=== PATIENT | male | born 1935 | race Caucasian/White ===

== ENCOUNTER 2019-12-13 09:44 | Outpatient (CLI) | payer MEDICARE, SELFPAY ==
--- NOTE | ~2019-12-13 | XR_ITS ---
EXAMINATION: XR shoulder LT min 2V EXAM DATE: 12/13/2019 13:25 INDICATION: No known recent injury provided at this time. Pain of the left shoulder. Adhesive capsul itis. TECHNIQUE: The following left shoulder projections obtained: frontal projection with internal rotatio n, frontal projection with external rotation, Grashey, and scapular Y view (4+ views). There is no p rior study for comparison. FINDINGS: No evidence of left shoulder rotator cuff calcific tendinosis. There is mild to moderate glenohumeral, severe acromioclavicular joint primary osteoarthritis. There are no acute fractures or dislocations identified. There is no subcutaneous gas. The soft tissue is unremarkable. There ar e no radiopaque foreign bodies. IMPRESSION: Advanced left acromioclavicular joint osteoarthritis. Reviewed, dictated and finalized at location B. [employer]IST
== END 2019-12-13 13:01 ==
PROVIDERS: PCP Internal Medicine; Visit Provider Internal Medicine
DX: M75.00 Adhesive capsulitis of unspecified shoulder (principal); M19.012 Primary osteoarthritis, left shoulder
CPT/HCPCS: 73030

== ENCOUNTER 2019-12-13 15:20 | Outpatient (CLI) | payer MEDICARE, SELFPAY ==
[2019-12-13 15:54] LABS: Basophils Percent Auto 0.5 % (0.2-1.2); Eosinophils Absolute Auto 0.2 K/mm3 (0-0.3); Eosinophils Percent Auto 3.2 % (0-4.4); Hematocrit 39.9 % (42.0-52.0); Hemoglobin 12.9 g/dL (14.0-18.0); Immature Granulocyte Absolute 0.01 K/mm3 (0.00-0.031); Immature Granulocyte Percent A 0.2 % (0-0.5); Lymphocytes Absolute Auto 0.79 K/mm3 (0.9-3.2); Lymphocytes Percent Auto 12.6 % (18.3-44.2); Mean Corpuscular HGB Conc 32.3 g/dl (32-36); Mean Corpuscular Hemoglobin 30.3 pg (26-34); Mean Corpuscular Volume 93.7 fl (80-100); Mean Platelet Volume 10.6 fl (7.4-10.4); Monocytes Absolute Auto 0.7 K/mm3 (0.1-0.6); Monocytes Percent Auto 10.5 % (2.6-8.5); Neutrophils Absolute Auto 4.6 K/mm3 (1.3-6.7); Platelet Count Result 191 k/mm3 (150-375); Red Blood Count 4.26 M/mm3 (4.6-6.20); Red Cell Distribution Width 14.8 % (11.5-14.5); White Blood Count 6.3 K/mm3 (4.5-10.0)
[2019-12-13 15:59] LABS: Add Urine Microscopic? NO; Appearance Urine Clear (Clear); Bilirubin Urine Negative (Negative); Blood Urine Negative (Negative); Color Urine Yellow (Yellow); Glucose Urine UA Negative (Negative); Ketones Urine Negative (Negative); Leukocyte Esterase Ur Negative LEU/UL (Negative); Nitrate Urine Negative (Negative); Protein Urine Negative (Negative); Specific Grav Ur 1.012 (1.001-1.035); Urobilinogen Urine Negative mg/dL (<2.0)
[2019-12-13 16:03] LABS: Alanine Aminotransferase 20 U/L (4-50); Albumin Level 4.2 g/dL (3.5-5.1); Alkaline Phosphatase 80 U/L (38-126); Aspartate Amino Transferase 24 U/L (17-59); Bilirubin,Total 0.6 mg/dL (0.2-1.3); Blood Urea Nitrogen 13 mg/dL (9-20); Calcium 9.2 mg/dL (8.4-10.2); Carbon Dioxide 25 mmol/L (22-30); Chloride 100 mmol/L (98-107); Cholesterol 168 mg/dL (0-200); Estimated Glomerular Filt Rate > 60; Glucose 141 mg/dL (75-110); HDL Direct 52 mg/dL; Potassium 4.3 mmol/L (3.4-5.0); Sodium 140 mmol/L (137-145); Triglycerides 173 mg/dL (<150)
[2019-12-13 16:15] LABS: LDL Cholesterol Direct 88 mg/dL
[2019-12-13 16:36] LABS: Prostate Specific Antigen < 0.1 ng/mL (< OR = 4.0)
[2019-12-13 16:44] LABS: Iron 91 ug/dL (49-181)
[2019-12-13 16:53] LABS: Percent Iron Saturation 26 % (20-50)
[2019-12-13 17:04] LABS: Vitamin D 25 Hydroxy 28.5 ng/mL
[2019-12-13 17:15] LABS: Folic Acid > 20.0 ng/mL (2.76->20)
== END 2019-12-13 15:21 | disposition home or self-care (01) ==
PROVIDERS: PCP Internal Medicine; Visit Provider Internal Medicine
DX: E11.9 Type 2 diabetes mellitus without complications (principal); E61.1 Iron deficiency; E78.5 Hyperlipidemia, unspecified; Z85.46 Personal history of malignant neoplasm of prostate; Z79.899 Other long term (current) drug therapy
CPT/HCPCS: 36415; 80053; 80061; 81003; 82306; 82607; 82728; 82746; 83036; 83540; 83550; 84153; 84443; 85025

== ENCOUNTER 2020-06-27 11:16 | Outpatient (CLI) | payer MEDICARE, SELFPAY ==
--- NOTE | ~2020-06-27 | XR_ITS ---
XR knee RT 3V, XR knee LT 3V 06/27/2020 11:45 Indication: Bilateral knee pain Procedure: 3 views of each knee Comparison: No prior studies for comparison. Findings: There is moderate bilateral osteoarthritis of the knees. There is chondrocalcinosis. No sig nificant joint effusion. No acute fracture or traumatic malalignment. Impression: 1: Moderate bilateral osteoarthritis of the knees. 2: Chondrocalcinosis. Reviewed, dictated and finalized at location A. Impression: 1: Moderate bilateral osteoarthritis of the knees. 2: Chondrocalcinosis. Impression: 1: Moderate bilateral osteoarthritis of the knees. 2: Chondrocalcinosis.
== END 2020-06-27 11:17 | disposition home or self-care (01) ==
PROVIDERS: PCP Internal Medicine; Visit Provider Internal Medicine
DX: M17.0 Bilateral primary osteoarthritis of knee (principal)
CPT/HCPCS: 73562

== ENCOUNTER 2022-02-03 12:02 | Outpatient (CLI) | payer MEDICARE, SELFPAY ==
--- NOTE | 2022-02-10 12:56 | WPDPFTINT ---
PFT Procedure Performed PFT Procedure Performed Plethysmography (Lung Vol) Diffusing Cap (DLCO) Flow Vol Loop Spirometry w/o Bronchodil PFT Interpretation DOS: 02/03/2022 REQUESTING: Dr. Eleuterio Hayden REASON FOR TESTING: Dyspnea PULMONARY FUNCTION TESTS Results are reliable and reproducible. Spirometry: FEV1 is 62% predicted, 1.44 L. This is mildly reduced. The FVC is mildly reduced 76% predicted, 2.38 L. The FEV1/FVC ratio is 61%, reduced. no bronchodilator was given. This shows a mild obstructive ventilatory impairment. Lung volumes: The total lung capacity is normal, 103% predicted, 6.22 L. The slow vital capacity is 96% predicted. This is significantly larger than the forced vital capacity obtained in spirometry. This is consistent with dynamic airflow obstruction. residual volume is 130% consistent with mild air trapping. The RV/TLC is increased 52% consistent with air trapping. Airway resistance is increased, 415%. Diffusion: DLCO is 56%, moderately reduced. This only partially corrects when adjusted for alveolar volume, DLCO /VA is 71% predicted. Flow volume loop: The flow volume loop shows mild scooping of the expiratory limb. IMPRESSION: This pulmonary function test without bronchodilator shows a mild obstructive ventilatory impairment, mild air trapping, and a moderate diffusion impairment. No bronchodilator was given. The patient has a history of smoking. This pattern could represent emphysema if bronchodilator had been administered without improvement in flows. If he had increased flows, he may have asthma/COPD overlap. Consider a trial of bronchodilator therapy. Toshia Orozco MD
--- NOTE | 2022-02-10 13:14 | WPDPFTINT ---
PFT Procedure Performed PFT Procedure Performed Plethysmography (Lung Vol) Diffusing Cap (DLCO) Flow Vol Loop Spirometry w/o Bronchodil PFT Interpretation DOS: 02/03/2022 REQUESTING: Dr. Nimisha Vásquez REASON FOR TESTING: Dyspnea PULMONARY FUNCTION TESTS Results are reliable and reproducible. Spirometry: FEV1 is 74% predicted, 2.77 L. FVC is 81%, normal, 3.92 L. The FEV1/FVC ratio is normal 71% predicted. No bronchodilator was administered. Lung volumes: Total lung capacity is increased, 143% predicted, 10.22 L consistent with moderate hyperinflation. Residual volume is severely increased to 178% predicted, 6.31 L. This shows severe air trapping. The RV/TLC ratio was increased 62%. Airway resistance is increased 180%. Diffusion: DLCO is 107%, normal. Flow volume loop: IMPRESSION: This patient has a mild obstructive ventilatory impairment Toshia Orozco MD
== END 2022-02-03 12:03 | disposition home or self-care (01) ==
PROVIDERS: PCP Internal Medicine; Visit Provider Internal Medicine
DX: R06.00 Dyspnea, unspecified (principal)
CPT/HCPCS: 94375; 94726; 94729

== ENCOUNTER 2025-03-11 16:58 | Inpatient (IN) | payer MEDICARE, SELFPAY ==
[2025-03-11] VITALS (8 sets, daily range): BP systolic 115–145; BP diastolic 63–97; PULSE 99–124; RESP 16–23; TEMP 36–36.3; O2SAT 95–100; BMI 23.2
--- NOTE | ~2025-03-11 | MR_ITS ---
MR brain/brain stem wo/w con Ordering provider: Marquise Roque MD History: 89 years Male with . CONFUSION . Comparison: CT head performed yesterday. Technique: MRI brain was performed with and without contrast. 15 mL ProHance was given IV. FINDINGS: BONES: Normal. CRANIOCERVICAL JUNCTION: normal. Anterolisthesis at the level of C4-C5 and C5-C6. PITUITARY: Normal. MAJOR INTRACRANIAL VESSELS: Normal flow void. OPTIC NERVES AND CRANIAL NERVES VII AND VIII COMPLEXES: Grossly normal. BRAIN PARENCHYMA AND CSF SPACES: Moderate nonspecific T2 white matter hyperintensities are seen in a bilateral periventricular and deep white matter distribution which are likely related to chronic isc hemic small vessel disease. Moderate diffuse cortical atrophy. FLAIR and T2 hyperintense signal area also seen in the montrell. The brainstem and cerebellum are normal. No acute or chronic intracranial hemorrhage. No extra axial fluid collections. Diffusion weighted an d ADC mapping images reveal no recent ischemia. No midline shift or mass effect. PARANASAL SINUSES: Normal. MASTOIDS: Effusions seen in the right mastoid air cells. SUPERFICIAL/SURROUNDING SOFT TISSUES: Normal. IMPRESSION: 1. No evidence of acute intracranial process. 2. Brain atrophy with deep white matter ischemic changes. T2 and FLAIR hyperintense signal also seen in the montrell which is most likely ischemic. Clinical correlation advised. Reviewed, dictated and finalized at location A. IMPRESSION: 1. No evidence of acute intracranial process. 2. Brain atrophy with deep white matter ischemic changes. T2 and FLAIR hyperin tense signal also seen in the montrell which is most likely ischemic. Clinical becki elation advised.
--- NOTE | ~2025-03-11 | XR_ITS ---
XR chest 1V Ordering provider: Marquise Roque MD History: 89 years Male with . ALTERED . Comparison: March 10, 2007 FINDINGS: MEDIASTINUM: The cardiac silhouette is moderately enlarged. LUNGS: No infiltrates, effusions or pneumothorax. OTHER: No free air under the diaphragm. Degenerative changes of the spine with dextroscoliosis. IMPRESSION: No acute cardiopulmonary pathology. Reviewed, dictated and finalized at location A.
--- NOTE | ~2025-03-11 | CT_ITS ---
CT brain wo con Ordering provider: Marquise Roque MD History: 89 years Male with . ALTERED . Comparison: None. Technique: CT of the head without contrast. Radiation reduction technique utilized.The dose-length pr oduct was 605.33 mGy-cm. FINDINGS: BRAIN PARENCHYMA AND CSF SPACES: Mild leukoaraiosis and diffuse cortical atrophy. Mild atheromatous d isease. No midline shift, mass effect or hemorrhage. The brain parenchyma and CSF spaces are otherwise norm al. VISUALIZED PARANASAL SINUSES: Well aerated. MASTOIDS: Well aerated. BONES: The bones appear intact. SOFT TISSUES: Visualized nasopharynx is normal. Superficial soft tissues are normal. IMPRESSION: No acute intracranial findings. Reviewed, dictated and finalized at location A.
--- NOTE | 2025-03-11 17:10 | ECG_ITS ---
Test Date: 2025-03-11 17:35:23 Measurements Intervals [place] Rate: 121 P: 223 [place]: 218 QRS: -73 QRSD: 142 T: 18 QT: 341 QTc: 486 Interpretive Statements SINUS TACHYCARDIA WITH FIRST DEGREE AV BLOCK RIGHT BUNDLE BRANCH BLOCK [120+ ms QRS DURATION, UPRIGHT V1, 40+ ms S IN I/aVL/V4/V5/V6] LEFT ANTERIOR FASCICULAR BLOCK [QRS AXIS <= -45, QR IN I, RS IN II] No previous ECG available for comparison Electronically Signed On 03-12-2025 10:06:53 CDT by Pratik Esquivel M.D.
[2025-03-11 17:28] LABS: Hemoglobin 13.6 g/dL (14.0-18.0); Mean Corpuscular HGB Conc 33.2 g/dl (32-36); Mean Corpuscular Hemoglobin 30.8 pg (26-34); Mean Platelet Volume 10.4 fl (7.4-10.4); Platelet Count Result 221 k/mm3 (150-375); Red Blood Count 4.41 M/mm3 (4.6-6.20); Red Cell Distribution Width 14.6 % (11.5-14.5); White Blood Count 13.7 K/mm3 (4.5-10.0)
[2025-03-11 17:42] LABS: Alanine Aminotransferase 31 U/L (6-50); Albumin Level 4.1 g/dL (3.5-5.1); Alkaline Phosphatase 100 U/L (38-126); Anion Gap 14 mmol/L (4-12); Aspartate Amino Transferase 71 U/L (17-59); Bilirubin,Total 1.4 mg/dL (0.2-1.3); Blood Urea Nitrogen 29 mg/dL (9-20); Calcium 9.3 mg/dL (8.4-10.2); Carbon Dioxide 20 mmol/L (22-30); Chloride 110 mmol/L (98-107); Estimated Glomerular Filt Rate 48; Glucose 215 mg/dL (65-110); Potassium 3.9 mmol/L (3.4-5.0); Sodium 144 mmol/L (137-145)
--- NOTE | 2025-03-11 17:45 | ED_ITS ---
HPI - Altered Mental Status General Chief Complaint: Altered Mental Status Stated Complaint: AMS Time Seen by Provider: 03/11/25 17:45 Source: patient, family and EMS Mode of arrival: EMS History of Present Illness HPI narrative: 89 YEARS OLD WHITE MALE LIVES ALONE, AWAKE ALERT ORIENTED X4 BASELINE, LAST TIME WAS SEEN BY HIS SON 1 WEEK AGO, SON WENT TO VISIT HIM TODAY AND FOUND HIM SITTING ON THE TOILET FOR UNKNOWN DURATION, UNABLE TO GET UP, CONFUSED. PATIENT DENIES ANY PAIN, FEVER, CHILLS, NAUSEA, VOMITING, CHEST PAIN, SHORTNESS OF BREATH, ABDOMINAL PAIN OR BACK PAIN OR URINARY SYMPTOMS. PATIENT CURRENTLY AWAKE AND ORIENTED TO HIS NAME AND AGE ONLY MD complaint: altered mental status Related Data Home Medications ?Medication ?Instructions ?Recorded ?Confirmed ?Last Taken ?Type aspirin 81 mg tablet,delayed 81 mg PO DAILY 12/13/19 06/27/20 Unknown History release (Adult Low Dose Aspirin) diphenhydramine HCl 25 mg tablet 25 mg PO Q6H PRN 12/13/19 06/27/20 Unknown History (Benadryl Allergy) ferrous sulfate 325 mg (65 mg 325 mg PO DAILY 12/13/19 06/27/20 Unknown History iron) tablet (FerrouSul) glucosamine HCl 1,500 mg tablet 1,500 mg PO DAILY 12/13/19 06/27/20 Unknown History Allergies Allergy/AdvReac Type Severity Reaction Status Date / Time METHYLATE Allergy Mild RASH Uncoded 06/27/20 10:33 Review of Systems 2 Review of Systems: All systems reviewed & are unremarkable except as noted in HPI and below Exam 2 Narrative: GENERAL APPEARANCE: WELL-DEVELOPED, WELL-NOURISHED SKIN: NORMAL COLOR 2+ EDEMA RIGHT LOWER EXTREMITY, 1+ EDEMA LEFT LOWER EXTREMITY HEAD: NORMOCEPHALIC, NONTRAUMATIC EYES: CLEAR CONJUNCTIVA ENT: DRY ORAL CAVITY, NECK: SUPPLE, NONTENDER CHEST AND RESPIRATORY: AIRWAY PATENT, NO RESPIRATORY DISTRESS, NO ACCESSORY MUSCLE USE HEART: REGULAR RATE/RHYTHM ABDOMEN: SOFT, NONTENDER, NO ORGANOMEGALY, QUIET BOWEL SOUNDS GENITAL EXAMINATION SHOWING 2+ EDEMA OF THE SCROTUM AND PENIS, NO WEEPING, NO ERYTHEMA, NO WARMTH, NO LOCALIZED TENDERNESS. VASCULAR: NORMAL PERIPHERAL PULSES, NORMAL CAPILLARY REFILL. MUSCULOSKELETAL: LIMITED RANGE OF MOTION OF LEFT KNEE, CHRONIC AND LEFT SHOULDER, CHRONIC, NO BRUISES, NO SWELLING, NO DEFORMITY NEUROLOGIC: ALERT AND ORIENTED ? TO HIS NAME AND AGE ONLY, NO GROSS MOTOR DEFICIT DIAGNOSIS ALTERED MENTAL STATUS, RHABDOMYOLYSIS, KATHARINA, SCROTAL EDEMA Course Vital Signs Vital signs: Vital Signs Temperature 36.3 C L 03/11/25 17:03 Pulse Rate 124 H 03/11/25 17:03 Respiratory Rate 16 03/11/25 17:03 Blood Pressure 145/94 H 03/11/25 17:03 Pulse Oximetry 100 03/11/25 17:03 Oxygen Delivery Room Air 03/11/25 17:03 Temperature 36.3 C L 03/11/25 17:03 Pulse Rate 122 H 03/11/25 19:21 Respiratory Rate 20 03/11/25 19:21 Blood Pressure 141/95 H 03/11/25 19:21 Pulse Oximetry 99 03/11/25 19:23 Oxygen Delivery Room Air 03/11/25 19:23 MDM - Altered Mental Status MDM Narrative Medical decision making narrative: PATIENT CAME TO THE ED WITH CONFUSION VITAL SIGNS SHOWING BLOOD PRESSURE 145/94, HEART RATE 1 T1A 4 OTHERWISE WITHIN NORMAL LIMIT PHYSICAL EXAMINATION SHOWING THAT THE PATIENT AWAKE, ALERT ORIENTED TO HIS NAME AND AGE ONLY, DRY ORAL MOUTH WITH CHIPS LIPS DIFFERENTIAL DIAGNOSIS INCLUDE ACUTE CVA, DEHYDRATION, ELECTROLYTE IMBALANCE, URINARY TRACT INFECTION, PNEUMONIA, METABOLIC ENCEPHALOPATHY BLOOD WORKUP TODAY INCLUDES CBC, CMP, TROPONIN, TSH, COAGS, CPK SHOWED WBC 30.7, HEMOGLOBIN 13.6, BUN 29, CREATININE 1.39, GLUCOSE 215, AST 71, TOTAL CPK 2337, URINALYSIS SHOWED NO EVIDENCE OF INFECTION CHEST X-RAY SHOWED NO ACUTE ABNORMALITY CT HEAD WITHOUT SHOWED NO SIGNIFICANT ABNORMALITY DIAGNOSIS: ACUTE ALTERED MENTAL STATUS, KATHARINA, RHABDOMYOLYSIS, EDEMATOUS SCROTUM ADMIT TO HOSPITALIST Differential Diagnosis Differential diagnosis: Likely other ( ABOVE) Lab Data Attestation: I reviewed the patient's lab results. 03/11/25 17:23 03/11/25 17:23 Labs: Lab Results 03/11/25 03/11/25 Range/Units 17:23 19:21 WBC 13.7 H (4.5-10.0) K/mm3 RBC 4.41 L (4.6-6.20) M/mm3 Hgb 13.6 L (14.0-18.0) g/dL Hct 41.0 L (42.0-52.0) % MCV 93.0 (80-100) fl MCH 30.8 (26-34) pg MCHC 33.2 (32-36) g/dl RDW 14.6 H (11.5-14.5) % Plt Count 221 (150-375) k/mm3 MPV 10.4 (7.4-10.4) fl Immature Gran % (Auto) Not Reportable Neut % (Auto) Not Reportable Lymph % (Auto) Not Reportable [place] % (Auto) Not Reportable Eos % (Auto) Not Reportable Baso % (Auto) Not Reportable Lymph # (Auto) Not Reportable [place] # (Auto) Not Reportable Eos # (Auto) Not Reportable Baso # (Auto) Not Reportable Abs Immat Gran (auto) Not Reportable Absolute Neuts (auto) Not Reportable Absolute Nucleated RBC Not Reportable Total Counted 100 Neutrophils % (Manual) 88 H (46-73) % Band Neutrophils % 1 (0-6) % Lymphocytes % (Manual) 2.0 L (18-44) % Monocytes % (Manual) 9 (3-9) % Nucleated RBC % Not Reportable Abs Neuts (Manual) 12.19 H (1.3-6.7) K/mm3 Abs Lymphs (Manual) 0.27 L (1.1-4.5) K/mm3 Abs Monocytes (Manual) 1.23 H (0.1-0.90) K/mm3 Platelet Estimate Adequate (Adequate) Anisocytosis 1+ Schistocytes None seen PT 14.0 (11.1-14.7) Seconds INR 1.0 APTT 25.2 (22.3-36.8) Seconds Sodium 144 (137-145) mmol/L Potassium 3.9 (3.4-5.0) mmol/L Chloride 110 H (98-107) mmol/L Carbon Dioxide 20 L (22-30) mmol/L Anion Gap 14 H (4-12) mmol/L BUN 29 H D (9-20) mg/dL Creatinine 1.39 H (0.7-1.3) mg/dL Estim Creat Clear Calc Not Reportable Estimated GFR 48 L (59 - ) Glucose 215 H (65-110) mg/dL Calcium 9.3 (8.4-10.2) mg/dL Total Bilirubin 1.4 H (0.2-1.3) mg/dL AST 71 H (17-59) U/L ALT 31 (6-50) U/L Alkaline Phosphatase 100 (38-126) U/L Total Creatine Kinase 2337 H (55-170) U/L Total Protein 7.0 (6.3-8.2) g/dL Albumin 4.1 (3.5-5.1) g/dL Urine Color Yellow (Yellow) Urine Appearance Clear (Clear) Urine pH 5.5 (5.0-9.0) Ur Specific Jber 1.018 (1.001-1.035) Urine Protein 2+ H (Negative) mg/dL Urine Glucose (UA) Negative (Negative) mg/dL Urine Ketones 1+ H (Negative) mg/dL Ur Blood (Man) 2+ H (Negative) Urine Nitrate Negative (Negative) Urine Bilirubin Negative (Negative) Urine Urobilinogen 0.2 (<2.0) mg/dL Add Ur Microanalysis Reviewed Leukocyte Esterase Rfl Negative (Negative) KRISHNA/UL Urine RBC 0-2 (0-2) /hpf Urine WBC 0-5 (0-3) /hpf Ur Squamous Epith Cells None seen (Few) /hpf Urine Bacteria None seen /hpf Urine Casts 3-5 Urine Opiates Screen Negative (Negative) Urine Methadone Screen Negative (Negative) Ur Barbiturates Screen Negative (Negative) Ur Phencyclidine Scrn Negative (Negative) Ur Amphetamine Screen Negative (Negative) U Benzodiazepines Scrn Negative (Negative) Urine Cocaine Screen Negative (Negative) U Cannabinoids Screen Negative (Negative) Imaging Data Radiologist's impression: Impressions Head CT 03/11/25 18:26 IMPRESSION: No acute intracranial findings. Chest X-Ray 03/11/25 18:41 IMPRESSION: No acute cardiopulmonary pathology. ECG Data EKG #1: Attestation: I personally reviewed and interpreted this ECG as follows: ECG completion date: 03/11/25 Prior ECG tracings: available for review Interpretation: MULTIFOCAL ATRIAL TACHYCARDIA AT 121 BEATS PER MINUTE, FIRST-DEGREE HEART BLOCK, RIGHT BUNDLE-BRANCH BLOCK, NO PREVIOUS EKG AVAILABLE FOR COMPARISON Critical Care Time Critical Care Time Critical Care Time: No Discharge Plan Discharge Clinical Impression: Acute alteration in mental status, KATHARINA (acute kidney injury), Rhabdomyolysis, Multifocal atrial tachycardia Patient Disposition: Still a Patient Condition: Stable Patient Language: Ugandan Prescriptions: No Action Januvia 50 mg tablet 50 mg PO DAILY Qty: 30 2RF aspirin [Adult Low Dose Aspirin] 81 mg tablet,delayed release (DR/EC) 81 mg PO DAILY ferrous sulfate [FerrouSul] 325 mg (65 mg iron) tablet 325 mg PO DAILY glucosamine HCl 1,500 mg tablet 1,500 mg PO DAILY Rx Instructions: administer with a meal diphenhydramine HCl [Benadryl Allergy] 25 mg tablet 25 mg PO Q6H PRN metformin 500 mg tablet 1,000 mg PO BID Qty: 360 1RF lisinopril 10 mg tablet 10 mg PO DAILY Qty: 90 1RF atorvastatin 20 mg tablet 20 mg PO DAILY Qty: 90 1RF Follow-up/Referrals: Catracho,Eleuterio Hernandes MD [Primary Care Provider] -
[2025-03-11 17:48] LABS: Partial Thromboplastin Time 25.2 Seconds (22.3-36.8)
[2025-03-11 18:00] LABS: Band Neutrophils Percent 1 % (0-6); Lymphocytes Absolute Manual 0.27 K/mm3 (1.1-4.5); Monocytes Absolute Manual 1.23 K/mm3 (0.1-0.90); Monocytes Percent Manual 9 % (3-9); Neutrophils Absolute Manual 12.19 K/mm3 (1.3-6.7); Neutrophils Percent Manual 88 % (46-73); Platelet Estimate Adequate (Adequate); Total Cells Counted 100
[2025-03-11] MEDS: LACTATED RINGERS 1,000 ML 999 ML IV CONT (18:00)
[2025-03-11 18:01] LABS: Anisocytosis 1+; Schistocytes None Seen
--- OUTSIDE RECORDS SUMMARY | 2025-03-11 18:01 | XMS_ITS | CONTINUITY OF CARE DOCUMENT ---
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 Arun Mcdowell MD LIGHTHEADEDNESS active ? Arun Mcdowell MD SHORTNESS OF BREATH active ? Arun elder MD EDEMA active ? Arun Mcdowell MD BACK PAIN active ? Arun Mcdowell MD ADENOCARCINOMA, PROSTATE, HX OF active ? Rhett Mcdowell MD MITRAL REGURGITATION active Arun pagan MD RBBB active Arun Mcdowell MD CHEST PAIN-TYPE TO BE DETERMINED active Kandy Mcdowell MD BRADYCARDIA SINUS active Arun Mcdowell MD ENCOUNTERS Date Type Provider Location Encounter Diag nosis 0 - 0 In-person encounter Office Visit Arun Mcdowell MD [facility] DIZZINESSLIGHTHEADEDNESSSHORTNESS OF BREATHEDEMABACK PAINADENOCARCINOMA, PROSTATE, HX OFMITRAL REGURGITATIONRBBBCHEST PAIN-TYPE TO BE DETERMINEDBRADYCARDIA SINUS VITAL SIGNS Date Observation Value Provider blood pressure, diastolic 70 mm[Hg] Joseph Hendrix RN blood pressure, systolic 140 mm[Hg] Castro Hendrix RN pulse rate 53 /min Castro Hendrix RN oxygen saturation, oximetry 96 % Castro Hendrix RN respiratory rate E&M 18 /min Castro pires RN weight E&M 183 [lb_av] Castro Hendrix RN HISTORY OF MEDICATION USE Medication Status Instructions Dates Provider Indications Com ments LISINOPRIL 10 MG ORAL TABLET active ONE TAB. DAILY 0 Arun Mcdowell MD VERAPAMIL HCL ER 240 MG ORAL TABLET EXTENDED RELEASE completed ONE TAB. DAILY - 0 Arun Mcdwoell MD VYTORIN 10-40 MG ORAL TABLET active ONE TAB. AT BEDTIME Castro Hendrix RN ASPIRIN 81 MG ORAL TABLET active ONE TAB. DAILY Castro Hendrix RN SOCIAL HISTORY Date Observation Value Provider social history E&M Marital Statu s: J ob Status: Retired L earl with family/friends Arun Mcdowell MD smoking status Quit Arun joya MD drug use none Arun pagan MD smoking/tobacco cess ation, patient education and counseling yes Arun Mcdowell MD social history reviewed E&M reviewed Arun Mcdowell MD physical exercise, frequency, days per week yes [employer] caffeine use, averag e drinks per day yes LinkLog alcohol use, average drinks per day 1-3 drinks per day LinkLog number of years as a smoker 10 years or m ore [facility] smoking status Quit LinkLog physical exercise, frequency, days per week yes LinkLog caffeine use, averag e drinks per day yes [employer]Log alcohol use, average drinks per day 1-3 drinks per day [employer] number of years as a smoker 10 years or m ore [facility] smoking status Quit LinkLog physical exercise, frequency, days per week yes LinkLog caffeine use, averag e drinks per day yes LinkLog alcohol use, average drinks per day 1-3 drinks per day [employer] number of [facility] as a [facility] MENTAL STATUS Date Observation Value Provider assessment of judgme nt and insight E&M Alert and oriented to time, place and person. Mood and affect are normal. Castro Hendrix RN INSURANCE PROVIDERS Payer name Policy type / Coverage type Monica red democrat ID [id number] HMO Other [id number] TREATMENT PLAN Date Name Stress Test - Nuclea r Spirometry Complete Echo HISTORY OF PROCEDURES Procedure Date Procedure Name Provider Procedure Notes S tatus EKG Arun Mcdowell MD comp leted
--- OUTSIDE RECORDS SUMMARY | 2025-03-11 18:01 | XMS_ITS | Data Portability ---
Author Organization [facility], Main Office Address [address] [place] [address] Assessment No assessment recorded. Plan of Treatment Reminders Order Date Submit Date Provider Last Modified By Organization Details Last Modified Time Details Appointments None recorded . Lab HbA1c (hemoglo bin A1c), blood 024 01/12/20 24 [facility], [address] [place], [address], 4 15:47:53 lipid panel, serum 024 01/12/20 24 [email or web address] [facility], [address] [place], [address], 4 15:47:53 CMP, serum or plasma 024 01/12/20 24 [email or web address] [facility], [address] [place], [address], 4 15:47:53 CBC w/ auto diff 024 01/12/20 24 [email or web address] [facility], [address] [place], [address], 4 15:47:53 HbA1c (hemoglo bin A1c), blood 023 09/15/20 23 [facility], [address] [place], [address], 3 15:02:34 microalb umin/cre atinine, mass ratio, urine 023 09/15/20 23 [facility], [address] [place], [address], 3 15:02:31 lipid panel, serum 023 09/15/20 23 [facility], [address] [place], [address], 3 15:02:30 CMP, serum or plasma 023 09/15/20 23 [facility], [address] [place], [address], 3 15:02:32 CBC w/ auto diff 023 09/15/20 23 [facility], [address] [place], [address], 3 15:02:33 PSA, serum or plasma 023 01/07/[id number] [place] [address], [address] [place], [address], 3 15:26:29 HbA1c (hemoglo bin A1c), blood 023 01/07/[email or web address] [place] [address], [address] [place], [address], 3 15:26:28 microalb umin/cre atinine, mass ratio, urine 023 01/07/[email or web address] [place] [address], [address] [place], [address], 3 15:26:29 lipid panel, serum 023 01/07/[email or web address] [place] [address], [address] [place], [address], 3 15:26:28 CMP, serum or plasma 023 01/07/[id number] [place] [address], [address] [place], [address], 3 15:26:28 CBC w/ auto diff 023 01/07/20 23 [email or web address] [facility], [address] [place] [address], [address], 3 15:26:28 Referral None recorded . Procedures None recorded . Surgeries None recorded . Imaging None recorded . Medication Orders None recorded . Patient TargetsNo targets recorded. Patient Instructions Encounter Date Encounter Id Patient Instructions Last Modified By Organization Details Last Modified Time 01/06/2023 [id number] Follow-up hypertension -hyperlipidemia - type 2 diabetes -history of malignant neoplasm of prostate all clinically stable. Will continue with current medication check blood work in the form of CBC, CMP, lipid, hemoglobin A1c, microalbumin and PSA. Continue on current Rx follow-up in four months [email or web address] Not available 01/06/2023 15:16:39 05/19/2023 [id number] Follow-up hypertension-hyper lipidemia - type 2 diabetes -malignant neoplasm of the prostate by history. Blood work performed back in January 18 showed hemoglobin A1c of 7.1. Cholesterol is 156 HDL of 57 LDL of 80. Triglycerides 108. Overall everything else looked good. No reason for for any further evaluation at this time. Will continue on current medications check back in four months and and recheck blood work at that time. Not available 05/19/2023 16:07:28 09/15/2023 [id number] Essential hypertension, hyperlipidemia and type 2 diabetes all clinically stable. Last blood work performed showed hemoglobin A1c of 7.1. Cholesterol was 156 HDL 57 LDL of 80. PSA was less than 0.04. Clinically is doing well otherwise. Will continue on current medications check blood work consisting of CBC, CMP, lipid, hemoglobin A1c and microalbumin. Portions of the record may have been created with voice recognition software. Occasional wrong-word or s ound-a-like substitutions may have occurred due to the inherent limitations of voice recognition software. Read the chart carefully and recognize, using context, where substitutions have occurred. [email or web address] Not available 09/15/2023 15:51:16 01/12/2024 [id number] Follow-up hypertension, hyperlipidemia, type 2 diabetes and primary malignant neoplasm of the prostate. All clinically stable no interval complaints of any new problems. Will check blood work in the form of CBC, CMP, lipid, hemoglobin A1c. Continue on current Rx follow-up in four months. Next Appt: 4 Months Approximate Date: 05/11/2024 Portions of the record may have been created with voice recognition software. Occasional wrong-word or s ound-a-like substitutions may have occurred due to the inherent limitations of voice recognition software. Read the chart carefully and recognize, using context, where substitutions have occurred. [email or web address] Not available 01/12/2024 15:56:29 Reason for Referral None Reported. Results Created Date Observation Date Name Description Value Unit Range Abnormal Flag Note LastModifiedBy Organization Detail LastModifiedTime 09/10/2009/12/2022 HEMOG LOBIN A1C hemoglobin A1C 7.0 %_of_ total _HGB <5.7 high For trinh reid witho ut known diabe vivi, a hemog lobin A1c value of 6.5% or great er indic ates that they may have diabe vivi and this shoul d be confi rmed with a follo w-up test. For trinh reid with known diabe vivi, a value <7% indic ates that their diabe vivi is well contr olled and a value great er than or equal to 7% indic ates subop timal contr ol. A1c targe ts shoul d be indiv idual ized based on durat ion of diabe vivi, age, comor bid condi tions , and other consi derat ions. Curre ntly, no conse nsus exist jerrod li use of hemog lobin A1c for diagn osis of diabe vivi for child wm. Not Available [facility] [facility] [address] [place], [address], 09/12/2022 14:03:16 09/10/20 22 09/12/2022 CBC (INCL UDES DIFF/ PLT) white blood cell count 4.9 thous and/u L 3.8-10 .8 normal Not Available [facility] [facility] [address] [place], [address], 09/12/2022 14:03:15 09/10/20 22 09/12/2022 CBC (INCL UDES DIFF/ PLT) red blood cell count 4.23 geraldo on/uL 4.20-5 .80 normal Not Available [address], [address], 09/12/2022 14:03:15 09/10/20 22 09/12/2022 CBC (INCL UDES DIFF/ PLT) hemoglobin 13.7 g/dL 13.2-1 7.1 normal Not Available [address], [address], 09/12/2022 14:03:15 09/10/20 22 09/12/2022 CBC (INCL UDES DIFF/ PLT) hematocrit 40.3 % 38.5-5 0.0 normal Not Available [address], [address], 09/12/2022 14:03:15 09/10/20 22 09/12/2022 CBC (INCL UDES DIFF/ PLT) MCV 95.3 fL 80.0-1 00.0 normal Not Available [address], [address], 09/12/2022 14:03:15 09/10/20 22 09/12/2022 CBC (INCL UDES DIFF/ PLT) MCH 32.4 pg 27.0-3 3.0 normal Not Available [address], [address], 09/12/2022 14:03:15 09/10/20 22 09/12/2022 CBC (INCL UDES DIFF/ PLT) MCHC 34.0 g/dL 32.0-3 6.0 normal Not Available [address], [address], 09/12/2022 14:03:15 09/10/20 22 09/12/2022 CBC (INCL UDES DIFF/ PLT) RDW 13.3 % 11.0-1 5.0 normal Not Available [address], [address], 09/12/2022 14:03:15 09/10/20 22 09/12/2022 CBC (INCL UDES DIFF/ PLT) platelet count 173 thous and/u L 140-40 0 normal Not Available [address], [address], 09/12/2022 14:03:15 09/10/20 22 09/12/2022 CBC (INCL UDES DIFF/ PLT) MPV 10.6 fL 7.5-12 .5 normal Not Available [address], [address], 09/12/2022 14:03:15 09/10/20 22 09/12/2022 CBC (INCL UDES DIFF/ PLT) absolute neutrophils 3616 cells /uL 1500-7 800 normal Not Available [address], [address], 09/12/2022 14:03:15 09/10/20 22 09/12/2022 CBC (INCL UDES DIFF/ PLT) absolute lymphocytes 608 cells /uL 850-39 00 low Not Available [address], [address], 09/12/2022 14:03:15 09/10/20 22 09/12/2022 CBC (INCL UDES DIFF/ PLT) absolute monocytes 466 cells /uL 200-95 0 normal Not Available [address], [address], 09/12/2022 14:03:15 09/10/20 22 09/12/2022 CBC (INCL UDES DIFF/ PLT) absolute eosinophils 191 cells /uL 15-500 normal Not Available [address], [address], 09/12/2022 14:03:15 09/10/20 22 09/12/2022 CBC (INCL UDES DIFF/ PLT) absolute basophils 20 cells /uL 0-200 normal Not Available [address], [address], 09/12/2022 14:03:15 09/10/20 22 09/12/2022 CBC (INCL UDES DIFF/ PLT) neutrophils 73.8 % normal Not Available [address], [address], 09/12/2022 14:03:15 09/10/20 22 09/12/2022 CBC (INCL UDES DIFF/ PLT) lymphocytes 12.4 % normal Not Available [address], [address], 09/12/2022 14:03:15 09/10/20 22 09/12/2022 CBC (INCL UDES DIFF/ PLT) monocytes 9.5 % normal Not Available [address], [address], 09/12/2022 14:03:15 09/10/20 22 09/12/2022 CBC (INCL UDES DIFF/ PLT) eosinophils 3.9 % normal Not Available [address], [address], 09/12/2022 14:03:15 09/10/20 22 09/12/2022 CBC (INCL UDES DIFF/ PLT) basophils 0.4 % normal Not Available [address], [address], 09/12/2022 14:03:15 09/10/2009/12/2022 ALBUM IN, RANDO M URINE W/O CREAT ININE albumin, urine 1.5 mg/dL see note: normal Refer ence Range : Refer ence Range Not estab lishe d Not Available [address], [address], 09/12/2022 14:03:15 09/10/20 22 09/12/2022 ALBUM IN, RANDO M URINE W/O CREAT ININE ROSANNA The ADA defin es abnor malit ies in album in excre tion as follo ws: Album inuri a Categ ory Resul t (mcg/ mg creat inine ) Miladys l to Mildl y incre ased <30 Moder ately incre ased 30-29 9 Sever marly incre ased > OR = 300 The ADA recom mends that at least two of three speci mens colle cted withi n a 3-6 month perio d be abnor mal befor e consi young g a patie nt to be withi n a diagn ostic categ ory. Not Available [address], [address], 09/12/2022 14:03:15 09/10/20 22 09/12/2022 COMPR EHENS TYRA METAB OLIC PANEL glucose 166 mg/dL 65-99 high Fasti ng refer ence inter komal For someo ne witho ut known diabe vivi, a gluco se value >125 mg/dL indic ates that they may have diabe vivi and this shoul d be confi rmed with a follo w-up test. Not Available [address], [address], 09/12/2022 14:03:14 09/10/20 22 09/12/2022 COMPR EHENS TYRA METAB OLIC PANEL urea nitrogen (BUN) 18 mg/dL 7-25 normal Not Available [address] [address] [place], [address], 09/12/2022 14:03:14 09/10/20 22 09/12/2022 COMPR EHENS TYRA METAB OLIC PANEL creatinine 0.88 mg/dL 0.70-1 .22 normal Not Available [facility] [address], [address], 09/12/2022 14:03:14 09/10/20 22 09/12/2022 COMPR EHENS TYRA METAB OLIC PANEL eGFR 84 mL/mi n/1.7 3m2 > or = 60 normal The eGFR is based on the CKD-E PI 2020 equat ion. To calcu late the new eGFR from a previ ous Creat inine or Cysta tin C resul t, go to https ://abdiel chiu.zhen phelps.o parth/pr ofess ional s/ kdoqi /gfr% 5Fcal culat or Not Available [address] [address] [place], [address], 09/12/2022 14:03:14 09/10/20 22 09/12/2022 COMPR EHENS TYRA METAB OLIC PANEL BUN/creatini ne ratio not applic able (calc ) 6-22 Not Available [address], [address], 09/12/2022 14:03:14 09/10/20 22 09/12/2022 COMPR EHENS TYRA METAB OLIC PANEL sodium 140 mmol/ L 135-14 6 normal Not Available [address] [address] [place], [address], 09/12/2022 14:03:14 09/10/20 22 09/12/2022 COMPR EHENS TYRA METAB OLIC PANEL potassium 4.2 mmol/ L 3.5-5. 3 normal Not Available [address] [address] [place], [address], 09/12/2022 14:03:14 09/10/20 22 09/12/2022 COMPR EHENS TYRA METAB OLIC PANEL chloride 105 mmol/ L 98-110 normal Not Available [employer] [address] [address] [place], [address], 09/12/2022 14:03:14 09/10/20 22 09/12/2022 COMPR EHENS TYRA METAB OLIC PANEL carbon dioxide 28 mmol/ L 20-32 normal Not Available [employer] [address] [address] [place], [address], 09/12/2022 14:03:14 09/10/20 22 09/12/2022 COMPR EHENS TYRA METAB OLIC PANEL calcium 9.0 mg/dL 8.6-10 .3 normal Not Available [address], [address], 09/12/2022 14:03:14 09/10/20 22 09/12/2022 COMPR EHENS TYRA METAB OLIC PANEL protein, total 6.2 g/dL 6.1-8. 1 normal Not Available [address], [address], 09/12/2022 14:03:14 09/10/20 22 09/12/2022 COMPR EHENS TYRA METAB OLIC PANEL albumin 4.0 g/dL 3.6-5. 1 normal Not Available [address], [address], 09/12/2022 14:03:14 09/10/20 22 09/12/2022 COMPR EHENS TYRA METAB OLIC PANEL globulin 2.2 g/dL_ (calc ) 1.9-3. 7 normal Not Available [address], [address], 09/12/2022 14:03:14 09/10/20 22 09/12/2022 COMPR EHENS TYRA METAB OLIC PANEL albumin/glob ulin ratio 1.8 (calc ) 1.0-2. 5 normal Not Available [address], [address], 09/12/2022 14:03:14 09/10/20 22 09/12/2022 COMPR EHENS TYRA METAB OLIC PANEL bilirubin, total 0.7 mg/dL 0.2-1. 2 normal Not Available [address], [address], 09/12/2022 14:03:14 09/10/20 22 09/12/2022 COMPR EHENS TYRA METAB OLIC PANEL alkaline phosphatase 65 U/L 35-144 normal Not Available [facility] [address], [address], 09/12/2022 14:03:14 09/10/20 22 09/12/2022 COMPR EHENS TYRA METAB OLIC PANEL AST 14 U/L 10-35 normal Not Available [address], [address], 09/12/2022 14:03:14 09/10/20 22 09/12/2022 COMPR EHENS TYRA METAB OLIC PANEL ALT 12 U/L 9-46 normal Not Available [address], [address], 09/12/2022 14:03:14 09/10/20 22 09/12/2022 LIPID PANEL , STAND SOLA cholesterol, total 156 mg/dL <200 normal Not Available [address], [address], 09/12/2022 14:03:14 09/10/20 22 09/12/2022 LIPID PANEL , [place] HDL cholesterol 58 mg/dL > or = 40 normal Not Available [address], [address], 09/12/2022 14:03:14 09/10/20 22 09/12/2022 LIPID PANEL , [place] triglyceride s 79 mg/dL <150 normal Not Available [address], [address], 09/12/2022 14:03:14 09/10/20 22 09/12/2022 LIPID PANEL , [place] LDL-choleste rol 82 mg/dL _(alexx c) normal Refer ence range : <100 Jennifer able range <100 mg/dL for prima ry preve ntion ; <70 mg/dL for patie nts with CHD or diabe tic patie nts with > or = 2 CHD risk facto rs. LDL-C is now calcu lated using the Deya n-[facility] kins simeon stephens n, which is a valid ated novel alfred wray than the Fried latosha equat ion in the estim ation of LDL-C . Deya valdez SS et al. JAIRO. 2013; 310(1 9): 2061- 2068 (http ://ed ucati on.Qu Darrin fitograms. com/f aq/FA Q164) Not Available [employer] [address] [address] [place], [address], 09/12/2022 14:03:14 09/10/2009/12/2022 LIPID PANEL , [place] chol/HDLC ratio 2.7 (calc ) <5.0 normal Not Available [employer] [address] [address] [place], [address], 09/12/2022 14:03:14 09/10/20 22 09/12/2022 LIPID PANEL , [place] non HDL cholesterol 98 mg/dL _(alexx c) <130 normal For patie nts with diabe vivi plus 1 major ASCVD risk facto r, treat ing to a non-H DL-C goal of <100 mg/dL (LDL- C of <70 mg/dL ) is consi florenciad a ashely bob optio n. Not Available [employer] [address] [address] [place], [address], 09/12/2022 14:03:14 02/11/20 23 02/11/2023 LIPID PANEL , [place]A cholesterol, total 156 mg/dL <200 normal Not Available [facility] [address] [address] [place], [address], 02/11/2023 12:53:22 02/11/20 23 02/11/2023 LIPID PANEL , [place] HDL cholesterol 57 mg/dL > or = 40 normal Not Available [facility] [address] [address] [place], [address], 02/11/2023 12:53:22 02/11/20 23 02/11/2023 LIPID PANEL , [place] triglyceride s 108 mg/dL <150 normal Not Available [address], [address], 02/11/2023 12:53:22 02/11/20 23 02/11/2023 LIPID PANEL , [place] LDL-choleste rol 80 mg/dL _(alexx c) normal Refer ence range : <100 Jennifer able range <100 mg/dL for prima ry preve ntion ; <70 mg/dL for patie nts with CHD or diabe tic patie nts with > or = 2 CHD risk facto rs. LDL-C is now calcu lated using the Deya n-[employer] kins calcu angelo n, which is a valid ated novel metho d provi ding sailaja r accur acy than the Fried latosha equat ion in the estim ation of LDL-C . Deya valdez SS et al. JAIRO. 2013; 310(1 9): 2061- 2068 (http ://ed ucati on.Qu estFamilyLeaf. com/f aq/FA Q164) Not Available [address], [address], 02/11/2023 12:53:22 02/11/20 23 02/11/2023 LIPID PANEL , [place] chol/HDLC ratio 2.7 (calc ) <5.0 normal Not Available [facility] [address] [place] [address], [address], 02/11/2023 12:53:22 02/11/20 23 02/11/2023 LIPID PANEL , [place] non HDL cholesterol 99 mg/dL _(alexx c) <130 normal For patie nts with diabe vivi plus 1 major ASCVD risk facto r, treat ing to a non-H DL-C goal of <100 mg/dL (LDL- C of <70 mg/dL ) is consi dered a thera peuti c optio n. Not Available [address] [address] [place], [address], 02/11/2023 12:53:22 02/11/20 23 02/11/2023 ALBUM IN, RANDO M URINE W/CRE ATINI NE creatinine, random urine 72 mg/dL 20-320 normal Not Available [address] [address] [place], [address], 02/11/2023 12:53:23 02/11/20 23 02/11/2023 ALBUM IN, RANDO M URINE W/CRE ATINI NE albumin, urine 1.8 mg/dL see note: normal Refer ence Range : Refer ence Range Not estab lishe d Not Available [address] [address] [place], [address], 02/11/2023 12:53:23 02/11/20 23 02/11/2023 ALBUM IN, RANDO M URINE W/CRE ATINI NE albumin/crea tinine ratio, random urine 25 mcg/m g_cre at <30 normal The ADA defin es abnor malit ies in album in excre tion as follo ws: Album inuri a Categ ory Resul t (mcg/ mg creat inine ) Miladys l to Mildl y incre ased <30 Moder ately incre ased 30-29 9 Sever marly incre ased > OR = 300 The ADA recom mends that at least two of three speci mens colle cted withi n a 3-6 month perio d be abnor mal befor e consi young g a patie nt to be withi n a diagn ostic categ ory. Not Available [address], [address], 02/11/2023 12:53:23 02/11/20 23 02/11/2023 COMPR EHENS TYRA METAB OLIC PANEL glucose 150 mg/dL 65-99 high Fasti ng refer ence inter komal For someo ne witho ut known diabe vivi, a gluco se value >125 mg/dL indic ates that they may have diabe vivi and this shoul d be confi rmed with a follo w-up test. Not Available [facility] [address] [address] [place], [address], 02/11/2023 12:53:24 02/11/20 23 02/11/2023 COMPR EHENS TYRA METAB OLIC PANEL urea nitrogen (BUN) 12 mg/dL 7-25 normal Not Available [facility] [address] [address] [place], [address], 02/11/2023 12:53:24 02/11/20 23 02/11/2023 COMPR EHENS TYRA METAB OLIC PANEL creatinine 0.96 mg/dL 0.70-1 .22 normal Not Available [facility] [address] [address] [place], [address], 02/11/2023 12:53:24 02/11/20 23 02/11/2023 COMPR EHENS TYRA METAB OLIC PANEL eGFR 77 mL/mi n/1.7 3m2 > or = 60 normal The eGFR is based on the CKD-E PI 2020 equat ion. To calcu late the new eGFR from a previ ous Creat inine or Cysta magalys dougherty t, go to https ://abdiel phelps.estefania alba/abhinav alas s/ kdoqi /gfr% 5Fcal culat or Not Available [employer] [address] [address] [place], [address], 02/11/2023 12:53:24 02/11/20 23 02/11/2023 COMPR EHENS TYRA METAB OLIC PANEL BUN/creatini ne ratio NOT APPLIC ABLE (calc ) 6-22 Not Available [facility] [address] [address] [place], [address], 02/11/2023 12:53:24 02/11/20 23 02/11/2023 COMPR EHENS TYRA METAB OLIC PANEL sodium 142 mmol/ L 135-14 6 normal Not Available [facility] [address] [address] [place], [address], 02/11/2023 12:53:24 02/11/20 23 02/11/2023 COMPR EHENS TYRA METAB OLIC PANEL potassium 4.3 mmol/ L 3.5-5. 3 normal Not Available [address], [address], 02/11/2023 12:53:24 02/11/20 23 02/11/2023 COMPR EHENS TYRA METAB OLIC PANEL chloride 105 mmol/ L 98-110 normal Not Available [address], [address], 02/11/2023 12:53:24 02/11/20 23 02/11/2023 COMPR EHENS TYRA METAB OLIC PANEL carbon dioxide 28 mmol/ L 20-32 normal Not Available [address], [address], 02/11/2023 12:53:24 02/11/20 23 02/11/2023 COMPR EHENS TYRA METAB OLIC PANEL calcium 9.1 mg/dL 8.6-10 .3 normal Not Available [address], [address], 02/11/2023 12:53:24 02/11/20 23 02/11/2023 COMPR EHENS TYRA METAB OLIC PANEL protein, total 6.9 g/dL 6.1-8. 1 normal Not Available [address], [address], 02/11/2023 12:53:24 02/11/20 23 02/11/2023 COMPR EHENS TYRA METAB OLIC PANEL albumin 3.9 g/dL 3.6-5. 1 normal Not Available [address], [address], 02/11/2023 12:53:24 02/11/20 23 02/11/2023 COMPR EHENS TYRA METAB OLIC PANEL globulin 3.0 g/dL_ (calc ) 1.9-3. 7 normal Not Available [address], [address], 02/11/2023 12:53:24 02/11/20 23 02/11/2023 COMPR EHENS TYRA METAB OLIC PANEL albumin/glob ulin ratio 1.3 (calc ) 1.0-2. 5 normal Not Available [address], [address], 02/11/2023 12:53:24 02/11/20 23 02/11/2023 COMPR EHENS TYRA METAB OLIC PANEL bilirubin, total 0.6 mg/dL 0.2-1. 2 normal Not Available [address], [address], 02/11/2023 12:53:24 02/11/20 23 02/11/2023 COMPR EHENS TYRA METAB OLIC PANEL alkaline phosphatase 75 U/L 35-144 normal Not Available [address], [address], 02/11/2023 12:53:24 02/11/20 23 02/11/2023 COMPR EHENS TYRA METAB OLIC PANEL AST 12 U/L 10-35 normal Not Available [address], [address], 02/11/2023 12:53:24 02/11/20 23 02/11/2023 COMPR EHENS TYRA METAB OLIC PANEL ALT 9 U/L 9-46 normal Not Available [address], [address], 02/11/2023 12:53:24 02/11/20 23 02/11/2023 CBC (INCL UDES DIFF/ PLT) white blood cell count 7.9 thous and/u L 3.8-10 .8 normal Not Available [address], [address], 02/11/2023 12:53:24 02/11/20 23 02/11/2023 CBC (INCL UDES DIFF/ PLT) red blood cell count 4.29 geraldo on/uL 4.20-5 .80 normal Not Available [address], [address], 02/11/2023 12:53:24 02/11/20 23 02/11/2023 CBC (INCL UDES DIFF/ PLT) hemoglobin 13.5 g/dL 13.2-1 7.1 normal Not Available [address], [address], 02/11/2023 12:53:24 02/11/20 23 02/11/2023 CBC (INCL UDES DIFF/ PLT) hematocrit 40.7 % 38.5-5 0.0 normal Not Available [address], [address], 02/11/2023 12:53:24 02/11/20 23 02/11/2023 CBC (INCL UDES DIFF/ PLT) MCV 94.9 fL 80.0-1 00.0 normal Not Available [address], [address], 02/11/2023 12:53:24 02/11/20 23 02/11/2023 CBC (INCL UDES DIFF/ PLT) MCH 31.5 pg 27.0-3 3.0 normal Not Available [address], [address], 02/11/2023 12:53:24 02/11/20 23 02/11/2023 CBC (INCL UDES DIFF/ PLT) MCHC 33.2 g/dL 32.0-3 6.0 normal Not Available [address], [address], 02/11/2023 12:53:24 02/11/20 23 02/11/2023 CBC (INCL UDES DIFF/ PLT) RDW 13.7 % 11.0-1 5.0 normal Not Available [address], [address], 02/11/2023 12:53:24 02/11/20 23 02/11/2023 CBC (INCL UDES DIFF/ PLT) platelet count 201 thous and/u L 140-40 0 normal Not Available [address], [address], 02/11/2023 12:53:24 02/11/20 23 02/11/2023 CBC (INCL UDES DIFF/ PLT) MPV 11.0 fL 7.5-12 .5 normal Not Available [address], [address], 02/11/2023 12:53:24 02/11/20 23 02/11/2023 CBC (INCL UDES DIFF/ PLT) absolute neutrophils 6320 cells /uL 1500-7 800 normal Not Available [address], [address], 02/11/2023 12:53:24 02/11/20 23 02/11/2023 CBC (INCL UDES DIFF/ PLT) absolute lymphocytes 837 cells /uL 850-39 00 low Not Available [address], [address], 02/11/2023 12:53:24 02/11/20 23 02/11/2023 CBC (INCL UDES DIFF/ PLT) absolute monocytes 561 cells /uL 200-95 0 normal Not Available [address], [address], 02/11/2023 12:53:24 02/11/20 23 02/11/2023 CBC (INCL UDES DIFF/ PLT) absolute eosinophils 158 cells /uL 15-500 normal Not Available [address], [address], 02/11/2023 12:53:24 02/11/20 23 02/11/2023 CBC (INCL UDES DIFF/ PLT) absolute basophils 24 cells /uL 0-200 normal Not Available [address], [address], 02/11/2023 12:53:24 02/11/20 23 02/11/2023 CBC (INCL UDES DIFF/ PLT) neutrophils 80 % normal Not Available [address], [address], 02/11/2023 12:53:24 02/11/2002/11/2023 CBC (INCL UDES DIFF/ PLT) lymphocytes 10.6 % normal Not Available [address], [address], 02/11/2023 12:53:24 02/11/20 23 02/11/2023 CBC (INCL UDES DIFF/ PLT) monocytes 7.1 % normal Not Available [facility] [address], [address], 02/11/2023 12:53:24 02/11/20 23 02/11/2023 CBC (INCL UDES DIFF/ PLT) eosinophils 2.0 % normal Not Available [address], [address], 02/11/2023 12:53:24 02/11/2002/11/2023 CBC (INCL UDES DIFF/ PLT) basophils 0.3 % normal Not Available [address], [address], 02/11/2023 12:53:24 02/11/2002/11/2023 PSA, TOTAL PSA, total <0.04 NG/mL < or = 4.00 normal The total PSA value from this assay syste m is stand ardiz ed again st the WHO stand sola. The test resul t will be appro ximat marly 20% lower when stuart red to the equim olar- stand ardiz ed total PSA (Mena man Coult er). Stuart rison of seria l PSA resul ts shoul d be inter prete d with this fact in mind. This test was perfo rmed using the Sieme ns chemi lumin escen t metho d. Value s obtai johnathon from diffe rent assay metho ds canno t be used inter dowling eably . PSA level s, regar dless of value , shoul d not be inter prete d as absol kaibab evide nce of the prese nce or absen ce of disea se. Not Available [facility] [address] [place], [address], 02/11/2023 12:53:25 02/11/20 23 02/11/2023 HEMOG LOBIN A1C hemoglobin A1C 7.1 %_of_ total _HGB <5.7 high For someo ne witho ut known diabe vivi, a hemog lobin A1c value of 6.5% or great er indic ates that they may have diabe vivi and this shoul d be confi rmed with a follo w-up test. For someo ne with known diabe vivi, a value <7% indic ates that their diabe vivi is well contr olled and a value great er than or equal to 7% indic ates subop timal contr ol. A1c targe ts shoul d be indiv idual ized based on durat ion of diabe vivi, age, comor bid condi tions , and other consi derat ions. Curre ntly, no conse nsus exist s regar ding use of hemog lobin A1c for diagn osis of diabe vivi for child wm. Not Available [facility] [address] [place], [address], 02/11/2023 12:53:26 09/16/20 23 09/17/2023 LIPID PANEL , STAND SOLA cholesterol, total 169 mg/dL <200 normal Not Available [facility] [address] [place], [address], 09/17/2023 15:02:30 09/16/20 23 09/17/2023 LIPID PANEL , STAND SOLA HDL cholesterol 56 mg/dL > or = 40 normal Not Available [facility] [address] [place], [address], 09/17/2023 15:02:30 09/16/20 23 09/17/2023 LIPID PANEL , STAND SOLA triglyceride s 81 mg/dL <150 normal Not Available [facility] [address] [address] [place], [address], 09/17/2023 15:02:30 09/16/20 23 09/17/2023 LIPID PANEL , STAND SOLA LDL-choleste rol 96 mg/dL _(alexx c) normal Refer ence range : <100 Jennifer able range <100 mg/dL for prima ry preve ntion ; <70 mg/dL for patie nts with CHD or diabe tic patie nts with > or = 2 CHD risk facto rs. LDL-C is now calcu lated using the Deya n-Hop kins calcu angelo n, which is a valid ated novel alfred wray than the Fried latosha equat ion in the estim ation of LDL-C . Deya valdez SS et al. JAIRO. 2013; 310(1 9): 2061- 2068 (http ://ed ucati on.Jose G valle Narrables. com/f aq/FA Q164) Not Available [facility] [address] [place], [address], 09/17/2023 15:02:30 09/16/20 23 09/17/2023 LIPID PANEL , STAND SOLA chol/HDLC ratio 3.0 (calc ) <5.0 normal Not Available [facility] [address] [place], [address], 09/17/2023 15:02:30 09/16/20 23 09/17/2023 LIPID PANEL , STAND SOLA non HDL cholesterol 113 mg/dL _(alexx c) <130 normal For patie nts with diabe vivi plus 1 major ASCVD risk facto r, treat ing to a non-H DL-C goal of <100 mg/dL (LDL- C of <70 mg/dL ) is doe bob optio n. Not Available [address] [address] [place], [address], 09/17/2023 15:02:30 09/16/20 23 09/17/2023 ALBUM IN, RANDO M URINE W/CRE ATINI NE creatinine, random urine 122 mg/dL 20-320 normal Not Available [address] [address] [place], [address], 09/17/2023 15:02:31 09/16/20 23 09/17/2023 ALBUM IN, RANDO M URINE W/CRE ATINI NE albumin, urine 0.9 mg/dL see note: normal Refer ence Range : Refer ence Range Not estab lishe d Not Available [facility] [address] [address] [address], [place], [address], 09/17/2023 15:02:31 09/16/20 23 09/17/2023 ALBUM IN, RANDO M URINE W/CRE ATINI NE albumin/crea tinine ratio, random urine 7 mcg/m g_cre at <30 normal The ADA defin es abnor malit ies in album in excre tion as follo ws: Album inuri a Categ ory Resul t (mcg/ mg creat inine ) Miladys l to Mildl y incre ased <30 Moder ately incre ased 30-29 9 Sever marly incre ased > OR = 300 The ADA recom mends that at least two of three speci mens colle cted withi n a 3-6 month perio d be abnor mal befor e consi young g a patie nt to be withi n a diagn ostic categ ory. Not Available [facility] [address] [address] [place], [address], 09/17/2023 15:02:31 09/16/20 23 09/17/2023 COMPR EHENS TYRA METAB OLIC PANEL glucose 139 mg/dL 65-99 high Fasti ng refer ence inter komal For someo ne witho ut known diabe vivi, a gluco se value >125 mg/dL indic ates that they may have diabe vivi and this shoul d be confi rmed with a follo w-up test. Not Available [facility] [address], [address], 09/17/2023 15:02:32 09/16/20 23 09/17/2023 COMPR EHENS TYRA METAB OLIC PANEL urea nitrogen (BUN) 24 mg/dL 7-25 normal Not Available [address], [address], 09/17/2023 15:02:32 09/16/20 23 09/17/2023 COMPR EHENS TYRA METAB OLIC PANEL creatinine 1.08 mg/dL 0.70-1 .22 normal Not Available [facility] [address] [place], [address], 09/17/2023 15:02:32 09/16/20 23 09/17/2023 COMPR EHENS TYRA METAB OLIC PANEL eGFR 66 mL/mi n/1.7 3m2 > or = 60 normal Not Available [address], [address], 09/17/2023 15:02:32 09/16/20 23 09/17/2023 COMPR EHENS TYRA METAB OLIC PANEL BUN/creatini ne ratio SEE NOTE: (calc ) 6-22 Not Repor roxy: BUN and Creat inine are withi n refer ence range . Not Available [facility] [address], [address], 09/17/2023 15:02:32 09/16/20 23 09/17/2023 COMPR EHENS TYRA METAB OLIC PANEL sodium 144 mmol/ L 135-14 6 normal Not Available [address] [address] [place], [address], 09/17/2023 15:02:32 09/16/20 23 09/17/2023 COMPR EHENS TYRA METAB OLIC PANEL potassium 4.4 mmol/ L 3.5-5. 3 normal Not Available [address], [address], 09/17/2023 15:02:32 09/16/20 23 09/17/2023 COMPR EHENS TYRA METAB OLIC PANEL chloride 108 mmol/ L 98-110 normal Not Available [address], [address], 09/17/2023 15:02:32 09/16/20 23 09/17/2023 COMPR EHENS TYRA METAB OLIC PANEL carbon dioxide 23 mmol/ L 20-32 normal Not Available [address], [address], 09/17/2023 15:02:32 09/16/20 23 09/17/2023 COMPR EHENS TYRA METAB OLIC PANEL calcium 9.2 mg/dL 8.6-10 .3 normal Not Available [address], [address], 09/17/2023 15:02:32 09/16/20 23 09/17/2023 COMPR EHENS TYRA METAB OLIC PANEL protein, total 6.5 g/dL 6.1-8. 1 normal Not Available [address] [place], [address], 09/17/2023 15:02:32 09/16/20 23 09/17/2023 COMPR EHENS TYRA METAB OLIC PANEL albumin 4.0 g/dL 3.6-5. 1 normal Not Available [address], [address], 09/17/2023 15:02:32 09/16/20 23 09/17/2023 COMPR EHENS TYRA METAB OLIC PANEL globulin 2.5 g/dL_ (calc ) 1.9-3. 7 normal Not Available [address], [address], 09/17/2023 15:02:32 09/16/20 23 09/17/2023 COMPR EHENS TYRA METAB OLIC PANEL albumin/glob ulin ratio 1.6 (calc ) 1.0-2. 5 normal Not Available [address], [address], 09/17/2023 15:02:32 09/16/20 23 09/17/2023 COMPR EHENS TYRA METAB OLIC PANEL bilirubin, total 0.6 mg/dL 0.2-1. 2 normal Not Available [address], [address], 09/17/2023 15:02:32 09/16/20 23 09/17/2023 COMPR EHENS TYRA METAB OLIC PANEL alkaline phosphatase 70 U/L 35-144 normal Not Available [address], [address], 09/17/2023 15:02:32 09/16/20 23 09/17/2023 COMPR EHENS TYRA METAB OLIC PANEL AST 17 U/L 10-35 normal Not Available [address], [address], 09/17/2023 15:02:32 09/16/20 23 09/17/2023 COMPR EHENS TYRA METAB OLIC PANEL ALT 13 U/L 9-46 normal Not Available [address], [address], 09/17/2023 15:02:32 09/16/20 23 09/17/2023 CBC (INCL UDES DIFF/ PLT) white blood cell count 5.9 thous and/u L 3.8-10 .8 normal Not Available [address], [address], 09/17/2023 15:02:33 09/16/20 23 09/17/2023 CBC (INCL UDES DIFF/ PLT) red blood cell count 4.15 geraldo on/uL 4.20-5 .80 low Not Available [address], [address], 09/17/2023 15:02:33 09/16/20 23 09/17/2023 CBC (INCL UDES DIFF/ PLT) hemoglobin 12.7 g/dL 13.2-1 7.1 low Not Available [address], [address], 09/17/2023 15:02:33 09/16/20 23 09/17/2023 CBC (INCL UDES DIFF/ PLT) hematocrit 38.3 % 38.5-5 0.0 low Not Available [address], [address], 09/17/2023 15:02:33 09/16/20 23 09/17/2023 CBC (INCL UDES DIFF/ PLT) MCV 92.3 fL 80.0-1 00.0 normal Not Available [address], [address], 09/17/2023 15:02:33 09/16/20 23 09/17/2023 CBC (INCL UDES DIFF/ PLT) MCH 30.6 pg 27.0-3 3.0 normal Not Available [address], [address], 09/17/2023 15:02:33 09/16/20 23 09/17/2023 CBC (INCL UDES DIFF/ PLT) MCHC 33.2 g/dL 32.0-3 6.0 normal Not Available [address], [address], 09/17/2023 15:02:33 09/16/20 23 09/17/2023 CBC (INCL UDES DIFF/ PLT) RDW 13.5 % 11.0-1 5.0 normal Not Available [address], [address], 09/17/2023 15:02:33 09/16/20 23 09/17/2023 CBC (INCL UDES DIFF/ PLT) platelet count 191 thous and/u L 140-40 0 normal Not Available [address], [address], 09/17/2023 15:02:33 09/16/20 23 09/17/2023 CBC (INCL UDES DIFF/ PLT) MPV 11.5 fL 7.5-12 .5 normal Not Available [address], [address], 09/17/2023 15:02:33 09/16/20 23 09/17/2023 CBC (INCL UDES DIFF/ PLT) absolute neutrophils 4372 cells /uL 1500-7 800 normal Not Available [address], [address], 09/17/2023 15:02:33 09/16/20 23 09/17/2023 CBC (INCL UDES DIFF/ PLT) absolute lymphocytes 856 cells /uL 850-39 00 normal Not Available [address], [address], 09/17/2023 15:02:33 09/16/20 23 09/17/2023 CBC (INCL UDES DIFF/ PLT) absolute monocytes 572 cells /uL 200-95 0 normal Not Available [address], [address], 09/17/2023 15:02:33 09/16/20 23 09/17/2023 CBC (INCL UDES DIFF/ PLT) absolute eosinophils 83 cells /uL 15-500 normal Not Available [address], [address], 09/17/2023 15:02:33 09/16/20 23 09/17/2023 CBC (INCL UDES DIFF/ PLT) absolute basophils 18 cells /uL 0-200 normal Not Available [facility] [address], [address], 09/17/2023 15:02:33 09/16/20 23 09/17/2023 CBC (INCL UDES DIFF/ PLT) neutrophils 74.1 % normal Not Available [address], [address], 09/17/2023 15:02:33 09/16/20 23 09/17/2023 CBC (INCL UDES DIFF/ PLT) lymphocytes 14.5 % normal Not Available [address], [address], 09/17/2023 15:02:33 09/16/20 23 09/17/2023 CBC (INCL UDES DIFF/ PLT) monocytes 9.7 % normal Not Available [address], [address], 09/17/2023 15:02:33 09/16/20 23 09/17/2023 CBC (INCL UDES DIFF/ PLT) eosinophils 1.4 % normal Not Available [address], [address], 09/17/2023 15:02:33 09/16/20 23 09/17/2023 CBC (INCL UDES DIFF/ PLT) basophils 0.3 % normal Not Available [address], [address], 09/17/2023 15:02:33 09/16/20 23 09/17/2023 HEMOG LOBIN A1C hemoglobin A1C 6.8 %_of_ total _HGB <5.7 high For someo ne witho ut known diabe vivi, a hemog lobin A1c value of 6.5% or great er indic ates that they may have diabe vivi and this shoul d be confi rmed with a follo w-up test. For someo ne with known diabe vivi, a value <7% indic ates that their diabe vivi is well contr olled and a value great er than or equal to 7% indic ates subop timal contr ol. A1c targe ts shoul d be indiv idual ized based on durat ion of diabe vivi, age, comor bid condi tions , and other consi derat ions. Curre ntly, no conse nsus exist s brandi il use of hemog lobin A1c for diagn osis of diabe vivi for child wm. Not Available [facility] [address] [place], [address], 09/17/2023 15:02:34 Result Notes None recorded. 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 Not Available [facility] 3 14:10:19 Benign essential hypertension 0021751 Active Not Available [facility] 3 14:10:19 Asbestosis 53856789 Active Not Available [facility] 3 14:10:20 Dyspnea 199651825 Active Not Available [facility] 3 14:10:20 Pure hypercholeste rolemia 390441916 Active Not Available [facility] 3 14:10:20 Osteoarthriti s 781568999 Active 2020 Not Available [facility] 3 14:10:20 Type 2 diabetes mellitus 87603917 Active Not Available [facility] 3 14:10:20 Pain of shoulder region 81149671 Active Not Available [facility] 3 14:10:20 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 Medical Equipment None Reported. Allergies Allergen ID Allergen Name Allergen Category Reaction Reaction Severity Criticality Documentation Date Start Date Code Code System Note Provider Name and Address Organization Details Recorded Time 25211 Relafen medicatio n rash Not available Not available 12/17/202229439 4 RxNorm Not Available [facility] 3 14:12:10 Medications Name Sig Start Date Stop Date Status Note LastModified by Organization Details LastModified Time amoxicillin 500 mg capsule Take 1 capsule 3 times a day by oral route for 10 days. 01/09 completed Not Available Not Available Not Available metformin 500 mg tablet Take 1 tablet twice a day by oral route. active Not Available Not Available No t Available Augmentin 875 mg-125 mg tablet Take 1 tablet every 12 hours by oral route. 01/09 completed Not Available Not Available Not Available atorvastati n 20 mg tablet TAKE 1 TABLET BY MOUTH ONCE DAILY active Not Available Not Available No t Available benzonatate 200 mg capsule Take 1 capsule 3 times a day by oral route. 01/09 completed Not Available Not Available Not Available Lotrisone 1 %-0.05 % topical cream Apply by topical route twice daily 07/18 completed Not Available Not Available Not Available Zithromax Z-Terence 250 mg tablet Take 2 TABLET EVERY DAY by oral route for 1 day then one daily 01/09 completed Not Available Not Available Not Available Ciloxan 0.3 % eye drops Instill 1 DROP EVERY 2 HOURS while awake active Not Available Not Available No t Available aspirin 81 mg tablet,josé luis yed release Take 1 tablet every day by oral route. 2012 active Not Available Not Available Not Avai lable benzonatate 100 mg capsule 2 three times a day 01/09 completed Not Available Not Available Not Available ferrous sulfate 325 mg (65 mg iron) tablet Take 1 tablet twice a day by oral route. active Not Available Not Available No t Available metformin 1,000 mg tablet Take 1 tablet twice a day by oral route. 05/14 completed Not Available Not Available Not Available lisinopril 10 mg tablet TAKE 1 TABLET BY MOUTH ONCE DAILY active Not Available Not Available No t Available Tylenol 325 mg tablet Take 2 tablets every 6 hours by oral route as needed. 09/17 completed Not Available Not Available Not Available verapamil ER (SR) 240 mg tablet,exte nded release Take 1 tablet every day by oral route. 2012 active Not Available Not Available Not Avai lable Levaquin 500 mg tablet Take 1 tablet every 24 hours by oral route. active Not Available Not Available No t Available methylpredn isolone 4 mg tablets in a dose pack Take by oral route as per package insert 01/09 completed Not Available Not Available Not Available Ventolin HFA 90 mcg/actuati on aerosol inhaler Inhale 2 puffs every 4 hours by inhalatio n route. 2021 active Not Available Not Available Not Avai lable Benadryl 25 mg capsule Take 2 capsules every 4 hours by oral route as needed. 09/17 completed Not Available Not Available Not Available Mucinex 600 mg tablet, extended release Take 1 tablet every 12 hours by oral route as needed. 09/17 completed Not Available Not Available Not Available Vytorin 10 mg-40 mg tablet once daily active Not Available Not Available No t Available hydrochloro thiazide 12.5 mg tablet Take 1 tablet every day by oral route. 2012 active Not Available Not Available Not Avai lable ferrous sulfate 324 mg (65 mg iron) tablet,josé luis yed release Take 1 tablet every day by oral route. 09/17 completed Not Available Not Available Not Available Vitals Date Recorded Body mass index (BMI) Body height Oxygen saturation Oxygen saturation in Arterial blood by Pulse oximetry Heart rate Body temperature Body weight Systolic blood pressure Diastolic blood pressure Provider Name and Address Organization Details Last Updated DateTime 2 28.9 kg/m2 161.29 cm 94 % 94 % 88 /min 97 [degF] 69127.3 3 g 152 mm[Hg] 80 mm[Hg] Not Available [facility] 3 14:10:02 Date Recorded Body height Body mass index (BMI) Body weight Heart rate Body temperature Oxygen saturation Oxygen saturation in Arterial blood by Pulse oximetry Systolic blood pressure Diastolic blood pressure Provider Name and Address Organization Details Last Updated DateTime 3 161.29 cm 26.9 kg/m2 21271.2 2 g 88 /min 96.3 [degF] 95 % 95 % 120 mm[Hg] 64 mm[Hg] Mari Mcgarry [email or web address] 3 15:07:39 Date Recorded Body height Body mass index (BMI) Body weight Heart rate Body temperature Oxygen saturation Oxygen saturation in Arterial blood by Pulse oximetry Systolic blood pressure Diastolic blood pressure Provider Name and Address Organization Details Last Updated DateTime 3 161.29 cm 27.2 kg/m2 37431.4 1 g 88 /min 97 [degF] 96 % 96 % 140 mm[Hg] 82 mm[Hg] [facility] 3 15:48:20 Date Recorded Body height Body mass index (BMI) Body weight Body temperature Oxygen saturation Oxygen saturation in Arterial blood by Pulse oximetry Systolic blood pressure Diastolic blood pressure Provider Name and Address Organization Details Last Updated DateTime 3 161.29 cm 27.4 kg/m2 88968 g 97 [degF] 97 % 97 % 138 mm[Hg] 78 mm[Hg] [facility] 3 15:30:00 Date Recorded Heart rate Provider Name an d Address Organization Details Last Updated DateTime 09/15/2023 100 /min Eleuterio Hayden MD [address] [address], [place], [address], [email or web address] 09/15/2023 15:45:20 Date Recorded Body height Body mass index (BMI) Body weight Heart rate Body temperature Oxygen saturation Oxygen saturation in Arterial blood by Pulse oximetry Systolic blood pressure Diastolic blood pressure Provider Name and Address Organization Details Last Updated DateTime 4 161.29 cm 28.2 kg/m2 03844.9 6 g 99 /min 97 [degF] 93 % 93 % 138 mm[Hg] 78 mm[Hg] Mari Mcgarry [email or web address] 4 15:30:36 Social History Question Answer Notes LastModified by Organizat ion Details LastModified Time Tobacco Smoking Status Former Smoker quit over 50 yrs ago Not Available [facility] 12/17/2022 14:09:25 Do You Have An Advance Directive? No [id number].[id number] [id number] Information not available 12/17/2022 Are You Blind Or Do You Have Difficulty Seeing? No MIGRATION.30411 82679 Information not available 12/17/2022 Are You Deaf Or Do You Have Serious Difficulty Hearing? No MIGRATION.36602 98382 Information not available 12/17/2022 What Type Of Diet Are You Following? REGULAR MIGRATION.53606 42293 Information not available 12/17/2022 Have There Been Any Changes To Your Family Or Social Situation? No MIGRATION.79860 03830 Information not available 12/17/2022 What Is The Fluoride Status Of Your Home? Unknown MIGRATION.07507 87551 Information not available 12/17/2022 When Did You Quit Smoking? 17[place] MIGRATION.00527 50176 Information not available 12/17/2022 Do You Use Insect Repellent Routinely? No MIGRATION.71330 01675 Information not available 12/17/2022 Where Do You Live? [place] MIGRATION.07299 [address]110[address] Information not available 12/17/2022 What Was The Date Of Your Most Recent Tobacco Screening? 05/13/2022 MIGRATION.77975 66735 Information not available 12/17/2022 Do You Use Your Seat Belt Or Car Seat Routinely? Yes MIGRATION.11303 64197 Information not available 12/17/2022 Do You Have Smoke And Carbon Monoxide Detectors In Your Home? Yes MIGRATION.81924 24289 Information not available 12/17/2022 Are You Passively Exposed To Smoke? No MIGRATION.57038 53008 Information not available 12/17/2022 Are There Any Smokers In Your House? No MIGRATION.11854 39477 Information not available 12/17/2022 Do You Use Sunscreen Routinely? No MIGRATION.13883 85096 Information not available 12/17/2022 Has Tobacco Cessation Counseling Been Provided? No MIGRATION.10769 80679 Information not available 12/17/2022 Do You Have Difficulty Walking Or Climbing Stairs? Yes MIGRATION.64271 78202 Information not available 12/17/2022 Do You Have Any Dietary Restrictions? No MIGRATION.93707 18788 Information not available 12/17/2022 Sex: Unknown Functional Status Question Answer Note LastModified by Organizat ion Details LastModified Time Do you or have you ever used any other forms of tobacco or nicotine? No MIGRATION.87772 87440 Information not available 12/17/2022 What is your level of alcohol consumption? Occasional MIGRATION.33595 31831 Information not available 12/17/2022 Do you or have you ever used smokeless tobacco? Never used smokeless tobacco MIGRATION.90864 99963 Information not available 12/17/2022 Do you have transportation difficulties? No MIGRATION.59264 52084 Information not available 12/17/2022 Are you able to walk? YESASSIST cane MIGRATION.91024 04087 Information not available 12/17/2022 Do you have difficulty doing errands alone? No MIGRATION.88148 88820 Information not available 12/17/2022 Are you able to care for yourself? Yes MIGRATION.14862 54050 Information not available 12/17/2022 Do you have difficulty dressing or bathing? No MIGRATION.36231 83365 Information not available 12/17/2022 Do you or have you ever used e-cigarettes or vape? Never used electronic cigarettes MIGRATION.44371 58992 Information not available 12/17/2022 What is your exercise level? Occasional active lifestyle MIGRATION.47026 31132 Information not available 12/17/2022 Mental Status Question Answer Note LastModified by Organizat ion Details LastModified Time Do you feel stressed (tense, restless, nervous, or anxious, or unable to sleep at night)? [id number] MIGRATION.[id number] 26 Information not available 12/17/2022 Do you have difficulty concentrating, remembering or making decisions? No MIGRATION.[id number] 26 Information not available 12/17/2022 Family History Nothing Reported Notes:Mother 82 yea rs old Father 83 years old 4 Brothers 1 Living 1 Sisters 1 Living Mother Hx: Pneumonia Brother Hx: Peritonitis (1) , AAA (1) Medical History Condition Response NERVE DISEASE N BLINDNESS N RHEUMATIC FEVER N KIDNEY STONES N BLADDER PROBLEMS N MRSA N OTHER # 1 N POLIO N LUNG DISEASE/DISORDER N HISTORY OF DRUG ABUSE N RADIATION / CHEMOTHERAPY N COPD N Other # 2 N BLOOD DISEASES N EAR OR HEARING PROBLEMS N MUMPS N SHINGLES N DEPRESSION (INCLUDING POST ) N BOWEL PROBLEMS N STROKE/TIA N ULCERS N BENIGN PROSTATIC HYPERPLASIA N MEASLES N HYPOTENSION N MYOCARDIAL INFARCTION N OBESITY N GERD/NAUSEA N ANEURYSM N URINARY/BLADDER/KIDNEY PROBLEMS N CORONARY ARTERY DISEASE (CAD) N ADDICTION CONCERNS N Impotence N ENDOMETRIOSIS N USE OF BLOOD THINNERS N SKIN PROBLEMS N GASTROINTESTINAL DISORDER N PERIPHERAL VASCULAR DISEASE N MUSCLE,JOINT OR BONE PROBLEMS N GASTROINTESTINAL BLEEDING N BLOOD CLOTS N ASTHMA N CATARACTS N ERECTILE DYSFUNCTION N VARICOSITIES N GI PROBLEMS N Low Testosterone N INFERTILITY N AIDS/HIV N CHEMOTHERAPY / RADIATION N LIVER DISEASE N MALE HYPOGONADISM N HYPERTENSION Y Deficiency N TOURETTE'S N ANXIETY DISORDER N BLOOD TRANSFUSION N ANEMIA/BLOOD DISORDER N CHRONIC EAR INFECTIONS N BRONCHITIS N TUBERCULOSIS N GLAUCOMA N FOOT PROBLEM N DIVERTICULITIS N SLEEP APNEA N CHICKENPOX N INFECTIOUS DISEASE N PROSTATE N HEART ARRHYTHMIA N INSOMNIA N HIGH CHOLESTEROL / HYPERLIPIDEMIA Y EYE PROBLEMS N HYPERTHYROIDISM N EDEMA N CHRONIC PAIN SYNDROME N HYPOTHYROIDISM N CAROTID BLOCKAGE N CONSTIPATION N BACK / NECK PROBLEMS N HAVE YOU BEEN HOSPITALIZED OR SEEN IN [facility] IN THE PAST YEAR ? N ATHEROSCLEROSIS N BREAST PROBLEMS N DIALYSIS N ECZEMA N OSTEOPOROSIS N ARTHRITIS N NO SIGNIFICANT PAST MEDICAL HISTORY N APPENDICITIS N DIABETES, TYPE Y BAD TEETH N ENT N HEARTBURN / REFLUX N AUTISM SPECTRUM DISORDER (ASD) N HEPATITIS / LIVER DISEASE N GOUT N SLEEP DISORDER N ALZHEIMER'S DISEASE N Brain Problems N DEMENTIA N HERPES N SEIZURES/EPILEPSY N HEADACHES/MIGRAINES N VASCULAR DISEASE N PACEMAKER N Blood Disorder N DIZZINESS N HEART DISEASE/HEART PROBLEMS N KIDNEY DISEASE N MULTIPLE SCLEROSIS N CANCER: SPECIFY Y CARDIAC ARRHYTHMIA N ATRIAL FIBRILLATION N Gall Stones N PULMONARY EMBOLISM N AUTOIMMUNE DISEASE N Immunizations Vaccine Type Date Status Note Provider Nam e and Address Organization Details Recorded Time Influenza, split virus, trivalent, preservative 3 completed Not Available [facility] 12/17/2022 14:12:07 Influenza, split virus, trivalent, preservative 4 completed Not Available [facility] 12/17/2022 14:12:08 pneumococcal polysaccharide PPV23 0 completed Not Available [facility] 12/17/2022 14:12:08 Influenza, high-dose, trivalent, PF 8 completed Not Available [facility] 12/17/2022 14:12:08 Influenza, high-dose, trivalent, PF 7 completed Not Available [facility] 12/17/2022 14:12:08 Influenza, high-dose, trivalent, PF 6 completed Not Available [facility] 12/17/2022 14:12:08 Influenza, high-dose, quadrivalent, PF 2 completed Not Available [facility] 12/17/2022 14:12:08 Influenza, split virus, quadrivalent, preservative 5 completed Not Available [facility] 12/17/2022 14:12:09 Pneumococcal conjugate PCV 13 5 completed Not Available [facility] 12/17/2022 14:12:09 Past Encounters Encounter ID Performer Location Encounter Start Date Encounter Closed Date Diagnosis/Indication Diagnosis SNOMED-CT Code Diagnosis ICD10 Code Diagnosis Note [id number] Eleuterio Hayden MD [facility] Internal [facility] [place] [address] [place] [address] y , [place] [address] 01/15/2021 00:00:00 01/15/2021 17:19:23 [id number] [facility] [place] [address] [place] [address] y , [place] [address] 05/14/2021 00:00:00 05/14/2021 11:53:13 [id number] [address] [facility] [place] [address] [place] [address] y , [place] [address] 09/17/2021 00:00:00 09/17/2021 15:33:05 [id number] [address] [facility] Internal [facility] [place] [address] [place] [address] y , [place] [address] 01/14/2022 00:00:00 01/14/2022 15:27:04 [id number] [facility] [place] [address] [place] [address] y , [place] [address] 05/13/2022 00:00:00 05/13/2022 15:50:51 [id number] [address] [facility] Internal [facility] [place] [address] [place] [address] y , [place] [address] 09/09/2022 00:00:00 09/09/2022 15:34:49 [id number] [facility] Internal [facility] [place] [address] [place] [address] y , [place] [address] 01/06/2023 15:02:31 01/06/2023 15:20:44 Benign essential hypertension 2261472 I10 Pure hypercholesterolemia 125838749 E78.00 Type 2 heidi betes mellitus 13458416 E11.9 Primary ma lignant neoplasm of prostate 64159545 C61 [id number] Eleuterio Hayden MD [facility] Internal [facility] [place] [address] [place] [address] y , [place] [address] 05/19/2023 15:26:44 05/19/2023 16:26:46 Benign essential hypertension 6184993 I10 Pure hypercholesterolemia 323518068 E78.00 Type 2 heidi betes mellitus 23325841 E11.9 Primary ma lignant neoplasm of prostate 25749577 C61 [id number] Eleuterio Hayden MD [facility] Internal [facility] [place] [address] [place] [address] y , [place] [address] 09/15/2023 15:24:27 09/15/2023 15:52:34 Benign essential hypertension 2378244 I10 Pure hypercholesterolemia 232915512 E78.00 Type 2 heidi betes mellitus 61434850 E11.9 [id number] [facility] Internal [facility] [place] [address] [place] [address] y , [place] [address] 01/12/2024 15:20:24 01/12/2024 16:04:57 Benign essential hypertension 6900089 I10 Pure hypercholesterolemia 620777538 E78.00 Type 2 heidi betes mellitus 76090101 E11.9 Primary ma lignant neoplasm of prostate 36946536 C61 Health Concerns Section Related Observation LastModified by Organization Detai ls LastModified Time None Recorded Concern Status LastModified by Organization Details LastModified Time None Recorded Advance Directives Directive N: Payers Encounter Date Sequence Insurance Name Policy Number Policy Nunez Covered Member ID Nunez Member ID Guarantor Name 01/06/2023 1 [employer] (MEDICARE REPLACEMENT/ ADVANTAGE - HMO) Yobani Escamilla [id number] Yobani Escamilla 05/19/2023 1 [employer] (MEDICARE REPLACEMENT/ ADVANTAGE - HMO) Yobani Escamilla [id number] Yobani Escamilla 09/15/2023 1 [employer] (MEDICARE REPLACEMENT/ ADVANTAGE - HMO) Yobani Escamilla [id number] Yobani Escamilla 01/12/2024 1 [employer] (MEDICARE REPLACEMENT/ ADVANTAGE - HMO) Yobani Escamilla [id number] Yobani Escamilla Notes Date Note Type Note Provider Name and Address Organization Details Recorded Time 3 text/htm l Patient Name: Yobani EscamillaDate Of Service: Thursday ( 01.06.2023 ): 1935 Age: 87 There has been approximately a 12 lb weight loss since 09/09/2022. This represents approximately a 7.2% change in weight. Weight change attributable to lifestyle changes. Vital Signs:Blood Pressure: Sitting Rt. Arm 120/64Pulse: Sitting 88 /min and RegularRespirations: 12Height 63.5 in or 1.6 mWeight 154 lb or 69.9 kgBMI 26.8Temperature: 96.3 F or 35.7 CDCCT HAIC: 7.0 Calculated MB mg%Pulse Oximetry: 95 % at rest on no oxygen Chief Complaint: Addressed in HPI Problems or conditions discussed in the HPI were the only ones reviewed during the encounter.Only social and family history addressed in the HPI were reviewed during this encounter. Attendant(s): None Constitutional and Systemic Symptoms: weight loss Medication Reconciliation: from medication list. History of Present Illness #1. Essential Hypertension: Stage: normal Interval Neurological Complaints no headaches, dizziness, weakness, visual changes, ataxia, aphasia and apraxia. No shortness of breath, orthopnea or cardiovascular symptoms. No other symptoms related to end organ damage. Pressure has been under excellent control. Currently normal. No other end organ symptoms or findings. Therapy reviewed regarding management of hypertension and includes salt restriction and Lisinopril. #2. Type II Hypercholesterolaemia: Currently taking medication and tolerating well. No interval complaints of any muscle pain or arthralgia. No significant liver changes with medications. Last lipid panel: fair control. Therapy reviewed regarding treatment of cholesterol management and include diet and Lipitor. #3. Type II Diabetes: Has had no polyuria polyphagia or polydipsia. Has had no hypoglycemic like responses. No new history of any numbness, tingling, weakness or visual problems. No nausea, anorexia or other constitutional symptoms. There has been no foot problems or non healing lesions. The last HAIC was DCCT HAIC: 7.0 Calculated MB mg%. Average blood sugars 100-115 mg%. Checking sugars : not at all Medication Types Include: Metformin Secondary complications include none. Macro-vascular complications include none. Therapy reviewed regarding diabetic management and include Glucophage Compliance: good Renal Protection: NAHED inhibitors Lipid management: statins Urinary microalbumin: A1 . Ophthalmological: has not seen eyed doctor in last year and instructed to make appointment with the asset protection specialist or spectrographic analyst #4. Hx of Ca of the prostate doing well. No interval complaints of any bone pain or other symptoms suggestive of metastatic disease. Having his PSA check regularly by us or the urologist.Medication List Reviewed and Reconciled 01/06/2023spirin 81 MG One DailyLipitor 20 MG (TABLET - ORAL) One Daily Hs For CholesterolLisinopril 10 MG (TABLET - ORAL) Once DailyGlucophage 500 MG (TABLET - ORAL) One Bid With FoodADRs List Reviewed 01/06/2023Relafen RashLevaquin Rash And ItchingVaccination and Lumesdsxifva5677-75 Obrsreihv1755-46 Prevnar 476401-63 PneumovaxSurgical HistoryRt. Shoulder Surgery, AppendectomyPreventative Testing Confirmed by Our Pftlpir9509/10/2022 ALBUMIN 4.0 G/DL09/10/2022 MICRO ALBUMIN 1.5 MG/DL09/10/2022 HAIC 7.0 % OF TOTAL HGB H001/15/2022 PSA <0.04 NG/ML06/13/2019 LETTER [id number]/06/2017 UPPER ICTICZSOW36/06/2017 COLONOSCOPY (10 YEARS) 711/07/2011 PSA04/02/2011 CT THORAXSocial HistorySmoking Hx: Does not smoke cigarettes. 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 This represents approximately a 1.3% change in weight. Weight change attributable to lifestyle changes. Vital Signs:Blood Pressure: Sitting Rt. Arm 140/82Pulse: Sitting 88 /min and RegularRespirations: 12Height 63.5 in or 1.6 mWeight 156 lb or 70.8 kgBMI 27.2Temperature: 97 F or 36.1 CDCCT HAIC: 7.1 Calculated MB mg%Pulse Oximetry: 96 % at rest on no oxygen Chief Complaint: Addressed in HPI Problems or conditions discussed in the HPI were the only ones reviewed during the encounter.Only social and family history addressed in the HPI were reviewed during this encounter. Attendant(s): None Constitutional and Systemic Symptoms: none Medication Reconciliation: from medication list. History of Present Illness #1. Essential Hypertension: Stage: Stage I Interval Neurological Complaints no headaches. No shortness of breath, orthopnea or cardiovascular symptoms. No other symptoms related to end organ damage. Pressure has been under excellent control. Currently normal. No other end organ symptoms or findings. Therapy reviewed regarding management of hypertension and includes salt restriction and Lisinopril. #2. Type II Hypercholesterolaemia: Currently taking medication and tolerating well. No interval complaints of any muscle pain or arthralgia. No significant liver changes with medications. Last lipid panel: fair control. Therapy reviewed regarding treatment of cholesterol management and include diet and Lipitor. #3. Type II Diabetes: Has had no polyuria polyphagia or polydipsia. Has had no hypoglycemic like responses. No new history of any numbness, tingling, weakness or visual problems. No nausea, anorexia or other constitutional symptoms. There has been no foot problems or non healing lesions. [facility] Calculated MB mg%. Average blood sugars 125-150 mg%. Checking sugars : several times a week Medication Types Include: Metformin Secondary complications include none. Macro-vascular complications include none. Therapy reviewed regarding diabetic management and include Glucophage Compliance: good Renal Protection: NAHED inhibitors Lipid management: statins Urinary microalbumin: A1 . Ophthalmological: has seen eye doctor within the last year #4. Hx of Ca of the prostate doing well. No interval complaints of any bone pain or other symptoms suggestive of metastatic disease. Having his PSA check regularly by us or the urologist.Medication List Reviewed and Reconciled 05/19/2023spirin 81 MG One DailyLipitor 20 MG (TABLET - ORAL) One Daily Hs For CholesterolLisinopril 10 MG (TABLET - ORAL) Once DailyGlucophage 500 MG (TABLET - ORAL) One Bid With FoodADRs List Reviewed 05/19/2023Relafen RashLevaquin Rash And ItchingVaccination and Kzvjwawppnik7081-66 Pkycestch7104-03 Prevnar 242518-69 PneumovaxSurgical HistoryRt. Shoulder Surgery, AppendectomyPreventative Testing Confirmed by Our Yycqxxh7602/10/2023 ALBUMIN 3.9 G/DL02/10/2023 PSA <0.04 NG/ML02/10/2023 MICRO ALBUMIN 1.8 MG/DL02/10/2023 HAIC 7.1 % OF TOTAL HGB H006/13/2019 LETTER [id number]/06/2017 UPPER NDKIEUVBA70/06/2017 COLONOSCOPY (10 YEARS) 711/07/2011 PSA04/02/2011 CT THORAXSocial HistorySmoking Hx: Does not smoke cigarettes. 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 This represents approximately a .6% change in weight. Weight change attributable to lifestyle changes. Vital Signs:Blood Pressure: Sitting Rt. Arm 138/78Pulse: Sitting 100 /min and RegularRespiratory Rate: 12Height 63.5 in or 1.6 mWeight 157 lb or 71.2 kgBMI 27.4Temperature: 97 F or 36.1 CPulse Oximetry: 97 % at rest on no oxygen Chief Complaint: Addressed in HPI Problems or conditions discussed in the HPI were the only ones reviewed during the encounter.Only social and family history addressed in the HPI were reviewed during this encounter. Attendant(s): NoneConstitutional and Systemic Symptoms:none Medication Reconciliation: from medication list. History of Present Illness #1. Essential Hypertension: Stage: Stage I Interval Neurological Complaints no headaches, dizziness, weakness, visual changes, ataxia, aphasia and apraxia. No shortness of breath, orthopnea or cardiovascular symptoms. No other symptoms related to end organ damage. Pressure has been under excellent control. Currently normal. No other end organ symptoms or findings. Therapy reviewed regarding management of hypertension and includes salt restriction and Lisinopril. #2. Type II Hypercholesterolaemia: Currently taking medication and tolerating well. No interval complaints of any muscle pain or arthralgia. No significant liver changes with medications. Last lipid panel: fair control. Therapy reviewed regarding treatment of cholesterol management and include diet and Lipitor. #3. Type II Diabetes: Has had no polyuria polyphagia or polydipsia. Has had no hypoglycemic like responses. No new history of any numbness, tingling, weakness or visual problems. No nausea, anorexia or other constitutional symptoms. There has been no foot problems or non healing lesions. The last HAIC was DCCT HAIC: 7.1 Calculated MB mg%. Average blood sugars 125-150 mg%. Checking sugars : infrequently Medication Types Include: Metformin Secondary complications include none. Macro-vascular complications include none. Therapy reviewed regarding diabetic management and include Glucophage Compliance: good Renal Protection: NAHED inhibitors Lipid management: statins Urinary microalbumin: A1 . Ophthalmological: has seen eye doctor within the last yearMedication List Reviewed and Reconciled 09/15/2023spirin 81 MG One DailyLipitor 20 MG (TABLET - ORAL) One Daily Hs For CholesterolLisinopril 10 MG (TABLET - ORAL) Once DailyGlucophage 500 MG (TABLET - ORAL) One Bid With FoodADRs List Reviewed 09/15/2023Relafen RashLevaquin Rash And ItchingVaccination and Snxuuxvpeuit1792-67 Amkbnnbyb9172-65 Prevnar 13 Bp0013-38 PneumovaxSurgical HistoryRt. Shoulder Surgery, AppendectomyPreventative Testing Confirmed by Our Wqvcuat0002/10/2023 ALBUMIN 3.9 G/DL N002/10/2023 PSA <0.04 NG/ML N002/10/2023 MICRO ALBUMIN 1.8 MG/DL N002/10/2023 HAIC 7.1 % OF TOTAL HGB H006/13/2019 LETTER [id number]/06/2017 UPPER FISWHBZIG49/06/2017 [address]ONOSCOPY ([address] THORAXSocial HistorySmoking Hx: Does not smoke cigarettes. 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 82 years oldFather 83 years old4 Brothers 1 Living1 Sisters 1 LivingMother Hx: PneumoniaBrother Hx: Peritonitis (1) , AAA (1) Eleuterio Hayden MD [address] [facility] [address], [place], [address], [facility] 09/15/2023 15:51:50 4 text/htm l Patient Name: Yobani Schultz Of Service: Thursday ( 01.12.2024 ): 1935 Age: 88 Chief Complaint: Addressed in HPI Problems or conditions discussed in the HPI were the only ones reviewed during the encounter.Only social and family history addressed in the HPI were reviewed during this encounter. Attendant(s): NoneConstitutional and Systemic Symptoms:none Medication Reconciliation: from medication list. History of Present Illness #1. Essential Hypertension: Stage: Stage I Interval Neurological Complaints no headaches, dizziness, weakness, visual changes, ataxia, aphasia and apraxia. No shortness of breath, orthopnea or cardiovascular symptoms. No other symptoms related to end organ damage. Pressure has been under excellent control. Currently normal. No other end organ symptoms or findings. Therapy reviewed regarding management of hypertension and includes salt restriction and Lisinopril. #2. Type II Hypercholesterolaemia: Currently taking medication and tolerating well. No interval complaints of any muscle pain or arthralgia. No significant liver changes with medications. Last lipid panel: fair control. Therapy reviewed regarding treatment of cholesterol management and include diet and Lipitor. #3. Type II Diabetes: Has had no polyuria polyphagia or polydipsia. Has had several hypoglycemic like responses. No new history of any numbness, tingling, weakness or visual problems. No nausea, anorexia or other constitutional symptoms. There has been no foot problems or non healing lesions. The last HAIC was DCCT HAIC: 6.8 Calculated MB mg%. Average blood sugars 125-150 mg%. Checking sugars : infrequently Medication Types Include: Metformin Secondary complications include none. Macro-vascular complications include none. Therapy reviewed regarding diabetic management and include Glucophage Compliance: good Renal Protection: NAHED inhibitors Lipid management: statins Urinary microalbumin: A1 . Ophthalmological: has seen eye doctor within the last year #4. Hx of Ca of the prostate doing well. No interval complaints of any bone pain or other symptoms suggestive of metastatic disease. Having his PSA check regularly by us or the urologist. Active Medication ListAspirin 81 MG One DailyLipitor 20 MG (TABLET - ORAL) One Daily Hs For CholesterolLisinopril 10 MG (TABLET - ORAL) Once DailyGlucophage 500 MG (TABLET - ORAL) One Bid With Food Adverse Drug Reactions ReviewedRelafen RashLevaquin Rash And Itching Vaccination and Qjqyducrsqfh5310-64 Yqsgwflve2500-36 Prevnar 13 Nw1562-46 Pneumovax Surgical Kmteqau6189-91 Rt. Shoulder Lwpfhey1626-03 Appendectomy Preventative Ulbfrfb6409/16/2023 ALBUMIN 4.0 G/DL N111/16/2022 MICRO ALBUMIN 0.9 MG/DL 09/16/2023 HAIC 6.8 % OF TOTAL HGB H04/ PSA <0.04 NG/ML N006/13/2019 PLBWRHLDOIUGR28/06/2017 UPPER XDEWXPVUU18/06/2017 COLONOSCOPY ([address] THORAX Social HistorySmoking Hx: Does not smoke cigarettes. 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
[2025-03-11 18:40] LABS: Creatine Kinase 2337 U/L (55-170)
--- NOTE | 2025-03-11 19:29 | PC.NURSE ---
Assumed care of patient after receiving report from ALISON Montgomery @ [phone]
--- NOTE | 2025-03-11 19:29 | PC.NURSE ---
Assumed care of patient after receiving report from ALISON Montgomery @ [phone]
[2025-03-11 19:46] LABS: Amphetamine Screen Urine Negative (Negative); Barbiturate Screen Urine Negative (Negative); Benzodiazepines Screen Urine Negative (Negative); Cannabinoid Screen Urine Negative (Negative); Cocaine Screen Urine Negative (Negative); Methadone Screen Urine Negative (Negative); Opiate Screen Urine Negative (Negative); Phencyclidine Screen Urine Negative (Negative)
[2025-03-11] MEDS: SODIUM CHLORIDE 0.9% IV 1,000 ML 999 ML IV CONT (19:56)
[2025-03-11 20:13] LABS: Add Urine Microscopic? YES; Appearance Urine Clear (Clear); Bacteria Urine None Seen /hpf; Bilirubin Urine Negative (Negative); Blood Urine 2+ (Negative); Color Urine Yellow (Yellow); Glucose Urine UA Negative (Negative); Ketones Urine 1+ mg/dL (Negative); Leukocyte Esterase Ur Negative LEU/UL (Negative); Need Manual Microscopic Reviewed; Nitrate Urine Negative (Negative); Protein Urine 2+ mg/dL (Negative); RBC Urine 0-2 /hpf (0-2); Specific Grav Ur 1.018 (1.001-1.035); Squamous Epithelial Cell Urine None Seen /hpf (Few); Urobilinogen Urine 0.2 mg/dL (<2.0); WBC Urine 0-5 /hpf (0-3); pH Urine 5.5 (5.0-9.0)
[2025-03-11 21:25] LABS: Influenza A QL RT-PCR Negative (Negative); Influenza B QL RT-PCR Negative (Negative); RSV RNA, RT-PCR Negative (Negative); SARS-CoV-2 RNA PCR Negative (Negative)
--- NOTE | 2025-03-11 22:27 | P.HP_ITS ---
H&P: HPI History of Present Illness Date/Time: 03/11/25 22:27 Chief Complaint: Found sitting on the toilet for unknown amount of time Narrative: 89-year-old male with medical history of asthma/COPD overlap, hyperlipidemia, hypertension, type 2 diabetes mellitus who presented to the ER via EMS from home when the patient found the patient sitting on the toilet for unknown amount of time. The family had not seen the patient in about a week. When they came in status they found the patient on the toilet any stated that he could not get up. He cannot provide much history besides the fact that he was weak. On arrival to the ER the patient was noted to have some edematous scrotum and edema in his buttocks in distribution of the rim of the toilet seat suggesting that the patient had been sitting on the commode for quite some time. The patient is oriented to person and the fact that he is in the hospital but thought he was in [facility]. He is intermittently oriented to the year. He told me the month was July despite multiple staff members reorienting him to the date and time. And he is provided variable responses as to the name of the current president including Solomon, Obama and Trump all within the last couple of hours. The patient denies any difficulty with urination but at the time of my evaluation the patient had only dribbles some urine despite multiple attempts. On palpation of his abdomen he had some lower abdominal distension and discomfort with palpation. Subsequently a bedside postvoid residual was obtained which demonstrated greater than 1 L a retained urine. Subsequently Carrizales catheter was placed. Despite urinary retention the patient's UA in the ER was not suggestive of infection. He only had 2+ ketones in his urine with some mild leukocytosis and electrolyte panel demonstrated mild decreased serum bicarb, elevated BUN and acute kidney injury with creatinine of 1.39 with some mild hyperglycemia and a CK of 2337. CT of the head was obtained which was negative for acute process and chest x-ray was clear.. It is unclear if the patient has history of chronic memory problems. None the patient has not had a recent contact with a medical provider within our system with his last evaluation by pulmonology in 2021 and at last office visit in 2019. 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 He did not seem to be acutely hallucinating but was definitely confused. Review of Systems Review of Systems: Limited due to patient's confusion PMFSH Past Medical History Medical History (Updated 03/12/25 @ 08:23 by Jana Emery DO) Prostate cancer Status post radiation therapy Umbilical hernia without obstruction and without gangrene Allergic rhinitis Type 2 diabetes mellitus Acromioclavicular joint arthritis Dyslipidemia Essential hypertension Surgical History Surgical History (Updated 03/12/25 @ 07:54 by Jana Emery DO) History of appendectomy History of varicose vein stripping Left leg Status post cataract extraction of both eyes with insertion of intraocular lens Family History Family History (Updated 03/12/25 @ 07:55 by Jana Emery DO) Other Unknown family medical history Social History Social History (Updated 03/12/25 @ 07:58 by Jana Emery DO) Social History: According to medical records within the old system the patient used to smoke but quit over 40 years ago. It also mentions that he used to occasionally drink alcohol but does not state the amount. He states that he lives in his own home and that he has been from his for many years?. He states that he lives alone. He states that he has 1 son and 1 daughter. He used to work at [employer] and [employer] Code status: Full code per EMR Surrogate decision maker: Yobani Edward Smoking status: Former smoker Alcohol intake: unknown Living arrangements: alone Occupation/Education: retired Additional occupation/education comments: [employer] Spiritual care concerns: No Meds Home Medications and Allergies Home Medications ?Medication ?Instructions ?Recorded ?Confirmed ?Type aspirin 81 mg tablet,delayed 81 mg PO DAILY 12/13/19 06/27/20 History release (Adult Low Dose Aspirin) diphenhydramine HCl 25 mg tablet 25 mg PO Q6H PRN 12/13/19 06/27/20 History (Benadryl Allergy) ferrous sulfate 325 mg (65 mg 325 mg PO DAILY 12/13/19 06/27/20 History iron) tablet (FerrouSul) glucosamine HCl 1,500 mg tablet 1,500 mg PO DAILY 12/13/19 06/27/20 History metformin 500 mg tablet 1,000 mg (2 x 500 mg) PO BID #360 02/21/20 06/27/20 Rx tabs atorvastatin 20 mg tablet 20 mg PO DAILY #90 tabs 03/19/20 06/27/20 Rx lisinopril 10 mg tablet 10 mg PO DAILY #90 tabs 05/24/20 06/27/20 Rx sitagliptin phosphate 50 mg tablet 50 mg PO DAILY #30 tabs 06/27/20 06/27/20 Rx (Januvia) Allergies Allergy/AdvReac Type Severity Reaction Status Date / Time METHYLATE Allergy Mild RASH Uncoded 06/27/20 10:33 Vital Signs Vital Signs - 24 hr 03/11/25 17:03 03/11/25 19:21 03/11/25 19:21 Temperature 97.3 F L Pulse Rate 124 H 122 H 122 H Respiratory Rate 16 20 Blood Pressure 145/94 H 141/95 H Pulse Oximetry 100 99 Oxygen Delivery Room Air 03/11/25 19:23 03/11/25 20:30 Temperature Pulse Rate 115 H Respiratory Rate 19 Blood Pressure 120/97 H Pulse Oximetry 99 99 Oxygen Delivery Room Air Exam Narrative: Weight 65.3 kg BMI 23.2 Const: Other: Disheveled, elderly, well-nourished HENMT: Other: Mucous membranes are dry, no oral pharyngeal erythema, head is normocephalic atraumatic Eyes: Other: With pupils are equal and reactive with lens implants noted bilaterally, mild conjunctival pallor, no scleral icterus Neck: Other: No lymphadenopathy, trachea midline Resp: Other: Clear to auscultation bilaterally, no increased work of breathing Cardio: Other: Regular rate, regular rhythm, 2+ bilateral radial pedal pulses GI: Other: Soft, tenderness in the suprapubic region, normoactive bowel sounds, soft easily reducible umbilical hernia : Other: Suprapubic tenderness to palpation, uncircumcised male, mild scrotal edema Skin: Other: Generalized pallor, non jaundice Neuro: Other: Variable state orientation but alert and conversational, alert oriented to name, variable orientation to the year in variable orientation to the name of the current president despite multiple attempts to orient patient, patient is confused as to the month, no localizing neurologic deficits noted, speech is clear and fluent, the patient randomly pops off with conversational factors that have nothing to do with the current hospitalization as I was leaving the room the patient told me that 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 Extrem: Other: 5 plan coordinator strength bilaterally, 4/5 stren gth on plantar flexion Psych: Other: Pleasantly confused, cooperative, poor judgment and insight H&P: Results Labs Labs: Short CBC 03/11/25 Range/Units 17:23 WBC 13.7 H (4.5-10.0) K/mm3 Hgb 13.6 L (14.0-18.0) g/dL Hct 41.0 L (42.0-52.0) % Plt Count 221 (150-375) k/mm3 BMP 03/11/25 17:23 Sodium 144 Potassium 3.9 Chloride 110 H Carbon Dioxide 20 L BUN 29 H D Creatinine 1.39 H Glucose 215 H Calcium 9.3 Cardiac Enzymes 03/11/25 Range/Units 17:23 Total Creatine Kinase 2337 H (55-170) U/L Liver Function 03/11/25 Range/Units 17:23 Total Bilirubin 1.4 H (0.2-1.3) mg/dL AST 71 H (17-59) U/L ALT 31 (6-50) U/L Alkaline Phosphatase 100 (38-126) U/L Albumin 4.1 (3.5-5.1) g/dL Urine 03/11/25 Range/Units 19:21 Urine Color Yellow (Yellow) Urine Appearance Clear (Clear) Urine pH 5.5 (5.0-9.0) Ur Specific [place] 1.018 (1.001-1.035) Urine Protein 2+ H (Negative) mg/dL Urine Glucose (UA) Negative (Negative) mg/dL Impressions Head CT 03/11/25 18:26 IMPRESSION: No acute intracranial findings. Chest X-Ray 03/11/25 18:41 IMPRESSION: No acute cardiopulmonary pathology. EKG: Rate 121, ectopic atrial tachycardia with first-degree block, right bundle-branch block, left anterior fascicular block, QTC 488 All imaging and EKGs personally reviewed and interpreted. And unless stated otherwise agree with radiologic and cardiology interpretation. Assessment and Plan Assessment and plan (1) KATHARINA (acute kidney injury): Code(s): N17.9 - Acute kidney failure, unspecified Status: Acute (2) Rhabdomyolysis: Qualifiers: Rhabdomyolysis type: non-traumatic Qualified Code(s): M62.82 - Rhabdomyolysis Code(s): M62.82 - Rhabdomyolysis Status: Acute (3) Multifocal atrial tachycardia: Code(s): I47.19 - Other supraventricular tachycardia Status: Acute (4) Acute alteration in mental status: Code(s): R41.82 - Altered mental status, unspecified Status: Acute (5) Generalized weakness: Code(s): R53.1 - Weakness Status: Acute (6) QT prolongation: Code(s): R94.31 - Abnormal electrocardiogram [ECG] [EKG] Status: Acute Plan Patient has acute kidney injury likely due to combination dehydration, rhabdomyolysis and urinary retention. Carrizales catheter has placed due to retention and will monitor strict I&O's. Will start patient on Flomax. And repeat electrolyte panel in a.m.. Will continue IV fluids at 150 mL an hour. Patient had transient multifocal atrial tachycardia symptoms have since resolved. Will continue monitor on telemetry. Patient does also have QT prolongation on telemetry. Will avoid QT prolonging medication Patient has acute confusional state but I suspect he may have some underlying dementia although this is not documented. He does not appear to have an acute infection to explain his confusion. Could possibly be due to his urinary retention. Will avoid sedating medications or opiate medications that may cause increased confusion. Will avoid anticholinergics and may worsen urinary retention. The patient has new decreased mobility in generalized weakness. Will change activity 2 up with assistance and request PT and OT evaluation. Unable to address the patient's home med rec as patient is unable to confirm his medications and we were unable to reach the family for verification. Patient has been admitted as observation status. Quality VTE Prophylaxis VTE prophylaxis: mechanical ordered (SCDs) Hospitalist [facility] Advance Care Plan I have confirmed that the patient's Advanced Care Plan is present, code status is documented, or surrogate decision maker is listed in patient medical record.: Yes Medication Reconciliation I have utilized all available resources to obtain, update and review the patients current medications (includes all prescriptions, OTC, herbals, cannabis, and nutritional supplements).: Yes
[2025-03-11] MEDS: SODIUM CHLORIDE 0.9% IV 1,000 ML 125 ML IV CONT (23:20)
--- NOTE | 2025-03-11 23:54 | ADMGEN ---
This patient, Yobani Escamilla, was admitted to 3 [facility] Surg Room 316-02. Patient/family oriented to hospital policies and general routines including ID bracelet, bed and alarms, visiting hours, pain management, procedures, bathroom and other care routines, personal items, smoking policy, room service/diet, and visiting hours. Information on how to activate the Rapid Response Team has been discussed. Patient/Family are encouraged to report perceived risks to care and to ask questions if they do not understand what they are told or what they should do.
[2025-03-12] VITALS (9 sets, daily range): BP systolic 113–133; BP diastolic 62–71; PULSE 59–97; RESP 18–20; TEMP 36–36.5; O2SAT 97–100
--- NOTE | 2025-03-12 07:56 | PM.IMPN ---
Progress Note: A&P Assessment and Plan (1) KATHARINA (acute kidney injury): Code(s): N17.9 - Acute kidney failure, unspecified Status: Acute (2) Multifocal atrial tachycardia: Code(s): I47.19 - Other supraventricular tachycardia Status: Acute (3) Rhabdomyolysis: Code(s): M62.82 - Rhabdomyolysis Status: Acute (4) Dementia: Code(s): F03.90 - Unspecified dementia, unspecified severity, without behavioral disturbance, psychotic disturbance, mood disturbance, and anxiety Status: Acute (5) Acute alteration in mental status: Code(s): R41.82 - Altered mental status, unspecified Status: Acute Plan 89-year-old male with medical history of asthma/COPD overlap, hyperlipidemia, hypertension, type 2 diabetes mellitus who presented to the ER via EMS from home when the patient found the patient sitting on the toilet for unknown amount of time. - continue Carrizales for now for retention - ua not concerning for UTI- continue to monitor - ck 2337- 0.9 ns at 125 ml/h- monitor i/o CT of the head was obtained which was negative for acute process and chest x-ray was clear. - MRI brain ordered- pending - PT/OT ordered - diabetic diet AccuCheck ac/hs, ss, hypoglycemia protocol -noted home med list is not completed - will add miralax prn Time Spent With Patient Time with patient: 25 - 35 minutes Subjective Date/time seen: 03/12/25 07:56 Interval history: 89-year-old male with medical history of asthma/COPD overlap, hyperlipidemia, hypertension, type 2 diabetes mellitus who presented to the ER via EMS from home when the patient found the patient sitting on the toilet for unknown amount of time. He was disoriented, pt did not see pt for a week. Bedside postvoid residual was obtained which demonstrated greater than 1 L a retained urine. Carrizales catheter was placed. UA was not suggestive of infection, 2+ ketones in his urine with some mild leukocytosis. electrolyte panel- mild decreased serum bicarb, elevated BUN and acute kidney injury with creatinine of 1.39 with some mild hyperglycemia and a CK of 2337. CT of the head was obtained which was negative for acute process and chest x-ray was clear. It is unclear if the patient has history of chronic memory problems. None the patient has not had a recent contact with a medical provider within our system with his last evaluation by pulmonology in 2021 and at last office visit in 2019. Pt is seen and examined. He is up in a chair, alert but confused to year. Know he is in the hospital though. Denies pain. noted hernia but pt states that he is typically have no problems having BM. Unsure if pt was complaint with his meds, as the only one he possible had refilled was lisinopril. PT/OT ordered. Review of Systems Review of Systems: Limited due to patient's confusion All systems reviewed & are unremarkable except as noted in HPI and below Exam Const: General: comfortable Objective Data Vital Signs Vital Signs: Vital Signs - 24 hr 03/11/25 17:03 03/11/25 19:21 03/11/25 19:21 Temperature 97.3 F L Pulse Rate 124 H 122 H 122 H Respiratory Rate 16 20 Blood Pressure 145/94 H 141/95 H Pulse Oximetry 100 99 Oxygen Delivery Room Air 03/11/25 19:23 03/11/25 20:30 03/11/25 21:00 Temperature Pulse Rate 115 H 113 H Respiratory Rate 19 21 H Blood Pressure 120/97 H 123/87 Pulse Oximetry 99 99 95 Oxygen Delivery Room Air 03/11/25 22:33 03/11/25 23:00 03/11/25 23:57 Temperature 96.8 F L Pulse Rate 99 101 H 101 H Respiratory Rate 23 H 18 18 Blood Pressure 122/79 115/63 Pulse Oximetry 100 100 Oxygen Delivery Room Air 03/12/25 00:00 03/12/25 04:00 03/12/25 06:00 Temperature 96.8 F L Pulse Rate 67 64 61 Respiratory Rate 18 Blood Pressure 133/67 Pulse Oximetry 97 Oxygen Delivery Intake/Output Intake/Output: Intake & Output 03/09/25 03/10/25 03/11/25 03/12/25 23:59 23:59 23:59 23:59 Intake Total 1999 200 Output Total 0 Balance 1999 200 Meds/Results Medications: Active Medications Generic Name Dose Route Start Last Admin Trade Name Freq PRN Reason Stop Dose Admin Acetaminophen 650 mg 03/11/25 20:33 Acetaminophen 325 Mg Tablet PO Q4H PRN Mild Pain (1-3) or Fever Dextrose 12.5 gm 03/12/25 07:51 Dextrose 50% 25 Gm/50 Ml Syringe IV PUSH PRN PRN Hypoglycemia Protocol Glucagon 1 mg 03/12/25 07:51 Glucagon For Inj 1 Mg Vial IM PRN PRN Hypoglycemia Protocol Glucose 15 gm 03/12/25 07:51 Glucose Oral Gel 15 Gm Of Glucse In 37.5 Gm Tube PO PRN PRN Hypoglycemia Protocol Sodium Chloride 1,000 mls @ 125 mls/hr 03/11/25 20:35 03/11/25 23:20 Normal Saline Iv IV CONT 125 mls/hr .Q8H HOANG Administration Dextrose 1,000 mls @ 100 mls/hr 03/12/25 07:51 Dextrose 5% 1,000 Ml IVPB PRN PRN Hypoglycemia Protocol Insulin Aspart 2 - 5 units 03/12/25 08:00 Insulin Aspart (*Bkc) 100 Units/Ml SUB-Q TIDWM HOANG Protocol Insulin Aspart 1 - 2 units 03/12/25 21:00 Insulin Aspart (*Bkc) 100 Units/Ml SUB-Q HS HOANG Protocol Radiology Results: ITS Impressions Head CT 03/11/25 18:26 IMPRESSION: No acute intracranial findings. Chest X-Ray 03/11/25 18:41 IMPRESSION: No acute cardiopulmonary pathology. Labs Labs: Laboratory Results - last 24 hr 03/11/25 03/11/25 03/11/25 17:23 19:21 20:43 WBC 13.7 H RBC 4.41 L Hgb 13.6 L Hct 41.0 L MCV 93.0 MCH 30.8 MCHC 33.2 RDW 14.6 H Plt Count 221 MPV 10.4 Immature Gran % (Auto) Not Reportable Neut % (Auto) Not Reportable Lymph % (Auto) Not Reportable [place] % (Auto) Not Reportable Eos % (Auto) Not Reportable Baso % (Auto) Not Reportable Lymph # (Auto) Not Reportable [place] # (Auto) Not Reportable Eos # (Auto) Not Reportable Baso # (Auto) Not Reportable Abs Immat Gran (auto) Not Reportable Absolute Neuts (auto) Not Reportable Absolute Nucleated RBC Not Reportable Total Counted 100 Neutrophils % (Manual) 88 H Band Neutrophils % 1 Lymphocytes % (Manual) 2.0 L Monocytes % (Manual) 9 Nucleated RBC % Not Reportable Abs Neuts (Manual) 12.19 H Abs Lymphs (Manual) 0.27 L Abs Monocytes (Manual) 1.23 H Platelet Estimate Adequate Anisocytosis 1+ Schistocytes None seen PT 14.0 INR 1.0 APTT 25.2 Sodium 144 Potassium 3.9 Chloride 110 H Carbon Dioxide 20 L Anion Gap 14 H BUN 29 H D Creatinine 1.39 H Estim Creat Clear Calc Not Reportable Estimated GFR 48 L Glucose 215 H Calcium 9.3 Total Bilirubin 1.4 H AST 71 H ALT 31 Alkaline Phosphatase 100 Total Creatine Kinase 2337 H Total Protein 7.0 Albumin 4.1 Urine Color Yellow Urine Appearance Clear Urine pH 5.5 Ur Specific [place] 1.018 Urine Protein 2+ H Urine Glucose (UA) Negative Urine Ketones 1+ H Ur Blood (Man) 2+ H Urine Nitrate Negative Urine Bilirubin Negative Urine Urobilinogen 0.2 Add Ur Microanalysis Reviewed Leukocyte Esterase Rfl Negative Urine RBC 0-2 Urine WBC 0-5 Ur Squamous Epith Cells None seen Urine Bacteria None seen Urine Casts 3-5 Urine Opiates Screen Negative Urine Methadone Screen Negative Ur Barbiturates Screen Negative Ur Phencyclidine Scrn Negative Ur Amphetamine Screen Negative U Benzodiazepines Scrn Negative Urine Cocaine Screen Negative U Cannabinoids Screen Negative Influenza A (RT-PCR) Negative Influenza B (RT-PCR) Negative RSV (RT-PCR) Negative SARS-CoV-2 RNA (RT-PCR) Negative
[2025-03-12 08:05] LABS: Hematocrit 33.4 % (42.0-52.0); Hemoglobin 10.8 g/dL (14.0-18.0); Mean Corpuscular HGB Conc 32.3 g/dl (32-36); Mean Corpuscular Hemoglobin 30.9 pg (26-34); Mean Corpuscular Volume 95.4 fl (80-100); Mean Platelet Volume 10.5 fl (7.4-10.4); Platelet Count Result 159 k/mm3 (150-375); Red Cell Distribution Width 14.9 % (11.5-14.5); White Blood Count 8.5 K/mm3 (4.5-10.0)
[2025-03-12 08:11] LABS: Alanine Aminotransferase 19 U/L (6-50); Albumin Level 2.9 g/dL (3.5-5.1); Alkaline Phosphatase 67 U/L (38-126); Anion Gap 6 mmol/L (4-12); Aspartate Amino Transferase 48 U/L (17-59); Blood Urea Nitrogen 24 mg/dL (9-20); Calcium 8.2 mg/dL (8.4-10.2); Carbon Dioxide 22 mmol/L (22-30); Chloride 113 mmol/L (98-107); Creatine Kinase 766 U/L (55-170); Estimated CRCL calculation 38 ml/min; Estimated Glomerular Filt Rate > 60; Glucose 123 mg/dL (65-110); Potassium 3.6 mmol/L (3.4-5.0); Sodium 141 mmol/L (137-145)
[2025-03-12 08:27] LABS: Band Neutrophils Percent 2 % (0-6); Eosinophils Absolute Manual 0.17 K/mm3 (0.02-0.50); Eosinophils Percent Manual 2 % (0-4); Lymphocytes Absolute Manual 0.51 K/mm3 (1.1-4.5); Lymphocytes Percent Manual 6 % (18-44); Monocytes Absolute Manual 0.68 K/mm3 (0.1-0.90); Monocytes Percent Manual 8 % (3-9); Neutrophils Absolute Manual 7.14 K/mm3 (1.3-6.7); Neutrophils Percent Manual 82 % (46-73); Total Cells Counted 100
[2025-03-12 08:28] LABS: Platelet Estimate Adequate (Adequate); Schistocytes None Seen
[2025-03-12 08:29] LABS: Atypical Lymphocytes Present
[2025-03-12] MEDS: SODIUM CHLORIDE 0.9% IV 1,000 ML 125 ML IV CONT ×2 (08:53→21:40)
[2025-03-12 11:36] LABS: Glucose Point of Care 211 mg/dl (65-105)
[2025-03-12] MEDS: INSULIN ASPART (*BKC) 100 UNITS/ML SUB-Q (11:55)
[2025-03-12] MEDS: TAMSULOSIN HCL 0.4 MG CAPSULE PO (11:58)
[2025-03-12 16:48] LABS: Glucose Point of Care 92 mg/dl (65-105)
[2025-03-12 20:10] LABS: Glucose Point of Care 147 mg/dl (65-105)
[2025-03-13] VITALS (9 sets, daily range): BP systolic 135–146; BP diastolic 69–87; PULSE 66–88; RESP 18–20; TEMP 36.3–36.6; O2SAT 97–100
[2025-03-13] MEDS: SODIUM CHLORIDE 0.9% IV 1,000 ML 125 ML IV CONT (07:30)
[2025-03-13 07:37] LABS: Glucose Point of Care 119 mg/dl (65-105)
[2025-03-13 08:21] LABS: Basophils Percent Auto 0.1 % (0.2-1.2); Eosinophils Absolute Auto 0.1 K/mm3 (0-0.3); Eosinophils Percent Auto 1.5 % (0-4.4); Hemoglobin 10.7 g/dL (14.0-18.0); Immature Granulocyte Absolute 0.03 K/mm3 (0.00-0.031); Immature Granulocyte Percent A 0.4 % (0-0.5); Lymphocytes Percent Auto 6.8 % (18.3-44.2); Mean Corpuscular HGB Conc 32.4 g/dl (32-36); Mean Corpuscular Hemoglobin 30.6 pg (26-34); Mean Corpuscular Volume 94.3 fl (80-100); Mean Platelet Volume 10.2 fl (7.4-10.4); Monocytes Absolute Auto 0.9 K/mm3 (0.1-0.6); Monocytes Percent Auto 11.6 % (2.6-8.5); Neutrophils Absolute Auto 5.9 K/mm3 (1.3-6.7); Neutrophils Percent Auto 79.6 % (45.5-73.1); Platelet Count Result 158 k/mm3 (150-375); Red Cell Distribution Width 14.8 % (11.5-14.5); White Blood Count 7.4 K/mm3 (4.5-10.0)
[2025-03-13 08:42] LABS: Alanine Aminotransferase 18 U/L (6-50); Albumin Level 2.9 g/dL (3.5-5.1); Alkaline Phosphatase 67 U/L (38-126); Anion Gap 5 mmol/L (4-12); Aspartate Amino Transferase 37 U/L (17-59); Bilirubin,Total 0.8 mg/dL (0.2-1.3); Blood Urea Nitrogen 22 mg/dL (9-20); Calcium 8.1 mg/dL (8.4-10.2); Carbon Dioxide 24 mmol/L (22-30); Chloride 111 mmol/L (98-107); Estimated CRCL calculation 42 ml/min; Estimated Glomerular Filt Rate > 60; Glucose 122 mg/dL (65-110); Potassium 3.4 mmol/L (3.4-5.0); Sodium 140 mmol/L (137-145)
[2025-03-13] MEDS: TAMSULOSIN HCL 0.4 MG CAPSULE PO (09:24)
[2025-03-13 11:54] LABS: Glucose Point of Care 125 mg/dl (65-105)
--- NOTE | 2025-03-13 13:52 | P.PNIM_ITS ---
Progress Note: A&P Assessment and Plan (1) KATHARINA (acute kidney injury): Code(s): N17.9 - Acute kidney failure, unspecified Status: Acute (2) Multifocal atrial tachycardia: Code(s): I47.19 - Other supraventricular tachycardia Status: Acute (3) Rhabdomyolysis: Qualifiers: Rhabdomyolysis type: non-traumatic Qualified Code(s): M62.82 - Rhabdomyolysis Code(s): M62.82 - Rhabdomyolysis Status: Acute (4) Dementia: Code(s): F03.90 - Unspecified dementia, unspecified severity, without behavioral disturbance, psychotic disturbance, mood disturbance, and anxiety Status: Acute (5) Acute alteration in mental status: Code(s): R41.82 - Altered mental status, unspecified Status: Acute Plan 89-year-old male with medical history of asthma/COPD overlap, hyperlipidemia, hypertension, type 2 diabetes mellitus who presented to the ER via EMS from home when the patient found the patient sitting on the toilet for unknown amount of time. - continue Carrizales for now for retention - ua not concerning for UTI- continue to monitor - ck 2337- 0.9 ns at 125 ml/h- monitor i/o CT of the head was obtained which was negative for acute process and chest x- ray was clear. - MRI brain ordered- pending - PT/OT ordered - diabetic diet AccuCheck ac/hs, ss, hypoglycemia protocol -noted home med list is not completed - will add miralax prn 03/13 ok to stop IV fluids repeat ck, bmp, cbc-ordered will restart lisinopril, statin continue flomax continue working with pt/ot tele Time Spent With Patient Time with patient: 25 - 35 minutes Subjective Date/time seen: 03/13/25 13:52 Interval history: 89-year-old male with medical history of asthma/COPD overlap, hyperlipidemia, hypertension, type 2 diabetes mellitus who presented to the ER via EMS from home when the patient found the patient sitting on the toilet for unknown amount of time. He was disoriented, pt did not see pt for a week. Bedside postvoid residual was obtained which demonstrated greater than 1 L a retained urine. Carrizales catheter was placed. UA was not suggestive of infection, 2+ ketones in his urine with some mild leukocytosis. electrolyte panel- mild decreased serum bicarb, elevated BUN and acute kidney injury with creatinine of 1.39 with some mild hyperglycemia and a CK of 2337. CT of the head was obtained which was negative for acute process and chest x-ray was clear. It is unclear if the patient has history of chronic memory problems. None the patient has not had a recent contact with a medical provider within our system with his last evaluation by pulmonology in 2021 and at last office visit in 2019. 03/13 pt is resting with eyes closed. Still somewhat confused but easily re orients. IV fluids can be stopped as pt is having a good PO intake. Working with Pt/ot. home meds restarted Review of Systems Review of Systems: Limited due to patient's confusion All systems reviewed & are unremarkable except as noted in HPI and below Exam Narrative: Weight 65.3 kg BMI 23.2 Const: General: comfortable Other: Disheveled, elderly, well-nourished HENMT: Other: Mucous membranes are dry, no oral pharyngeal erythema, head is normocephalic atraumatic Eyes: Other: With pupils are equal and reactive with lens implants noted bilaterally, mild conjunctival pallor, no scleral icterus Neck: Other: No lymphadenopathy, trachea midline Resp: Other: Clear to auscultation bilaterally, no increased work of breathing Cardio: Other: Regular rate, regular rhythm, 2+ bilateral radial pedal pulses GI: Other: Soft, tenderness in the suprapubic region, normoactive bowel sounds, soft easily reducible umbilical hernia : Other: Suprapubic tenderness to palpation, uncircumcised male, mild scrotal edema Skin: Other: Generalized pallor, non jaundice Neuro: Other: Variable state orientation but alert and conversational, alert oriented to name, variable orientation to the year in variable orientation to the name of the current president despite multiple attempts to orient patient, patient is confused as to the month, no localizing neurologic deficits noted, speech is clear and fluent, the patient randomly pops off with conversational factors that have nothing to do with the current hospitalization as I was leaving the room the patient told me that 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, 4/5 stren gth on plantar flexion Psych: Other: Pleasantly confused, cooperative, poor judgment and insight Objective Data Vital Signs Vital Signs: Vital Signs - 24 hr 03/12/25 14:00 03/12/25 14:58 03/12/25 16:00 Temperature 97.7 F Pulse Rate 65 79 Respiratory Rate 20 Blood Pressure 133/71 Pulse Oximetry 100 Oxygen Delivery Room Air 03/12/25 20:00 03/12/25 20:00 03/12/25 20:44 Temperature 97.3 F L Pulse Rate 84 59 L 84 Respiratory Rate 20 20 Blood Pressure 113/62 Pulse Oximetry 99 99 Oxygen Delivery Room Air 03/13/25 00:00 03/13/25 04:00 03/13/25 06:00 Temperature 97.9 F Pulse Rate 87 73 88 Respiratory Rate 20 Blood Pressure 146/87 H Pulse Oximetry 98 Oxygen Delivery 03/13/25 08:00 03/13/25 09:24 03/13/25 12:00 Temperature Pulse Rate 66 69 Respiratory Rate Blood Pressure Pulse Oximetry Oxygen Delivery Room Air Intake/Output Intake/Output: Intake & Output 03/10/25 03/11/25 03/12/25 03/13/25 23:59 23:59 23:59 23:59 Intake Total 1999 4020 1580 Output Total 1000 1675 Balance 1999 3020 -95 Meds/Results Medications: Active Medications Generic Name Dose Route Start Last Admin Trade Name Freq PRN Reason Stop Dose Admin Acetaminophen 650 mg 03/11/25 20:33 Acetaminophen 325 Mg Tablet PO Q4H PRN Mild Pain (1-3) or Fever Aspirin 81 mg 03/14/25 09:00 Aspirin 81 Mg Enteric Tablet PO DAILY [facility] Atorvastatin Calcium 20 mg 03/14/25 09:00 Atorvastatin 20 Mg Tablet PO DAILY [facility] Dextrose 12.5 gm 03/12/25 07:51 Dextrose 50% 25 Gm/50 Ml Syringe IV PUSH PRN PRN Hypoglycemia Protocol Glucagon 1 mg 03/12/25 07:51 Glucagon For Inj 1 Mg Vial IM PRN PRN Hypoglycemia Protocol Glucose 15 gm 03/12/25 07:51 Glucose Oral Gel 15 Gm Of Glucse In 37.5 Gm Tube PO PRN PRN Hypoglycemia Protocol Dextrose 1,000 mls @ 100 mls/hr 03/12/25 07:51 Dextrose 5% 1,000 Ml IVPB PRN PRN Hypoglycemia Protocol Insulin Aspart 2 - 5 units 03/12/25 08:00 03/13/25 13:29 Insulin Aspart (*Bkc) 100 Units/Ml SUB-Q Not Given TIDWM [facility] Protocol Insulin Aspart 1 - 2 units 03/12/25 21:00 03/12/25 20:49 Insulin Aspart (*Bkc) 100 Units/Ml SUB-Q Not Given HS [facility] Protocol Lisinopril 10 mg 03/14/25 09:00 Lisinopril 10 Mg Tablet PO DAILY [facility] Non-Formulary Medication 325 mg 03/14/25 09:00 Ferrous Sulfate [Ferrousul] PO 04/13/25 08:59 DAILY [facility] Polyethylene Glycol 17 gm 03/12/25 14:05 Polyethylene Glycol 3350 17 Gm Powd.Pack PO QAM PRN Constipation Tamsulosin HCl 0.4 mg 03/12/25 09:00 03/13/25 09:24 Tamsulosin Hcl 0.4 Mg Capsule PO 0.4 mg QAM [facility]ANG Administration Radiology Results: ITS Impressions Head CT 03/11/25 18:26 IMPRESSION: No acute intracranial findings. Chest X-Ray 03/11/25 18:41 IMPRESSION: No acute cardiopulmonary pathology. Brain MRI 03/12/25 19:20 IMPRESSION: 1. No evidence of acute intracranial process. 2. Brain atrophy with deep white matter ischemic changes. T2 and FLAIR hyperintense signal also seen in the montrell which is most likely ischemic. Clinical correlation advised. Labs Labs: Laboratory Results - last 24 hr 03/12/25 03/12/25 03/13/25 16:35 19:52 07:29 WBC RBC Hgb Hct MCV MCH MCHC RDW Plt Count MPV Immature Gran % (Auto) Neut % (Auto) Lymph % (Auto) [place] % (Auto) Eos % (Auto) Baso % (Auto) Lymph # (Auto) [place] # (Auto) Eos # (Auto) Baso # (Auto) Abs Immat Gran (auto) Absolute Neuts (auto) Absolute Nucleated RBC Nucleated RBC % Sodium Potassium Chloride Carbon Dioxide Anion Gap BUN Creatinine Estim Creat Clear Calc Estimated GFR Glucose POC Capillary Glucose 92 147 H 119 H Calcium Total Bilirubin AST ALT Alkaline Phosphatase Total Protein Albumin 03/13/25 03/13/25 08:08 11:32 WBC 7.4 RBC 3.50 L Hgb 10.7 L Hct 33.0 L MCV 94.3 MCH 30.6 MCHC 32.4 RDW 14.8 H Plt Count 158 MPV 10.2 Immature Gran % (Auto) 0.4 Neut % (Auto) 79.6 H Lymph % (Auto) 6.8 L [place] % (Auto) 11.6 H Eos % (Auto) 1.5 Baso % (Auto) 0.1 L Lymph # (Auto) 0.50 L [place] # (Auto) 0.9 H Eos # (Auto) 0.1 Baso # (Auto) 0.0 Abs Immat Gran (auto) 0.03 Absolute Neuts (auto) 5.9 Absolute Nucleated RBC 0.000 Nucleated RBC % 0.0 Sodium 140 Potassium 3.4 Chloride 111 H Carbon Dioxide 24 Anion Gap 5 BUN 22 H Creatinine 0.97 Estim Creat Clear Calc 42 Estimated GFR > 60 Glucose 122 H POC Capillary Glucose 125 H Calcium 8.1 L Total Bilirubin 0.8 AST 37 ALT 18 Alkaline Phosphatase 67 Total Protein 6.0 L Albumin 2.9 L Quality VTE Prophylaxis VTE prophylaxis: mechanical ordered (SCDs)
[2025-03-13] MEDS: lisinopriL 10 MG TABLET PO (15:46)
[2025-03-13] MEDS: FERROUS SULFATE 325 MG TABLET DR PO (15:47)
[2025-03-13] MEDS: ATORVASTATIN 20 MG TABLET PO (15:47)
[2025-03-13 16:31] LABS: Glucose Point of Care 155 mg/dl (65-105)
[2025-03-13 19:37] LABS: Glucose Point of Care 166 mg/dl (65-105)
[2025-03-14] VITALS: PULSE 69
[2025-03-14 04:00] VITALS: PULSE 73
[2025-03-14 05:13] VITALS: BP 140/81; PULSE 75; RESP 16; TEMP 36.7; O2SAT 97
[2025-03-14 06:14] LABS: Hematocrit 32.6 % (42.0-52.0); Hemoglobin 10.7 g/dL (14.0-18.0); Mean Corpuscular HGB Conc 32.8 g/dl (32-36); Mean Corpuscular Hemoglobin 30.6 pg (26-34); Mean Corpuscular Volume 93.1 fl (80-100); Mean Platelet Volume 10.3 fl (7.4-10.4); Platelet Count Result 161 k/mm3 (150-375); Red Cell Distribution Width 14.4 % (11.5-14.5); White Blood Count 6.4 K/mm3 (4.5-10.0)
[2025-03-14 06:40] LABS: Anion Gap 4 mmol/L (4-12); Blood Urea Nitrogen 20 mg/dL (9-20); Carbon Dioxide 24 mmol/L (22-30); Chloride 109 mmol/L (98-107); Creatine Kinase 149 U/L (55-170); Estimated CRCL calculation 43 ml/min; Estimated Glomerular Filt Rate > 60; Glucose 129 mg/dL (65-110); Potassium 3.5 mmol/L (3.4-5.0); Sodium 137 mmol/L (137-145)
[2025-03-14 07:50] LABS: Glucose Point of Care 127 mg/dl (65-105)
[2025-03-14] MEDS: ACETAMINOPHEN 325 MG TABLET 650 MG PO (08:58)
[2025-03-14] MEDS: TAMSULOSIN HCL 0.4 MG CAPSULE PO (08:58)
[2025-03-14] MEDS: ASPIRIN 81 MG ENTERIC TABLET PO (08:58)
[2025-03-14 11:53] LABS: Glucose Point of Care 115 mg/dl (65-105)
[2025-03-14 12:00] VITALS: PULSE 76
[2025-03-14] MEDS: ATORVASTATIN 20 MG TABLET PO (13:11)
[2025-03-14] MEDS: lisinopriL 10 MG TABLET PO (13:11)
[2025-03-14] MEDS: FERROUS SULFATE 325 MG TABLET DR PO (13:12)
[2025-03-14 14:00] VITALS: BP 108/60; PULSE 74; RESP 18; TEMP 36.7; O2SAT 98
[2025-03-14 16:51] LABS: Glucose Point of Care 128 mg/dl (65-105)
[2025-03-14 21:26] LABS: Glucose Point of Care 146 mg/dl (65-105)
[2025-03-14 21:42] VITALS: BP 141/89; PULSE 66; RESP 20; TEMP 36.1; O2SAT 100
[2025-03-15 05:34] VITALS: BP 151/87; PULSE 73; RESP 20; TEMP 36.5; O2SAT 97
[2025-03-15 08:00] VITALS: O2SAT 97
[2025-03-15 08:02] LABS: Glucose Point of Care 115 mg/dl (65-105)
[2025-03-15] MEDS: lisinopriL 10 MG TABLET PO (08:28)
[2025-03-15] MEDS: ASPIRIN 81 MG ENTERIC TABLET PO (08:28)
[2025-03-15] MEDS: FERROUS SULFATE 325 MG TABLET DR PO (08:29)
[2025-03-15] MEDS: ATORVASTATIN 20 MG TABLET PO (08:29)
[2025-03-15] MEDS: TAMSULOSIN HCL 0.4 MG CAPSULE PO (08:29)
[2025-03-15 11:28] LABS: Glucose Point of Care 120 mg/dl (65-105)
--- NOTE | 2025-03-15 13:14 | PM.IMPN ---
Progress Note: A&P Assessment and Plan (1) KATHARINA (acute kidney injury): Code(s): N17.9 - Acute kidney failure, unspecified Status: Acute (2) Multifocal atrial tachycardia: Code(s): I47.19 - Other supraventricular tachycardia Status: Acute (3) Rhabdomyolysis: Qualifiers: Rhabdomyolysis type: non-traumatic Qualified Code(s): M62.82 - Rhabdomyolysis Code(s): M62.82 - Rhabdomyolysis Status: Acute (4) Dementia: Code(s): F03.90 - Unspecified dementia, unspecified severity, without behavioral disturbance, psychotic disturbance, mood disturbance, and anxiety Status: Acute (5) Acute alteration in mental status: Code(s): R41.82 - Altered mental status, unspecified Status: Acute Plan 89-year-old male with medical history of asthma/COPD overlap, hyperlipidemia, hypertension, type 2 diabetes mellitus who presented to the ER via EMS from home when the patient found the patient sitting on the toilet for unknown amount of time. - continue Cohen for now for retention - ua not concerning for UTI- continue to monitor - ck 2337- 0.9 ns at 125 ml/h- monitor i/o CT of the head was obtained which was negative for acute process and chest x-ray was clear. - MRI brain ordered- pending - PT/OT ordered - diabetic diet AccuCheck ac/hs, ss, hypoglycemia protocol -noted home med list is not completed - will add miralax prn 03/13 ok to stop IV fluids repeat ck, bmp, cbc-ordered will restart lisinopril, statin continue flomax continue working with pt/ot tele 03/14 working with pt/ot imported alertness re eval discharge plans to ensure can be discharge home safely continue flomax- voiding trial to d/c cohen vs, labs stable anticipate discharge in the next day or so -will need meds refills - as unclear if he was complaint or not will need a close f/u with pcp- will prob need to re establish with a new one Time Spent With Patient Time with patient: 25 - 35 minutes Subjective Date/time seen: 03/14/25 13:14 Interval history: 89-year-old male with medical history of asthma/COPD overlap, hyperlipidemia, hypertension, type 2 diabetes mellitus who presented to the ER via EMS from home when the patient found the patient sitting on the toilet for unknown amount of time. He was disoriented, pt did not see pt for a week. Bedside postvoid residual was obtained which demonstrated greater than 1 L a retained urine. Cohen catheter was placed. UA was not suggestive of infection, 2+ ketones in his urine with some mild leukocytosis. electrolyte panel- mild decreased serum bicarb, elevated BUN and acute kidney injury with creatinine of 1.39 with some mild hyperglycemia and a [place] of [address]337. CT of the head was obtained which was negative for acute process and chest x-ray was clear. It is unclear if the patient has history of chronic memory problems. None the patient has not had a recent contact with a medical provider within our system with his last evaluation by pulmonology in 2021 and at last office visit in 2019. 03/13 pt is resting with eyes closed. Still somewhat confused but easily re orients. IV fluids can be stopped as pt is having a good PO intake. Working with Pt/ot. home meds restarted 03/14 pt is seen and examined. he is in a good spirit today, appetite is better, no n/v. more alert, but still some confusion. Not interested in SNF or rehab, wants to go home once stable for discharge. Review of Systems Review of Systems: Limited due to patient's confusion All systems reviewed & are unremarkable except as noted in HPI and below Exam Narrative: Weight 65.3 kg BMI 23.2 Const: General: comfortable Other: elderly, well-nourished HENMT: Other: Mucous membranes are dry, no oral pharyngeal erythema, head is normocephalic atraumatic Eyes: Other: With pupils are equal and reactive with lens implants noted bilaterally, mild conjunctival pallor, no scleral icterus Neck: Other: No lymphadenopathy, trachea midline Resp: Other: Clear to auscultation bilaterally, no increased work of breathing Cardio: Other: Regular rate, regular rhythm, 2+ bilateral radial pedal pulses GI: Other: Soft, tenderness in the suprapubic region, normoactive bowel sounds, soft easily reducible umbilical hernia : Other: mild scrotal edema- improving Skin: Other: Generalized pallor, non jaundice Neuro: Motor exam (neuro): 5/5 motor strength present throughout Extrem: Other: 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, 4/5 strength on plantar flexion Psych: Affect: normal affect Other: Pleasantly confused, cooperative, poor judgment and insight Objective Data Vital Signs Vital Signs: Vital Signs - 24 hr 03/14/25 14:00 03/14/25 20:00 03/14/25 21:42 Temperature 98.1 F 97.0 F L Pulse Rate 74 66 Respiratory Rate 18 20 Blood Pressure 108/60 141/89 H Pulse Oximetry 98 100 Oxygen Delivery Room Air 03/15/25 05:34 03/15/25 08:00 Temperature 97.7 F Pulse Rate 73 Respiratory Rate 20 Blood Pressure 151/87 H Pulse Oximetry 97 97 Oxygen Delivery Room Air Intake/Output Intake/Output: Intake & Output 03/12/25 03/13/25 03/14/25 03/15/25 23:59 23:59 23:59 23:59 Intake Total 4020 2620 700 440 Output Total 1000 2150 2150 1200 Balance [phone] Meds/Results Medications: Active Medications Generic Name Dose Route Start Last Admin Trade Name Freq PRN Reason Stop Dose Admin Acetaminophen 650 mg 03/11/25 20:33 03/14/25 08:58 Acetaminophen 325 Mg Tablet PO 650 mg Q4H PRN Administration Mild Pain (1-3) or Fever Aspirin 81 mg 03/14/25 09:00 03/15/25 08:28 Aspirin 81 Mg Enteric Tablet PO 81 mg DAILY [facility] Administration Atorvastatin Calcium 20 mg 03/13/25 13:55 03/15/25 08:29 Atorvastatin 20 Mg Tablet PO 20 mg DAILY [facility] Administration Dextrose 12.5 gm 03/12/25 07:51 Dextrose 50% 25 Gm/50 Ml Syringe IV PUSH PRN PRN Hypoglycemia Protocol Ferrous Sulfate 325 mg 03/13/25 14:00 03/15/25 08:29 Ferrous Sulfate [address] PO 325 mg DAILY [facility] Administration Glucagon 1 mg 03/12/25 07:51 Glucagon For Inj 1 Mg Vial IM PRN PRN Hypoglycemia Protocol Glucose 15 gm 03/12/25 07:51 Glucose Oral Gel 15 Gm Of Glucse In 37.5 Gm Tube PO PRN PRN Hypoglycemia Protocol Dextrose 1,000 mls @ 100 mls/hr 03/12/25 07:51 Dextrose 5% 1,000 Ml IVPB PRN PRN Hypoglycemia Protocol Insulin Aspart 2 - 5 units 03/12/25 08:00 03/15/25 08:26 Insulin Aspart (*Bkc) 100 Units/Ml SUB-Q Not Given TIDWM [facility] Protocol Insulin Aspart 1 - 2 units 03/12/25 21:00 03/14/25 23:39 Insulin Aspart (*Bkc) 100 Units/Ml SUB-Q Not Given HS [facility] Protocol Lisinopril 10 mg 03/13/25 13:55 03/15/25 08:28 Lisinopril 10 Mg Tablet PO 10 mg DAILY [facility] Administration Polyethylene Glycol 17 gm 03/12/25 14:05 Polyethylene Glycol 3350 17 Gm Powd.Pack PO QAM PRN Constipation Tamsulosin HCl 0.4 mg 03/12/25 09:00 03/15/25 08:29 Tamsulosin Hcl 0.4 Mg Capsule PO 0.4 mg QAM HOANG Administration Radiology Results: ITS Impressions Head CT 03/11/25 18:26 IMPRESSION: No acute intracranial findings. Chest X-Ray 03/11/25 18:41 IMPRESSION: No acute cardiopulmonary pathology. Brain MRI 03/12/25 19:20 IMPRESSION: 1. No evidence of acute intracranial process. 2. Brain atrophy with deep white matter ischemic changes. T2 and FLAIR hyperintense signal also seen in the mont[place] which is most likely ischemic. Clinical correlation advised. Labs Labs: Laboratory Results - last 24 hr 03/14/25 03/14/25 03/15/25 16:45 21:11 07:56 POC Capillary Glucose 128 H 146 H 115 H 03/15/25 11:18 POC Capillary Glucose 120 H Quality VTE Prophylaxis VTE prophylaxis: mechanical ordered (SCDs)
[2025-03-15 14:00] VITALS: BP 127/97; PULSE 92; RESP 16; TEMP 36.2; O2SAT 98
[2025-03-15 16:29] LABS: Glucose Point of Care 187 mg/dl (65-105)
--- NOTE | 2025-03-15 18:59 | PM.IMPN ---
Progress Note: A&P Assessment and Plan (1) KATHARINA (acute kidney injury): Code(s): N17.9 - Acute kidney failure, unspecified Status: Acute (2) Multifocal atrial tachycardia: Code(s): I47.19 - Other supraventricular tachycardia Status: Acute (3) Rhabdomyolysis: Qualifiers: Rhabdomyolysis type: non-traumatic Qualified Code(s): M62.82 - Rhabdomyolysis Code(s): M62.82 - Rhabdomyolysis Status: Acute (4) Dementia: Code(s): F03.90 - Unspecified dementia, unspecified severity, without behavioral disturbance, psychotic disturbance, mood disturbance, and anxiety Status: Acute (5) Acute alteration in mental status: Code(s): R41.82 - Altered mental status, unspecified Status: Acute Plan 89-year-old male with medical history of asthma/COPD overlap, hyperlipidemia, hypertension, type 2 diabetes mellitus who presented to the ER via EMS from home when the patient found the patient sitting on the toilet for unknown amount of time. KATHARINA Urinary retention Over 1000ml post void Creatinine 1.39 in the ER, improved to 0.95 with treatment of urinary obstruction and with fluids UA no evidence of UTI CK 2237, which improved to 149 --Void trial. Bladder scan and replace cohen - continue Cohen for now if still retaining --Continue flomax AMS CT of the head was obtained which was negative for acute process and chest x-ray was clear. - MRI brain 1. No evidence of acute intracranial process. 2. Brain atrophy with deep white matter ischemic changes. T2 and FLAIR hyperintense signal also seen in the montrell which is most likely ischemic. Clinical correlation advised. --Continue ASA --Holding Statin for elevated CK Weakness - PT/OT ordered DMII Diabetic diet, AccuCheck ac/hs, ss, hypoglycemia protocol HTN Continue lisinopril Elevated CK CK 2337 on admission Stop Statin, defer to outpatient given age Multifocal atrial tachycardia Prolonged QT --avoid QT prolonging meds --monitor electrolytes Time Spent With Patient Time: 58 minutes Subjective Date/time seen: 03/15/25 10:35 Interval history: Feeling ok. Confused, said it 46 when asked the year. Still has Cohen cathether and planning a void trial today Discharge to SNF/rehab per son. Hospital course: 89-year-old male with medical history of asthma/COPD overlap, hyperlipidemia, hypertension, type 2 diabetes mellitus who presented to the ER via EMS from home when the patient found the patient sitting on the toilet for unknown amount of time. He was disoriented, pt did not see pt for a week. Bedside postvoid residual was obtained which demonstrated greater than 1 L a retained urine. Cohen catheter was placed. UA was not suggestive of infection, 2+ ketones in his urine with some mild leukocytosis. electrolyte panel- mild decreased serum bicarb, elevated BUN and acute kidney injury with creatinine of 1.39 with some mild hyperglycemia and a [place] of 2337. CT of the head was obtained which was negative for acute process and chest x-ray was clear. It is unclear if the patient has history of chronic memory problems. None the patient has not had a recent contact with a medical provider within our system with his last evaluation by pulmonology in 2021 and at last office visit in 2019. Review of Systems Review of Systems: Limited due to patient's confusion All systems reviewed & are unremarkable except as noted in HPI and below Exam Narrative: General - Awake and alert. No acute distress Eyes - PERRLA, EOM intact ENT - No thrush, No erythema Neck - No noticeable or palpable swelling Lymph Nodes - No lymphadenopathy Cardiovascular - RRR no m/r/g, no JVD Lungs: Clear to auscultation, No wheezing, use of accessory muscles, no crackles Skin - Skin warm and dry, no wounds or rashes Abdomen - Normal bowel sounds, abdomen soft and nontender Extremities - No edema, cyanosis or clubbing Musculoskeletal - 5/5 strength, normal range of motion, no swollen or erythematous joints. Neurological ? Alert and oriented x 2 45, CN 2-12 grossly intact. Psych: Normal mood and affect Cohen catheter Neuro: Motor exam (neuro): 5/5 motor strength present throughout Other: Objective Data Vital Signs Vital Signs: Vital Signs - 24 hr 03/14/25 20:00 03/14/25 21:42 03/15/25 05:34 Temperature 97.0 F L 97.7 F Pulse Rate 66 73 Respiratory Rate 20 20 Blood Pressure 141/89 H 151/87 H Pulse Oximetry 100 97 Oxygen Delivery Room Air 03/15/25 08:00 03/15/25 14:00 Temperature 97.2 F L Pulse Rate 92 Respiratory Rate 16 Blood Pressure 127/97 H Pulse Oximetry 97 98 Oxygen Delivery Room Air Intake/Output Intake/Output: Intake & Output 03/12/25 03/13/25 03/14/25 03/15/25 23:59 23:59 23:59 23:59 Intake Total 4020 2620 700 1110 Output Total 1000 2150 2150 2150 Balance 3020 [phone] Meds/Results Medications: Active Medications Generic Name Dose Route Start Last Admin Trade Name Freq PRN Reason Stop Dose Admin Acetaminophen 650 mg 03/11/25 20:33 03/14/25 08:58 Acetaminophen 325 Mg Tablet PO 650 mg Q4H PRN Administration Mild Pain (1-3) or Fever Aspirin 81 mg 03/14/25 09:00 03/15/25 08:28 Aspirin 81 Mg Enteric Tablet PO 81 mg DAILY [facility]ANG Administration Atorvastatin Calcium 20 mg 03/13/25 13:55 03/15/25 08:29 Atorvastatin 20 Mg Tablet PO 20 mg DAILY [facility]ANG Administration Dextrose 12.5 gm 03/12/25 07:51 Dextrose 50% 25 Gm/50 Ml Syringe IV PUSH PRN PRN Hypoglycemia Protocol Ferrous Sulfate 325 mg 03/13/25 14:00 03/15/25 08:29 Ferrous Sulfate [address] PO 325 mg DAILY [facility] Administration Glucagon 1 mg 03/12/25 07:51 Glucagon For Inj 1 Mg Vial IM PRN PRN Hypoglycemia Protocol Glucose 15 gm 03/12/25 07:51 Glucose Oral Gel 15 Gm Of Glucse In 37.5 Gm Tube PO PRN PRN Hypoglycemia Protocol Dextrose 1,000 mls @ 100 mls/hr 03/12/25 07:51 Dextrose 5% 1,000 Ml IVPB PRN PRN Hypoglycemia Protocol Insulin Aspart 2 - 5 units 03/12/25 08:00 03/15/25 16:31 Insulin Aspart (*Bkc) 100 Units/Ml SUB-Q Not Given TIDWM [facility] Protocol Insulin Aspart 1 - 2 units 03/12/25 21:00 03/14/25 23:39 Insulin Aspart (*Bkc) 100 Units/Ml SUB-Q Not Given HS [facility] Protocol Lisinopril 10 mg 03/13/25 13:55 03/15/25 08:28 Lisinopril 10 Mg Tablet PO 10 mg DAILY [facility]ANG Administration Polyethylene Glycol 17 gm 03/12/25 14:05 Polyethylene Glycol 3350 17 Gm Powd.Pack PO QAM PRN Constipation Tamsulosin HCl 0.4 mg 03/12/25 09:00 03/15/25 08:29 Tamsulosin Hcl 0.4 Mg Capsule PO 0.4 mg QAM HOANG Administration Radiology Results: ITS Impressions Head CT 03/11/25 18:26 IMPRESSION: No acute intracranial findings. Chest X-Ray 03/11/25 18:41 IMPRESSION: No acute cardiopulmonary pathology. Brain MRI 03/12/25 19:20 IMPRESSION: 1. No evidence of acute intracranial process. 2. Brain atrophy with deep white matter ischemic changes. T2 and FLAIR hyperintense signal also seen in the [place] which is most likely ischemic. Clinical correlation advised. Labs Labs: Laboratory Results - last 24 hr 03/14/25 03/15/25 03/15/25 21:11 07:56 11:18 POC Capillary Glucose 146 H 115 H 120 H 03/15/25 16:22 POC Capillary Glucose 187 H Quality VTE Prophylaxis VTE prophylaxis: mechanical ordered (SCDs) Hospitalist MIPS Advance Care Plan I have confirmed that the patient's Advanced Care Plan is present, code status is documented, or surrogate decision maker is listed in patient medical record.: Yes Medication Reconciliation I have utilized all available resources to obtain, update and review the patients current medications (includes all prescriptions, OTC, herbals, cannabis, and nutritional supplements).: Yes
[2025-03-15 21:04] LABS: Glucose Point of Care 176 mg/dl (65-105)
[2025-03-15 21:43] VITALS: BP 151/85; PULSE 102; RESP 24; TEMP 36.3; O2SAT 99
[2025-03-15] MEDS: ACETAMINOPHEN 325 MG TABLET 650 MG PO (23:20)
[2025-03-16 06:00] VITALS: BP 129/79; PULSE 94; RESP 24; TEMP 36.1; O2SAT 98
[2025-03-16 07:42] LABS: Glucose Point of Care 143 mg/dl (65-105)
[2025-03-16] MEDS: ASPIRIN 81 MG ENTERIC TABLET PO (08:56)
[2025-03-16] MEDS: TAMSULOSIN HCL 0.4 MG CAPSULE PO (08:56)
[2025-03-16] MEDS: lisinopriL 10 MG TABLET PO (08:56)
[2025-03-16] MEDS: FERROUS SULFATE 325 MG TABLET DR PO (08:56)
[2025-03-16 11:40] LABS: Glucose Point of Care 112 mg/dl (65-105)
[2025-03-16 14:00] VITALS: BP 136/87; PULSE 81; RESP 16; TEMP 36.8; O2SAT 95
[2025-03-16 16:26] LABS: Glucose Point of Care 178 mg/dl (65-105)
[2025-03-16 20:10] LABS: Glucose Point of Care 170 mg/dl (65-105)
[2025-03-16 21:39] VITALS: BP 111/67; PULSE 84; RESP 20; TEMP 36.2; O2SAT 98
[2025-03-17 06:00] VITALS: BP 143/86; PULSE 70; RESP 20; TEMP 36.3; O2SAT 96
[2025-03-17 08:11] LABS: Glucose Point of Care 122 mg/dl (65-105)
[2025-03-17] MEDS: FERROUS SULFATE 325 MG TABLET DR PO (08:13)
[2025-03-17] MEDS: ASPIRIN 81 MG ENTERIC TABLET PO (08:13)
[2025-03-17] MEDS: lisinopriL 10 MG TABLET PO (08:13)
[2025-03-17] MEDS: TAMSULOSIN HCL 0.4 MG CAPSULE PO (08:13)
--- NOTE | 2025-03-17 10:14 | PM.IMPN ---
Progress Note: A&P Assessment and Plan (1) KATHARINA (acute kidney injury): Code(s): N17.9 - Acute kidney failure, unspecified Status: Acute (2) Multifocal atrial tachycardia: Code(s): I47.19 - Other supraventricular tachycardia Status: Acute (3) Rhabdomyolysis: Qualifiers: Rhabdomyolysis type: non-traumatic Qualified Code(s): M62.82 - Rhabdomyolysis Code(s): M62.82 - Rhabdomyolysis Status: Acute (4) Dementia: Code(s): F03.90 - Unspecified dementia, unspecified severity, without behavioral disturbance, psychotic disturbance, mood disturbance, and anxiety Status: Acute (5) Acute alteration in mental status: Code(s): R41.82 - Altered mental status, unspecified Status: Acute Plan 89-year-old male with medical history of asthma/COPD overlap, hyperlipidemia, hypertension, type 2 diabetes mellitus who presented to the ER via EMS from home when the patient found the patient sitting on the toilet for unknown amount of time. KATHARINA Urinary retention Over 1000ml post void Creatinine 1.39 in the ER, improved to 0.95 with treatment of urinary obstruction and with fluids UA no evidence of UTI CK 2237, which improved to 149 --Void trial. Bladder scan. Replace cohen if obstructed --Outpatient Urology follow up --Continue flomax AMS CT of the head was obtained which was negative for acute process and chest x-ray was clear. - MRI brain 1. No evidence of acute intracranial process. 2. Brain atrophy with deep white matter ischemic changes. T2 and FLAIR hyperintense signal also seen in the [place] which is most likely ischemic. Clinical correlation advised. --Continue ASA --Holding Statin for elevated CK Weakness - PT/OT ordered DMII Diabetic diet, AccuCheck ac/hs, ss, hypoglycemia protocol HTN Continue lisinopril Elevated CK CK 2337 on admission Stop Statin, defer to outpatient given age Multifocal atrial tachycardia Prolonged QT --avoid QT prolonging meds --monitor electrolytes Time Spent With Patient Time: 53 minutes Subjective Date/time seen: 03/17/25 10:14 Interval history: Feeling okay. Confusion about the same. Exam Oriented x 1 - 2 unable to state month or year but knows he is in a hospital in [place] Mild abdominal distension no pain Vital signs stable, blood pressure 143/86 Discharge pending SNF Review of Systems Review of Systems: Limited due to patient's confusion All systems reviewed & are unremarkable except as noted in HPI and below Exam Narrative: General - Awake and alert. No acute distress Eyes - PERRLA, EOM intact ENT - No thrush, No erythema Neck - No noticeable or palpable swelling Lymph Nodes - No lymphadenopathy Cardiovascular - RRR no m/r/g, no JVD Lungs: Clear to auscultation, No wheezing, use of accessory muscles, no crackles Skin - Skin warm and dry, no wounds or rashes Abdomen - Normal bowel sounds, abdomen soft and nontender Extremities - No edema, cyanosis or clubbing Musculoskeletal - 5/5 strength, normal range of motion, no swollen or erythematous joints. Neurological ? Alert and oriented x 1, pleasantly confused, CN 2-12 grossly intact. Psych: Normal mood and affect Objective Data Vital Signs Vital Signs: Vital Signs - 24 hr 03/16/25 14:00 03/16/25 21:39 03/17/25 06:00 Temperature 98.2 F 97.1 F L 97.3 F L Pulse Rate 81 84 70 Respiratory Rate 16 20 20 Blood Pressure 136/87 111/67 143/86 H Pulse Oximetry 95 98 96 Intake/Output Intake/Output: Intake & Output 03/14/25 03/15/25 03/16/25 03/17/25 23:59 23:59 23:59 23:59 Intake Total 700 1110 1512 200 Output Total 2150 2150 2200 800 Balance -1450 -1040 -688 -600 Meds/Results Medications: Active Medications Generic Name Dose Route Start Last Admin Trade Name Rahulq PRN Reason Stop Dose Admin Acetaminophen 650 mg 03/11/25 20:33 03/15/25 23:20 Acetaminophen 325 Mg Tablet PO 650 mg Q4H PRN Administration Mild Pain (1-3) or Fever Aspirin 81 mg 03/14/25 09:00 03/17/25 08:13 Aspirin 81 Mg Enteric Tablet PO 81 mg DAILY HOANG Administration Dextrose 12.5 gm 03/12/25 07:51 Dextrose 50% 25 Gm/50 Ml Syringe IV PUSH PRN PRN Hypoglycemia Protocol Ferrous Sulfate 325 mg 03/13/25 14:00 03/17/25 08:13 Ferrous Sulfate [address] PO 325 mg DAILY HOANG Administration Glucagon 1 mg 03/12/25 07:51 Glucagon For Inj 1 Mg Vial IM PRN PRN Hypoglycemia Protocol Glucose 15 gm 03/12/25 07:51 Glucose Oral Gel 15 Gm Of Glucse In 37.5 Gm Tube PO PRN PRN Hypoglycemia Protocol Dextrose 1,000 mls @ 100 mls/hr 03/12/25 07:51 Dextrose 5% 1,000 Ml IVPB PRN PRN Hypoglycemia Protocol Insulin Aspart 2 - 5 units 03/12/25 08:00 03/17/25 08:05 Insulin Aspart (*Bkc) 100 Units/Ml SUB-Q Not Given TIDWM HOANG Protocol Insulin Aspart 1 - 2 units 03/12/25 21:00 03/16/25 21:00 Insulin Aspart (*Bkc) 100 Units/Ml SUB-Q Not Given HS HOANG Protocol Lisinopril 10 mg 03/13/25 13:55 03/17/25 08:13 Lisinopril 10 Mg Tablet PO 10 mg DAILY HOANG Administration Polyethylene Glycol 17 gm 03/12/25 14:05 Polyethylene Glycol 3350 17 Gm Powd.Pack PO QAM PRN Constipation Tamsulosin HCl 0.4 mg 03/12/25 09:00 03/17/25 08:13 Tamsulosin Hcl 0.4 Mg Capsule PO 0.4 mg QAM HOANG Administration Radiology Results: ITS Impressions Head CT 03/11/25 18:26 IMPRESSION: No acute intracranial findings. Chest X-Ray 03/11/25 18:41 IMPRESSION: No acute cardiopulmonary pathology. Brain MRI 03/12/25 19:20 IMPRESSION: 1. No evidence of acute intracranial process. 2. Brain atrophy with deep white matter ischemic changes. T2 and FLAIR hyperintense signal also seen in the [place] which is most likely ischemic. Clinical correlation advised. Labs Labs: Laboratory Results - last 24 hr 03/16/25 03/16/25 03/16/25 11:30 16:18 20:05 POC Capillary Glucose 112 H 178 H 170 H 03/17/25 07:58 POC Capillary Glucose 122 H Quality VTE Prophylaxis VTE prophylaxis: mechanical ordered (SCDs) Hospitalist MIPS Advance Care Plan I have confirmed that the patient's Advanced Care Plan is present, code status is documented, or surrogate decision maker is listed in patient medical record.: Yes Medication Reconciliation I have utilized all available resources to obtain, update and review the patients current medications (includes all prescriptions, OTC, herbals, cannabis, and nutritional supplements).: Yes
[2025-03-17 11:24] LABS: Glucose Point of Care 109 mg/dl (65-105)
[2025-03-17 11:52] LABS: Glucose Point of Care 93 mg/dl (65-105)
--- NOTE | 2025-03-17 12:13 | PCPTNOTE ---
Attempted to see patient for PT, however patient was eating lunch.
[2025-03-17 14:16] VITALS: BP 123/87; PULSE 98; RESP 19; TEMP 36.4; O2SAT 94
[2025-03-17 17:05] LABS: Glucose Point of Care 152 mg/dl (65-105)
[2025-03-17 20:27] LABS: Glucose Point of Care 166 mg/dl (65-105)
[2025-03-17 20:42] VITALS: BP 113/59; PULSE 69; RESP 20; TEMP 37.3; O2SAT 96
[2025-03-18 05:59] VITALS: BP 137/81; PULSE 65; RESP 20; TEMP 36.1; O2SAT 96
[2025-03-18 07:53] LABS: Glucose Point of Care 128 mg/dl (65-105)
[2025-03-18 08:57] LABS: Basophils Percent Auto 0.2 % (0.2-1.2); Eosinophils Absolute Auto 0.2 K/mm3 (0-0.3); Eosinophils Percent Auto 3.2 % (0-4.4); Hematocrit 35.9 % (42.0-52.0); Hemoglobin 11.7 g/dL (14.0-18.0); Immature Granulocyte Absolute 0.04 K/mm3 (0.00-0.031); Immature Granulocyte Percent A 0.6 % (0-0.5); Lymphocytes Absolute Auto 0.66 K/mm3 (0.9-3.2); Lymphocytes Percent Auto 9.9 % (18.3-44.2); Mean Corpuscular HGB Conc 32.6 g/dl (32-36); Mean Corpuscular Hemoglobin 30.5 pg (26-34); Mean Corpuscular Volume 93.7 fl (80-100); Mean Platelet Volume 10.4 fl (7.4-10.4); Monocytes Absolute Auto 0.6 K/mm3 (0.1-0.6); Monocytes Percent Auto 9.2 % (2.6-8.5); Neutrophils Absolute Auto 5.1 K/mm3 (1.3-6.7); Neutrophils Percent Auto 76.9 % (45.5-73.1); Platelet Count Result 197 k/mm3 (150-375); Red Blood Count 3.83 M/mm3 (4.6-6.20); Red Cell Distribution Width 14.4 % (11.5-14.5); White Blood Count 6.6 K/mm3 (4.5-10.0)
[2025-03-18 09:17] LABS: Anion Gap 5 mmol/L (4-12); Blood Urea Nitrogen 32 mg/dL (9-20); Carbon Dioxide 30 mmol/L (22-30); Chloride 103 mmol/L (98-107); Estimated CRCL calculation 39 ml/min; Estimated Glomerular Filt Rate > 60; Glucose 131 mg/dL (65-110); Potassium 4.1 mmol/L (3.4-5.0); Sodium 138 mmol/L (137-145)
[2025-03-18] MEDS: TAMSULOSIN HCL 0.4 MG CAPSULE PO (10:32)
[2025-03-18] MEDS: FERROUS SULFATE 325 MG TABLET DR PO (10:32)
[2025-03-18] MEDS: lisinopriL 10 MG TABLET PO (10:33)
[2025-03-18] MEDS: ASPIRIN 81 MG ENTERIC TABLET PO (10:33)
--- NOTE | 2025-03-18 11:35 | P.DS_ITS ---
DS: Admitting Diagnosis Discharge Date 03/18/2025 Admitting Diagnosis KATHARINA Rhabdomyolysis DS: Discharge Diagnosis Discharge Diagnosis (1) Rhabdomyolysis: Qualifiers: Rhabdomyolysis type: non-traumatic Qualified Code(s): M62.82 - Rhabdomyolysis Code(s): M62.82 - Rhabdomyolysis Status: Acute (2) KATHARINA (acute kidney injury): Code(s): N17.9 - Acute kidney failure, unspecified Status: Acute (3) Type 2 diabetes mellitus: Code(s): E11.9 - Type 2 diabetes mellitus without complications Status: Acute (4) QT prolongation: Code(s): R94.31 - Abnormal electrocardiogram [ECG] [EKG] Status: Acute (5) Multifocal atrial tachycardia: Code(s): I47.19 - Other supraventricular tachycardia Status: Acute DS: Summary Hospital Course Reason for hospitalization: Copied from [facility] 03/11: 89-year-old male with medical history of asthma/COPD overlap, hyperlipidemia, hypertension, type 2 diabetes mellitus who presented to the ER via EMS from home when the patient found the patient sitting on the toilet for unknown amount of time. The family had not seen the patient in about a week. When they came in status they found the patient on the toilet any stated that he could not get up. He cannot provide much history besides the fact that he was weak. On arrival to the ER the patient was noted to have some edematous scrotum and edema in his buttocks in distribution of the rim of the toilet seat suggesting that the p atient had been sitting on the commode for quite some time. The patient is oriented to person and the fact that he is in the hospital but thought he was in [facility]. He is intermittently oriented to the year. He told me the month was July despite multiple staff members reorienting him to the date and time. And he is provided variable responses as to the name of the current president including Solomon, Obama and Trump all within the last couple of hours. The patient denies any difficulty with urination but at the time of my evaluation the patient had only dribbles some urine despite multiple attempts. On palpation of his abdomen he had some lower abdominal distension and discomfort with palpation. Subsequently a bedside postvoid residual was obtained which demonstrated greater than 1 L a retained urine. Subsequently Carrizales catheter was placed. Despite urinary retention the patient's UA in the ER was not suggestive of infection. He only had 2+ ketones in his urine with some mild leukocytosis and electrolyte panel demonstrated mild decreased serum bicarb, elevated BUN and acute kidney injury with creatinine of 1.39 with some mild hyperglycemia and a CK of 2337. CT of the head was obtained which was negative for acute process and chest x-ray was clear.. It is unclear if the patient has history of chronic memory problems. None the patient has not had a recent contact with a medical provider within our system with his last evaluation by pulmonology in 2021 and at last office visit in 2019. 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 He did not seem to be acutely hallucinating but was definitely confused. Hospital Course: 89-year-old male with medical history of asthma/COPD overlap, hyperlipidemia, hypertension, type 2 diabetes mellitus who presented to the ER via EMS from home when the patient found the patient sitting on the toilet for unknown amount of time. KATHARINA Urinary retention Over 1000ml post void. Creatinine 1.39 in the ER, improved to 0.95 with treatment of urinary obstruction and with fluids UA no evidence of UTI. CK 2237, which improved to 149. Passed void trial. Outpatient Urology follow up if new symptoms --Continued flomax AMS CT of the head was obtained which was negative for acute process and chest x- ray was clear. - MRI brain 1. No evidence of acute intracranial process. 2. Brain atrophy with deep white matter ischemic changes. T2 and FLAIR hyperintense signal also seen in the [place] which is most likely ischemic. Clinical correlation advised. --Continued ASA --stopped Statin for elevated CK. Age 89 so limited benefit --Treated KATHARINA as noted Weakness - PT/OT ordered DMII Diabetic diet, AccuCheck ac/hs, ss, hypoglycemia protocol HTN Continue lisinopril Elevated CK Rhabdomyolysis Mild, CK 2237, which improved to 149 Stopped Statin, defer to outpatient. Limited benefit given age Multifocal atrial tachycardia Prolonged QT --avoid QT prolonging meds --monitor electrolytes Status at Discharge Cognitive/behavioral status at discharge: Awake and alert, pleasnt, orientedx2 Time Spent with Patient Time attestation: Total time spent providing and/or coordinating discharge services:53 minutes Exam Narrative: General - Awake and alert. No acute distress Eyes - PERRLA, EOM intact ENT - No thrush, No erythema Neck - No noticeable or palpable swelling Lymph Nodes - No lymphadenopathy Cardiovascular - RRR no m/r/g, no JVD Lungs: Clear to auscultation, No wheezing, use of accessory muscles, no crackles Skin - Skin warm and dry, no wounds or rashes Abdomen - Normal bowel sounds, abdomen soft and nontender Extremities - No edema, cyanosis or clubbing Musculoskeletal - 5/5 strength, normal range of motion, no swollen or erythematous joints. Neurological ? Alert and oriented x 1-2, pleasantly confused, CN 2-12 grossly intact. Psych: Normal mood and affect External catheter in place with yellow urine in cannister DS: Data Data Completed and Pending Labs on day of discharge: Labs from last 24 hours 03/18/25 03/18/25 03/17/25 08:41 07:49 19:35 WBC 6.6 RBC 3.83 L Hgb 11.7 L Hct 35.9 L MCV 93.7 MCH 30.5 MCHC 32.6 RDW 14.4 Plt Count 197 MPV 10.4 Immature Gran % (Auto) 0.6 H Neut % (Auto) 76.9 H Lymph % (Auto) 9.9 L [place] % (Auto) 9.2 H Eos % (Auto) 3.2 Baso % (Auto) 0.2 Lymph # (Auto) 0.66 L [place] # (Auto) 0.6 Eos # (Auto) 0.2 Baso # (Auto) 0.0 Abs Immat Gran (auto) 0.04 H Absolute Neuts (auto) 5.1 Absolute Nucleated RBC 0.000 Nucleated RBC % 0.0 Sodium 138 Potassium 4.1 Chloride 103 Carbon Dioxide 30 Anion Gap 5 BUN 32 H D Creatinine 1.06 Estim Creat Clear Calc 39 Estimated GFR > 60 Glucose 131 H POC Capillary Glucose 128 H 166 H Calcium 9.0 03/17/25 03/17/25 17:01 11:32 WBC RBC Hgb Hct MCV MCH MCHC RDW Plt Count MPV Immature Gran % (Auto) Neut % (Auto) Lymph % (Auto) [place] % (Auto) Eos % (Auto) Baso % (Auto) Lymph # (Auto) [place] # (Auto) Eos # (Auto) Baso # (Auto) Abs Immat Gran (auto) Absolute Neuts (auto) Absolute Nucleated RBC Nucleated RBC % Sodium Potassium Chloride Carbon Dioxide Anion Gap BUN Creatinine Estim Creat Clear Calc Estimated GFR Glucose POC Capillary Glucose 152 H 93 Calcium Discharge Plan Discharge Attending physician on discharge: Lisa Forte Discharging Clinician: Lisa Forte Anticipated Discharge Date/Time: 03/18/25 11:54 Patient Disposition: SNF Activity: may shower Diet: diabetic Discharge Instructions: Resumed home metformin and Januvia. Continue sliding scale and accuchecks at facility but may not need insulin so can continue discontinuing. Bladder scan if new complaints of abdominal pain or difficulty urinating Patient Language: Turkmen Stand Alone Forms: General Discharge Information Follow-up/Referrals: Catracho,Eleuterio Hernandes MD [Primary Care Provider] - 2 Weeks Discharge Medications: New acetaminophen 325 mg Tablet 650 mg PO Q4H PRN (Reason: Mild Pain (1-3) Or Fever) Qty: 30 0RF insulin aspart U-100 [Novolog U-100 Insulin aspart] 100 unit/mL Solution 2 - 5 unit subcut TIDWM Qty: 10 0RF Protocol: Insulin Corrective Low-Dose Condition: glucose < 70 mg/dl Dose/Route: Follow Hypoglycemia Order Condition: glucose 70-200 mg/dl Dose/Route: No additional insulin Condition: glucose 201-250 mg/dl Dose/Route: 2 units sub-Q Condition: glucose 251-300 mg/dl Dose/Route: 3 units sub-Q Condition: glucose 301-350 mg/dl Dose/Route: 4 units sub-Q Condition: glucose 351-400 mg/dl Dose/Route: 5 units sub-Q Condition: glucose > 400 mg/dl Dose/Route: Call Protocol Text: *No Correction Dose at Bedtime* tamsulosin 0.4 mg Capsule 0.4 mg PO QAM Qty: 30 0RF Continued Januvia 50 mg tablet 50 mg PO DAILY Qty: 30 2RF aspirin [Adult Low Dose Aspirin] 81 mg tablet,delayed release (DR/EC) 81 mg PO DAILY ferrous sulfate [FerrouSul] 325 mg (65 mg iron) tablet 325 mg PO DAILY metformin 500 mg tablet 1,000 mg PO BID Qty: 360 1RF lisinopril 10 mg tablet 10 mg PO DAILY Qty: 90 1RF Discontinued glucosamine HCl 1,500 mg tablet 1,500 mg PO DAILY Rx Instructions: administer with a meal diphenhydramine HCl [Benadryl Allergy] 25 mg tablet 25 mg PO Q6H PRN (Reason: itching) atorvastatin 20 mg tablet 20 mg PO DAILY Qty: 90 1RF Date of admission: 03/13/25 14:20 Primary Care Provider: Celeste,Eleuterio Hernandes Admitting Provider: Jana Emery Attending physician on admission: Lisa Forte Condition: Stable Hospitalist MIPS Heart Failure (Exclusion) Patient has history of Heart Transplant or Left Ventricular Assistive Device?: No IF YES, STOP HERE Heart Failure (Qualifier) Patient has current or prior documentation of LVEF less than or equal to 40%, or mod/servere depressed LVSF?: No IF NO, STOP HERE
[2025-03-18 11:54] LABS: Glucose Point of Care 142 mg/dl (65-105)
== END 2025-03-18 15:05 | DRG 558 ==
LOC: ANHED 19:41 → ANH3MEDSUR 22:07
PROVIDERS: Emergency Medicine; Nurse Practitioner; Admitting Provider Internal Medicine; Emergency Provider Emergency Medicine; PCP Internal Medicine; Visit Provider Nurse Practitioner Acute Care
DX: M62.82 Rhabdomyolysis (principal); N17.9 Acute kidney failure, unspecified; I47.19 Other supraventricular tachycardia; I10 Essential (primary) hypertension; J44.9 Chronic obstructive pulmonary disease, unspecified; E78.5 Hyperlipidemia, unspecified; E11.9 Type 2 diabetes mellitus without complications; R33.9 Retention of urine, unspecified; R41.82 Altered mental status, unspecified; Z20.822 Contact with and (suspected) exposure to COVID-19; Z79.82 Long term (current) use of aspirin
CPT/HCPCS: 36415; 70450; 70553; 71045; 80048; 80053; 80307; 81001; 82550; 82948; 85025; 85027; 85610; 85730; 87637; 93005; 96360; 96361; 97110; 97116; 97161; 97165; 97530; 97535; 99285; A9270; A9579; G0378; J1815; J7030; J7120

== ENCOUNTER 2025-04-09 13:08 | Inpatient (IN) | payer MEDICARE, SELFPAY ==
--- NOTE | ~2025-04-09 | CT_ITS ---
CT cervical spine wo con Ordering provider: Jaquan Henao MD History: . Fall . Comparison: None. Technique: CT of the cervical spine was performed without contrast. Sagittal and coronal reformatted images were also obtained and reviewed. Automated exposure control and iterative reconstruction eloy hnique were employed. The dose-length product was 140.17 mGy-cm. FINDINGS: VERTEBRAE: Minimal anterolisthesis at the level of C4-C5 and C5-C6. Degenerative changes of the spine Otherwise, No subluxation or acute fracture. The occipital condyles are intact. DISC SPACES: Narrowing of the disc C4-C5, C5-C6 and C6-C7. Multilevel facet joint disease. Multilevel uncovertebral joint osteoarthritic changes. Multilevel intervertebral foraminal narrowing. PARASPINOUS SOFT TISSUES: Normal. IMPRESSION: No acute osseous abnormality cervical spine. Minimal anterolisthesis at the level of C4-C5 and C5-C6. Multilevel degenerative disc disease. Reviewed, dictated and finalized at location A.
--- NOTE | ~2025-04-09 | CT_ITS ---
CT brain wo con Ordering provider: Jaquan Henao MD History: 89 years Male with . AMS . Comparison: March 11, 2025 Technique: CT of the head without contrast. Radiation reduction technique utilized.The dose-length pr oduct was 605.33 mGy-cm. FINDINGS: BRAIN PARENCHYMA AND CSF SPACES: Mild leukoaraiosis and diffuse cortical atrophy. Mild atheromatous d isease. No midline shift, mass effect or hemorrhage. The brain parenchyma and CSF spaces are otherwi se normal. VISUALIZED PARANASAL SINUSES: Well aerated. MASTOIDS: Well aerated. BONES: The bones appear intact. SOFT TISSUES: Visualized nasopharynx is normal. Superficial soft tissues are normal. IMPRESSION: No acute intracranial findings. Reviewed, dictated and finalized at location A.
--- NOTE | ~2025-04-09 | XR_ITS ---
XR knee LT 3V Ordering provider: Jaquan Henao MD History: . GLF . Comparison: June 27, 2020 FINDINGS: BONES: No acute fracture or dislocation. JOINT SPACES: Severe narrowing of the medial and lateral compartments. Chondrocalcinosis is noted in the menisci. Severe narrowing of the patellofemoral joint. SOFT TISSUES: Fluid seen in the suprapatellar bursa. IMPRESSION: No acute osseous abnormality left knee. Severe osteoarthritic changes of the knee and patellofemoral joints. Chondrocalcinosis. Reviewed, dictated and finalized at location A.
--- NOTE | ~2025-04-09 | XR_ITS ---
Portable chest x-ray Comparison: 03/11/2025 Clinical History: Hypoxia Findings: There are small bilateral pleural effusions with probable mild bibasilar pulmonary edema/a telectasis. Cardiomediastinal silhouette is stable. Bones and soft tissues are unremarkable. Impression: Small pleural effusions with mild bibasilar pulmonary edema/atelectasis. Reviewed, dictated and finalized at [facility]. Impression: Small pleural effusions with mild bibasilar pulmonary edema/atelectasis.
--- NOTE | ~2025-04-09 | XR_ITS ---
XR knee RT 3V Ordering provider: Jaquan Henao MD History: . GLF . Comparison: None. FINDINGS: BONES: No acute fracture or dislocation. JOINT SPACES: Severe narrowing of the medial and lateral compartments with severe narrowing of the pa tellofemoral joint. Chondrocalcinosis seen in the medial and lateral menisci. SOFT TISSUES: Normal. IMPRESSION: No acute osseous abnormality right knee. Severe osteoarthritic changes. Chondrocalcinosis. Reviewed, dictated and finalized at location A.
--- NOTE | ~2025-04-09 | CT_ITS ---
CT chest abdomen pelvis w con Ordering provider: Jaquan eHnao MD History: 89 years Male with . AMS . Comparison: March 10, 2007 Technique: CT chest with IV contrast. CT abdomen and pelvis CT abdomen and pelvis with IV and with or al contrast. Radiation reduction technique utilized.The dose-length product was 410.97 mGy-cm. 100 mL Omnipaque 350 was given IV. FINDINGS: CHEST: --VISUALIZED THORACIC INLET: Nodule in the right lobe of the thyroid. Ultrasound evaluation advised. --MEDIASTINUM: Aorta/coronary arteries: Mild atheromatous disease. Heart/other: The heart is slightly enlarged. Lymph nodes: No mediastinal or hilar adenopathy. Thickened wall of the esophagus in the proximal esophagus. --LUNGS: Dependent atelectatic changes. Trace of right pleural effusion.. No pulmonary nodules or mas ses. No infiltrates or effusions. No pneumothorax. --MUSCULOSKELETAL: Soft tissues: The superficial soft tissues are normal. Bones: Age appropriate degenerative changes of the spine. No suspicious bony lytic or sclerotic lesio ns. ABDOMEN/PELVIS: --MUSCULOSKELETAL: Bones: Age appropriate degenerative changes of the spine. No suspicious bony lytic or sclerotic lesio ns. Levoscoliosis. Bilateral sacroiliitis. Bilateral hip osteoarthritic changes. Pubic symphysitis. Superficial soft tissues: Bilateral fat containing inguinal hernias larger on the left side. Fat-cont aining umbilical hernia is also noted. Otherwise, The superficial soft tissues are normal. --UPPER ABDOMINAL ORGANS: Liver: Normal. Gallbladder: Normal. Spleen: Normal. Stomach/duodenum: Normal. Pancreas: Atrophic changes. Adrenals: Normal. Kidneys: Cyst in the right kidney midpole which measures 2.8 cm. Other smaller cysts also seen in the same area. Calcified cyst is seen in the left kidney lower pole with thickened wall. The large cyst seen previously either ruptured or aspirated. Clinical correlation advised. Tiny cyst in the left kid lenin lower pole is seen. Tiny stone is seen in the left kidney midpole. --PELVIC ORGANS: The bladder is underfilled with thickened wall. No bladder stones. --BOWEL AND MESENTERY: Colon: No evidence of diverticulitis. Appendix is not demonstrated. Small Bowel: Normal. No obstruction. Peritoneum/mesentery: No free air or free fluid. No mesenteric lymphadenopathy. --RETROPERITONEUM: Moderate atheromatous disease of the abdominal aorta. Slight dilatation in the mi d aorta is seen measuring 2.5 x 2.6 cm. Atherosclerotic changes with slight dilatation of the common iliac arteries is seen. No retroperitoneal lymphadenopathy. IMPRESSION: CHEST: 1. No acute cardiopulmonary pathology. 2. Trace of pleural effusion seen in the right side. 3. Slightly thickened upper esophagus. Clinical evaluation advised. 4. No definite vascular injury seen. ABDOMEN/PELVIS: 1. No evidence of vascular or solid organ injury. 2. No evidence of appendicitis, diverticulitis or intestinal obstruction. 3. Bilateral kidney cysts with calcification on the left side. 4. Tiny left kidney stone. 5. Bilateral inguinal fat containing hernias larger on the left side with umbilical fat-containing h ernia. Reviewed, dictated and finalized at location A. IMPRESSION: CHEST: 1. No acute cardiopulmonary pathology. 2. Trace of pleural effusion seen in the right side. 3. Slightly thickened upper esophagus. Clinical evaluation advised. 4. No definite vascular injury seen. ABDOMEN/PELVIS: 1. No evidence of vascular or solid organ injury. 2. No evidence of appendicitis, diverticulitis or intestinal obstruction. 3. Bilateral kidney cysts with calcification on the left side. 4. Tiny left kidney stone. 5. Bilateral inguinal fat containing hernias larger on the left side with umbi lical fat-containing hernia.
[2025-04-09 13:11] VITALS: BP 168/98; PULSE 118; RESP 18; TEMP 36.4; O2SAT 100
[2025-04-09 13:19] LABS: Glucose Point of Care 57 mg/dl (65-105)
[2025-04-09] MEDS: DEXTROSE 50% 25 GM/50 ML SYRINGE IV PUSH ×2 (13:20→19:50)
--- NOTE | 2025-04-09 13:33 | ECG_ITS ---
Test Date: 2025-04-09 13:41:03 Measurements Intervals [place] Rate: 119 P: 0 LA: 0 QRS: 250 QRSD: 124 T: 56 QT: 353 QTc: 497 Interpretive Statements ATRIAL FLUTTER/TACHYCARDIA WITH RAPID VENTRICULAR RESPONSE RIGHT BUNDLE BRANCH BLOCK LEFT ANTERIOR FASCICULAR BLOCK BASELINE ARTIFACT- I, II, III, AVR, AVL, AVF, V1-V6 ABNORMAL ECG Compared to ECG 03/11/2025 17:35:23 NO SIGNIFICANT CHANGE Electronically Signed On 04-09-2025 18:05:07 CDT by Alex Oh D.O.
--- NOTE | 2025-04-09 13:40 | PC.NURSE ---
Bite to L. side of tongue. Dried blood present. Airway patent. Pt. arrived with dried poop on his rectum. Pt. cleaned with soap and water. Clean depend applied. Sacral skin breakdown. Mepilex applied to sacrum.
[2025-04-09 13:52] LABS: Basophils Percent Auto 0.1 % (0.2-1.2); Eosinophils Percent Auto 0.1 % (0-4.4); Hematocrit 38.8 % (42.0-52.0); Hemoglobin 12.7 g/dL (14.0-18.0); Immature Granulocyte Absolute 0.05 K/mm3 (0.00-0.031); Immature Granulocyte Percent A 0.5 % (0-0.5); Lymphocytes Absolute Auto 0.37 K/mm3 (0.9-3.2); Lymphocytes Percent Auto 3.4 % (18.3-44.2); Mean Corpuscular HGB Conc 32.7 g/dl (32-36); Mean Corpuscular Hemoglobin 30.4 pg (26-34); Mean Corpuscular Volume 92.8 fl (80-100); Mean Platelet Volume 10.7 fl (7.4-10.4); Monocytes Absolute Auto 0.8 K/mm3 (0.1-0.6); Monocytes Percent Auto 7.7 % (2.6-8.5); Neutrophils Absolute Auto 9.5 K/mm3 (1.3-6.7); Neutrophils Percent Auto 88.2 % (45.5-73.1); Platelet Count Result 198 k/mm3 (150-375); Red Blood Count 4.18 M/mm3 (4.6-6.20); Red Cell Distribution Width 14.6 % (11.5-14.5); White Blood Count 10.7 K/mm3 (4.5-10.0)
[2025-04-09 13:55] LABS: Glucose Point of Care 76 mg/dl (65-105)
[2025-04-09 14:01] LABS: Alanine Aminotransferase 20 U/L (6-50); Albumin Level 3.4 g/dL (3.5-5.1); Alkaline Phosphatase 63 U/L (38-126); Anion Gap 10 mmol/L (4-12); Aspartate Amino Transferase 62 U/L (17-59); Bilirubin,Total 0.5 mg/dL (0.2-1.3); Blood Urea Nitrogen 32 mg/dL (9-20); Carbon Dioxide 19 mmol/L (22-30); Chloride 108 mmol/L (98-107); Estimated Glomerular Filt Rate 54; Glucose 169 mg/dL (65-110); Potassium 4.2 mmol/L (3.4-5.0); Sodium 137 mmol/L (137-145); Total Protein 6.3 g/dL (6.3-8.2)
[2025-04-09 14:08] LABS: Add Urine Microscopic? YES; Appearance Urine Clear (Clear); Bacteria Urine 4+ /hpf; Bilirubin Urine Negative (Negative); Blood Urine 2+ (Negative); Color Urine Yellow (Yellow); Glucose Urine UA Trace mg/dL (Negative); Ketones Urine Trace mg/dL (Negative); Leukocyte Esterase Ur 2+ LEU/UL (Negative); Need Manual Microscopic Reviewed; Nitrate Urine Positive (Negative); Protein Urine 1+ mg/dL (Negative); RBC Urine 0-2 /hpf (0-2); Specific Grav Ur 1.016 (1.001-1.035); Squamous Epithelial Cell Urine None Seen /hpf (Few); Urobilinogen Urine 0.2 mg/dL (<2.0); WBC Urine 21-50 /hpf (0-3); pH Urine 5.5 (5.0-9.0)
[2025-04-09 14:14] LABS: Prothrombin Time 13.7 Seconds (11.1-14.7)
--- NOTE | 2025-04-09 14:30 | ED_ITS ---
HPI - General Adult General Chief complaint: Altered Mental Status Stated complaint: ams, low BG Time Seen by Provider: 04/09/25 13:56 History of Present Illness HPI narrative: This is an 89-year-old male presenting for altered mental status. EMS was called to the patient's house yesterday and he was found have a low blood sugar. He is given dextrose and then declined transport to the hospital. Today the patient's family heard a large thud in the found the patient on the ground. EMS was then called. He was found have a blood sugar of 33. He was given amp of dextrose and brought to the hospital. This time the patient says that he has not been eating very much. He says he is having trouble restocking his food. He is denying any complaints such as fevers chills chest pain difficulty breathing abdominal pain or urinary symptoms. He does state that his right knee hurts. Patient is a poor historian. Related Data Home Medications ?Medication ?Instructions ?Recorded ?Confirmed ?Last Taken ?Type aspirin 81 mg tablet,delayed 81 mg PO DAILY 12/13/19 03/13/25 Unknown History release (Adult Low Dose Aspirin) ferrous sulfate 325 mg (65 mg 325 mg PO DAILY 12/13/19 03/13/25 Unknown History iron) tablet (FerrouSul) Allergies Allergy/AdvReac Type Severity Reaction Status Date / Time METHYLATE Allergy Mild RASH Uncoded 06/27/20 10:33 [facility] Past Medical History Medical History (Updated 04/09/25 @ 17:30 by Jaquan Henao MD) Prostate cancer Status post radiation therapy Umbilical hernia without obstruction and without gangrene Allergic rhinitis Type 2 diabetes mellitus Acromioclavicular joint arthritis Dyslipidemia Essential hypertension Surgical History Surgical History (Updated 03/12/25 @ 07:54 by Jana Emery DO) History of appendectomy History of varicose vein stripping Left leg Status post cataract extraction of both eyes with insertion of intraocular lens Family History Family History (Updated 03/12/25 @ 07:55 by Jana Emery DO) Other Unknown family medical history Social History Social History (Updated 03/12/25 @ 07:58 by Jana Emery DO) Social History: According to medical records within the [employer] system the patient used to smoke but quit over 40 years ago. It also mentions that he used to occasionally drink alcohol but does not state the amount. He states that he lives in his own home and that he has been from his for many years?. He states that he lives alone. He states that he has 1 son and 1 daughter. He used to work at [employer] and [employer]. Code status: Full code per EMR Surrogate decision maker: Yobani Edward Smoking status: Former smoker Alcohol intake: unknown Living arrangements: alone Occupation/Education: retired Additional occupation/education comments: [employer] Spiritual care concerns: No Exam 2 Narrative: APPEARANCE: No apparent distress. A&O times 1-2 Head: Small bite wound to the side of his tongue. Dry mucous membranes EYES: EOMI, NOSE: Atraumatic NECK: Trachea midline RESPIRATORY: No increased rate of breathing clear to auscultation CARDIOVASCULAR: RRR, no peripheral edema ABDOMINAL: Non-distended soft nontender, reducible umbilical hernia MUSCULOSKELETAl: Focal exam of the right knee revealed some chronic appearing swelling but no erythema or warmth pain with active and passive range of motion NEURO: Alert. Moving 4/4 extremities SKIN:: Warm, dry. Normal color PSYCHIATRIC: Normal affect Course Vital Signs Vital signs: Vital Signs Temperature 97.6 F 04/09/25 13:11 Pulse Rate 118 H 04/09/25 13:11 Respiratory Rate 18 04/09/25 13:11 Blood Pressure 168/98 H 04/09/25 13:11 Pulse Oximetry 100 04/09/25 13:11 Oxygen Delivery Room Air 04/09/25 13:11 Temperature 97.6 F 04/09/25 13:11 Pulse Rate 118 H 04/09/25 13:11 Respiratory Rate 18 04/09/25 13:11 Blood Pressure 168/98 H 04/09/25 13:11 Pulse Oximetry 100 04/09/25 13:11 Oxygen Delivery Room Air 04/09/25 13:36 Medical Decision Making [facility] Narrative Medical decision making narrative: -Course: 89-year-old male presenting with low blood sugars and altered mental status. Patient given dextrose to improve his blood sugar and given food. On physical exam the patient has dry mucous membranes, tachycardia and is confused. Broad workup ordered including CT head C-spine CT chest abdomen pelvis and infectious workup. Workup seen for white count 10.7. Hemoglobin 12.7. Metabolic panel showed slight bump in creatinine from a baseline of about 1.0-1.3. BUN 32. CPK elevated at 1309. Troponin 0.340 although he has no complaints of chest pain. 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 Patient will be started on heparin. Will continue to trend troponins. Possibly demand ischemia versus ACS versus cross-reactivity w/ CPK. BNP at 11,000 although the patient is clearly dry with dry mucous membranes and no evidence of fluid overload on exam or chest x-ray. Urine indicative infection patient has been started on ceftriaxone. Viral swabs were negative. CT head and C-spine negative for acute injury. CT chest abdomen pelvis with several incidental findings but nothing that is causative of his current condition. X-rays of the knee showed degenerative changes but no acute fracture. Patient will be admitted to hospital for further management of his altered mental status, dehydration urinary tract infection and rhabdomyolysis. Patient currently lives alone and it may behoove him to be placed in a facility where he can obtain more assistance. -DDX includes but is not limited to: Sepsis dehydration UTI pneumonia failure to thrive Vital Signs Vital Signs: Vital Signs Temperature 97.6 F 04/09/25 13:11 Pulse Rate 118 H 04/09/25 13:11 Respiratory Rate 18 04/09/25 13:11 Blood Pressure 168/98 H 04/09/25 13:11 Pulse Oximetry 100 04/09/25 13:11 Oxygen Delivery Room Air 04/09/25 13:11 Temperature 97.6 F 04/09/25 13:11 Pulse Rate 118 H 04/09/25 13:11 Respiratory Rate 18 04/09/25 13:11 Blood Pressure 168/98 H 04/09/25 13:11 Pulse Oximetry 100 04/09/25 13:11 Oxygen Delivery Room Air 04/09/25 13:36 Lab Data 04/09/25 13:46 04/09/25 13:46 Labs: Lab Results 04/09/25 04/09/25 04/09/25 Range/Units 13:16 13:46 13:53 WBC 10.7 H (4.5-10.0) K/mm3 RBC 4.18 L (4.6-6.20) M/mm3 Hgb 12.7 L (14.0-18.0) g/dL Hct 38.8 L (42.0-52.0) % MCV 92.8 (80-100) fl MCH 30.4 (26-34) pg MCHC 32.7 (32-36) g/dl RDW 14.6 H (11.5-14.5) % Plt Count 198 (150-375) k/mm3 MPV 10.7 H (7.4-10.4) fl Immature Gran % (Auto) 0.5 (0-0.5) % Neut % (Auto) 88.2 H (45.5-73.1) % Lymph % (Auto) 3.4 L (18.3-44.2) % [place] % (Auto) 7.7 (2.6-8.5) % Eos % (Auto) 0.1 (0-4.4) % Baso % (Auto) 0.1 L (0.2-1.2) % Lymph # (Auto) 0.37 L (0.9-3.2) K/mm3 [place] # (Auto) 0.8 H (0.1-0.6) K/mm3 Eos # (Auto) 0.0 (0-0.3) K/mm3 Baso # (Auto) 0.0 (0.0-0.1) K/mm3 Abs Immat Gran (auto) 0.05 H (0.00-0.031) K/mm3 Absolute Neuts (auto) 9.5 H (1.3-6.7) K/mm3 Absolute Nucleated RBC 0.000 (0.0-0.012) K/mm3 Nucleated RBC % 0.0 (0.0-0.2) % PT 13.7 (11.1-14.7) Seconds INR 1.0 APTT 25.0 (22.3-36.8) Seconds Sodium 137 (137-145) mmol/L Potassium 4.2 (3.4-5.0) mmol/L Chloride 108 H (98-107) mmol/L Carbon Dioxide 19 L (22-30) mmol/L Anion Gap 10 (4-12) mmol/L BUN 32 H (9-20) mg/dL Creatinine 1.26 (0.7-1.3) mg/dL Estim Creat Clear Calc Not Reportable Estimated GFR 54 L (59 - ) Glucose 169 H (65-110) mg/dL POC Capillary Glucose 57 L* 76 (65-105) mg/dl Lactic Acid (0.7-2.0) mmol/L Calcium 9.0 (8.4-10.2) mg/dL Phosphorus 3.4 (2.5-4.5) mg/dL Magnesium 1.5 L (1.6-2.3) mg/dL Total Bilirubin 0.5 (0.2-1.3) mg/dL AST 62 H (17-59) U/L ALT 20 (6-50) U/L Alkaline Phosphatase 63 (38-126) U/L Total Creatine Kinase 1309 H (55-170) U/L Troponin I 0.340 H* (0.000-0.034) ng/mL NT-Pro-B Natriuret Pep 87759 H (19.9-100) pg/mL Total Protein 6.3 (6.3-8.2) g/dL Albumin 3.4 L (3.5-5.1) g/dL Lipase 18 L (23-300) U/L TSH (Reflex) Pending Urine Color Yellow (Yellow) Urine Appearance Clear (Clear) Urine pH 5.5 (5.0-9.0) Ur Specific Robinson 1.016 (1.001-1.035) Urine Protein 1+ H (Negative) mg/dL Urine Glucose (UA) Trace H (Negative) mg/dL Urine Ketones Trace H (Negative) mg/dL Ur Blood (Man) 2+ H (Negative) Urine Nitrate Positive H (Negative) Urine Bilirubin Negative (Negative) Urine Urobilinogen 0.2 (<2.0) mg/dL Add Ur Microanalysis Reviewed Leukocyte Esterase Rfl 2+ H (Negative) KRISHNA/UL Urine RBC 0-2 (0-2) /hpf Urine WBC 21-50 H (0-3) /hpf Ur Squamous Epith Cells None seen (Few) /hpf Urine Bacteria 4+ H /hpf Urine Casts 6-10 Influenza A (RT-PCR) (Negative) Influenza B (RT-PCR) (Negative) RSV (RT-PCR) (Negative) SARS-CoV-2 RNA (RT-PCR) (Negative) 04/09/25 04/09/25 Range/Units 14:32 15:04 WBC (4.5-10.0) K/mm3 RBC (4.6-6.20) M/mm3 Hgb (14.0-18.0) g/dL Hct (42.0-52.0) % MCV (80-100) fl MCH (26-34) pg MCHC (32-36) g/dl RDW (11.5-14.5) % Plt Count (150-375) k/mm3 MPV (7.4-10.4) fl Immature Gran % (Auto) (0-0.5) % Neut % (Auto) (45.5-73.1) % Lymph % (Auto) (18.3-44.2) % [place] % (Auto) (2.6-8.5) % Eos % (Auto) (0-4.4) % Baso % (Auto) (0.2-1.2) % Lymph # (Auto) (0.9-3.2) K/mm3 [place] # (Auto) (0.1-0.6) K/mm3 Eos # (Auto) (0-0.3) K/mm3 Baso # (Auto) (0.0-0.1) K/mm3 Abs Immat Gran (auto) (0.00-0.031) K/mm3 Absolute Neuts (auto) (1.3-6.7) K/mm3 Absolute Nucleated RBC (0.0-0.012) K/mm3 Nucleated RBC % (0.0-0.2) % PT (11.1-14.7) Seconds INR APTT (22.3-36.8) Seconds Sodium (137-145) mmol/L Potassium (3.4-5.0) mmol/L Chloride (98-107) mmol/L Carbon Dioxide (22-30) mmol/L Anion Gap (4-12) mmol/L BUN (9-20) mg/dL Creatinine (0.7-1.3) mg/dL Estim Creat Clear Calc Estimated GFR (59 - ) Glucose (65-110) mg/dL POC Capillary Glucose 134 H (65-105) mg/dl Lactic Acid 1.0 (0.7-2.0) mmol/L Calcium (8.4-10.2) mg/dL Phosphorus (2.5-4.5) mg/dL Magnesium (1.6-2.3) mg/dL Total Bilirubin (0.2-1.3) mg/dL AST (17-59) U/L ALT (6-50) U/L Alkaline Phosphatase (38-126) U/L Total Creatine Kinase (55-170) U/L Troponin I (0.000-0.034) ng/mL NT-Pro-B Natriuret Pep (19.9-100) pg/mL Total Protein (6.3-8.2) g/dL Albumin (3.5-5.1) g/dL Lipase (23-300) U/L TSH (Reflex) Urine Color (Yellow) Urine Appearance (Clear) Urine pH (5.0-9.0) Ur Specific Robinson (1.001-1.035) Urine Protein (Negative) mg/dL Urine Glucose (UA) (Negative) mg/dL Urine Ketones (Negative) mg/dL Ur Blood (Man) (Negative) Urine Nitrate (Negative) Urine Bilirubin (Negative) Urine Urobilinogen (<2.0) mg/dL Add Ur Microanalysis Leukocyte Esterase Rfl (Negative) KRISHNA/UL Urine RBC (0-2) /hpf Urine WBC (0-3) /hpf Ur Squamous Epith Cells (Few) /hpf Urine Bacteria /hpf Urine Casts Influenza A (RT-PCR) Negative (Negative) Influenza B (RT-PCR) Negative (Negative) RSV (RT-PCR) Negative (Negative) SARS-CoV-2 RNA (RT-PCR) Negative (Negative) Discharge Plan Discharge Clinical Impression: Acute dehydration, Hypoglycemia, Acute UTI, Elevated troponin Rhabdomyolysis Qualifiers: Rhabdomyolysis type: non-traumatic Qualified Code(s): M62.82 - Rhabdomyolysis Patient Disposition: Still a Patient Condition: Stable Patient Language: Lao Prescriptions: No Action Januvia 50 mg tablet 50 mg PO DAILY Qty: 30 2RF aspirin [Adult Low Dose Aspirin] 81 mg tablet,delayed release (DR/EC) 81 mg PO DAILY ferrous sulfate [FerrouSul] 325 mg (65 mg iron) tablet 325 mg PO DAILY metformin 500 mg tablet 1,000 mg PO BID Qty: 360 1RF lisinopril 10 mg tablet 10 mg PO DAILY Qty: 90 1RF acetaminophen 325 mg Tablet 650 mg PO Q4H PRN (Reason: Mild Pain (1-3) Or Fever) Qty: 30 0RF tamsulosin 0.4 mg Capsule 0.4 mg PO QAM Qty: 30 0RF insulin aspart U-100 [Novolog U-100 Insulin aspart] 100 unit/mL Solution 2 - 5 unit subcut TIDWM Qty: 10 0RF Protocol: Insulin Corrective Low-Dose Condition: glucose < 70 mg/dl Dose/Route: Follow Hypoglycemia Order Condition: glucose 70-200 mg/dl Dose/Route: No additional insulin Condition: glucose 201-250 mg/dl Dose/Route: 2 units sub-Q Condition: glucose 251-300 mg/dl Dose/Route: 3 units sub-Q Condition: glucose 301-350 mg/dl Dose/Route: 4 units sub-Q Condition: glucose 351-400 mg/dl Dose/Route: 5 units sub-Q Condition: glucose > 400 mg/dl Dose/Route: Call MD Protocol Text: *No Correction Dose at Bedtime* Follow-up/Referrals: Hayden,Eleuterio Hernandes MD [Primary Care Provider] -
--- NOTE | 2025-04-09 14:30 | PC.NURSE ---
Pt. given juice and food, per Dr. Henao verbal instruction.
[2025-04-09 14:49] LABS: Creatine Kinase 1309 U/L (55-170); Lipase 18 U/L (23-300); Magnesium 1.5 mg/dL (1.6-2.3); Phosphorus 3.4 mg/dL (2.5-4.5)
[2025-04-09] MEDS: SODIUM CHLORIDE 0.9% IV 1,000 ML 999 ML IV CONT ×2 (15:03→16:49)
[2025-04-09 15:07] LABS: Glucose Point of Care 134 mg/dl (65-105)
[2025-04-09 15:12] LABS: NT Pro B Type Natriuretic Pept 11500 pg/mL (19.9-100)
[2025-04-09 15:14] LABS: Influenza A QL RT-PCR Negative (Negative); Influenza B QL RT-PCR Negative (Negative); RSV RNA, RT-PCR. Negative (Negative); SARS-CoV-2 RNA PCR Negative (Negative)
--- NOTE | 2025-04-09 16:19 | PC.NURSE ---
EDP at bedside to remove pt C-Collar
[2025-04-09] MEDS: HEPARIN SODIUM 5,000 UNITS/ML VIAL 3500 UNITS IV PUSH (17:23)
[2025-04-09 17:24] LABS: Thyroid Stimulating Hormone Reflex 0.649 uIU/mL (0.465-4.68)
[2025-04-09] MEDS: HEPARIN SOD/D5W 100 UNITS/ML 25,000 UNITS/250 ML BAG 7 UNITS IV CONT (17:24)
--- NOTE | 2025-04-09 17:25 | PM.IMHP ---
H&P: HPI History of Present Illness Date/Time: 04/09/25 17:25 Chief Complaint: Hypoglycemia, Fall Narrative: 89 y/o M with PMH of asthma/COPD overlap, hyperlipidemia, hypertension, type 2 diabetes mellitus, and prostate cancer s/p radiation presents here with hypoglycemia and fall. The patient presents here from home via EMS on 04/09 for further evaluation post-ground level fall and hypoglycemia. HPI obtained through patient report, chart review and patient's son with his permission. Family reports that they arrived and found him on the ground mumbling prompting a call to EMS. He last saw him around 7:30 p.m. yesterday (04/08). Upon EMS arrival, the patient was unresponsive with a blood sugar of 33. He was given 50 mL of D10 while in route which corrected his blood sugar to 90 and patient became more alert. He arrived to the emergency department A&O x2 with a blood sugar of 57 which was treated with D50. EMS also reports they were called to the house yesterday and the patient was found to be hypoglycemic, he was given dextrose but declined transport to the hospital. Per the patient he has not been eating as much and has been having trouble keeping food in the house - further questioning, the patient is not able to elaborate. Son reports they do his grocery shopping and make sure to get him foods that can be microwaved but he does state he still has difficulty due to his mobility and arthritis. Patient's son reports he noted yesterday that the patient did not eat much - only one slice of pizza for the whole day. Post fall, the patient is reporting right knee pain. He denies loss of consciousness or head strike. He reports he just wasn't able to get to his walker. Review of the patient's medical history shows a recent admission from 03/11/25-03/18/25 for prolonged time spent on the toilet. He was found sitting on his toilet for an unknown amount of time, however his physical exam findings including a edematous scrotum and toilet seat imprint on his bottom suggest he had been sitting there for some time. He was last seen by his family a week prior. At that time he was treated for an KATHARINA, rhabdomyolysis, urinary retention, and multifocal atrial tachycardia. He was discharged on 03/18 to [facility] ([facility] Patient went back home because the patient wanted to leave and his insurance would only cover a specific amount of time. Son reports they were trying to get him placed again through his PCP but did not make any headway. Patient is poor historian. Initial VS at presentation: 97.6? F, HR 118, R 18, 168/98, and 100% on RA. ED workup showed: WBC 10.7, hemoglobin 12.7 (previously 11.7 on 03/18), normal coags, sodium and potassium within normal limits, creatinine 1.26 and GFR 54 (previously 1.06 and GFR >60 on 03/18), initial POC glucose 57 (currently 134), magnesium 1.5, CK 1309, initial troponin 0.340, BNP 03992, and normal TSH. UA suggestive of UTI. Viral PCR negative. Head CT, C-spine CT, and bilateral knee XR showed no acute traumatic findings, see reports for chronic findings. CT of the chest/abdomen/pelvis showed slightly thickened upper esophagus, trace pleural effusion on the right side, bilateral kidney cyst with calcification on the left side, tiny left kidney stone, bilateral inguinal fat containing hernias larger on the left side with umbilical fat containing hernia with no evidence of vascular or solid organ injury/acute cardiopulmonary pathology or vascular injury. Review of Systems Review of Systems: All systems reviewed & are unremarkable except as noted in HPI and below (limited, alerted) [facility] Past Medical History Medical History Dementia Osteoarthritis QT prolongation Multifocal atrial tachycardia Prostate cancer Status post radiation therapy Umbilical hernia without obstruction and without gangrene Allergic rhinitis Type 2 diabetes mellitus Acromioclavicular joint arthritis Dyslipidemia Essential hypertension Surgical History Surgical History History of appendectomy History of varicose vein stripping Left leg Status post cataract extraction of both eyes with insertion of intraocular lens Family History Family History Other Unknown family medical history Social History Social History Social History: According to medical records within the old system the patient used to smoke but quit over 40 years ago. It also mentions that he used to occasionally drink alcohol but does not state the amount. He states that he lives in his own home and that he has been from his for many years?. He states that he lives alone. He states that he has 1 son and 1 daughter. He used to work at [employer] and [employer]. Code status: Full code per EMR Surrogate decision maker: Yobani Edward Smoking status: Former smoker Alcohol intake: unknown Substance use: unknown Living arrangements: alone Occupation/Education: retired Additional occupation/education comments: [employer] Spiritual care concerns: No Meds Home Medications and Allergies Home Medications ?Medication ?Instructions ?Recorded ?Confirmed ?Type aspirin 81 mg tablet,delayed 81 mg PO DAILY 12/13/19 04/09/25 History release (Adult Low Dose Aspirin) ferrous sulfate 325 mg (65 mg 325 mg PO DAILY 12/13/19 04/09/25 History iron) tablet (FerrouSul) lisinopril 10 mg tablet 10 mg PO DAILY #90 tabs 05/24/20 04/09/25 Rx acetaminophen 325 mg tablet 650 mg (2 x 325 mg) PO Q4H PRN 03/18/25 04/09/25 Rx Mild Pain (1-3) Or Fever #30 tabs insulin aspart U-100 100 unit/mL 2 - 5 unit subcut TIDWM #10 mL 03/18/25 04/09/25 Rx subcutaneous solution (Novolog U-100 Insulin aspart) tamsulosin 0.4 mg capsule 0.4 mg PO QAM #30 caps 03/18/25 04/09/25 Rx blood sugar diagnostic (Accu-Chek 04/09/25 04/09/25 History Guide test strips) blood-glucose meter (Accu-Chek 04/09/25 04/09/25 History Guide Me Glucose Meter) glipizide 5 mg tablet 5 mg PO BID 04/09/25 04/09/25 History lancets (Accu-Chek Softclix 04/09/25 04/09/25 History Lancets) metformin 1,000 mg tablet 1,000 mg PO BID 04/09/25 04/09/25 History Allergies Allergy/AdvReac Type Severity Reaction Status Date / Time METHYLATE Allergy Mild RASH Uncoded 04/09/25 18:52 Vital Signs Vital Signs - 24 hr 04/09/25 13:11 04/09/25 13:36 Temperature 97.6 F Pulse Rate 118 H Respiratory Rate 18 Blood Pressure 168/98 H Pulse Oximetry 100 Oxygen Delivery Room Air Room Air Exam Const: Other: , male, elderly, chronically ill-appearing, modestly ill-appearing at present HENMT: Face/Nose/Sinus: Normal nares present Mouth: Yes dry mucous membranes (Extremely dry) Eyes: General: appearance normal, both eyes and all related structures Sclera: sclerae normal Pupils: Equal, round and reactive pupils present EOM: EOMs intact bilaterally Resp: Effort & Inspection: normal respiratory effort Auscultation: clear to auscultation bilaterally Cardio: Rate: regular rate Rhythm: regular rhythm Other: S1-S2 present without murmur, rub, ectopy GI: Other: Abdomen soft, nondistended, nontender. Normoactive bowel sounds in all quadrants. Urinary Catheter: Urinary Catheter: patent and draining and urine dark Skin: General skin exam: normal color Other: Scattered ecchymosis to bilateral upper extremities, no particular pattern. No wounds. Neuro: Other: A&O to self and president. Incorrect place and time provided. Generalized weakness, 3+ in all extremities. Extrem: General: normal to inspection Psych: Mental Status: mental status grossly normal Other: Poor insight and judgment. Perseveration on hand washing. H&P: Results Labs Labs: Short CBC 04/09/25 Range/Units 13:46 WBC 10.7 H (4.5-10.0) K/mm3 Hgb 12.7 L (14.0-18.0) g/dL Hct 38.8 L (42.0-52.0) % Plt Count 198 (150-375) k/mm3 [facility] 04/09/25 13:46 Sodium 137 Potassium 4.2 Chloride 108 H Carbon Dioxide 19 L BUN 32 H Creatinine 1.26 Glucose 169 H Calcium 9.0 Cardiac Enzymes 04/09/25 Range/Units 13:46 Total Creatine Kinase 1309 H (55-170) U/L Troponin I 0.340 H* (0.000-0.034) ng/mL Liver Function 04/09/25 Range/Units 13:46 Total Bilirubin 0.5 (0.2-1.3) mg/dL AST 62 H (17-59) U/L ALT 20 (6-50) U/L Alkaline Phosphatase 63 (38-126) U/L Albumin 3.4 L (3.5-5.1) g/dL Urine 04/09/25 Range/Units 13:46 Urine Color Yellow (Yellow) Urine Appearance Clear (Clear) Urine pH 5.5 (5.0-9.0) Ur Specific [place] 1.016 (1.001-1.035) Urine Protein 1+ H (Negative) mg/dL Urine Glucose (UA) Trace H (Negative) mg/dL Assessment and Plan Assessment and plan (1) Hypoglycemia: Code(s): E16.2 - Hypoglycemia, unspecified Status: Acute Assessment and Plan: - initial glucose on scene per EMS was 33 -> D10 50 mL -> 90 -> 57 at arrival to ED -> D50 -> 76 -> 134 -> 33 (19:49) -> given D50 and LR exchanged to D5LR at 100 mL/hr - patient reported difficulty keeping pantry stocked but unable to elaborate. Spoke with son and he provides groceries for the patient. He reports the patient had a poor appetite yesterday and only 8 1 slice of pizza. He tries to keep food stock to that is easily microwaved, however he reports he has previously had difficulty due to his mobility and arthritis opening things. - hypoglycemia protocol, glucose checks Q2H x4 and if remains stable may transition to Q6H - D5 LR at 100 mL/hour - hold home DM medications - care coordination/PT and OT consulted for FTT/inability for patient to take care of himself at home -> will need placement (2) Elevated troponin: Code(s): R79.89 - Other specified abnormal findings of blood chemistry Status: Acute Assessment and Plan: - EKG, initial: Atrial flutter/tachycardia with RVR, right bundle branch block, left anterior fascicular block. When compared to EKG done on 03/11, no significant change. Waiting formal read. - CT chest/abdomen/pelvis: --MEDIASTINUM: Aorta/coronary arteries: Mild atheromatous disease. Heart/other: The heart is slightly enlarged. Lymph nodes: No mediastinal or hilar adenopathy. Thickened wall of the esophagus in the proximal esophagus. --LUNGS: Dependent atelectatic changes. Trace of right pleural effusion.. No pulmonary nodules or masses. No infiltrates or effusions. No pneumothorax. - Troponin: 0.340 -> 0.362, 6 hr ordered - SL nitro PRN - cardiology consulted - started on heparin gtt - no echo on file and BNP elevated, check echo - no previous cardiac cath or stress test on file - telemetry monitoring (3) Rhabdomyolysis: Qualifiers: Rhabdomyolysis type: non-traumatic Qualified Code(s): M62.82 - Rhabdomyolysis Code(s): M62.82 - Rhabdomyolysis Status: Acute Assessment and Plan: - CK 1309 - IV Fluids: 2L bolus -> D5LR at 100 mL/hr - presumed secondary to fall/prolonged time on the ground and dehydration and lack of food/hypoglycemia - hold statins - trend down and monitor renal function (4) Acute UTI: Code(s): N39.0 - Urinary tract infection, site not specified Status: Acute Assessment and Plan: - UA: 1+ protein, trace glucose, trace ketones, 2+ blood, positive nitrates, 2+ leuk esterase, 21-50 WBC, no epithelial cells, 4+ bacteria - UC pending - no previous micro available for review - started on Ceftriaxone on 04/09, continued - recurrent urinary retention (5) Ground-level fall: Code(s): W18.30XA - Fall on same level, unspecified, initial encounter Status: Acute Assessment and Plan: Trauma workup negative, see below-> - head CT: No acute intracranial findings - C-spine CT: No acute osseous abnormality cervical spine. Minimal anterolisthesis at the level of C4-C5 and C5-C6. Multilevel degenerative disc disease. - knee XR, left: No acute osseous abnormality left knee. Severe osteoarthritic changes of the knee and patellofemoral joints. Chondrocalcinosis. - knee XR, right: No acute osseous abnormality right knee. Severe osteoarthritic changes. Chondrocalcinosis. - CT chest/abdomen/pelvis: CHEST: 1. No acute cardiopulmonary pathology. 2. Trace of pleural effusion seen in the right side. 3. Slightly thickened upper esophagus. Clinical evaluation advised. 4. No definite vascular injury seen. ABDOMEN/PELVIS: 1. No evidence of vascular or solid organ injury. 2. No evidence of appendicitis, diverticulitis or intestinal obstruction. 3. Bilateral kidney cysts with calcification on the left side. 4. Tiny left kidney stone. 5. Bilateral inguinal fat containing hernias larger on the left side with umbilical fat-containing hernia. - presume secondary to hyperglycemia, however has recent history of generalized weakness requiring SNF placement - PT/OT eval ordered (6) Urinary retention: Code(s): R33.9 - Retention of urine, unspecified Status: Acute Assessment and Plan: - during previous admission at the end of February of 2025, patient had 1L post-void - bladder scan on 04/09 showed retained urine - estimated 500 mL. cohen placed. - continue flomax - will need urology follow-up outpatient - +UTI (7) FTT (failure to thrive) in adult: Code(s): R62.7 - Adult failure to thrive Status: Acute Assessment and Plan: - care coordination/PT and OT consulted for FTT/inability for patient to take care of himself at home -> will need placement - recent placement to [facility] on 03/18. Patient went back home due to running out of money/time through insurance. (8) Hypomagnesemia: Code(s): E83.42 - Hypomagnesemia Status: Acute Assessment and Plan: - Mag 1.5 - Given 2G IVPB on 04/09, repeat in AM (9) Type 2 diabetes mellitus: Qualifiers: Diabetes mellitus complication detail: without coma Diabetes mellitus complication status: with hypoglycemia Diabetes mellitus intermediate designer insulin use: with intermediate designer use Qualified Code(s): E11.649 - Type 2 diabetes mellitus with hypoglycemia without coma; Z79.4 - senior care (current) use of insulin Code(s): E11.9 - Type 2 diabetes mellitus without complications Status: Chronic Assessment and Plan: - initially hypoglycemia in the 30s per EMS, arrived hypoglycemic. see #1 - hypoglycemia protocol - POC blood glucose Q2H x4 -> Q6H if stable - home medications held including NovoLog, metformin, and glipizide - correct regimen ordered - low dose Q6H - A1C ordered Plan Diet: Heart healthy GI Prophylaxis: Pantoprazole DVT Prophylaxis: Heparin gtt IV fluids: 2L bolus -> D5LR at 100 mL/hr Lines/Tubes: Peripheral IV Code Status: full code Quality VTE Prophylaxis VTE prophylaxis: pharmacologic ordered Hospitalist [facility] Advance Care Plan I have confirmed that the patient's Advanced Care Plan is present, code status is documented, or surrogate decision maker is listed in patient medical record.: Yes Medication Reconciliation I have utilized all available resources to obtain, update and review the patients current medications (includes all prescriptions, OTC, herbals, cannabis, and nutritional supplements).: Yes
[2025-04-09] MEDS: MAGNESIUM SULF 2 GM/WATER 50ML 2 GM/50 ML BAG IVPB (17:39)
[2025-04-09 18:13] LABS: Troponin I 0.362 ng/mL (0.000-0.034)
[2025-04-09 18:22] VITALS: BMI 21.5
[2025-04-09 18:44] VITALS: BP 140/83; PULSE 101; RESP 20; TEMP 36.4; O2SAT 100
--- NOTE | 2025-04-09 18:50 | ADMGEN ---
This patient, Yobani Escamilla, was admitted to IMU Room 206-02. Patient/family oriented to hospital policies and general routines including ID bracelet, bed and alarms, visiting hours, pain management, procedures, bathroom and other care routines, personal items, smoking policy, room service/diet, and visiting hours. Information on how to activate the Rapid Response Team has been discussed. Patient/Family are encouraged to report perceived risks to care and to ask questions if they do not understand what they are told or what they should do. Admission assessment completed and charted. Pt is resting in bed A&O1. Voiced no complaints or concerns at this time. Bed in low and locked position. Call light in reach. Will continue to monitor. Cecilio Crouch RN
[2025-04-09] MEDS: LACTATED RINGERS 1,000 ML 100 ML IV CONT (19:30)
[2025-04-09 20:00] VITALS: BP 138/81; PULSE 110; RESP 24; TEMP 36.6; O2SAT 98
[2025-04-09 20:04] LABS: Glucose Point of Care 33 mg/dl (65-105)
[2025-04-09 20:08] LABS: Glucose Point of Care 141 mg/dl (65-105)
[2025-04-09] MEDS: DEXTROSE 5%/LACTATED RINGERS 1,000 ML 100 ML IV CONT (20:26)
[2025-04-09 20:51] LABS: Glucose Point of Care 90 mg/dl (65-105)
[2025-04-09 21:55] LABS: Glucose Point of Care 123 mg/dl (65-105)
[2025-04-09 22:00] VITALS: PULSE 107
[2025-04-09 22:35] LABS: Troponin I 0.418 ng/mL (0.000-0.034)
[2025-04-09 23:43] VITALS: BP 110/71; PULSE 115; RESP 20; TEMP 36.6; O2SAT 98
[2025-04-10] VITALS (12 sets, daily range): BP systolic 119–154; BP diastolic 62–86; PULSE 84–111; RESP 18–24; TEMP 36.7–37.5; O2SAT 94–98; BMI 22.1
[2025-04-10 00:04] LABS: Glucose Point of Care 101 mg/dl (65-105)
[2025-04-10 00:14] LABS: Partial Thromboplastin Time 53.7 Seconds (22.3-36.8)
[2025-04-10] MEDS: HEPARIN SODIUM 5,000 UNITS/ML VIAL 4000 UNITS IV PUSH (00:31)
[2025-04-10 02:05] LABS: Glucose Point of Care 103 mg/dl (65-105)
[2025-04-10] MEDS: DEXTROSE 5%/LACTATED RINGERS 1,000 ML 100 ML IV CONT ×2 (06:28→17:33)
[2025-04-10 06:31] LABS: Basophils Percent Auto 0.1 % (0.2-1.2); Eosinophils Percent Auto 0.1 % (0-4.4); Hematocrit 35.9 % (42.0-52.0); Immature Granulocyte Absolute 0.04 K/mm3 (0.00-0.031); Immature Granulocyte Percent A 0.4 % (0-0.5); Lymphocytes Absolute Auto 0.57 K/mm3 (0.9-3.2); Lymphocytes Percent Auto 6.2 % (18.3-44.2); Mean Corpuscular HGB Conc 33.4 g/dl (32-36); Mean Corpuscular Hemoglobin 30.9 pg (26-34); Mean Corpuscular Volume 92.5 fl (80-100); Mean Platelet Volume 10.5 fl (7.4-10.4); Monocytes Absolute Auto 1.3 K/mm3 (0.1-0.6); Monocytes Percent Auto 14.5 % (2.6-8.5); Neutrophils Absolute Auto 7.2 K/mm3 (1.3-6.7); Neutrophils Percent Auto 78.7 % (45.5-73.1); Platelet Count Result 189 k/mm3 (150-375); Red Blood Count 3.88 M/mm3 (4.6-6.20); Red Cell Distribution Width 14.7 % (11.5-14.5); White Blood Count 9.2 K/mm3 (4.5-10.0)
[2025-04-10 06:43] LABS: Alanine Aminotransferase 23 U/L (6-50); Alkaline Phosphatase 68 U/L (38-126); Anion Gap 8 mmol/L (4-12); Aspartate Amino Transferase 57 U/L (17-59); Bilirubin,Total 0.5 mg/dL (0.2-1.3); Blood Urea Nitrogen 20 mg/dL (9-20); Calcium 8.5 mg/dL (8.4-10.2); Carbon Dioxide 19 mmol/L (22-30); Chloride 111 mmol/L (98-107); Creatine Kinase 864 U/L (55-170); Estimated CRCL calculation 38 ml/min; Estimated Glomerular Filt Rate > 60; Glucose 139 mg/dL (65-110); Magnesium 1.7 mg/dL (1.6-2.3); Phosphorus 2.6 mg/dL (2.5-4.5); Potassium 3.9 mmol/L (3.4-5.0); Sodium 138 mmol/L (137-145); Total Protein 5.8 g/dL (6.3-8.2)
[2025-04-10 06:46] LABS: Partial Thromboplastin Time 140.7 Seconds (22.3-36.8)
--- NOTE | 2025-04-10 08:07 | PCPTNOTE ---
Attempted PT evaluation. Per nursing pt not oriented/safe to participate in therapy at this time.
[2025-04-10 08:26] LABS: Glucose Point of Care 135 mg/dl (65-105)
[2025-04-10] MEDS: HEPARIN SOD/D5W 100 UNITS/ML 25,000 UNITS/250 ML BAG 7 UNITS IV CONT (08:30)
[2025-04-10] MEDS: PANTOPRAZOLE SODIUM IV 40 MG VIAL IV PUSH (09:30)
[2025-04-10 10:02] LABS: Glucose Point of Care 136 mg/dl (65-105)
--- NOTE | 2025-04-10 11:08 | PCCARD ---
Pt refused echo twice, not AMS- pt knew who he was and where he is and why. Canceling due to patient refusing test.
[2025-04-10 12:03] LABS: Glucose Point of Care 145 mg/dl (65-105)
--- NOTE | 2025-04-10 12:07 | P.CONCA_ITS ---
Assessment and Plan Assessment and plan (1) Elevated troponin: Code(s): R79.89 - Other specified abnormal findings of blood chemistry Status: Acute Assessment and Plan: Troponin elevated at 0.340, 0.362, and 0.418. His clinical presentation is not consistent with acute coronary syndrome, and given his current inability to answer questions about symptoms I don't think necessary to treat this as a NSTEMI. However, cannot rule out underlying CAD. Nonetheless would not recommend an ischemic evaluation during this admission unless his clinical situation changes. Heparin drip can be stopped. Will check a troponin now to ensure it has trended down. Cardiology will sign off please call with questions. History of Present Illness History of Present Illness Consult date/time: 04/10/25 12:07 Requesting physician: Shea Figueredo APRN Consult reason: Other (elevated troponin) Reason For Visit: UTI Narrative: We are consulted for elevated troponin. Yobani Escamilla is an 89 year old male with no known previous cardiac history. He was brought to the hospital after being found unresponsive by his son and was found to be hypoglycemic with glucose of 30. He is also being treated for a UTI. Unable to obtain history from the patient as he is A&O x 0 at the time of my evaluation which reportedly has been his mental status since admission, although it sounds like he was answering questions during his initial interview. Review of Systems 2 Review of Systems: ROS unobtainable: Yes unobtainable due to mental status PMFSH Past Medical History Medical History Dementia Osteoarthritis QT prolongation Multifocal atrial tachycardia Prostate cancer Status post radiation therapy Umbilical hernia without obstruction and without gangrene Allergic rhinitis Type 2 diabetes mellitus Acromioclavicular joint arthritis Dyslipidemia Essential hypertension Surgical History Surgical History History of appendectomy History of varicose vein stripping Left leg Status post cataract extraction of both eyes with insertion of intraocular lens Family History Family History Other Unknown family medical history Social History Social History Social History: According to medical records within the old system the patient used to smoke but quit over 40 years ago. It also mentions that he used to occasionally drink alcohol but does not state the amount. He states that he lives in his own home and that he has been from his for many years?. He states that he lives alone. He states that he has 1 son and 1 daughter. He used to work at [employer]. Code status: Full code per EMR Surrogate decision maker: Yobani Edward Smoking status: Former smoker Alcohol intake: unknown Substance use: unknown Living arrangements: alone Occupation/Education: retired Additional occupation/education comments: [employer] Spiritual care concerns: No Meds Home Medications and Allergies Home Medications ?Medication ?Instructions ?Recorded ?Confirmed ?Type aspirin 81 mg tablet,delayed 81 mg PO DAILY 12/13/19 04/09/25 History release (Adult Low Dose Aspirin) ferrous sulfate 325 mg (65 mg 325 mg PO DAILY 12/13/19 04/09/25 History iron) tablet (FerrouSul) lisinopril 10 mg tablet 10 mg PO DAILY #90 tabs 05/24/20 04/09/25 Rx acetaminophen 325 mg tablet 650 mg (2 x 325 mg) PO Q4H PRN 03/18/25 04/09/25 Rx Mild Pain (1-3) Or Fever #30 tabs insulin aspart U-100 100 unit/mL 2 - 5 unit subcut TIDWM #10 mL 03/18/25 04/09/25 Rx subcutaneous solution (Novolog U-100 Insulin aspart) tamsulosin 0.4 mg capsule 0.4 mg PO QAM #30 caps 03/18/25 04/09/25 Rx blood sugar diagnostic (Accu-Chek 04/09/25 04/09/25 History Guide test strips) blood-glucose meter (Accu-Chek 04/09/25 04/09/25 History Guide Me Glucose Meter) lancets (Accu-Chek Softclix 04/09/25 04/09/25 History Lancets) metformin 1,000 mg tablet 1,000 mg PO BID 04/09/25 04/09/25 History amoxicillin 875 mg-potassium 1 tablet PO Q12H #6 tabs 04/12/25 Rx clavulanate 125 mg tablet Allergies Allergy/AdvReac Type Severity Reaction Status Date / Time METHYLATE Allergy Mild RASH Uncoded 04/09/25 18:52 Vital Signs Vital Signs - 24 hr 04/09/25 13:11 04/09/25 13:36 04/09/25 18:44 Temperature 36.4 C 36.4 C Pulse Rate 118 H 101 H Respiratory Rate 18 20 Blood Pressure 168/98 H 140/83 Pulse Oximetry 100 100 Oxygen Delivery Room Air Room Air 04/09/25 20:00 04/09/25 20:00 04/09/25 20:00 Temperature 36.6 C Pulse Rate 110 H 110 H Respiratory Rate 24 H Blood Pressure 138/81 Pulse Oximetry 98 Oxygen Delivery Room Air 04/09/25 22:00 04/09/25 23:43 04/10/25 00:00 Temperature 36.6 C Pulse Rate 107 H 115 H 100 Respiratory Rate 20 Blood Pressure 110/71 Pulse Oximetry 98 Oxygen Delivery 04/10/25 00:00 04/10/25 02:00 04/10/25 03:38 Temperature 36.7 C Pulse Rate 105 H 111 H Respiratory Rate 24 H Blood Pressure 120/71 Pulse Oximetry 97 Oxygen Delivery Room Air 04/10/25 04:00 04/10/25 04:00 04/10/25 06:00 Temperature Pulse Rate 100 93 Respiratory Rate Blood Pressure Pulse Oximetry Oxygen Delivery Room Air 04/10/25 08:00 04/10/25 08:00 04/10/25 08:00 Temperature 37.5 C Pulse Rate 93 86 100 Respiratory Rate 18 18 Blood Pressure 119/70 Pulse Oximetry 98 98 Oxygen Delivery Room Air 04/10/25 10:00 04/10/25 11:56 Temperature 37.0 C Pulse Rate 100 90 Respiratory Rate 24 H Blood Pressure 138/62 Pulse Oximetry 98 Oxygen Delivery Exam 2 Const: General: comfortable, no acute distress, alert and awake O rientation/consciousness: No patient oriented x3 HENMT: Head: normal to inspection Eyes: General: appearance normal, both eyes and all related structures P upils: Equal, round and reactive pupils present Neck: Neck: normal visual inspection, supple and no JVD Resp: Effort & Inspection: normal respiratory effort Auscultation: clear to auscultation bilaterally Cardio: Rate: regular rate Rhythm: regular rhythm Heart sounds: S1 normal heart sound present, S2 normal heart sound present and no murmurs GI: Auscultation: normal bowel sounds Urinary Catheter: Urinary Catheter: patent and draining Skin: General skin exam: normal color Neuro: General: patient oriented x3 Cranial nerves: Yes Equal, round and reactive pupils present Extrem: General: normal to inspection Psych: Appearance: grossly normal Mental Status: mental status grossly abnormal Results Labs and Meds 04/13/25 06:18 04/13/25 10:06 Lab results: Cardiac Enzymes 04/09/25 04/09/25 04/09/25 Range/Units 13:46 17:44 21:56 AST 62 H (17-59) U/L Troponin I 0.340 H* 0.362 H* 0.418 H* (0.000-0.034) ng/mL 04/10/25 Range/Units 06:21 AST 57 (17-59) U/L Troponin I (0.000-0.034) ng/mL Coagulation 04/09/25 04/09/25 04/10/25 Range/Units 13:46 23:47 06:21 PT 13.7 (11.1-14.7) Seconds APTT 25.0 53.7 H 140.7 H (22.3-36.8) Seconds CBC 04/09/25 04/10/25 Range/Units 13:46 06:21 WBC 10.7 H 9.2 (4.5-10.0) K/mm3 RBC 4.18 L 3.88 L (4.6-6.20) M/mm3 Hgb 12.7 L 12.0 L (14.0-18.0) g/dL Hct 38.8 L 35.9 L (42.0-52.0) % Plt Count 198 189 (150-375) k/mm3 Lymph # (Auto) 0.37 L 0.57 L (0.9-3.2) K/mm3 [place] # (Auto) 0.8 H 1.3 H (0.1-0.6) K/mm3 Eos # (Auto) 0.0 0.0 (0-0.3) K/mm3 Baso # (Auto) 0.0 0.0 (0.0-0.1) K/mm3 Comprehensive Metabolic Panel 04/09/25 04/10/25 Range/Units 13:46 06:21 Sodium 137 138 (137-145) mmol/L Potassium 4.2 3.9 (3.4-5.0) mmol/L Chloride 108 H 111 H (98-107) mmol/L Carbon Dioxide 19 L 19 L (22-30) mmol/L BUN 32 H 20 D (9-20) mg/dL Creatinine 1.26 1.06 (0.7-1.3) mg/dL Glucose 169 H 139 H (65-110) mg/dL Calcium 9.0 8.5 (8.4-10.2) mg/dL AST 62 H 57 (17-59) U/L ALT 20 23 (6-50) U/L Alkaline Phosphatase 63 68 (38-126) U/L Total Protein 6.3 5.8 L (6.3-8.2) g/dL Albumin 3.4 L 3.0 L (3.5-5.1) g/dL Intake and Output 04/09/25 04/10/25 04/10/25 23:59 07:59 15:59 Intake Total 2191.7 1210.4 0 Output Total 950 Balance 2191.7 260.4 0 Intake: IV 2191.7 1110.4 0 Dextrose 5%/Lactated Ringers 1, 1000 000 ml @ 100 mls/hr IV CONT . Q10H HOANG Rx#:[id number] Heparin Sod/D5w 100 Units/ml 25 110.4 0 ,000 units In 250 ml @ 900 UNITS/HR 9 mls/hr IV CONT .Q24H STA Rx#:[id number] Lactated Ringers 1,000 ml @ 100 91.7 mls/hr IV CONT .Q10H HOANG Rx#: [id number] Sodium Chloride 0.9% IV 1,000 2000 ml @ 999 mls/hr IV CONT .Q1H1M STA Rx#:[id number] Magnesium Sulf 2 gm/Water 50Ml 50 2 gm In 50 ml @ 25 mls/hr IVPB ONCE ONE Rx#:[id number] cefTRIAXone 1 GM/NS 50 ML 1 gm 50 In 50 ml @ 100 mls/hr IVPB ONCE STA Rx#:[id number] Oral 100 0 Output: Catheter Urine 950 Urethral Catheter 950 Patient Weight 04/10/25 23:59 Weight 62.3 kg
--- NOTE | 2025-04-10 13:20 | PCOTNOTE ---
Per RN, hold for today due to increased agitation and confusion. Will continue to follow for OT evaluation.
--- NOTE | 2025-04-10 13:39 | P.CDI_ITS ---
CDI Query Clarification Request BMI; 22.2 Nutritional Diagnostic Statement: Please refer to the comprehensive nutrition assessment for further information. If you agree with diagnosis of Severe protein calorie malnutrition related to loss of appetite as evidenced by weight loss 5%/1 month; intakes <75% needs >1 month; severe muscle wasting; moderate fat loss. Please specify severity if known: * Mild * Moderate * Severe * Other/Unknown <Kathryn Cordero RN - Last Filed: 04/10/25 13:40> Provider Comments Severe protein calorie malnutrition <Teresa Lechuga MD - Last Filed: 04/10/25 17:07>
--- NOTE | 2025-04-10 14:13 | PC.NURSE ---
This patient, Yobani Escamilla, was transferred to [[facility] ] on 04/10/25 at 1413. Personal belongings sent with patient. Report given to [ALISON Craig @ [phone] ]. Appropriate documentation sent with patient.
--- NOTE | 2025-04-10 14:20 | PC.NURSE ---
This patient, Yobani Escamilla, was received from [facility] on 04/10/25 at 1420. Patient/family oriented to unit policies and routines
[2025-04-10 15:27] LABS: Troponin I 0.288 ng/mL (0.000-0.034)
[2025-04-10] MEDS: diphenhydrAMINE HCl INJ 50 MG/ML VIAL 25 MG IV PUSH (15:51)
[2025-04-10 16:45] LABS: Glucose Point of Care 148 mg/dl (65-105)
--- NOTE | 2025-04-10 16:52 | P.PNIM_ITS ---
Progress Note: A&P Assessment and Plan (1) Hypoglycemia: Code(s): E16.2 - Hypoglycemia, unspecified Status: Acute Assessment and Plan: - initial glucose on scene per EMS was 33 -> D10 50 mL -> 90 -> 57 at arrival to ED -> D50 -> 76 -> 134 -> 33 (19:49) -> given D50 and LR exchanged to D5LR at 100 mL/hr - patient reported difficulty keeping pantry stocked but unable to elaborate. Spoke with son and he provides groceries for the patient. He reports the patient had a poor appetite yesterday and only 8 1 slice of pizza. He tries to keep food stock to that is easily microwaved, however he reports he has previously had difficulty due to his mobility and arthritis opening things. - care coordination/PT and OT consulted for FTT/inability for patient to take care of himself at home -> will need placement Dc home Po meds for diabetes. (2) Elevated troponin: Code(s): R79.89 - Other specified abnormal findings of blood chemistry Status: Acute Assessment and Plan: - EKG, initial: Atrial flutter/tachycardia with RVR, right bundle branch block, left anterior fascicular block. When compared to EKG done on 03/11, no significant change. Waiting formal read. - Troponin: 0.340 -> 0.362, 0.2 trending down - SL nitro PRN - cardiology on board. no ischemic work up needed - DC heparin gtt (3) Rhabdomyolysis: Qualifiers: Rhabdomyolysis type: non-traumatic Qualified Code(s): M62.82 - Rhabdomyolysis Code(s): M62.82 - Rhabdomyolysis Status: Acute Assessment and Plan: - CK improving - IV Fluids: 2L bolus -> D5LR at 100 mL/hr - presumed secondary to fall/prolonged time on the ground and dehydration and lack of food/hypoglycemia - hold statins (4) Acute UTI: Code(s): N39.0 - Urinary tract infection, site not specified Status: Acute Assessment and Plan: - UA: 1+ protein, trace glucose, trace ketones, 2+ blood, positive nitrates, 2+ leuk esterase, 21-50 WBC, no epithelial cells, 4+ bacteria - UC pending - no previous micro available for review - started on Ceftriaxone on 04/09, continued - recurrent urinary retention (5) Ground-level fall: Code(s): W18.30XA - Fall on same level, unspecified, initial encounter Status: Acute Assessment and Plan: Trauma workup negative, see below-> - head CT: No acute intracranial findings - C-spine CT: No acute osseous abnormality cervical spine. Minimal anterolisthesis at the level of C4-C5 and C5-C6. Multilevel degenerative disc disease. - knee XR, left: No acute osseous abnormality left knee. Severe osteoarthritic changes of the knee and patellofemoral joints. Chondrocalcinosis. - knee XR, right: No acute osseous abnormality right knee. Severe osteoarthritic changes. Chondrocalcinosis. - CT chest/abdomen/pelvis: CHEST: 1. No acute cardiopulmonary pathology. 2. Trace of pleural effusion seen in the right side. 3. Slightly thickened upper esophagus. Clinical evaluation advised. 4. No definite vascular injury seen. ABDOMEN/PELVIS: 1. No evidence of vascular or solid organ injury. 2. No evidence of appendicitis, diverticulitis or intestinal obstruction. 3. Bilateral kidney cysts with calcification on the left side. 4. Tiny left kidney stone. 5. Bilateral inguinal fat containing hernias larger on the left side with umbilical fat-containing hernia. - presume secondary to hyperglycemia, however has recent history of generalized weakness requiring SNF placement - PT/OT eval ordered (6) Urinary retention: Code(s): R33.9 - Retention of urine, unspecified Status: Acute Assessment and Plan: - during previous admission at the end of February of 2025, patient had 1L post-void - bladder scan on 04/09 showed retained urine - estimated 500 mL. cohen placed. - continue flomax - will need urology follow-up outpatient - +UTI (7) FTT (failure to thrive) in adult: Code(s): R62.7 - Adult failure to thrive Status: Acute Assessment and Plan: - care coordination/PT and OT consulted for FTT/inability for patient to take care of himself at home -> will need placement - recent placement to [facility] on 03/18. Patient went back home due to running out of money/time through insurance. (8) Hypomagnesemia: Code(s): E83.42 - Hypomagnesemia Status: Acute Assessment and Plan: - repet as needed (9) Type 2 diabetes mellitus: Qualifiers: Diabetes mellitus fpc insulin use: with fpc use Diabetes mellitus complication status: with hypoglycemia Diabetes mellitus complication detail: without coma Qualified Code(s): E11.649 - Type 2 diabetes mellitus with hypoglycemia without coma; Z79.4 - FDC (current) use of insulin Code(s): E11.9 - Type 2 diabetes mellitus without complications Status: Chronic Assessment and Plan: - initially hypoglycemia in the 30s per EMS, arrived hypoglycemic. see #1 - hypoglycemia protocol - POC blood glucose Q2H x4 -> Q6H if stable - home medications held including NovoLog, metformin, and glipizide - correct regimen ordered - low dose Q6H - A1C 6 (10) Severe malnutrition: Code(s): E43 - Unspecified severe protein-calorie malnutrition Status: Acute Assessment and Plan: dietitian on board Plan Diet: Heart healthy GI Prophylaxis: Pantoprazole DVT Prophylaxis: lovenox PPx Lines/Tubes: Peripheral IV Code Status: full code Subjective Date/time seen: 04/10/25 16:52 Interval history: per HPI: 89 y/o M with PMH of asthma/COPD overlap, hyperlipidemia, hypertension, type 2 diabetes mellitus, and prostate cancer s/p radiation presents here with hypoglycemia and fall. The patient presents here from home via EMS on 04/09 for further evaluation post- ground level fall and hypoglycemia. HPI obtained through patient report, chart review and patient's son with his permission. Family reports that they arrived and found him on the ground mumbling prompting a call to EMS. He last saw him around 7:30 p.m. yesterday (04/08). Upon EMS arrival, the patient was unresponsive with a blood sugar of 33. He was given 50 mL of D10 while in route which corrected his blood sugar to 90 and patient became more alert. He arrived to the emergency department A&O x2 with a blood sugar of 57 which was treated with D50. EMS also reports they were called to the house yesterday and the patient was found to be hypoglycemic, he was given dextrose but declined transport to the hospital. Per the patient he has not been eating as much and has been having trouble keeping food in the house - further questioning, the patient is not able to elaborate. Son reports they do his grocery shopping and make sure to get him foods that can be microwaved but he does state he still has difficulty due to his mobility and arthritis. Patient's son reports he noted yesterday that the patient did not eat much - only one slice of pizza for the whole day. Post fall, the patient is reporting right knee pain. He denies loss of consciousness or head strike. He reports he just wasn't able to get to his walker. Review of the patient's medical history shows a recent admission from 03/11/25-03/18/25 for prolonged time spent on the toilet. He was found sitting on his toilet for an unknown amount of time, however his physical exam findings including a edematous scrotum and toilet seat imprint on his bottom suggest he had been sitting there for some time. He was last seen by his family a week prior. At that time he was treated for an KATHARINA, rhabdomyolysis, urinary retention, and multifocal atrial tachycardia. He was discharged on 03/18 to [facility] ([facility] Patient went back home because the patient wanted to leave and his insurance would only cover a specific amount of time. Son reports they were trying to get him placed again through his PCP but did not make any headway. Patient is poor historian. Initial VS at presentation: 97.6? F, HR 118, R 18, 168/98, and 100% on RA. ED workup showed: initial troponin 0.340, BNP 51538, and normal TSH. UA suggestive of UTI. Viral PCR negative. Head CT, C-spine CT, and bilateral knee XR showed no acute traumatic findings, 04/10/25 patient was seen and examined at bedside. he is feeling fine. denies chest pain,abd pain, nausea or vomiting. Cardiology team on board. No ischemic workup recommended. Heparin was discontinued. Review of Systems Review of Systems: All systems reviewed & are unremarkable except as noted in HPI and below (limited, alerted) Exam Const: Other: , male, elderly, chronically ill-appearing, modestly ill-appearing at present HENMT: Face/Nose/Sinus: Normal nares present Mouth: Yes dry mucous membranes (Extremely dry) Eyes: General: appearance normal, both eyes and all related structures Sclera: sclerae normal Pupils: Equal, round and reactive pupils present EOM: EOMs intact bilaterally Resp: Effort & Inspection: normal respiratory effort Auscultation: clear to auscultation bilaterally Cardio: Rate: regular rate Rhythm: regular rhythm Other: S1-S2 present without murmur, rub, ectopy GI: Other: Abdomen soft, nondistended, nontender. Normoactive bowel sounds in all quadrants. Urinary Catheter: Urinary Catheter: patent and draining and urine dark Skin: General skin exam: normal color Other: Scattered ecchymosis to bilateral upper extremities, no particular pattern. No wounds. Neuro: Cranial nerves: Yes Equal, round and reactive pupils present Other: A&O to self and president. Incorrect place and time provided. Generalized weakness, 3+ in all extremities. Extrem: General: normal to inspection Psych: Mental Status: mental status grossly normal Other: Poor insight and judgment. Perseveration on hand washing. Objective Data Vital Signs Vital Signs: Vital Signs - 24 hr 04/09/25 18:44 04/09/25 20:00 04/09/25 20:00 Temperature 97.6 F 97.8 F Pulse Rate 101 H 110 H 110 H Respiratory Rate 20 24 H Blood Pressure 140/83 138/81 Pulse Oximetry 100 98 Oxygen Delivery 04/09/25 20:00 04/09/25 22:00 04/09/25 23:43 Temperature 97.8 F Pulse Rate 107 H 115 H Respiratory Rate 20 Blood Pressure 110/71 Pulse Oximetry 98 Oxygen Delivery Room Air 04/10/25 00:00 04/10/25 00:00 04/10/25 02:00 Temperature Pulse Rate 100 105 H Respiratory Rate Blood Pressure Pulse Oximetry Oxygen Delivery Room Air 04/10/25 03:38 04/10/25 04:00 04/10/25 04:00 Temperature 98.1 F Pulse Rate 111 H 100 Respiratory Rate 24 H Blood Pressure 120/71 Pulse Oximetry 97 Oxygen Delivery Room Air 04/10/25 06:00 04/10/25 08:00 04/10/25 08:00 Temperature 99.5 F Pulse Rate 93 93 86 Respiratory Rate 18 Blood Pressure 119/70 Pulse Oximetry 98 Oxygen Delivery 04/10/25 08:00 04/10/25 10:00 04/10/25 11:56 Temperature 98.6 F Pulse Rate 100 100 90 Respiratory Rate 18 24 H Blood Pressure 138/62 Pulse Oximetry 98 98 Oxygen Delivery Room Air 04/10/25 12:00 04/10/25 12:00 Temperature Pulse Rate 90 85 Respiratory Rate 24 H Blood Pressure Pulse Oximetry 98 Oxygen Delivery Room Air Intake/Output Intake/Output: Intake & Output 04/07/25 04/08/25 04/09/25 04/10/25 23:59 23:59 23:59 23:59 Intake Total 2191.7 1249.0 Output Total 50 950 Balance 2141.7 299.0 Meds/Results Medications: Active Medications Generic Name Dose Route Start Last Admin Trade Name Freq PRN Reason Stop Dose Admin Acetaminophen 650 mg 04/09/25 18:09 Acetaminophen 325 Mg Tablet PO Q6H PRN Mild Pain (1-3) or Fever Hydrocodone Bitart/Acetaminophen 1 tab 04/09/25 18:09 Hydrocodone/Acetaminophen (*Crx) 5-325 Mg Tablet PO Q6H PRN Pain Rated 4-6 Aspirin 81 mg 04/10/25 09:00 04/10/25 09:52 Aspirin 81 Mg Enteric Tablet PO Not Given DAILY HOANG Dextrose 12.5 gm 04/09/25 17:56 Dextrose 50% 25 Gm/50 Ml Syringe IV PUSH PRN PRN Hypoglycemia Protocol Ferrous Sulfate 325 mg 04/10/25 09:00 04/10/25 09:52 Ferrous Sulfate [address] PO Not Given DAILY HOANG Glucagon 1 mg 04/09/25 17:56 Glucagon For Inj 1 Mg Vial IM PRN PRN Hypoglycemia Protocol Glucose 15 gm 04/09/25 17:56 Glucose Oral Gel 15 Gm Of Glucse In 37.5 Gm Tube PO PRN PRN Hypoglycemia Protocol Heparin Sodium (Porcine) 4,000 units 04/09/25 17:11 04/10/25 00:31 Heparin Sodium 5,000 Units/Ml Vial IV PUSH 04/10/25 17:14 4,000 units PRN PRN Administration aPTT less than 55 seconds Heparin Sodium (Porcine) 2,500 units 04/09/25 17:11 Heparin Sodium 5,000 Units/Ml Vial IV PUSH 04/10/25 17:14 PRN PRN aPTT 55 - 70 seconds Ceftriaxone Sodium 1 gm in 50 mls @ 100 mls/hr 04/10/25 16:00 04/10/25 15:52 Rocephin 1 Gm/Ns 50 Ml IVPB 100 mls/hr Q24H HOANG Administration Dextrose 1,000 mls @ 100 mls/hr 04/09/25 17:56 Dextrose 5% 1,000 Ml IVPB PRN PRN Hypoglycemia Protocol Dextrose/Lactated Ringer's 1,000 mls @ 100 mls/hr 04/09/25 20:15 04/10/25 06:28 Dextrose 5%/Lactated Ringers IV CONT 100 mls/hr .Q10H HOANG Administration Insulin Aspart 2 - 5 units 04/10/25 00:00 04/10/25 12:14 Insulin Aspart (*Bkc) 100 Units/Ml SUB-Q Not Given Q6H [facility] Protocol Lisinopril 10 mg 04/10/25 09:00 04/10/25 09:52 Lisinopril 10 Mg Tablet PO Not Given DAILY [facility] Morphine Sulfate 2 mg 04/09/25 18:09 Morphine Sulfate (*Crx) 2 Mg/Ml Inj IV PUSH Q4H PRN Pain Rated 7-10 Naloxone HCl 0.1 mg 04/09/25 18:09 Naloxone Hcl 0.4 Mg/Ml Vial IV PUSH Q5MIN PRN Sedation Nitroglycerin 0.4 mg 04/09/25 18:07 Nitroglycerin Sl 0.4 Mg Tablet SUBLINGUAL Q5MIN PRN Chest Pain Pantoprazole Sodium 40 mg 04/10/25 09:00 04/10/25 09:30 Pantoprazole Sodium Iv 40 Mg Vial IV PUSH 40 mg QAM [facility] Administration Perflutren Lipid Microsphere 0 ml 04/09/25 18:08 Perflutren Lipid Microspheres 1.5 Ml Vial Diluted To 10 Ml Total Volume IV PUSH 04/12/25 18:08 ONCE PRN adequate visualization Protocol Tamsulosin HCl 0.4 mg 04/10/25 09:00 04/10/25 09:52 Tamsulosin Hcl 0.4 Mg Capsule PO Not Given QAM [facility] Radiology Results: ITS Impressions Head CT 04/09/25 15:14 IMPRESSION: No acute intracranial findings. Cervical Spine CT 04/09/25 15:23 IMPRESSION: No acute osseous abnormality cervical spine. Minimal anterolisthesis at the level of C4-C5 and C5-C6. Multilevel degenerative disc disease. Chest/Abdomen/Pelvis CT 04/09/25 15:34 IMPRESSION: CHEST: 1. No acute cardiopulmonary pathology. 2. Trace of pleural effusion seen in the right side. 3. Slightly thickened upper esophagus. Clinical evaluation advised. 4. No definite vascular injury seen. ABDOMEN/PELVIS: 1. No evidence of vascular or solid organ injury. 2. No evidence of appendicitis, diverticulitis or intestinal obstruction. 3. Bilateral kidney cysts with calcification on the left side. 4. Tiny left kidney stone. 5. Bilateral inguinal fat containing hernias larger on the left side with umbilical fat-containing hernia. Knee X-Ray 04/09/25 16:42 IMPRESSION: No acute osseous abnormality right knee. Severe osteoarthritic changes. Chondrocalcinosis. Labs Labs: Laboratory Results - last 24 hr 04/09/25 04/09/25 04/09/25 13:46 17:44 19:49 WBC RBC Hgb Hct MCV MCH MCHC RDW Plt Count MPV Immature Gran % (Auto) Neut % (Auto) Lymph % (Auto) [place] % (Auto) Eos % (Auto) Baso % (Auto) Lymph # (Auto) [place] # (Auto) Eos # (Auto) Baso # (Auto) Abs Immat Gran (auto) Absolute Neuts (auto) Absolute Nucleated RBC Nucleated RBC % APTT Sodium Potassium Chloride Carbon Dioxide Anion Gap BUN Creatinine Estim Creat Clear Calc Estimated GFR Glucose POC Capillary Glucose 33 L* Hemoglobin A1c Calcium Phosphorus Magnesium Total Bilirubin AST ALT Alkaline Phosphatase Total Creatine Kinase Troponin I 0.362 H* Total Protein Albumin TSH (Reflex) 0.649 04/09/25 04/09/25 04/09/25 20:06 20:49 21:51 WBC RBC Hgb Hct MCV MCH MCHC RDW Plt Count MPV Immature Gran % (Auto) Neut % (Auto) Lymph % (Auto) [place] % (Auto) Eos % (Auto) Baso % (Auto) Lymph # (Auto) [place] # (Auto) Eos # (Auto) Baso # (Auto) Abs Immat Gran (auto) Absolute Neuts (auto) Absolute Nucleated RBC Nucleated RBC % APTT Sodium Potassium Chloride Carbon Dioxide Anion Gap BUN Creatinine Estim Creat Clear Calc Estimated GFR Glucose POC Capillary Glucose 141 H 90 123 H Hemoglobin A1c Calcium Phosphorus Magnesium Total Bilirubin AST ALT Alkaline Phosphatase Total Creatine Kinase Troponin I Total Protein Albumin TSH (Reflex) 04/09/25 04/09/25 04/10/25 21:56 23:47 00:00 WBC RBC Hgb Hct MCV MCH MCHC RDW Plt Count MPV Immature Gran % (Auto) Neut % (Auto) Lymph % (Auto) [place] % (Auto) Eos % (Auto) Baso % (Auto) Lymph # (Auto) [place] # (Auto) Eos # (Auto) Baso # (Auto) Abs Immat Gran (auto) Absolute Neuts (auto) Absolute Nucleated RBC Nucleated RBC % APTT 53.7 H Sodium Potassium Chloride Carbon Dioxide Anion Gap BUN Creatinine Estim Creat Clear Calc Estimated GFR Glucose POC Capillary Glucose 101 Hemoglobin A1c Calcium Phosphorus Magnesium Total Bilirubin AST ALT Alkaline Phosphatase Total Creatine Kinase Troponin I 0.418 H* Total Protein Albumin TSH (Reflex) 04/10/25 04/10/25 04/10/25 02:01 06:21 07:57 WBC 9.2 RBC 3.88 L Hgb 12.0 L Hct 35.9 L MCV 92.5 MCH 30.9 MCHC 33.4 RDW 14.7 H Plt Count 189 MPV 10.5 H Immature Gran % (Auto) 0.4 Neut % (Auto) 78.7 H Lymph % (Auto) 6.2 L [place] % (Auto) 14.5 H Eos % (Auto) 0.1 Baso % (Auto) 0.1 L Lymph # (Auto) 0.57 L [place] # (Auto) 1.3 H Eos # (Auto) 0.0 Baso # (Auto) 0.0 Abs Immat Gran (auto) 0.04 H Absolute Neuts (auto) 7.2 H Absolute Nucleated RBC 0.000 Nucleated RBC % 0.0 APTT 140.7 H Sodium 138 Potassium 3.9 Chloride 111 H Carbon Dioxide 19 L Anion Gap 8 BUN 20 D Creatinine 1.06 Estim Creat Clear Calc 38 Estimated GFR > 60 Glucose 139 H POC Capillary Glucose 103 135 H Hemoglobin A1c 6.0 H Calcium 8.5 Phosphorus 2.6 Magnesium 1.7 Total Bilirubin 0.5 AST 57 ALT 23 Alkaline Phosphatase 68 Total Creatine Kinase 864 H Troponin I Total Protein 5.8 L Albumin 3.0 L TSH (Reflex) 04/10/25 04/10/25 04/10/25 09:59 12:01 14:40 WBC RBC Hgb Hct MCV MCH MCHC RDW Plt Count MPV Immature Gran % (Auto) Neut % (Auto) Lymph % (Auto) [place] % (Auto) Eos % (Auto) Baso % (Auto) Lymph # (Auto) [place] # (Auto) Eos # (Auto) Baso # (Auto) Abs Immat Gran (auto) Absolute Neuts (auto) Absolute Nucleated RBC Nucleated RBC % APTT Sodium Potassium Chloride Carbon Dioxide Anion Gap BUN Creatinine Estim Creat Clear Calc Estimated GFR Glucose POC Capillary Glucose 136 H 145 H Hemoglobin A1c Calcium Phosphorus Magnesium Total Bilirubin AST ALT Alkaline Phosphatase Total Creatine Kinase Troponin I 0.288 H* Total Protein Albumin TSH (Reflex) 04/10/25 16:42 WBC RBC Hgb Hct MCV MCH MCHC RDW Plt Count MPV Immature Gran % (Auto) Neut % (Auto) Lymph % (Auto) [place] % (Auto) Eos % (Auto) Baso % (Auto) Lymph # (Auto) [place] # (Auto) Eos # (Auto) Baso # (Auto) Abs Immat Gran (auto) Absolute Neuts (auto) Absolute Nucleated RBC Nucleated RBC % APTT Sodium Potassium Chloride Carbon Dioxide Anion Gap BUN Creatinine Estim Creat Clear Calc Estimated GFR Glucose POC Capillary Glucose 148 H Hemoglobin A1c Calcium Phosphorus Magnesium Total Bilirubin AST ALT Alkaline Phosphatase Total Creatine Kinase Troponin I Total Protein Albumin TSH (Reflex) Quality VTE Prophylaxis VTE prophylaxis: pharmacologic ordered
--- NOTE | 2025-04-10 19:00 | PC.NURSE ---
On 04/10/25, the GEODETIC ENGINEER, Kiara Shcmidt, provided care and completed Treato documentation on this patient. I have reviewed the GEODETIC ENGINEER's documentation and agree with the findings.
[2025-04-10 21:34] LABS: Glucose Point of Care 145 mg/dl (65-105)
[2025-04-11] VITALS (9 sets, daily range): BP systolic 116–150; BP diastolic 67–90; PULSE 76–102; RESP 18–20; TEMP 35.9–36.8; O2SAT 94–98; BMI 10.0
[2025-04-11 00:11] LABS: Glucose Point of Care 173 mg/dl (65-105)
[2025-04-11] MEDS: DEXTROSE 5%/LACTATED RINGERS 1,000 ML 100 ML IV CONT ×2 (03:38→14:02)
[2025-04-11] MEDS: INSULIN ASPART (*BKC) 100 UNITS/ML SUB-Q (05:54)
[2025-04-11 07:10] LABS: Hematocrit 32.9 % (42.0-52.0); Hemoglobin 10.9 g/dL (14.0-18.0); Mean Corpuscular HGB Conc 33.1 g/dl (32-36); Mean Corpuscular Hemoglobin 30.3 pg (26-34); Mean Corpuscular Volume 91.4 fl (80-100); Mean Platelet Volume 10.2 fl (7.4-10.4); Platelet Count Result 148 k/mm3 (150-375); Red Cell Distribution Width 14.5 % (11.5-14.5); White Blood Count 9.1 K/mm3 (4.5-10.0)
[2025-04-11 07:26] LABS: Anion Gap 5 mmol/L (4-12); Blood Urea Nitrogen 13 mg/dL (9-20); Calcium 8.3 mg/dL (8.4-10.2); Carbon Dioxide 22 mmol/L (22-30); Chloride 108 mmol/L (98-107); Estimated CRCL calculation 43 ml/min; Estimated Glomerular Filt Rate > 60; Glucose 210 mg/dL (65-110); Potassium 3.6 mmol/L (3.4-5.0); Sodium 135 mmol/L (137-145)
[2025-04-11 07:54] LABS: Glucose Point of Care 202 mg/dl (65-105)
[2025-04-11 08:57] LABS: Glucose Point of Care 204 mg/dl (65-105)
[2025-04-11] MEDS: TAMSULOSIN HCL 0.4 MG CAPSULE PO (10:20)
[2025-04-11] MEDS: lisinopriL 10 MG TABLET PO (10:20)
[2025-04-11] MEDS: FERROUS SULFATE 325 MG TABLET DR PO (10:20)
[2025-04-11] MEDS: ENOXAPARIN 40 MG/0.4 ML SYRINGE SUB-Q (10:20)
[2025-04-11] MEDS: ASPIRIN 81 MG ENTERIC TABLET PO (10:21)
[2025-04-11] MEDS: PANTOPRAZOLE SODIUM IV 40 MG VIAL IV PUSH (10:21)
[2025-04-11 11:38] LABS: Glucose Point of Care 176 mg/dl (65-105)
--- NOTE | 2025-04-11 14:54 | PM.IMPN ---
Progress Note: A&P Assessment and Plan (1) Hypoglycemia: Code(s): E16.2 - Hypoglycemia, unspecified Status: Acute Assessment and Plan: - initial glucose on scene per EMS was 33 -> D10 50 mL -> 90 -> 57 at arrival to ED -> D50 -> 76 -> 134 -> 33 (19:49) - - patient reported difficulty keeping pantry stocked but unable to elaborate. Spoke with son and he provides groceries for the patient. He reports the patient had a poor appetite yesterday and only 8 1 slice of pizza. He tries to keep food stock to that is easily microwaved, however he reports he has previously had difficulty due to his mobility and arthritis opening things. - care coordination/PT and OT consulted for FTT/inability for patient to take care of himself at home -> will need placement Dc home Po meds for diabetes. (2) Elevated troponin: Code(s): R79.89 - Other specified abnormal findings of blood chemistry Status: Acute Assessment and Plan: - EKG, initial: Atrial flutter/tachycardia with RVR, right bundle branch block, left anterior fascicular block. When compared to EKG done on 03/11, no significant change. Waiting formal read. - Troponin: 0.340 -> 0.362, 0.2 trending down - SL nitro PRN - cardiology on board. no ischemic work up needed - DC heparin gtt (3) Rhabdomyolysis: Qualifiers: Rhabdomyolysis type: non-traumatic Qualified Code(s): M62.82 - Rhabdomyolysis Code(s): M62.82 - Rhabdomyolysis Status: Acute Assessment and Plan: - CK improving - received IV Fluid - presumed secondary to fall/prolonged time on the ground and dehydration and lack of food/hypoglycemia - hold statins (4) Acute UTI: Code(s): N39.0 - Urinary tract infection, site not specified Status: Acute Assessment and Plan: - UA: 1+ protein, trace glucose, trace ketones, 2+ blood, positive nitrates, 2+ leuk esterase, 21-50 WBC, no epithelial cells, 4+ bacteria - UC pending: klebsiella - no previous micro available for review - on Ceftriaxone on 04/09, continued - recurrent urinary retention (5) Ground-level fall: Code(s): W18.30XA - Fall on same level, unspecified, initial encounter Status: Acute Assessment and Plan: Trauma workup negative, see below-> - head CT: No acute intracranial findings - C-spine CT: No acute osseous abnormality cervical spine. Minimal anterolisthesis at the level of C4-C5 and C5-C6. Multilevel degenerative disc disease. - knee XR, left: No acute osseous abnormality left knee. Severe osteoarthritic changes of the knee and patellofemoral joints. Chondrocalcinosis. - knee XR, right: No acute osseous abnormality right knee. Severe osteoarthritic changes. Chondrocalcinosis. - CT chest/abdomen/pelvis: CHEST: 1. No acute cardiopulmonary pathology. 2. Trace of pleural effusion seen in the right side. 3. Slightly thickened upper esophagus. Clinical evaluation advised. 4. No definite vascular injury seen. ABDOMEN/PELVIS: 1. No evidence of vascular or solid organ injury. 2. No evidence of appendicitis, diverticulitis or intestinal obstruction. 3. Bilateral kidney cysts with calcification on the left side. 4. Tiny left kidney stone. 5. Bilateral inguinal fat containing hernias larger on the left side with umbilical fat-containing hernia. - presume secondary to hyperglycemia, however has recent history of generalized weakness requiring SNF placement - PT/OT eval ordered (6) Urinary retention: Code(s): R33.9 - Retention of urine, unspecified Status: Acute Assessment and Plan: - during previous admission at the end of February of 2025, patient had 1L post-void - bladder scan on 04/09 showed retained urine - estimated 500 mL. cohen placed. - continue flomax - will need urology follow-up outpatient - +UTI (7) FTT (failure to thrive) in adult: Code(s): R62.7 - Adult failure to thrive Status: Acute Assessment and Plan: - care coordination/PT and OT consulted for FTT/inability for patient to take care of himself at home -> will need placement - recent placement to [facility] on 03/18. Patient went back home due to running out of money/time through insurance. (8) Hypomagnesemia: Code(s): E83.42 - Hypomagnesemia Status: Acute Assessment and Plan: - repet as needed (9) Type 2 diabetes mellitus: Qualifiers: Diabetes mellitus [facility] insulin use: with [facility] use Diabetes mellitus complication status: with hypoglycemia Diabetes mellitus complication detail: without coma Qualified Code(s): E11.649 - Type 2 diabetes mellitus with hypoglycemia without coma; Z79.4 - USP (current) use of insulin Code(s): E11.9 - Type 2 diabetes mellitus without complications Status: Chronic Assessment and Plan: - initially hypoglycemia in the 30s per EMS, arrived hypoglycemic. see #1 - hypoglycemia protocol - POC blood glucose Q2H x4 -> Q6H if stable - home medications held including NovoLog, metformin, and glipizide - correct regimen ordered - low dose Q6H - A1C 6 (10) Severe malnutrition: Code(s): E43 - Unspecified severe protein-calorie malnutrition Status: Acute Assessment and Plan: dietitian on board Plan Diet: Heart healthy GI Prophylaxis: Pantoprazole DVT Prophylaxis: lovenox PPx Lines/Tubes: Peripheral IV Code Status: full code Subjective Date/time seen: 04/11/25 14:54 Interval history: per HPI: 89 y/o M with PMH of asthma/COPD overlap, hyperlipidemia, hypertension, type 2 diabetes mellitus, and prostate cancer s/p radiation presents here with hypoglycemia and fall. The patient presents here from home via EMS on 04/09 for further evaluation post-ground level fall and hypoglycemia. HPI obtained through patient report, chart review and patient's son with his permission. Family reports that they arrived and found him on the ground mumbling prompting a call to EMS. He last saw him around 7:30 p.m. yesterday (04/08). Upon EMS arrival, the patient was unresponsive with a blood sugar of 33. He was given 50 mL of D10 while in route which corrected his blood sugar to 90 and patient became more alert. He arrived to the emergency department A&O x2 with a blood sugar of 57 which was treated with D50. EMS also reports they were called to the house yesterday and the patient was found to be hypoglycemic, he was given dextrose but declined transport to the hospital. Per the patient he has not been eating as much and has been having trouble keeping food in the house - further questioning, the patient is not able to elaborate. Son reports they do his grocery shopping and make sure to get him foods that can be microwaved but he does state he still has difficulty due to his mobility and arthritis. Patient's son reports he noted yesterday that the patient did not eat much - only one slice of pizza for the whole day. Post fall, the patient is reporting right knee pain. He denies loss of consciousness or head strike. He reports he just wasn't able to get to his walker. Review of the patient's medical history shows a recent admission from 03/11/25-03/18/25 for prolonged time spent on the toilet. He was found sitting on his toilet for an unknown amount of time, however his physical exam findings including a edematous scrotum and toilet seat imprint on his bottom suggest he had been sitting there for some time. He was last seen by his family a week prior. At that time he was treated for an KATHARINA, rhabdomyolysis, urinary retention, and multifocal atrial tachycardia. He was discharged on 03/18 to [facility] ([facility] Patient went back home because the patient wanted to leave and his insurance would only cover a specific amount of time. Son reports they were trying to get him placed again through his PCP but did not make any headway. Patient is poor historian. Initial VS at presentation: 97.6? F, HR 118, R 18, 168/98, and 100% on RA. ED workup showed: initial troponin 0.340, BNP 76132, and normal TSH. UA suggestive of UTI. Viral PCR negative. Head CT, C-spine CT, and bilateral knee XR showed no acute traumatic findings, 04/10/25 patient was seen and examined at bedside. he is feeling fine. denies chest pain,abd pain, nausea or vomiting. Cardiology team on board. No ischemic workup recommended. Heparin was discontinued. 04/11/25 Patient was seen and examined at bedside. he is feeling better, denies chest pain, SOb abd pain, N/V. BS under better control U/C pending positive for Klebsiella Review of Systems Review of Systems: All systems reviewed & are unremarkable except as noted in HPI and below (limited, alerted) Exam Const: Other: , male, elderly, chronically ill-appearing, modestly ill-appearing at present HENMT: Face/Nose/Sinus: Normal nares present Mouth: Yes dry mucous membranes (Extremely dry) Eyes: General: appearance normal, both eyes and all related structures Sclera: sclerae normal Pupils: Equal, round and reactive pupils present EOM: EOMs intact bilaterally Resp: Effort & Inspection: normal respiratory effort Auscultation: clear to auscultation bilaterally Cardio: Rate: regular rate Rhythm: regular rhythm Other: S1-S2 present without murmur, rub, ectopy GI: Other: Abdomen soft, nondistended, nontender. Normoactive bowel sounds in all quadrants. Urinary Catheter: Urinary Catheter: patent and draining and urine dark Skin: General skin exam: normal color Other: Scattered ecchymosis to bilateral upper extremities, no particular pattern. No wounds. Neuro: Cranial nerves: Yes Equal, round and reactive pupils present Other: A&O to self and president. Incorrect place and time provided. Generalized weakness, 3+ in all extremities. Extrem: General: normal to inspection Psych: Mental Status: mental status grossly normal Other: Poor insight and judgment. Perseveration on hand washing. Objective Data Vital Signs Vital Signs: Vital Signs - 24 hr 04/10/25 20:00 04/10/25 20:00 04/10/25 21:25 Temperature Pulse Rate 97 84 Respiratory Rate 20 Blood Pressure Pulse Oximetry 94 Oxygen Delivery Room Air Room Air Fraction of Inspired Oxygen 04/10/25 21:39 04/11/25 00:00 04/11/25 04:00 Temperature 98.8 F Pulse Rate 97 94 80 Respiratory Rate 20 Blood Pressure 154/86 H Pulse Oximetry 95 Oxygen Delivery Fraction of Inspired Oxygen 04/11/25 05:47 04/11/25 08:03 04/11/25 08:03 Temperature 97.2 F L Pulse Rate 102 H 78 Respiratory Rate 20 Blood Pressure 150/90 H Pulse Oximetry 98 Oxygen Delivery Room Air Fraction of Inspired Oxygen 04/11/25 10:51 04/11/25 11:04 04/11/25 13:55 Temperature 98.2 F Pulse Rate 77 Respiratory Rate 18 Blood Pressure 116/73 Pulse Oximetry 96 Oxygen Delivery Room Air Room Air Fraction of Inspired Oxygen Intake/Output Intake/Output: Intake & Output 04/08/25 04/09/25 04/10/25 04/11/25 23:59 23:59 23:59 23:59 Intake Total 2191.7 2249.0 2122 Output Total 50 950 875 Balance 2141.7 1299.0 1247 Meds/Results Medications: Active Medications Generic Name Dose Route Start Last Admin Trade Name Freq PRN Reason Stop Dose Admin Acetaminophen 650 mg 04/10/25 17:09 Acetaminophen 325 Mg Tablet PO Q4H PRN Mild Pain (1-3) Or Fever Hydrocodone Bitart/Acetaminophen 1 tab 04/09/25 18:09 Hydrocodone/Acetaminophen (*Crx) 5-325 Mg Tablet PO Q6H PRN Pain Rated 4-6 Aspirin 81 mg 04/10/25 09:00 04/11/25 10:21 Aspirin 81 Mg Enteric Tablet PO 81 mg DAILY HOANG Administration Dextrose 12.5 gm 04/09/25 17:56 Dextrose 50% 25 Gm/50 Ml Syringe IV PUSH PRN PRN Hypoglycemia Protocol Enoxaparin Sodium 40 mg 04/11/25 09:00 04/11/25 10:20 Enoxaparin 40 Mg/0.4 Ml Syringe SUB-Q 40 mg DAILY HOANG Administration Ferrous Sulfate 325 mg 04/10/25 09:00 04/11/25 10:20 Ferrous Sulfate [address] PO 325 mg DAILY HOANG Administration Glucagon 1 mg 04/09/25 17:56 Glucagon For Inj 1 Mg Vial IM PRN PRN Hypoglycemia Protocol Glucose 15 gm 04/09/25 17:56 Glucose Oral Gel 15 Gm Of Glucse In 37.5 Gm Tube PO PRN PRN Hypoglycemia Protocol Ceftriaxone Sodium 1 gm in 50 mls @ 100 mls/hr 04/10/25 16:00 04/10/25 15:52 Rocephin 1 Gm/Ns 50 Ml IVPB 100 mls/hr Q24H HOANG Administration Dextrose 1,000 mls @ 100 mls/hr 04/09/25 17:56 Dextrose 5% 1,000 Ml IVPB PRN PRN Hypoglycemia Protocol Dextrose/Lactated Ringer's 1,000 mls @ 100 mls/hr 04/09/25 20:15 04/11/25 14:02 Dextrose 5%/Lactated Ringers IV CONT 100 mls/hr .Q10H HOANG Administration Insulin Aspart 2 - 5 units 04/10/25 00:00 04/11/25 12:45 Insulin Aspart (*Bkc) 100 Units/Ml SUB-Q Not Given Q6H [facility] Protocol Lisinopril 10 mg 04/10/25 09:00 04/11/25 10:20 Lisinopril 10 Mg Tablet PO 10 mg DAILY HOANG Administration Morphine Sulfate 2 mg 04/09/25 18:09 Morphine Sulfate (*Crx) 2 Mg/Ml Inj IV PUSH Q4H PRN Pain Rated 7-10 Naloxone HCl 0.1 mg 04/09/25 18:09 Naloxone Hcl 0.4 Mg/Ml Vial IV PUSH Q5MIN PRN Sedation Nitroglycerin 0.4 mg 04/09/25 18:07 Nitroglycerin Sl 0.4 Mg Tablet SUBLINGUAL Q5MIN PRN Chest Pain Pantoprazole Sodium 40 mg 04/10/25 09:00 04/11/25 10:21 Pantoprazole Sodium Iv 40 Mg Vial IV PUSH 40 mg QAM HOANG Administration Perflutren Lipid Microsphere 0 ml 04/09/25 18:08 Perflutren Lipid Microspheres 1.5 Ml Vial Diluted To 10 Ml Total Volume IV PUSH 04/12/25 18:08 ONCE PRN adequate visualization Protocol Tamsulosin HCl 0.4 mg 04/10/25 09:00 04/11/25 10:20 Tamsulosin Hcl 0.4 Mg Capsule PO 0.4 mg QAM HOANG Administration Radiology Results: ITS Impressions Head CT 04/09/25 15:14 IMPRESSION: No acute intracranial findings. Cervical Spine CT 04/09/25 15:23 IMPRESSION: No acute osseous abnormality cervical spine. Minimal anterolisthesis at the level of C4-C5 and C5-C6. Multilevel degenerative disc disease. Chest/Abdomen/Pelvis CT 04/09/25 15:34 IMPRESSION: CHEST: 1. No acute cardiopulmonary pathology. 2. Trace of pleural effusion seen in the right side. 3. Slightly thickened upper esophagus. Clinical evaluation advised. 4. No definite vascular injury seen. ABDOMEN/PELVIS: 1. No evidence of vascular or solid organ injury. 2. No evidence of appendicitis, diverticulitis or intestinal obstruction. 3. Bilateral kidney cysts with calcification on the left side. 4. Tiny left kidney stone. 5. Bilateral inguinal fat containing hernias larger on the left side with umbilical fat-containing hernia. Knee X-Ray 04/09/25 16:42 IMPRESSION: No acute osseous abnormality right knee. Severe osteoarthritic changes. Chondrocalcinosis. Labs Labs: Laboratory Results - last 24 hr 04/10/25 04/10/25 04/10/25 14:40 16:42 19:45 WBC RBC Hgb Hct MCV MCH MCHC RDW Plt Count MPV Sodium Potassium Chloride Carbon Dioxide Anion Gap BUN Creatinine Estim Creat Clear Calc Estimated GFR Glucose POC Capillary Glucose 148 H 145 H Calcium Troponin I 0.288 H* 04/11/25 04/11/25 04/11/25 00:06 04:31 06:54 WBC 9.1 RBC 3.60 L Hgb 10.9 L Hct 32.9 L MCV 91.4 MCH 30.3 MCHC 33.1 RDW 14.5 Plt Count 148 L MPV 10.2 Sodium 135 L Potassium 3.6 Chloride 108 H Carbon Dioxide 22 Anion Gap 5 BUN 13 D Creatinine 0.94 Estim Creat Clear Calc 43 Estimated GFR > 60 Glucose 210 H POC Capillary Glucose 173 H 204 H Calcium 8.3 L Troponin I 04/11/25 04/11/25 07:50 11:33 WBC RBC Hgb Hct MCV MCH MCHC RDW Plt Count MPV Sodium Potassium Chloride Carbon Dioxide Anion Gap BUN Creatinine Estim Creat Clear Calc Estimated GFR Glucose POC Capillary Glucose 202 H 176 H Calcium Troponin I Quality VTE Prophylaxis VTE prophylaxis: pharmacologic ordered
[2025-04-11 17:55] LABS: Glucose Point of Care 149 mg/dl (65-105)
[2025-04-11 23:56] LABS: Glucose Point of Care 123 mg/dl (65-105)
[2025-04-12] VITALS (12 sets, daily range): BP systolic 105–132; BP diastolic 65–71; PULSE 66–91; RESP 14–24; TEMP 36.1–36.6; O2SAT 94–100
[2025-04-12 05:49] LABS: Glucose Point of Care 98 mg/dl (65-105)
[2025-04-12 06:26] LABS: Hematocrit 33.6 % (42.0-52.0); Immature Platelet Fraction Pct 3.3 % (0.9-11.2); Mean Corpuscular HGB Conc 32.7 g/dl (32-36); Mean Corpuscular Hemoglobin 31.1 pg (26-34); Mean Corpuscular Volume 94.9 fl (80-100); Mean Platelet Volume 10.4 fl (7.4-10.4); Platelet Count Result 142 k/mm3 (150-375); Red Blood Count 3.54 M/mm3 (4.6-6.20); Red Cell Distribution Width 14.5 % (11.5-14.5); White Blood Count 7.8 K/mm3 (4.5-10.0)
[2025-04-12 06:43] LABS: Anion Gap 5 mmol/L (4-12); Blood Urea Nitrogen 13 mg/dL (9-20); Calcium 8.1 mg/dL (8.4-10.2); Carbon Dioxide 24 mmol/L (22-30); Chloride 107 mmol/L (98-107); Estimated CRCL calculation 42 ml/min; Estimated Glomerular Filt Rate > 60; Glucose 101 mg/dL (65-110); Potassium 3.7 mmol/L (3.4-5.0); Sodium 136 mmol/L (137-145)
[2025-04-12] MEDS: ASPIRIN 81 MG ENTERIC TABLET PO (10:09)
[2025-04-12] MEDS: TAMSULOSIN HCL 0.4 MG CAPSULE PO (10:09)
[2025-04-12] MEDS: lisinopriL 10 MG TABLET PO (10:09)
[2025-04-12] MEDS: FERROUS SULFATE 325 MG TABLET DR PO (10:10)
[2025-04-12] MEDS: ENOXAPARIN 40 MG/0.4 ML SYRINGE SUB-Q (10:10)
[2025-04-12] MEDS: PANTOPRAZOLE SODIUM IV 40 MG VIAL IV PUSH (10:24)
--- NOTE | 2025-04-12 11:04 | PCNFU ---
Nutrition Follow-Up Complete: Severe protein calorie malnutrition related to loss of appetite as evidenced by weight loss 5%/1 month; intakes <75% needs >1 month; severe muscle wasting; moderate fat loss Goal:Adequate PO intake at least 75% meals and supplements Pt not meeting goal, continue with same goal, encourage intake Pt current nutrition is Heart healthy, nutrition ice cream cups BID, Glucerna BID. Nutrition recommendation: Encourage po intake of meals and supplements Last recorded weight is 63.6 kg. Bowel Motility:no BM recorded Labs Reviewed: Hgb:11, HCT:33.6, NA:136 Meds Noted: protonix, novolog, lovenox Skin: no pressure areas Additional Notes: Pt continues on a heart healthy diet with supplements in place. Intake 0-50% in chart. Encourage po intake of meals and supplements. Assist with meals. Monitoring intakes, weights, labs, supplement tolerance, plan of care Follow up in 5 days
[2025-04-12 11:58] LABS: Glucose Point of Care 114 mg/dl (65-105)
--- NOTE | 2025-04-12 14:39 | PM.DS ---
DS: Admitting Diagnosis Discharge Date 04/13/25 Admitting Diagnosis AMs, hypoglycemia,UTI DS: Discharge Diagnosis Discharge Diagnosis (1) Hypoglycemia: Code(s): E16.2 - Hypoglycemia, unspecified Status: Acute Assessment and Plan: - initial glucose on scene per EMS was 33 -> D10 50 mL -> 90 -> 57 at arrival to ED -> D50 -> 76 -> 134 -> 33 (19:49) - - patient reported difficulty keeping pantry stocked but unable to elaborate. Spoke with son and he provides groceries for the patient. He reports the patient had a poor appetite yesterday and only 8 1 slice of pizza. He tries to keep food stock to that is easily microwaved, however he reports he has previously had difficulty due to his mobility and arthritis opening things. - care coordination/PT and OT consulted for FTT/inability for patient to take care of himself at home Dc home Po meds for diabetes except metformin. (2) Elevated troponin: Code(s): R79.89 - Other specified abnormal findings of blood chemistry Status: Acute Assessment and Plan: - EKG, initial: Atrial flutter/tachycardia with RVR, right bundle branch block, left anterior fascicular block. When compared to EKG done on 03/11, no significant change. Waiting formal read. - Troponin: 0.340 -> 0.362, 0.2 trending down - SL nitro PRN - cardiology on board. no ischemic work up needed - DC heparin gtt (3) Rhabdomyolysis: Qualifiers: Rhabdomyolysis type: non-traumatic Qualified Code(s): M62.82 - Rhabdomyolysis Code(s): M62.82 - Rhabdomyolysis Status: Acute Assessment and Plan: - CK improving - received IV Fluid - presumed secondary to fall/prolonged time on the ground and dehydration and lack of food/hypoglycemia - hold statins (4) Acute UTI: Code(s): N39.0 - Urinary tract infection, site not specified Status: Acute Assessment and Plan: - UA: 1+ protein, trace glucose, trace ketones, 2+ blood, positive nitrates, 2+ leuk esterase, 21-50 WBC, no epithelial cells, 4+ bacteria - UC : klebsiella sensitive to Augmentin - no previous micro available for review - recurrent urinary retention (5) Ground-level fall: Code(s): W18.30XA - Fall on same level, unspecified, initial encounter Status: Acute Assessment and Plan: Trauma workup negative, see below-> - head CT: No acute intracranial findings - C-spine CT: No acute osseous abnormality cervical spine. Minimal anterolisthesis at the level of C4-C5 and C5-C6. Multilevel degenerative disc disease. - knee XR, left: No acute osseous abnormality left knee. Severe osteoarthritic changes of the knee and patellofemoral joints. Chondrocalcinosis. - knee XR, right: No acute osseous abnormality right knee. Severe osteoarthritic changes. Chondrocalcinosis. - CT chest/abdomen/pelvis: CHEST: 1. No acute cardiopulmonary pathology. 2. Trace of pleural effusion seen in the right side. 3. Slightly thickened upper esophagus. Clinical evaluation advised. 4. No definite vascular injury seen. ABDOMEN/PELVIS: 1. No evidence of vascular or solid organ injury. 2. No evidence of appendicitis, diverticulitis or intestinal obstruction. 3. Bilateral kidney cysts with calcification on the left side. 4. Tiny left kidney stone. 5. Bilateral inguinal fat containing hernias larger on the left side with umbilical fat-containing hernia. - presume secondary to hyperglycemia, however has recent history of generalized weakness requiring SNF placement - PT/OTon board (6) Urinary retention: Code(s): R33.9 - Retention of urine, unspecified Status: Acute Assessment and Plan: - during previous admission at the end of February of 2025, patient had 1L post-void - bladder scan on 04/09 showed retained urine - estimated 500 mL. cohen placed. - continue flomax - will need urology follow-up outpatient - +UTI (7) FTT (failure to thrive) in adult: Code(s): R62.7 - Adult failure to thrive Status: Acute Assessment and Plan: -Dc to SNF (8) Hypomagnesemia: Code(s): E83.42 - Hypomagnesemia Status: Acute Assessment and Plan: - repet as needed (9) Type 2 diabetes mellitus: Qualifiers: Diabetes mellitus complication detail: without coma Diabetes mellitus complication status: with hypoglycemia Diabetes mellitus usp insulin use: with usp use Qualified Code(s): E11.649 - Type 2 diabetes mellitus with hypoglycemia without coma; Z79.4 - retirement (current) use of insulin Code(s): E11.9 - Type 2 diabetes mellitus without complications Status: Chronic Assessment and Plan: - initially hypoglycemia in the 30s per EMS, arrived hypoglycemic. see #1 - hypoglycemia protocol - POC blood glucose Q2H x4 -> Q6H if stable - home medications held including NovoLog, metformin, and glipizide - continue metformin at discharge - A1C 6 (10) Severe malnutrition: Code(s): E43 - Unspecified severe protein-calorie malnutrition Status: Acute Assessment and Plan: dietitian on board Plan Diet: Heart healthy GI Prophylaxis: Pantoprazole DVT Prophylaxis: lovenox PPx Lines/Tubes: Peripheral IV Code Status: full code DS: Summary Hospital Course Hospital Course: per HPI: 89 y/o M with PMH of asthma/COPD overlap, hyperlipidemia, hypertension, type 2 diabetes mellitus, and prostate cancer s/p radiation presents here with hypoglycemia and fall. The patient presents here from home via EMS on 04/09 for further evaluation post-ground level fall and hypoglycemia. HPI obtained through patient report, chart review and patient's son with his permission. Family reports that they arrived and found him on the ground mumbling prompting a call to EMS. He last saw him around 7:30 p.m. yesterday (04/08). Upon EMS arrival, the patient was unresponsive with a blood sugar of 33. He was given 50 mL of D10 while in route which corrected his blood sugar to 90 and patient became more alert. He arrived to the emergency department A&O x2 with a blood sugar of 57 which was treated with D50. EMS also reports they were called to the house yesterday and the patient was found to be hypoglycemic, he was given dextrose but declined transport to the hospital. Per the patient he has not been eating as much and has been having trouble keeping food in the house - further questioning, the patient is not able to elaborate. Son reports they do his grocery shopping and make sure to get him foods that can be microwaved but he does state he still has difficulty due to his mobility and arthritis. Patient's son reports he noted yesterday that the patient did not eat much - only one slice of pizza for the whole day. Post fall, the patient is reporting right knee pain. He denies loss of consciousness or head strike. He reports he just wasn't able to get to his walker. Review of the patient's medical history shows a recent admission from 03/11/25-03/18/25 for prolonged time spent on the toilet. He was found sitting on his toilet for an unknown amount of time, however his physical exam findings including a edematous scrotum and toilet seat imprint on his bottom suggest he had been sitting there for some time. He was last seen by his family a week prior. At that time he was treated for an KATHARINA, rhabdomyolysis, urinary retention, and multifocal atrial tachycardia. He was discharged on 03/18 to [facility] ([facility] Patient went back home because the patient wanted to leave and his insurance would only cover a specific amount of time. Son reports they were trying to get him placed again through his PCP but did not make any headway. Patient is poor historian. Initial VS at presentation: 97.6? F, HR 118, R 18, 168/98, and 100% on RA. ED workup showed: initial troponin 0.340, BNP 18500, and normal TSH. UA suggestive of UTI. Viral PCR negative. Head CT, C-spine CT, and bilateral knee XR showed no acute traumatic findings, 04/10/25 Cardiology team on board. No ischemic workup recommended. Heparin was discontinued. 04/12/25 Patient was seen and examined at bedside. he is feeling better, denies chest pain, SOb abd pain, N/V. BS under better control U/C positive for Klebsiella sensitive to augmentin 04/13/25 patient was seen and examined at bedside. he is feeling fine. denies chest pain,abd pain, nausea or vomiting. Will discharge patient to rehab. has cohen catheter for urine retention. can do voiding trial at rehab. follow with urologist as outpatient. Status at Discharge Overall status at discharge: patient is back to baseline Time Spent with Patient Time attestation: Total time spent providing and/or coordinating discharge services: Time spent: Greater than 30 minutes Exam Const: Other: , male, elderly, chronically ill-appearing, modestly ill-appearing at present HENMT: Face/Nose/Sinus: Normal nares present Mouth: Yes dry mucous membranes (Extremely dry) Eyes: General: appearance normal, both eyes and all related structures Sclera: sclerae normal Pupils: Equal, round and reactive pupils present EOM: EOMs intact bilaterally Resp: Effort & Inspection: normal respiratory effort Auscultation: clear to auscultation bilaterally Cardio: Rate: regular rate Rhythm: regular rhythm Other: S1-S2 present without murmur, rub, ectopy GI: Other: Abdomen soft, nondistended, nontender. Normoactive bowel sounds in all quadrants. Urinary Catheter: Urinary Catheter: patent and draining and urine dark Skin: General skin exam: normal color Other: Scattered ecchymosis to bilateral upper extremities, no particular pattern. No wounds. Neuro: Cranial nerves: Yes Equal, round and reactive pupils present Other: A&O to self and president. Incorrect place and time provided. Generalized weakness, 3+ in all extremities. Extrem: General: normal to inspection Psych: Mental Status: mental status grossly normal Other: Poor insight and judgment. Perseveration on hand washing. DS: Data Data Completed and Pending Labs on day of discharge: Labs from last 24 hours 04/12/25 04/12/25 04/12/25 11:53 06:13 05:37 WBC 7.8 RBC 3.54 L Hgb 11.0 L Hct 33.6 L MCV 94.9 MCH 31.1 MCHC 32.7 RDW 14.5 Plt Count 142 L MPV 10.4 % Immature Plt Fraction 3.3 Sodium 136 L Potassium 3.7 Chloride 107 Carbon Dioxide 24 Anion Gap 5 BUN 13 Creatinine 0.97 Estim Creat Clear Calc 42 Estimated GFR > 60 Glucose 101 POC Capillary Glucose 114 H 98 Calcium 8.1 L 04/11/25 04/11/25 23:53 17:51 WBC RBC Hgb Hct MCV MCH MCHC RDW Plt Count MPV % Immature Plt Fraction Sodium Potassium Chloride Carbon Dioxide Anion Gap BUN Creatinine Estim Creat Clear Calc Estimated GFR Glucose POC Capillary Glucose 123 H 149 H Calcium Preliminary micro results at discharge 04/09/25 14:32 Blood Culture - Preliminary Blood 04/09/25 14:32 Blood Culture - Preliminary Blood Discharge Plan Discharge Attending physician on discharge: Teresa Lechuga Consulting providers: Fani Black Discharging Clinician: Teresa Lechuga Anticipated Discharge Date/Time: 04/13/25 12:12 Patient Disposition: Inpatient Rehab Facility Activity: as tolerated Diet: diabetic Discharge Instructions: follow with PCP in one week follow with urology clinic as outpatient in 1 week has Cohen catheter for urine retention. can do voiding trial at rehab. follow with urologist as outpatient. Patient Instructions: Hypoglycemia in a Person with Diabetes (DC), What to Do if Your Blood Sugar is Low (DC) Patient Language: Divehi Stand Alone Forms: General Discharge Information Follow-up/Referrals: Catracho,Eleuterio Hernandes MD [Primary Care Provider] - 1 Week Discharge Medications: New amoxicillin-pot clavulanate 875-125 mg tablet 1 tablet PO Q12H Qty: 6 0RF Continued aspirin [Adult Low Dose Aspirin] 81 mg tablet,delayed release (DR/EC) 81 mg PO DAILY ferrous sulfate [FerrouSul] 325 mg (65 mg iron) tablet 325 mg PO DAILY lisinopril 10 mg tablet 10 mg PO DAILY Qty: 90 1RF metformin 1,000 mg tablet 1,000 mg PO BID (DME) blood-glucose meter [Accu-Chek Guide Me Glucose Mtr] Misc MISCELLANEOUS (DME) Accu-Chek Guide test strips Strip MISCELLANEOUS (DME) lancets [Accu-Chek Softclix Lancets] Misc MISCELLANEOUS acetaminophen 325 mg Tablet 650 mg PO Q4H PRN (Reason: Mild Pain (1-3) Or Fever) Qty: 30 0RF tamsulosin 0.4 mg Capsule 0.4 mg PO QAM Qty: 30 0RF insulin aspart U-100 [Novolog U-100 Insulin aspart] 100 unit/mL Solution 2 - 5 unit subcut TIDWM Qty: 10 0RF Protocol: Insulin Corrective Low-Dose Condition: glucose < 70 mg/dl Dose/Route: Follow Hypoglycemia Order Condition: glucose 70-200 mg/dl Dose/Route: No additional insulin Condition: glucose 201-250 mg/dl Dose/Route: 2 units sub-Q Condition: glucose 251-300 mg/dl Dose/Route: 3 units sub-Q Condition: glucose 301-350 mg/dl Dose/Route: 4 units sub-Q Condition: glucose 351-400 mg/dl Dose/Route: 5 units sub-Q Condition: glucose > 400 mg/dl Dose/Route: Call Protocol Text: *No Correction Dose at Bedtime* Discontinued glipizide 5 mg tablet 5 mg PO BID Date of admission: 04/09/25 17:27 Primary Care Provider: CatrachoEleuterio Admitting Provider: José Miguel Hull Attending physician on admission: Teresa Lechuga Condition: Stable Quality VTE Prophylaxis VTE prophylaxis: pharmacologic ordered
--- NOTE | 2025-04-12 15:27 | P.PNIM_ITS ---
Progress Note: A&P Assessment and Plan (1) Hypoglycemia: Code(s): E16.2 - Hypoglycemia, unspecified Status: Acute Assessment and Plan: - initial glucose on scene per EMS was 33 -> D10 50 mL -> 90 -> 57 at arrival to ED -> D50 -> 76 -> 134 -> 33 (19:49) - - patient reported difficulty keeping pantry stocked but unable to elaborate. Spoke with son and he provides groceries for the patient. He reports the p atient had a poor appetite yesterday and only 8 1 slice of pizza. He tries to keep food stock to that is easily microwaved, however he reports he has previously had difficulty due to his mobility and arthritis opening things. - care coordination/PT and OT consulted for FTT/inability for patient to take care of himself at home -> will need placement Dc home Po meds for diabetes. (2) Elevated troponin: Code(s): R79.89 - Other specified abnormal findings of blood chemistry Status: Acute Assessment and Plan: - EKG, initial: Atrial flutter/tachycardia with RVR, right bundle branch block, left anterior fascicular block. When compared to EKG done on 03/11, no significant change. Waiting formal read. - Troponin: 0.340 -> 0.362, 0.2 trending down - SL nitro PRN - cardiology on board. no ischemic work up needed - DC heparin gtt (3) Rhabdomyolysis: Qualifiers: Rhabdomyolysis type: non-traumatic Qualified Code(s): M62.82 - Rhabdomyolysis Code(s): M62.82 - Rhabdomyolysis Status: Acute Assessment and Plan: - CK improving - received IV Fluid - presumed secondary to fall/prolonged time on the ground and dehydration and lack of food/hypoglycemia - hold statins (4) Acute UTI: Code(s): N39.0 - Urinary tract infection, site not specified Status: Acute Assessment and Plan: - UA: 1+ protein, trace glucose, trace ketones, 2+ blood, positive nitrates, 2+ leuk esterase, 21-50 WBC, no epithelial cells, 4+ bacteria - UC : klebsiella , Abx changed to Augmentin - no previous micro available for review - on Ceftriaxone on 04/09, - recurrent urinary retention (5) Ground-level fall: Code(s): W18.30XA - Fall on same level, unspecified, initial encounter Status: Acute Assessment and Plan: Trauma workup negative, see below-> - head CT: No acute intracranial findings - C-spine CT: No acute osseous abnormality cervical spine. Minimal anterolisthesis at the level of C4-C5 and C5-C6. Multilevel degenerative disc disease. - knee XR, left: No acute osseous abnormality left knee. Severe osteoarthritic changes of the knee and patellofemoral joints. Chondrocalcinosis. - knee XR, right: No acute osseous abnormality right knee. Severe osteoarthritic changes. Chondrocalcinosis. - CT chest/abdomen/pelvis: CHEST: 1. No acute cardiopulmonary pathology. 2. Trace of pleural effusion seen in the right side. 3. Slightly thickened upper esophagus. Clinical evaluation advised. 4. No definite vascular injury seen. ABDOMEN/PELVIS: 1. No evidence of vascular or solid organ injury. 2. No evidence of appendicitis, diverticulitis or intestinal obstruction. 3. Bilateral kidney cysts with calcification on the left side. 4. Tiny left kidney stone. 5. Bilateral inguinal fat containing hernias larger on the left side with umbilical fat-containing hernia. - presume secondary to hyperglycemia, however has recent history of generalized weakness requiring SNF placement - PT/OT eval ordered (6) Urinary retention: Code(s): R33.9 - Retention of urine, unspecified Status: Acute Assessment and Plan: - during previous admission at the end of February of 2025, patient had 1L post-void - bladder scan on 04/09 showed retained urine - estimated 500 mL. cohen placed. - continue flomax - will need urology follow-up outpatient - +UTI (7) FTT (failure to thrive) in adult: Code(s): R62.7 - Adult failure to thrive Status: Acute Assessment and Plan: - care coordination/PT and OT consulted for FTT/inability for patient to take care of himself at home -> will need placement - recent placement to [facility] on 03/18. Patient went back home due to running out of money/time through insurance. (8) Hypomagnesemia: Code(s): E83.42 - Hypomagnesemia Status: Acute Assessment and Plan: - repet as needed (9) Type 2 diabetes mellitus: Qualifiers: Diabetes mellitus ferry terminal supervisor insulin use: with ferry terminal supervisor use Diabetes mellitus complication status: with hypoglycemia Diabetes mellitus complication detail: without coma Qualified Code(s): E11.649 - Type 2 diabetes mellitus with hypoglycemia without coma; Z79.4 - residential (current) use of insulin Code(s): E11.9 - Type 2 diabetes mellitus without complications Status: Chronic Assessment and Plan: - initially hypoglycemia in the 30s per EMS, arrived hypoglycemic. see #1 - hypoglycemia protocol - POC blood glucose Q2H x4 -> Q6H if stable - home medications held including NovoLog, metformin, and glipizide - correct regimen ordered - low dose Q6H - A1C 6 (10) Severe malnutrition: Code(s): E43 - Unspecified severe protein-calorie malnutrition Status: Acute Assessment and Plan: dietitian on board Plan Diet: Heart healthy GI Prophylaxis: Pantoprazole DVT Prophylaxis: lovenox PPx Lines/Tubes: Peripheral IV Code Status: full code Subjective Date/time seen: 04/12/25 15:27 Interval history: per HPI: 89 y/o M with PMH of asthma/COPD overlap, hyperlipidemia, hypertension, type 2 diabetes mellitus, and prostate cancer s/p radiation presents here with hypoglycemia and fall. The patient presents here from home via EMS on 04/09 for further evaluation post- ground level fall and hypoglycemia. HPI obtained through patient report, chart review and patient's son with his permission. Family reports that they arrived and found him on the ground mumbling prompting a call to EMS. He last saw him around 7:30 p.m. yesterday (04/08). Upon EMS arrival, the patient was unrespon sive with a blood sugar of 33. He was given 50 mL of D10 while in route which corrected his blood sugar to 90 and patient became more alert. He arrived to the emergency department A&O x2 with a blood sugar of 57 which was treated with D50. EMS also reports they were called to the house yesterday and the patient was found to be hypoglycemic, he was given dextrose but declined transport to the hospital. Per the patient he has not been eating as much and has been having trouble keeping food in the house - further questioning, the patient is not able to elaborate. Son reports they do his grocery shopping and make sure to get him foods that can be microwaved but he does state he still has difficulty due to his mobility and arthritis. Patient's son reports he noted yesterday that the patient did not eat much - only one slice of pizza for the whole day. Post fall, the patient is reporting right knee pain. He denies loss of consciousness or head strike. He reports he just wasn't able to get to his walker. Review of the patient's medical history shows a recent admission from 03/11/25-03/18/25 for prolonged time spent on the toilet. He was found sitting on his toilet for an unknown amount of time, however his physical exam findings including a edematous scrotum and toilet seat imprint on his bottom suggest he had been sitting there for some time. He was last seen by his family a week prior. At that time he was treated for an KATHARINA, rhabdomyolysis, urinary retention, and multifocal atrial tachycardia. He was discharged on 03/18 to [facility] ([facility] Patient went back home because the patient wanted to leave and his insurance would only cover a specific amount of time. Son reports they were trying to get him placed again through his PCP but did not make any headway. Patient is poor historian. Initial VS at presentation: 97.6? F, HR 118, R 18, 168/98, and 100% on RA. ED workup showed: initial troponin 0.340, BNP 27670, and normal TSH. UA suggestive of UTI. Viral PCR negative. Head CT, C-spine CT, and bilateral knee XR showed no acute traumatic findings, 04/10/25 patient was seen and examined at bedside. he is feeling fine. denies chest pain,abd pain, nausea or vomiting. Cardiology team on board. No ischemic workup recommended. Heparin was discontinued. 04/12/25 Patient was seen and examined at bedside. he is feeling better, denies chest pain, SOb abd pain, N/V. BS under better control U/C positive for Klebsiella sensitive to augmentin Dc plan pending insurance approval Review of Systems Review of Systems: All systems reviewed & are unremarkable except as noted in HPI and below (limited, alerted) Exam Const: Other: , male, elderly, chronically ill-appearing, modestly ill-appearing at present HENMT: Face/Nose/Sinus: Normal nares present Mouth: Yes dry mucous membranes (Extremely dry) Eyes: General: appearance normal, both eyes and all related structures Sclera: sclerae normal Pupils: Equal, round and reactive pupils present EOM: EOMs intact bilaterally Resp: Effort & Inspection: normal respiratory effort Auscultation: clear to auscultation bilaterally Cardio: Rate: regular rate Rhythm: regular rhythm Other: S1-S2 present without murmur, rub, ectopy GI: Other: Abdomen soft, nondistended, nontender. Normoactive bowel sounds in all quadrants. Urinary Catheter: Urinary Catheter: patent and draining and urine dark Skin: General skin exam: normal color Other: Scattered ecchymosis to bilateral upper extremities, no particular pattern. No wounds. Neuro: Cranial nerves: Yes Equal, round and reactive pupils present Other: A&O to self and president. Incorrect place and time provided. Generalized weakness, 3+ in all extremities. Extrem: General: normal to inspection Psych: Mental Status: mental status grossly normal Other: Poor insight and judgment. Perseveration on hand washing. Objective Data Vital Signs Vital Signs: Vital Signs - 24 hr 04/11/25 16:03 04/11/25 20:00 04/11/25 20:25 Temperature 96.7 F L Pulse Rate 78 97 89 Respiratory Rate 20 Blood Pressure 117/67 Pulse Oximetry 94 Oxygen Delivery Oxygen Flow Rate 04/12/25 00:00 04/12/25 04:00 04/12/25 04:34 Temperature Pulse Rate 88 75 Respiratory Rate Blood Pressure Pulse Oximetry 96 Oxygen Delivery Nasal Cannula Oxygen Flow Rate 2 04/12/25 05:55 04/12/25 08:00 04/12/25 08:00 Temperature 97.9 F Pulse Rate 69 91 Respiratory Rate 16 Blood Pressure 132/71 Pulse Oximetry 99 94 Oxygen Delivery Nasal Cannula Oxygen Flow Rate 2 04/12/25 08:57 04/12/25 12:00 04/12/25 14:00 Temperature 97.5 F L Pulse Rate 66 91 Respiratory Rate 14 Blood Pressure 105/67 Pulse Oximetry 94 100 Oxygen Delivery Nasal Cannula Oxygen Flow Rate 2 Intake/Output Intake/Output: Intake & Output 04/09/25 04/10/25 04/11/25 04/12/25 23:59 23:59 23:59 23:59 Intake Total 2191.7 2299.0 2122 220 Output Total 50 950 1375 300 Balance 2141.7 1349.0 747 -80 Meds/Results Medications: Active Medications Generic Name Dose Route Start Last Admin Trade Name Freq PRN Reason Stop Dose Admin Acetaminophen 650 mg 04/10/25 17:09 Acetaminophen 325 Mg Tablet PO Q4H PRN Mild Pain (1-3) Or Fever Hydrocodone Bitart/Acetaminophen 1 tab 04/09/25 18:09 Hydrocodone/Acetaminophen (*Crx) 5-325 Mg Tablet PO Q6H PRN Pain Rated 4-6 Amoxicillin/Clavulanate Potassium 1 tablet 04/12/25 14:15 Amoxicillin/Clavulanate K 875-125 Mg Tab PO 04/15/25 21:01 Q12HR HOANG Aspirin 81 mg 04/10/25 09:00 04/12/25 10:09 Aspirin 81 Mg Enteric Tablet PO 81 mg DAILY HOANG Administration Dextrose 12.5 gm 04/09/25 17:56 Dextrose 50% 25 Gm/50 Ml Syringe IV PUSH PRN PRN Hypoglycemia Protocol Enoxaparin Sodium 40 mg 04/11/25 09:00 04/12/25 10:10 Enoxaparin 40 Mg/0.4 Ml Syringe SUB-Q 40 mg DAILY HOANG Administration Ferrous Sulfate 325 mg 04/10/25 09:00 04/12/25 10:10 Ferrous Sulfate [address] PO 325 mg DAILY [facility] Administration Glucagon 1 mg 04/09/25 17:56 Glucagon For Inj 1 Mg Vial IM PRN PRN Hypoglycemia Protocol Glucose 15 gm 04/09/25 17:56 Glucose Oral Gel 15 Gm Of Glucse In 37.5 Gm Tube PO PRN PRN Hypoglycemia Protocol Dextrose 1,000 mls @ 100 mls/hr 04/09/25 17:56 Dextrose 5% 1,000 Ml IVPB PRN PRN Hypoglycemia Protocol Insulin Aspart 2 - 5 units 04/10/25 00:00 04/12/25 12:30 Insulin Aspart (*Bkc) 100 Units/Ml SUB-Q Not Given Q6H [facility] Protocol Lisinopril 10 mg 04/10/25 09:00 04/12/25 10:09 Lisinopril 10 Mg Tablet PO 10 mg DAILY HOANG Administration Morphine Sulfate 2 mg 04/09/25 18:09 Morphine Sulfate (*Crx) 2 Mg/Ml Inj IV PUSH Q4H PRN Pain Rated 7-10 Naloxone HCl 0.1 mg 04/09/25 18:09 Naloxone Hcl 0.4 Mg/Ml Vial IV PUSH Q5MIN PRN Sedation Nitroglycerin 0.4 mg 04/09/25 18:07 Nitroglycerin Sl 0.4 Mg Tablet SUBLINGUAL Q5MIN PRN Chest Pain Pantoprazole Sodium 40 mg 04/10/25 09:00 04/12/25 10:24 Pantoprazole Sodium Iv 40 Mg Vial IV PUSH 40 mg QAM HOANG Administration Perflutren Lipid Microsphere 0 ml 04/09/25 18:08 Perflutren Lipid Microspheres 1.5 Ml Vial Diluted To 10 Ml Total Volume IV PUSH 04/12/25 18:08 ONCE PRN adequate visualization Protocol Tamsulosin HCl 0.4 mg 04/10/25 09:00 04/12/25 10:09 Tamsulosin Hcl 0.4 Mg Capsule PO 0.4 mg QAM HOANG Administration Radiology Results: ITS Impressions Head CT 04/09/25 15:14 IMPRESSION: No acute intracranial findings. Cervical Spine CT 04/09/25 15:23 IMPRESSION: No acute osseous abnormality cervical spine. Minimal anterolisthesis at the level of C4-C5 and C5-C6. Multilevel degenerative disc disease. Chest/Abdomen/Pelvis CT 04/09/25 15:34 IMPRESSION: CHEST: 1. No acute cardiopulmonary pathology. 2. Trace of pleural effusion seen in the right side. 3. Slightly thickened upper esophagus. Clinical evaluation advised. 4. No definite vascular injury seen. ABDOMEN/PELVIS: 1. No evidence of vascular or solid organ injury. 2. No evidence of appendicitis, diverticulitis or intestinal obstruction. 3. Bilateral kidney cysts with calcification on the left side. 4. Tiny left kidney stone. 5. Bilateral inguinal fat containing hernias larger on the left side with umbilical fat-containing hernia. Knee X-Ray 04/09/25 16:42 IMPRESSION: No acute osseous abnormality right knee. Severe osteoarthritic changes. Chondrocalcinosis. Chest X-Ray 04/12/25 05:39 Impression: Small pleural effusions with mild bibasilar pulmonary edema/atelectasis. Labs Labs: Laboratory Results - last 24 hr 04/11/25 04/11/25 04/12/25 17:51 23:53 05:37 WBC RBC Hgb Hct MCV MCH MCHC RDW Plt Count MPV % Immature Plt Fraction Sodium Potassium Chloride Carbon Dioxide Anion Gap BUN Creatinine Estim Creat Clear Calc Estimated GFR Glucose POC Capillary Glucose 149 H 123 H 98 Calcium 04/12/25 04/12/25 06:13 11:53 WBC 7.8 RBC 3.54 L Hgb 11.0 L Hct 33.6 L MCV 94.9 MCH 31.1 MCHC 32.7 RDW 14.5 Plt Count 142 L MPV 10.4 % Immature Plt Fraction 3.3 Sodium 136 L Potassium 3.7 Chloride 107 Carbon Dioxide 24 Anion Gap 5 BUN 13 Creatinine 0.97 Estim Creat Clear Calc 42 Estimated GFR > 60 Glucose 101 POC Capillary Glucose 114 H Calcium 8.1 L Quality VTE Prophylaxis VTE prophylaxis: pharmacologic ordered
[2025-04-12] MEDS: AMOXICILLIN/CLAVULANATE K 875-125 MG TAB 1 TABLET PO ×2 (16:51→22:43)
[2025-04-12 18:04] LABS: Glucose Point of Care 152 mg/dl (65-105)
--- NOTE | 2025-04-12 19:28 | PC.NURSE ---
On 04/12/25, the DATA ANALYTICS SPECIALIST, Kiara Schmidt, provided care and completed [facility] documentation on this patient. I have reviewed the DATA ANALYTICS SPECIALIST's documentation and agree with the findings.
[2025-04-13] VITALS: PULSE 71
--- NOTE | 2025-04-13 00:16 | ECG_ITS ---
Test Date: 2025-04-13 00:16:49 Measurements Intervals [place] Rate: 74 P: 79 MT: 219 QRS: -38 QRSD: 115 T: 28 QT: 411 QTc: 458 Interpretive Statements SINUS RHYTHM WITH FIRST DEGREE AV BLOCK WITH OCCASIONAL PVC'S LEFT AXIS DEVIATION LOW QRS VOLTAGE IN LIMB LEADS INCOMPLETE RIGHT BUNDLE BRANCH BLOCK BORDERLINE ECG Compared to ECG 04/09/2025 13:41:03 Atrial flutter no longer present Electronically Signed On 04-13-2025 06:59:08 CDT by Alex Oh D.O.
[2025-04-13 01:27] LABS: Glucose Point of Care 120 mg/dl (65-105)
[2025-04-13 05:54] LABS: Glucose Point of Care 148 mg/dl (65-105)
[2025-04-13 06:00] VITALS: BP 131/74; PULSE 73; RESP 20; TEMP 35.9; O2SAT 100
[2025-04-13 06:29] LABS: Hematocrit 36.1 % (42.0-52.0); Hemoglobin 11.5 g/dL (14.0-18.0); Mean Corpuscular HGB Conc 31.9 g/dl (32-36); Mean Corpuscular Hemoglobin 30.7 pg (26-34); Mean Corpuscular Volume 96.5 fl (80-100); Mean Platelet Volume 10.3 fl (7.4-10.4); Platelet Count Result 142 k/mm3 (150-375); Red Blood Count 3.74 M/mm3 (4.6-6.20); Red Cell Distribution Width 14.5 % (11.5-14.5); White Blood Count 6.9 K/mm3 (4.5-10.0)
[2025-04-13 06:54] LABS: Anion Gap 6 mmol/L (4-12); Blood Urea Nitrogen 18 mg/dL (9-20); Calcium 8.2 mg/dL (8.4-10.2); Carbon Dioxide 23 mmol/L (22-30); Chloride 108 mmol/L (98-107); Estimated CRCL calculation 41 ml/min; Estimated Glomerular Filt Rate > 60; Glucose 140 mg/dL (65-110); Potassium 3.8 mmol/L (3.4-5.0); Sodium 137 mmol/L (137-145)
[2025-04-13 08:00] VITALS: O2SAT 100
[2025-04-13] MEDS: ASPIRIN 81 MG ENTERIC TABLET PO (08:38)
[2025-04-13] MEDS: AMOXICILLIN/CLAVULANATE K 875-125 MG TAB 1 TABLET PO (08:39)
[2025-04-13] MEDS: TAMSULOSIN HCL 0.4 MG CAPSULE PO (08:39)
[2025-04-13] MEDS: ENOXAPARIN 40 MG/0.4 ML SYRINGE SUB-Q (08:39)
[2025-04-13] MEDS: lisinopriL 10 MG TABLET PO (08:39)
[2025-04-13] MEDS: FERROUS SULFATE 325 MG TABLET DR PO (08:39)
[2025-04-13 10:35] LABS: Anion Gap 6 mmol/L (4-12); Blood Urea Nitrogen 19 mg/dL (9-20); Calcium 8.4 mg/dL (8.4-10.2); Carbon Dioxide 26 mmol/L (22-30); Chloride 106 mmol/L (98-107); Estimated CRCL calculation 39 ml/min; Estimated Glomerular Filt Rate > 60; Glucose 155 mg/dL (65-110); Sodium 138 mmol/L (137-145)
[2025-04-13 12:00] VITALS: O2SAT 97
[2025-04-13 12:00] LABS: Glucose Point of Care 157 mg/dl (65-105)
[2025-04-13 12:07] VITALS: O2SAT 95
[2025-04-13] MEDS: PANTOPRAZOLE SODIUM IV 40 MG VIAL IV PUSH (13:25)
[2025-04-13 14:22] VITALS: BP 115/61; PULSE 74; RESP 16; TEMP 36.5; O2SAT 97
--- NOTE | 2025-04-13 18:40 | PC.NURSE ---
On 04/13/25, the FLAG CAR DRIVER, Kiara Schmidt ], provided care and completed [employer] documentation on this patient. I have reviewed the FLAG CAR DRIVER's documentation and agree with the findings.
== END 2025-04-13 18:40 | DRG 689 ==
LOC: ANHED 17:30 → ANHIMU 17:51 → ANH3MEDSUR 04-10 14:14
PROVIDERS: Nurse Practitioner; Student in an Organized Health Care Education/Training Program; Admitting Provider General Practice; Emergency Provider Emergency Medicine; PCP Internal Medicine; Visit Provider Internal Medicine
DX: N39.0 Urinary tract infection, site not specified (principal); E43 Unspecified severe protein-calorie malnutrition; M62.82 Rhabdomyolysis; B96.1 Klebsiella pneumoniae [K. pneumoniae] as the cause of diseases classified elsewhere; E78.5 Hyperlipidemia, unspecified; E11.649 Type 2 diabetes mellitus with hypoglycemia without coma; E83.42 Hypomagnesemia; F03.90 Unspecified dementia, unspecified severity, without behavioral disturbance, psychotic disturbance, mood disturbance, and anxiety; I10 Essential (primary) hypertension; J44.9 Chronic obstructive pulmonary disease, unspecified; M25.561 Pain in right knee; M11.262 Other chondrocalcinosis, left knee; M11.261 Other chondrocalcinosis, right knee; M19.019 Primary osteoarthritis, unspecified shoulder; R62.7 Adult failure to thrive; R79.89 Other specified abnormal findings of blood chemistry; R33.8 Other retention of urine; W18.30XA Fall on same level, unspecified, initial encounter; Z20.822 Contact with and (suspected) exposure to COVID-19; Z79.4 Long term (current) use of insulin; Z79.84 Long term (current) use of oral hypoglycemic drugs; Z79.82 Long term (current) use of aspirin; Z85.46 Personal history of malignant neoplasm of prostate; Z90.49 Acquired absence of other specified parts of digestive tract; Z98.41 Cataract extraction status, right eye; Z98.42 Cataract extraction status, left eye; Z96.1 Presence of intraocular lens; Z87.891 Personal history of nicotine dependence; Z92.3 Personal history of irradiation; Z68.22 Body mass index [BMI] 22.0-22.9, adult
CPT/HCPCS: 36415; 70450; 71045; 71260; 72125; 73562; 74177; 80048; 80053; 81001; 82550; 82948; 83036; 83605; 83690; 83735; 83880; 84100; 84443; 84484; 85025; 85027; 85055; 85610; 85730; 87040; 87086; 87186; 87637; 93005; 96361; 96365; 96375; 97110; 97162; 97165; 97530; 97535; 99285; A9270; J0696; J1200; J1644; J1650; J1815; J2470; J3475; J7030; J7120; J7121; Q9967

== ENCOUNTER 2025-05-01 14:12 | Observation (INO) | payer MEDICARE, SELFPAY ==
[2025-05-01] VITALS (15 sets, daily range): BP systolic 80–123; BP diastolic 56–87; PULSE 76–124; RESP 16–26; TEMP 36.5–36.7; O2SAT 94–100; BMI 21.1
--- NOTE | ~2025-05-01 | XR_ITS ---
EXAMINATION: XR chest 1V portable Exam Date/Time: 05/01/2025 20:25 CDT HISTORY: cough Comparison: 04/12/2025. RESULT: Lines, tubes, and devices: None. Lungs and pleura: No focal consolidation, pleural effusion, or pneumothorax.. Cardiomediastinal silhouette: Stable. Other: No acute osseous or upper abdominal finding. IMPRESSION: No acute cardiopulmonary process. Reviewed, dictated and finalized at location K.
[2025-05-01] MEDS: DEXTROSE 50% 25 GM/50 ML SYRINGE (14:20)
--- OUTSIDE RECORDS SUMMARY | 2025-05-01 14:46 | XMS_ITS | Clinical Summary ---
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, MILD, WITH ANXIETY Active 10-19 00:00: 00 ACUTE KIDNEY FAILURE, UNSPECIFIED Active 10-19 00:00: 00 MCC (CURRENT) USE OF INSULIN Active 10-19 00:00: 00 ESSENTIAL (PRIMARY) HYPERTENSION Active 10-19 00:00: 00 PURE HYPERCHOLEST EROLEMIA, UNSPECIFIED Active 10-19 00:00: 00 OTHER SPECIFIED CHRONIC OBSTRUCTIVE PULMONARY DISEASE Active 10-19 00:00: 00 CARPAL TUNNEL SYNDROME, UNSPECIFIED UPPER LIMB Active 10-19 00:00: 00 PRIMARY OSTEOARTHRIT IS, UNSPECIFIED SHOULDER Active 10-19 00:00: 00 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 10-19 00:00: 00 OTHER SUPRAVENTRIC ULAR TACHYCARDIA Active 10-19 00:00: 00 PERSONAL HISTORY OF NICOTINE DEPENDENCE Active 10-19 00:00: 00 ACQUIRED ABSENCE OF OTHER ORGANS Active 10-19 00:00: 00 PERSONAL HISTORY OF MALIGNANT NEOPLASM OF PROSTATE Active 10-19 00:00: 00 MCC (CURRENT) USE OF ASPIRIN Active 10-19 00:00: 00 SUPERINTENDENT CUSTODIAN JANITOR (CURRENT) USE OF ORAL HYPOGLYCEMIC DRUGS Active 10-19 00:00: 00 Allergies, Adverse Reactions, Alerts Allergy Name Allergy Type Status Severity Reaction(s) Onset Date Inactive Date Treating Clinician Comments NKA Propensity to adverse reactions Active 2025-03 13:02:4 5 Medications Ordered Medication Name Filled Medication Name Start Date Stop Date Current Medication? Ordering Clinician Indication Dosage Frequency Signature (SIG) Comments Components acetaminoph en 325 mg tablet 03-31 00:00: 00 Yes [id number] 1 tablet EVERY 4 HOURS 1 tablet EVERY 4 HOURS (route: oral) Med Classific ation: Analgesic , Anti-infl ammatory or Antipyret ic aspirin 81 mg tablet,josé luis yed release 03-31 00:00: 00 Yes [id number] 1 tablet DAILY 1 tablet DAILY (route: oral) Med Classific ation: Hematolog ical Agents ferrous sulfate 325 mg (65 mg iron) tablet 03-31 00:00: 00 Yes [id number] 1 tablet DAILY 1 tablet DAILY (route: oral) Med Classific ation: Electroly te Balance-N utritiona l Products Januvia 50 mg tablet 03-31 00:00: 00 Yes [id number] 1 tablet DAILY 1 tablet DAILY (route: oral) Med Classific ation: Endocrine lisinopril 10 mg tablet 03-31 00:00: 00 Yes [id number] 1 tablet DAILY 1 tablet DAILY (route: oral) Med Classific ation: Cardiovas cular Therapy Agents metformin 1,000 mg tablet 03-31 00:00: 00 Yes [id number] 1 tablet 2 TIMES DAILY 1 tablet 2 TIMES DAILY (route: oral) Med Classific ation: Endocrine tamsulosin 0.4 mg capsule 03-31 00:00: 00 Yes [id number] 1 capsule DAILY 1 capsule DAILY (route: oral) Med Classific ation: Genitouri nary Therapy insulin aspart (U-100) 100 unit/mL (3 mL) subcutaneou s pen 03-31 00:00: 00 Yes [id number] Per instruc tions 3 TIMES DAILY Per instructio ns 3 TIMES DAILY (route: subcutaneo us) Med Classific ation: Endocrine Vital Signs Vital Name Observation Time Observation Value Commen ts Temperature 2025-04-04 09:31:00.000 97.8 [degF] Temperature 2025-03-31 13:14:00.000 97.1 [degF] BMI (%) 2025-03-31 12:21:07.000 29 kg/m2 Height 2025-03-31 12:20:46.000 62 [in_us] Pulse 2025-04-04 09:31:00.000 78 /min Pulse 2025-03-31 13:14:00.000 82 /min O2 Saturation (%) 2025-04-04 09:31:00.000 98 % O2 Saturation (%) 2025-03-31 13:14:00.000 98 % Respirations 2025-04-04 09:31:00.000 18 /min Respirations 2025-03-31 13:14:00.000 16 /min Weight (lbs) 2025-03-31 12:21:07.000 160 [lb_av] Systolic Blood Pressure 2025-04-04 09:31:00.000 160 mm [Hg] Systolic Blood Pressure 2025-03-31 13:14:00.000 132 mm [Hg] Diastolic Blood Pressure 2025-04-04 09:31:00.000 80 mm [Hg] Diastolic Blood Pressure 2025-03-31 13:14:00.000 70 mm [Hg] Plan of Treatment Planned Activity Planned Date Details Comments Future Scheduled Test SKILLED NU RSE TO EVALUATE PATIENT, IDENTIFY PRIMARY AND CO-MORBID CONDITIONS CODED PER CODING GUIDELINES, AND DEVELOP PATIENT SPECIFIC PLAN OF CARE THAT INCLUDES PATIENT GOAL FOR HOME HEALTH. [code = SKILLED NURSE TO EVALUATE PATIENT, IDENTIFY PRIMARY AND CO-MORBID CONDITIONS CODED PER CODING GUIDELINES, AND DEVELOP PATIENT SPECIFIC PLAN OF CARE THAT INCLUDES PATIENT GOAL FOR HOME HEALTH.] Future Scheduled Test SKILLED NU RSE TO REVIEW PATIENT MEDICATIONS (PRESCRIPTION/OTC). INSTRUCT PATIENT/CAREGIVER ON ALL MEDICATIONS INCLUDING PURPOSE, WHEN TO TAKE, IMPORTANCE OF MEDICATION ADHERENCE, MONITORING OF EFFECTIVENESS, ADVERSE DRUG REACTIONS, POSSIBLE SIDE EFFECTS, AND WHEN TO NOTIFY AGENCY OR PHYSICIAN/PROVIDER OF ANY CONCERNS. [code = SKILLED NURSE TO REVIEW PATIENT MEDICATIONS (PRESCRIPTION/OTC). INSTRUCT PATIENT/CAREGIVER ON ALL MEDICATIONS INCLUDING PURPOSE, WHEN TO TAKE, IMPORTANCE OF MEDICATION ADHERENCE, MONITORING OF EFFECTIVENESS, ADVERSE DRUG REACTIONS, POSSIBLE SIDE EFFECTS, AND WHEN TO NOTIFY AGENCY OR PHYSICIAN/PROVIDER OF ANY CONCERNS.] Future Scheduled Test SKILLED NU RSE TO PROVIDE INSTRUCTION TO PATIENT/CAREGIVER RELATED TO DISCHARGE PLANNING. [code = SKILLED NURSE TO PROVIDE INSTRUCTION TO PATIENT/CAREGIVER RELATED TO DISCHARGE PLANNING.] Future Scheduled Test SKILLED NU RSE TO PERFORM ENVIRONMENTAL SAFETY RISK ASSESSMENT AND FALL RISK ASSESSMENT AND PROVIDE INSTRUCTION TO IMPLEMENT ENVIRONMENTAL SAFETY AND FALL PREVENTION STRATEGIES THROUGHOUT THE CERTIFICATION PERIOD. SKILLED NURSE WILL MAINTAIN SITUATIONAL AWARENESS AND WILL NOTIFY CLINICAL INDEPENDENT LIVING SPECIALIST AND PHYSICIAN/PROVIDER WITH ANY CHANGE IN CONDITION. [code = SKILLED NURSE TO PERFORM ENVIRONMENTAL SAFETY RISK ASSESSMENT AND FALL RISK ASSESSMENT AND PROVIDE INSTRUCTION TO IMPLEMENT ENVIRONMENTAL SAFETY AND FALL PREVENTION STRATEGIES THROUGHOUT THE CERTIFICATION PERIOD. SKILLED NURSE WILL MAINTAIN SITUATIONAL AWARENESS AND WILL NOTIFY CLINICAL INDEPENDENT LIVING SPECIALIST AND PHYSICIAN/PROVIDER WITH ANY CHANGE IN CONDITION.] Future Scheduled Test SKILLED NU RSE FOR O/A AND TEACHING OF DIABETIC MANAGEMENT INCLUDING BLOOD SUGAR MONITORING/USE OF GLUCOMETER, DIABETIC DIET, LOWER EXTREMITY SKIN INSPECTION, PROPER SKIN/FOOT CARE, AND SIGNS AND SYMPTOMS HYPO/HYPERGLYCEMIA TO REPORT. [code = SKILLED NURSE FOR O/A AND TEACHING OF DIABETIC MANAGEMENT INCLUDING BLOOD SUGAR MONITORING/USE OF GLUCOMETER, DIABETIC DIET, LOWER EXTREMITY SKIN INSPECTION, PROPER SKIN/FOOT CARE, AND SIGNS AND SYMPTOMS HYPO/HYPERGLYCEMIA TO REPORT.] Future Scheduled Test SKILLED NU RSE TO OBTAIN BLOOD SUGAR PRN FOR SIGNS AND SYMPTOMS OF HYPO/HYPERGLYCEMIA. IF OBTAINED BY PATIENT/CAREGIVER PRIOR TO VISIT AND PATIENT IS NOT SYMPTOMATIC, SKILLED NURSE TO RECORD READING FROM PATIENT LOG. [code = SKILLED NURSE TO OBTAIN BLOOD SUGAR PRN FOR SIGNS AND SYMPTOMS OF HYPO/HYPERGLYCEMIA. IF OBTAINED BY PATIENT/CAREGIVER PRIOR TO VISIT AND PATIENT IS NOT SYMPTOMATIC, SKILLED NURSE TO RECORD READING FROM PATIENT LOG.] Future Scheduled Test HOME HEALT H AGENCY MAY ACCEPT ORDERS FROM THE FOLLOWING PHYSICIANS: CRITICAL SYSTEMS TECHNICIAN OR ATTENDING PHYSICIANS [code = HOME HEALTH AGENCY MAY ACCEPT ORDERS FROM THE FOLLOWING PHYSICIANS: CRITICAL SYSTEMS TECHNICIAN OR ATTENDING PHYSICIANS] Future Scheduled Test PHYSICAL T HERAPIST TO EVALUATE PATIENT FOR WEAKNESS AND FALLS [code = PHYSICAL THERAPIST TO EVALUATE PATIENT FOR WEAKNESS AND FALLS] Future Scheduled Test OCCUPATION AL THERAPIST TO EVALUATE PATIENT FOR WEAKNESS AND FALLS [code = OCCUPATIONAL THERAPIST TO EVALUATE PATIENT FOR WEAKNESS AND FALLS] Future Scheduled Test PATIENT OLIVERA S A RISK OF HOSPITALIZATION AND ED USE. SKILLED NURSE TO ESTABLISH SUPPORT MEASURES TO MINIMIZE RISK OF HOSPITALIZATION AND ED USE, AND INSTRUCT PATIENT/CAREGIVER ON METHODS TO REDUCE AVOIDABLE HOSPITALIZATION AND ED USE. [code = PATIENT HAS A RISK OF HOSPITALIZATION AND ED USE. SKILLED NURSE TO ESTABLISH SUPPORT MEASURES TO MINIMIZE RISK OF HOSPITALIZATION AND ED USE, AND INSTRUCT PATIENT/CAREGIVER ON METHODS TO REDUCE AVOIDABLE HOSPITALIZATION AND ED USE.] Goal Patient Goal - G ET ME STRONGER SO I CAN STAY AT HOME Goal Provider Goal - A PLAN OF CARE WILL BE ESTABLISHED THAT MEETS PATIENT'S LONGTERM NEEDS AND INCLUDES PATIENT GOAL FOR HOME HEALTH. Goal Provider Goal - PATIENT/CAREGIVER WILL VERBALIZE UNDERSTANDING OF EDUCATION PROVIDED ON MEDICATIONS BY THE END OF THE CERTIFICATION PERIOD. Goal Provider Goal - PATIENT/CAREGIVER WILL VERBALIZE UNDERSTANDING OF DISCHARGE PLANNING INSTRUCTIONS BY DATE OF DISCHARGE. Goal Provider Goal - PATIENT/CAREGIVER WILL VERBALIZE/DEMONSTRATE EFFECTIVE ENVIRONMENTAL SAFETY AND FALL PREVENTION STRATEGIES, WILL REMAIN SAFE IN THE COMMUNITY, AND WILL BE FREE OF DANGER TO SELF AND OTHERS THROUGHOUT THE CERTIFICATION PERIOD. Goal Provider Goal - PATIENT/CAREGIVER WILL VERBALIZE/DEMONSTRATE KNOWLEDGE OF DIABETIC MANAGEMENT. CHANGES IN DIABETIC STATUS WILL BE IDENTIFIED AND REPORTED TO PHYSICIAN FOR PROMPT INTERVENTION THROUGHOUT THE CERTIFICATION PERIOD. Goal Provider Goal - BLOOD SUGAR READING WILL BE OBTAINED ORDERED THROUGHOUT CERTIFICATION PERIOD. Goal Provider Goal - ADDITIONAL ORDERS WILL BE RECEIVED FROM ALTERNATE PHYSICIAN IN A TIMELY MANNER THROUGHOUT THE CERTIFICATION PERIOD. Goal Provider Goal - A PHYSICAL THERAPY EVALUATION TO BE COMPLETED WITH RECOMMENDATIONS AND/OR WRITTEN PLAN OF TREATMENT ESTABLISHED FOR PHYSICIANS SIGNATURE. Goal Provider Goal - OCCUPATIONAL THERAPY EVALUATION TO BE COMPLETED WITH RECOMMENDATIONS AND WRITTEN PLAN OF TREATMENT ESTABLISHED FOR THE PHYSICIANS SIGNATURE. Goal Provider Goal - PATIENT WILL HAVE SUPPORT MEASURES ESTABLISHED TO PREVENT HOSPITALIZATION AND ED USE AND PATIENT/CAREGIVER WILL VERBALIZE/DEMONSTRATE METHODS TO REDUCE AVOIDABLE HOSPITALIZATION AND ED USE BY END OF EPISODE. Encounters Start Date/Time End Date/Time Encounter Type Admission Type Attending [facility] Care Facility Care Department Encounter ID Discharge Date Discharge Status Discharge Condition Discharge Reason Percent Goals Met 2025-03-31 00:00:00 2025-05-29 00:00:00 Outpatient NEW ADMISSION KERRI MERI [facility] [id number] 31.58
--- OUTSIDE RECORDS SUMMARY | 2025-05-01 14:46 | XMS_ITS | Continuity of Care Document ---
Author Organization [facility] Address [address] [place] [address] [address] [place] [address] Phone Care Team Providers Care Flight Operations Inspector Name Role Phone Linwood Sagastume Unavailable Unavailable Procedures Procedure Date Eye Exam & Treatment Refraction Eye Exam & Treatment Refraction Advance Directives Directive Yes / No Effective Date File Name No Information Encounters Encounter Description Practice Location Reason(s) For Visit Diagnoses Date Provider Providers Copied on Encounter [facility], [address] [place] [address] [address], [place], [place], [id number], tel:[phone] [facility] No Information 4-201 0 Mitesh Palumbo. [address] , [address], [place], [place], [facility], [place]. tel:[phone] [facility], [address] [place] [address] [address], [place], [place], [id number], tel:[phone] [facility] No Information 9-200 9 Mitesh Palumbo. [address] , [address], [place], [address], [place]. tel:[phone] Family History Family Member Type Diagnosis Age At Onset No Information Payers Payer name Insurance type Covered alliance party ID Authorkeyaa mikaelamichelle(s) [employer] Vision Plan CI [id number] Social History Type Description Quantity Date Captured Comments Sex Male Smoking Status No Information Chief Complaint And Reason For Visit No Information Reason For Referral Reason For Referral No Information History Of Present Illness Encounter Date Complaint History Of Prese nt Illness No Information Functional Status Date Functional Assessmen t No Information Instructions Date Instruction Additional Infor mation No Information Assessments Type Assessment Date No Information Patient Care Teams Name Effective Dates (start - stop) Status Members No Information
--- OUTSIDE RECORDS SUMMARY | 2025-05-01 14:46 | XMS_ITS | Clinical Summary ---
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, MILD, WITH ANXIETY Active 10-19 00:00: 00 ACUTE KIDNEY FAILURE, UNSPECIFIED Active 10-19 00:00: 00 SENIOR CARE (CURRENT) USE OF INSULIN Active 10-19 00:00: [...] NEOPLASM OF PROSTATE Active 10-19 00:00: 00 SENIOR CARE (CURRENT) USE OF ASPIRIN Active 10-19 00:00: 00 INFORMATION SYSTEMS ARCHITECT (CURRENT) USE OF ORAL HYPOGLYCEMIC DRUGS Active [...] 325 mg tablet 03-31 00:00: 00 Yes [id number] 1 tablet EVERY 4 HOURS 1 tablet EVERY 4 HOURS (route: oral) Med Classific ation: Analgesic , Anti-infl ammatory or Antipyret ic aspirin 81 mg tablet,josé luis yed release 03-31 00:00: 00 Yes [id number] 1 tablet DAILY 1 tablet DAILY (route: oral) Med Classific ation: Hematolog ical Agents ferrous sulfate 325 mg (65 mg iron) tablet 03-31 00:00: 00 Yes [id number] 1 tablet DAILY 1 tablet DAILY (route: oral) Med Classific ation: Electroly te Balance-N utritiona l Products Januvia 50 mg tablet 03-31 00:00: 00 Yes [id number] 1 tablet DAILY 1 tablet DAILY (route: oral) Med Classific ation: Endocrine lisinopril 10 mg tablet 03-31 00:00: 00 Yes [id number] 1 tablet DAILY 1 tablet DAILY (route: oral) Med Classific ation: Cardiovas cular Therapy Agents metformin 1,000 mg tablet 03-31 00:00: 00 Yes [id number] 1 tablet 2 TIMES DAILY 1 tablet 2 TIMES DAILY (route: oral) Med Classific ation: Endocrine tamsulosin 0.4 mg capsule 03-31 00:00: 00 Yes [id number] 1 capsule DAILY 1 capsule DAILY (route: oral) Med Classific ation: Genitouri nary Therapy insulin aspart (U-100) 100 unit/mL (3 mL) subcutaneou s pen 03-31 00:00: 00 Yes [id number] Per instruc tions 3 TIMES DAILY Per [...] MAINTAIN SITUATIONAL AWARENESS AND WILL NOTIFY CLINICAL DISTRIBUTION DESIGNER AND PHYSICIAN/PROVIDER WITH ANY CHANGE IN CONDITION. [code = SKILLED NURSE TO PERFORM ENVIRONMENTAL SAFETY RISK ASSESSMENT AND FALL RISK ASSESSMENT AND PROVIDE INSTRUCTION TO IMPLEMENT ENVIRONMENTAL SAFETY AND FALL PREVENTION STRATEGIES THROUGHOUT THE CERTIFICATION PERIOD. SKILLED NURSE WILL MAINTAIN SITUATIONAL AWARENESS AND WILL NOTIFY CLINICAL DISTRIBUTION DESIGNER AND PHYSICIAN/PROVIDER WITH ANY CHANGE IN CONDITION.] [...] MAY ACCEPT ORDERS FROM THE FOLLOWING PHYSICIANS: ORDAINED MINISTER OR ATTENDING PHYSICIANS [code = HOME HEALTH AGENCY MAY ACCEPT ORDERS FROM THE FOLLOWING PHYSICIANS: ORDAINED MINISTER OR ATTENDING PHYSICIANS] Future Scheduled Test PHYSICAL [...] CARE WILL BE ESTABLISHED THAT MEETS PATIENT'S SENIOR CARE NEEDS AND INCLUDES PATIENT GOAL FOR HOME [...] End Date/Time Encounter Type Admission Type Attending [facility] Care Facility Care Department Encounter ID Discharge Date Discharge Status Discharge Condition Discharge Reason Percent Goals Met 2025-03-31 00:00:00 2025-05-29 00:00:00 Outpatient NEW ADMISSION KERRI MERI [facility] [id number] 31.58
[2025-05-01 14:49] LABS: Hematocrit 39.2 % (42.0-52.0); Hemoglobin 12.3 g/dL (14.0-18.0); Immature Granulocyte Percent A 0.4 % (0-0.5); Lymphocytes Absolute Auto 0.66 K/mm3 (0.9-3.2); Mean Corpuscular HGB Conc 31.4 g/dl (32-36); Mean Corpuscular Hemoglobin 30.5 pg (26-34); Mean Corpuscular Volume 97.3 fl (80-100); Nucleated Red Blood Cells Absolute Auto 0.000 K/mm3 (0.0-0.012); Nucleated Red Blood Cells Perc 0.0 % (0.0-0.2); Platelet Count Result 213 k/mm3 (150-375); Red Blood Count 4.03 M/mm3 (4.6-6.20); White Blood Count 6.8 K/mm3 (4.5-10.0)
--- NOTE | 2025-05-01 14:51 | ED.GENADULT ---
HPI - General Adult General Chief complaint: Recheck/Abnormal Lab/Rx Stated complaint: low bs, FTT Time Seen by Provider: 05/01/25 14:14 History of Present Illness HPI narrative: Pt was found confused by home health nurse and 911 called. Pt blood sugar low. Pt has dementia and was just discharged from [facility] two days ago. Grandchildren ages 17 and 14 have been checking on him every day but they live in [place]. Father is working in [employer]. Related Data Home Medications ?Medication ?Instructions ?Recorded ?Confirmed ?Last Taken ?Type aspirin 81 mg tablet,delayed 81 mg PO DAILY 12/13/19 04/09/25 Unknown History release (Adult Low Dose Aspirin) ferrous sulfate 325 mg (65 mg 325 mg PO DAILY 12/13/19 04/09/25 Unknown History iron) tablet (FerrouSul) blood sugar diagnostic (Accu-Chek 04/09/25 04/09/25 Unknown History Guide test strips) blood-glucose meter (Accu-Chek 04/09/25 04/09/25 Unknown History Guide Me Glucose Meter) lancets (Accu-Chek Softclix 04/09/25 04/09/25 Unknown History Lancets) metformin 1,000 mg tablet 1,000 mg PO BID 04/09/25 04/09/25 Unknown History Allergies Allergy/AdvReac Type Severity Reaction Status Date / Time METHYLATE Allergy Mild RASH Uncoded 04/09/25 18:52 Review of Systems Review of Systems: All systems reviewed & are unremarkable except as noted in HPI and below PMFSH Past Medical History Medical History Dementia Osteoarthritis QT prolongation Multifocal atrial tachycardia Prostate cancer Status post radiation therapy Umbilical hernia without obstruction and without gangrene Allergic rhinitis Type 2 diabetes mellitus Acromioclavicular joint arthritis Dyslipidemia Essential hypertension Surgical History Surgical History History of appendectomy History of varicose vein stripping Left leg Status post cataract extraction of both eyes with insertion of intraocular lens Family History Family History Other Unknown family medical history Social History Social History Social History: According to medical records within the [employer] system the patient used to smoke but quit over 40 years ago. It also mentions that he used to occasionally drink alcohol but does not state the amount. He states that he lives in his own home and that he has been from his for many years?. He states that he lives alone. He states that he has 1 son and 1 daughter. He used to work at [employer] and [employer]. Code status: Full code per EMR Surrogate decision maker: Yobani Edward Smoking status: Former smoker Alcohol intake: unknown Substance use: unknown Living arrangements: alone Occupation/Education: retired Additional occupation/education comments: [employer] Spiritual care concerns: No Exam Const: General: no acute distress Nutritional Appearance: thin Limitations: other limitations (dementia) Eyes: Pupils: Equal, round and reactive pupils present EOM: EOMs intact bilaterally Neck: Neck: normal visual inspection Resp: Effort & Inspection: normal respiratory effort Auscultation: clear to auscultation bilaterally Cardio: Rate: regular rate Rhythm: regular rhythm GI: GI Palp: Yes Soft to palpation and No Tenderness to palpation present (GI) Auscultation: normal bowel sounds Skin: General skin exam: normal color Rashes: no rashes Wounds: no wounds Neuro: General: patient oriented x3, moves all extremities and no meningeal signs Speech: normal speech Extrem: General: normal to inspection and no clubbing, cyanosis or edema Psych: Mental Status: mental status grossly normal Affect: normal affect Attitude: cooperative Course Vital Signs Vital signs: Vital Signs Temperature 98.0 F 05/01/25 14:13 Pulse Rate 76 05/01/25 14:13 Respiratory Rate 16 05/01/25 14:13 Blood Pressure 99/67 L 05/01/25 14:13 Temperature 98.0 F 05/01/25 14:13 Pulse Rate 108 H 05/01/25 19:00 Respiratory Rate 20 05/01/25 19:00 Blood Pressure 111/87 05/01/25 19:00 Pulse Oximetry 96 05/01/25 19:00 Medical Decision Making MDM Narrative Medical decision making narrative: Pt found confused today by HH. Pt BS low. Pt given d50. Pt recently released from rehab at [facility] and is home alone with grandchildren checking on him. Pt would benefit from placement as he is not safe to live at home alone. Care coordination contacted. Care coordination says will not be able to place today. discussed with Shea Maddox and agrees to admit. Pt dropped blood sugar to 30's again. d50 given and sugar improved. will add cxr and will give rocephin IV in case he's septic. discussed with Dr Pina and agrees to accept to ICU. Dr Whelan notified of change in status Vital Signs Vital Signs: Vital Signs Temperature 98.0 F 05/01/25 14:13 Pulse Rate 76 05/01/25 14:13 Respiratory Rate 16 05/01/25 14:13 Blood Pressure 99/67 L 05/01/25 14:13 Temperature 98.0 F 05/01/25 14:13 Pulse Rate 108 H 05/01/25 19:00 Respiratory Rate 20 05/01/25 19:00 Blood Pressure 111/87 05/01/25 19:00 Pulse Oximetry 96 05/01/25 19:00 Lab Data 05/01/25 14:42 05/01/25 14:42 Labs: Lab Results 05/01/25 05/01/25 05/01/25 Range/Units 14:17 14:42 15:55 WBC 6.8 (4.5-10.0) K/mm3 RBC 4.03 L (4.6-6.20) M/mm3 Hgb 12.3 L (14.0-18.0) g/dL Hct 39.2 L (42.0-52.0) % MCV 97.3 (80-100) fl MCH 30.5 (26-34) pg MCHC 31.4 L (32-36) g/dl RDW 15.3 H (11.5-14.5) % Plt Count 213 (150-375) k/mm3 MPV 10.6 H (7.4-10.4) fl Immature Gran % (Auto) 0.4 (0-0.5) % Neut % (Auto) 79.7 H (45.5-73.1) % Lymph % (Auto) 9.7 L (18.3-44.2) % Haakon % (Auto) 7.7 (2.6-8.5) % Eos % (Auto) 2.4 (0-4.4) % Baso % (Auto) 0.1 L (0.2-1.2) % Lymph # (Auto) 0.66 L (0.9-3.2) K/mm3 Haakon # (Auto) 0.5 (0.1-0.6) K/mm3 Eos # (Auto) 0.2 (0-0.3) K/mm3 Baso # (Auto) 0.0 (0.0-0.1) K/mm3 Abs Immat Gran (auto) 0.03 (0.00-0.031) K/mm3 Absolute Neuts (auto) 5.4 (1.3-6.7) K/mm3 Absolute Nucleated RBC 0.000 (0.0-0.012) K/mm3 Nucleated RBC % 0.0 (0.0-0.2) % Sodium 142 (137-145) mmol/L Potassium 4.3 (3.4-5.0) mmol/L Chloride 108 H (98-107) mmol/L Carbon Dioxide 21 L (22-30) mmol/L Anion Gap 13 H (4-12) mmol/L BUN 24 H (9-20) mg/dL Creatinine 1.61 H (0.7-1.3) mg/dL Estim Creat Clear Calc 26 ml/min Estimated GFR 41 L (59 - ) Glucose 135 H (65-110) mg/dL POC Capillary Glucose 55 L* 54 L* (65-105) mg/dl Calcium 9.0 (8.4-10.2) mg/dL Critical Care Time Critical Care Time Critical Care Time: Yes Total Critical Care Time: 35 Discharge Plan Discharge Clinical Impression: Hypoglycemia, Dementia Patient Disposition: Still a Patient Condition: Stable
--- NOTE | 2025-05-01 15:00 | PC.NURSE ---
PT STATES CAN'T URINATE AT THIS TIME AND DECLINES A STRAIGHT CATH
[2025-05-01 15:02] LABS: Anion Gap 13 mmol/L (4-12); Blood Urea Nitrogen 24 mg/dL (9-20); Calcium 9.0 mg/dL (8.4-10.2); Carbon Dioxide 21 mmol/L (22-30); Chloride 108 mmol/L (98-107); Estimated CRCL calculation 26 ml/min; Estimated Glomerular Filt Rate 41; Glucose 135 mg/dL (65-110); Potassium 4.3 mmol/L (3.4-5.0); Sodium 142 mmol/L (137-145)
[2025-05-01] MEDS: DEXTROSE 50% 25 GM/50 ML SYRINGE IV PUSH ×3 (15:59→21:49)
--- NOTE | 2025-05-01 17:41 | PCCCNOTE ---
Called to the ED for possible residential placement. Pt and his family think they would rather move in with pt and have a home health aide help with him when they aren't able to be there.
[2025-05-01] MEDS: SODIUM CHLORIDE 0.9% IV 1,000 ML 999 ML IV CONT (17:50)
[2025-05-01] MEDS: SODIUM CHLORIDE 0.9% IV 500 ML 999 ML IV CONT (19:56)
[2025-05-01] MEDS: DEXTROSE 5%/0.45% SOD CHL 1,000 ML 100 ML IV CONT (20:16)
[2025-05-01 20:26] LABS: Add Urine Microscopic? YES; Appearance Urine Clear (Clear); Glucose Urine UA Negative (Negative); Leukocyte Esterase Ur Trace LEU/UL (Negative); Need Manual Microscopic Reviewed; Nitrate Urine Negative (Negative); Specific Grav Ur 1.017 (1.001-1.035)
--- NOTE | 2025-05-01 20:29 | PC.NURSE ---
This RN called lab and was told to send the second set of blood cultures with a blank pt label due to the sticker not being in lab online. Cultures were sent. Antibiotic will be started.
[2025-05-01] MEDS: cefTRIAXone 2 GM in SODIUM CHLORIDE 0.9% IV 100 ML 200 ML IVPB (20:40)
--- NOTE | 2025-05-01 21:00 | PC.NURSE ---
This RN went to lab and corrected the blood culture labels.
--- NOTE | 2025-05-01 21:08 | P.HP_ITS ---
H&P: HPI History of Present Illness Date/Time: 05/01/25 21:08 Chief Complaint: Hypoglycemia Narrative: This is a very pleasant 89-year-old male with a history of insulin- dependent diabetes mellitus, allergic rhinitis, urinary retention, dyslipidemia, osteoarthritis, hypertension, dementia. He was recently discharged from [facility] on 04/12/2025 with acute UTI, fall, urinary retention rhabdom yolysis and hypoglycemia. He presents to [facility] ER again on 05/01/2025 with hypoglycemia/confusion. Home health had checked on him, blood sugar found to be low in the field and given D50. He was just discharged from [facility] 2 days prior to admission. He lives alone local vicinity and has grandchildren who check on him. ER revealed sinus tachycardia, and a blood pressure of 80/58 improving to 104/67. WBC 6.8, hemoglobin 12.3, BUN 24, serum creatinine 1.61, urinalysis with trace leukocyte esterase. Blood cultures taken. Chest x-ray without acute cardiopulmonary process. Patient blood sugar dropped to 37 in the ER and given D50 again with improvement. Placed on D5 half-normal saline but dropped to 60 again. Changed to D10. Was given Rocephin. Care coordination notify the ER and unable to place today. He will be admitted to the ICU on 05/01/2025. The above was taken via chart review and communication via ER physician's/PA. Upon speaking to the patient he reports feeling his usual, upon comprehensive review systems he denies anything. Does not know what medications he takes if he took more or less. He knows he lives across the street and thinks it is 1949. Review of Systems Review of Systems: All systems reviewed & are unremarkable except as noted in HPI and below (HPI) [facility] Past Medical History Medical History Dementia Osteoarthritis QT prolongation Multifocal atrial tachycardia Prostate cancer Status post radiation therapy Umbilical hernia without obstruction and without gangrene Allergic rhinitis Type 2 diabetes mellitus Acromioclavicular joint arthritis Dyslipidemia Essential hypertension Surgical History Surgical History History of appendectomy History of varicose vein stripping Left leg Status post cataract extraction of both eyes with insertion of intraocular lens Family History Family History Other Unknown family medical history Social History Social History Social History: According to medical records within the [employer] system the patient used to smoke but quit over 40 years ago. It also mentions that he used to occasionally drink alcohol but does not state the amount. He states that he lives in his own home and that he has been from his for many years?. He states that he lives alone. He states that he has 1 son and 1 daughter. He used to work at [employer] and [employer]. Code status: Full code per EMR Surrogate decision maker: Yobani Edward Smoking status: Former smoker Alcohol intake: unknown Substance use: unknown Living arrangements: alone Occupation/Education: retired Additional occupation/education comments: [employer] Spiritual care concerns: No Meds Home Medications and Allergies Home Medications ?Medication ?Instructions ?Recorded ?Confirmed ?Type aspirin 81 mg tablet,delayed 81 mg PO DAILY 12/13/19 04/09/25 History release (Adult Low Dose Aspirin) ferrous sulfate 325 mg (65 mg 325 mg PO DAILY 12/13/19 04/09/25 History iron) tablet (FerrouSul) lisinopril 10 mg tablet 10 mg PO DAILY #90 tabs 05/24/20 04/09/25 Rx acetaminophen 325 mg tablet 650 mg (2 x 325 mg) PO Q4H PRN 03/18/25 04/09/25 Rx Mild Pain (1-3) Or Fever #30 tabs insulin aspart U-100 100 unit/mL 2 - 5 unit subcut TIDWM #10 mL 03/18/25 04/09/25 Rx subcutaneous solution (Novolog U-100 Insulin aspart) tamsulosin 0.4 mg capsule 0.4 mg PO QAM #30 caps 03/18/25 04/09/25 Rx blood sugar diagnostic (Accu-Chek 04/09/25 04/09/25 History Guide test strips) blood-glucose meter (Accu-Chek 04/09/25 04/09/25 History Guide Me Glucose Meter) lancets (Accu-Chek Softclix 04/09/25 04/09/25 History Lancets) metformin 1,000 mg tablet 1,000 mg PO BID 04/09/25 04/09/25 History amoxicillin 875 mg-potassium 1 tablet PO Q12H #6 tabs 04/12/25 Rx clavulanate 125 mg tablet Allergies Allergy/AdvReac Type Severity Reaction Status Date / Time METHYLATE Allergy Mild RASH Uncoded 04/09/25 18:52 Vital Signs Vital Signs - 24 hr 05/01/25 14:13 05/01/25 14:35 05/01/25 15:47 Temperature 98.0 F Pulse Rate 76 98 104 H Respiratory Rate 16 20 20 Blood Pressure 99/67 L 118/80 107/64 Pulse Oximetry 96 96 05/01/25 16:13 05/01/25 16:30 05/01/25 17:10 Temperature Pulse Rate 100 100 124 H Respiratory Rate 24 H 23 H 22 H Blood Pressure 110/64 110/64 106/66 Pulse Oximetry 99 96 96 05/01/25 17:40 05/01/25 18:06 05/01/25 18:30 Temperature Pulse Rate 100 105 H 104 H Respiratory Rate 22 H 16 26 H Blood Pressure 82/56 L 80/58 L 98/57 L Pulse Oximetry 96 97 95 05/01/25 19:00 05/01/25 20:21 05/01/25 20:38 Temperature Pulse Rate 108 H 102 H 98 Respiratory Rate 20 19 23 H Blood Pressure 111/87 104/67 Pulse Oximetry 96 94 95 Exam Const: General: comfortable and no acute distress Other: A&O x2 Eyes: Pupils: Equal, round and reactive pupils present Neck: Neck: supple Resp: Effort & Inspection: normal respiratory effort Auscultation: clear to auscultation bilaterally Cardio: Rate: regular rate Rhythm: regular rhythm GI: Inspection: non-distended GI Palp: Yes Soft to palpation : General: No bladder normal to palpation Neuro: Motor exam (neuro): 5/5 motor strength present throughout Extrem: General: no edema H&P: Results Labs Labs: Short CBC 05/01/25 Range/Units 14:42 WBC 6.8 (4.5-10.0) K/mm3 Hgb 12.3 L (14.0-18.0) g/dL Hct 39.2 L (42.0-52.0) % Plt Count 213 (150-375) k/mm3 [facility] 05/01/25 14:42 Sodium 142 Potassium 4.3 Chloride 108 H Carbon Dioxide 21 L BUN 24 H Creatinine 1.61 H Glucose 135 H Calcium 9.0 Urine 05/01/25 Range/Units 20:07 Urine Color Yellow (Yellow) Urine Appearance Clear (Clear) Urine pH 5.0 (5.0-9.0) Ur Specific [place] 1.017 (1.001-1.035) Urine Protein Trace (Negative) mg/dL Urine Glucose (UA) Negative (Negative) mg/dL Assessment and Plan Assessment and plan (1) Type 2 diabetes mellitus: Qualifiers: Diabetes mellitus fpc insulin use: with fpc use Diabetes mellitus complication status: with hypoglycemia Diabetes mellitus complication detail: without coma Qualified Code(s): E11.649 - Type 2 diabetes mellitus with hypoglycemia without coma; Z79.4 - terminologist (current) use of insulin Code(s): E11.9 - Type 2 diabetes mellitus without complications Status: Chronic (2) FTT (failure to thrive) in adult: Code(s): R62.7 - Adult failure to thrive Status: Acute (3) Hypoglycemia: Code(s): E16.2 - Hypoglycemia, unspecified Status: Acute (4) KATHARINA (acute kidney injury): Code(s): N17.9 - Acute kidney failure, unspecified Status: Acute (5) Acute alteration in mental status: Code(s): R41.82 - Altered mental status, unspecified Status: Acute Plan This is a very pleasant 89-year-old male with a history of insulin- dependent diabetes mellitus, allergic rhinitis, urinary retention, dyslipidemia, osteoarthritis, hypertension, dementia. He was recently discharged from [facility] on 04/12/2025 with acute UTI, fall, urinary retention rhabdomyolysis and hypoglycemia. He presents to [facility] ER again on 05/01/2025 with hypoglycemia/confusion. Home health had checked on him, blood sugar found to be low in the field and given D50. He was just discharged from [facility] 2 days prior to admission. He lives alone local vicinity and has grandchildren who check on him. ER revealed sinus tachycardia, and a blood pressure of 80/58 improving to 104/67. WBC 6.8, hemoglobin 12.3, BUN 24, serum creatinine 1.61, urinalysis with trace leukocyte esterase. Blood cultures taken. Chest x-ray without acute cardiopulmonary process. Patient blood sugar dropped to 37 in the ER and given D50 again with improvement. Placed on D5 half-normal saline but dropped to 60 again. Changed to D10. Was given Rocephin and 1.5 L normal saline. Care coordination notify the ER and unable to place today. He will be admitted to the ICU on 05/01/2025. The above was taken via chart review and communication via ER physician's/PA. Upon speaking to the patient he reports feeling his usual, upon comprehensive review systems he denies anything. Does not know what medications he takes if he took more or less. He knows he lives across the street and thinks it is 1949. ----- This is patient's 2nd episode in 1 month. He was discharged from longterm 2 days prior to admission but likely needs permanent placement. Is likely the patient took too much of his insulin or other medications combined with malnutrition. Admit to ICU on 05/01/2025 with Accu-Cheks q.1 hour and D10 at 50 cc/hour. Hypoglycemia protocol in place. Substitute a usual diabetic diet with regular diet. Care coordination consulted. KATHARINA, likely due to poor oral intake/hypovolemia. Had low blood pressure in the ER improved with normal saline bolus. Continue to trend renal function. ----- Full code. Admission to ICU. Stable. Regular diet. Dietary supplements. Accu-Cheks q.1 hour. Medications reconciliation is pending, will hold antihypertensives and glycemics. Hospitalist [facility] Advance Care Plan I have confirmed that the patient's Advanced Care Plan is present, code status is documented, or surrogate decision maker is listed in patient medical record.: Yes Medication Reconciliation I have utilized all available resources to obtain, update and review the patients current medications (includes all prescriptions, OTC, herbals, cannabis, and nutritional supplements).: Yes
[2025-05-01] MEDS: DEXTROSE 10% 1,000 ML 50 ML IV CONT (21:39)
--- NOTE | 2025-05-01 21:55 | PC.NURSE ---
This patient, Yobani Escamilla, was admitted to Intensive Care Unit-8 at 2130. Patient/family oriented to hospital policies and general routines including ID bracelet, bed and alarms, visiting hours, pain management, procedures, bathroom and other care routines, personal items, smoking policy, room service/diet, and visiting hours. Information on how to activate the Rapid Response Team has been discussed. Patient/Family are encouraged to report perceived risks to care and to ask questions if they do not understand what they are told or what they should do.
[2025-05-02] VITALS (14 sets, daily range): BP systolic 116–153; BP diastolic 67–96; PULSE 67–91; RESP 16–24; TEMP 36.6–37; O2SAT 97–100
[2025-05-02 00:06] LABS: MRSA (PCR) NOT DETECTED (NOT DETECTE)
[2025-05-02 04:52] LABS: Hematocrit 36.5 % (42.0-52.0); Hemoglobin 11.8 g/dL (14.0-18.0); Immature Granulocyte Percent A 0.3 % (0-0.5); Lymphocytes Absolute Auto 0.62 K/mm3 (0.9-3.2); Mean Corpuscular HGB Conc 32.3 g/dl (32-36); Mean Corpuscular Hemoglobin 31.4 pg (26-34); Mean Corpuscular Volume 97.1 fl (80-100); Nucleated Red Blood Cells Absolute Auto 0.000 K/mm3 (0.0-0.012); Nucleated Red Blood Cells Perc 0.0 % (0.0-0.2); Platelet Count Result 178 k/mm3 (150-375); Red Blood Count 3.76 M/mm3 (4.6-6.20); White Blood Count 6.0 K/mm3 (4.5-10.0)
[2025-05-02 05:05] LABS: Anion Gap 8 mmol/L (4-12); Blood Urea Nitrogen 22 mg/dL (9-20); Calcium 8.5 mg/dL (8.4-10.2); Carbon Dioxide 22 mmol/L (22-30); Chloride 106 mmol/L (98-107); Estimated CRCL calculation 32 ml/min; Estimated Glomerular Filt Rate 54; Glucose 115 mg/dL (65-110); Magnesium 1.5 mg/dL (1.6-2.3); Potassium 4.8 mmol/L (3.4-5.0); Sodium 136 mmol/L (137-145)
[2025-05-02] MEDS: MAGNESIUM SULF 2 GM/WATER 50ML 2 GM/50 ML BAG IVPB (09:08)
--- NOTE | 2025-05-02 11:22 | PCFNICU ---
ICU Rounding Note: Pt current nutrition is Regular with diet supplements. Last recorded weight is 63.7 kg. Bowel Motility: Last reported BM 05/02 Labs Reviewed: Mg 1.5, BUN 22, Glu 115, HbA1c 6.0, Na 136 Meds Noted: Heparin, D10 Skin: WNL Additional Notes: Patient admitted with hypoglycemia. HbA1c 6.0. Not much if an eater at home. Diet order: regular with ensure high protein supplements. Oral intake for breakfast 50% of meal. Agree with diet orders at this time. Following daily in ICU rounds.
--- NOTE | 2025-05-02 12:24 | P.CONIN_ITS ---
Assessment and Plan Assessment and plan (1) Hypoglycemia: Code(s): E16.2 - Hypoglycemia, unspecified Status: Acute Assessment and Plan: Patient was recently discharged from [facility] on 04/12/2025, he was admitted for hypoglycemia, acute kidney injury. -patient down to rehab and was discharged from [facility] 2 days prior to this admission at the hospital -05/01/2025 patient was at home and was evaluated by home health nurse and was found to be hypoglycemic blood sugars in the 50s. EMS gave an amp of D50 and brought him to the ER. Patient received IV fluids, was started on D5 half 1/2 normal saline her, glucagon was also given in the ER, despite which his blood sugars remain low and was transferred to the ICU. -patient is on metformin 1000 mg b.i.d. at home, unknown a feet took extra medications -in the ICU blood sugars remained low so D5 1/2 NS was switched to D10 infusion -this morning patient was able to eat his breakfast -will continue D10 (2) FTT (failure to thrive) in adult: Code(s): R62.7 - Adult failure to thrive Status: Acute Assessment and Plan: Patient states he barely eats anything at home, sometimes half a slice of pizza which his grandchildren leaving the refrigerator -will have care coordination evaluate the patient along with dietitian -patient may require dietary supplement (3) KATHARINA (acute kidney injury): Code(s): N17.9 - Acute kidney failure, unspecified Status: Acute Assessment and Plan: Acute kidney injury likely related to hypovolemia, continued use of his home medications lisinopril, metformin -creatinine at admission was 1.61 (baseline creatinine is 0.9-1.2) -patient has been adequately fluid-resuscitated, creatinine has come down to 1.27 this morning -continue to monitor urine output, renal function electrolytes -avoid nephrotoxic medications (4) Type 2 diabetes mellitus: Qualifiers: 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 -last hemoglobin A1c was 6.0 on 04/10/2025 -according to guidelines given his age and his hemoglobin A1c , patient's metformin is recommended to be discontinued to prevent hypoglycemic events as this is his 2nd admission for hypoglycemia -patient is > 70, frail with dementia can have the hemoglobin A1c up to 8.5 according to guidelines (this patient is 89 years old) Plan DVT prophylaxis: Heparin SQ Stress ulcer prophylaxis: Not indicated Nutrition: Regular diet with dietary supplement Code Status: Full code Critical Care Time Spent: 51 minutes Due to a high probability of clinically significant, life threatening deterioration, the patient required my highest level of preparedness to intervene emergently and I personally spent this critical care time directly and personally managing the patient. This critical care time included obtaining a history; examining the patient; pulse oximetry; ordering and review of studies; arranging urgent treatment with development of a management plan; evaluation of patient's response to treatment; frequent reassessment; and discussions with other providers. It was exclusive of separately billable procedures and treating other patients and teaching time. Please see Assessment and Plan section and the rest of the note for further information on patient assessment and treatment This dictation may have been done utilizing a voice recognition system. Attempts have been made to correct errors. However, there may be uncorrected grammatical, spelling, and recognitions errors present. Respiratory Therapist Assistant Consult Note Consult date: 05/02/25 Reason for consult: Hypoglycemia HPI: Yobani Escamilla is a 89 year old male with past medical history of insulin- dependent diabetes, allergic rhinitis, urinary retention, dyslipidemia, osteoarthritis, essential hypertension, dementia, multifocal atrial tachycardia presented the ED on 05/01/2025 with complains of hypoglycemia. Patient was recently discharged home from [facility] to home 2 days prior to admission. Home health had come to his place and found his blood sugars to be low in the 50s and was given D50 in the field. Patient was brought to the ER where his blood pressures were low with systolic in the 80s improved with IV fluids. WBC count 6.8, hemoglobin 12.3, BUN 24, creatinine 1.61, UA had trace leukocyte esterase with no bacteria. He lives by himself and his grandchildren were [address] from [facility] and check on him. He received 1 L IV fluid bolus in the ER, started right in D5 half NS at 100 mL/hour, also started on stress of trying sewn and transferred to the ICU for further management Patient seen and examined this morning in the ICU, blood sugars remained low on D5 1/2 NS infusion, after arrival to the ICU it was switched to D10 infusion. Patient was also given glucagon in the ER. Patient remains on D10 infusion this morning blood sugars remain low. Patient does not remember if he took extra medications. He does not even know what medication he takes due to his dementia. Patient is awake, alert, oriented to place only. Denies any shortness of breath, chest pain, abdominal pain, nausea, vomiting. Hemodynamically stable, afebrile, adequate urine output. Remains on room air with adequate O2 sats Review of Systems 2 Review of Systems: All systems reviewed & are unremarkable except as noted in HPI and below PMFSH Past Medical History Medical History Dementia Osteoarthritis QT prolongation Multifocal atrial tachycardia Prostate cancer Status post radiation therapy Umbilical hernia without obstruction and without gangrene Allergic rhinitis Type 2 diabetes mellitus Acromioclavicular joint arthritis Dyslipidemia Essential hypertension Surgical History Surgical History History of appendectomy History of varicose vein stripping Left leg Status post cataract extraction of both eyes with insertion of intraocular lens Family History Family History Other Unknown family medical history Social History Social History Social History: According to medical records within the old system the patient used to smoke but quit over 40 years ago. It also mentions that he used to occasionally drink alcohol but does not state the amount. He states that he lives in his own home and that he has been from his for many years?. He states that he lives alone. He states that he has 1 son and 1 daughter. He used to work at [employer] and [email or web address]. Code status: Full code per EMR Surrogate decision maker: Yobani Edward Smoking status: Former smoker Alcohol intake: unknown Substance use: never Do You Feel Safe in your Home?: Yes Lack of Transportation: No Lack of Food: Never True Current Housing: I Have Housing Concerned About Future Housing: No Difficulty Paying Gas/Electric Bills: No Difficulty Paying for Meds: No Currently Unemployed: No Education: High School Diploma/GED Difficulty w/ Childcare or Family Care: No Living arrangements: alone Occupation/Education: retired Additional occupation/education comments: [employer] Spiritual care concerns: No Meds Home Medications and Allergies Home Medications ?Medication ?Instructions ?Recorded ?Confirmed ?Type aspirin 81 mg tablet,delayed 81 mg PO DAILY 12/13/19 05/01/25 History release (Adult Low Dose Aspirin) ferrous sulfate 325 mg (65 mg 325 mg PO DAILY 12/13/19 05/01/25 History iron) tablet (FerrouSul) lisinopril 10 mg tablet 10 mg PO DAILY #90 tabs 05/24/20 05/01/25 Rx acetaminophen 325 mg tablet 650 mg (2 x 325 mg) PO Q4H PRN 03/18/25 05/01/25 Rx Mild Pain (1-3) Or Fever #30 tabs insulin aspart U-100 100 unit/mL 2 - 5 unit subcut TIDWM #10 mL 03/18/25 05/01/25 Rx subcutaneous solution (Novolog U-100 Insulin aspart) tamsulosin 0.4 mg capsule 0.4 mg PO QAM #30 caps 03/18/25 05/01/25 Rx blood sugar diagnostic (Accu-Chek 04/09/25 05/01/25 History Guide test strips) blood-glucose meter (Accu-Chek 04/09/25 05/01/25 History Guide Me Glucose Meter) lancets (Accu-Chek Softclix 04/09/25 05/01/25 History Lancets) metformin 1,000 mg tablet 1,000 mg PO BID 04/09/25 05/01/25 History Allergies Allergy/AdvReac Type Severity Reaction Status Date / Time METHYLATE Allergy Mild RASH Uncoded 04/09/25 18:52 Vital Signs Vital Signs - 24 hr 05/01/25 14:13 05/01/25 14:35 05/01/25 15:47 Temperature 98.0 F Pulse Rate 76 98 104 H Respiratory Rate 16 20 20 Blood Pressure 99/67 L 118/80 107/64 Pulse Oximetry 96 96 Oxygen Delivery 05/01/25 16:13 05/01/25 16:30 05/01/25 17:10 Temperature Pulse Rate 100 100 124 H Respiratory Rate 24 H 23 H 22 H Blood Pressure 110/64 110/64 106/66 Pulse Oximetry 99 96 96 Oxygen Delivery 05/01/25 17:40 05/01/25 18:06 05/01/25 18:30 Temperature Pulse Rate 100 105 H 104 H Respiratory Rate 22 H 16 26 H Blood Pressure 82/56 L 80/58 L 98/57 L Pulse Oximetry 96 97 95 Oxygen Delivery 05/01/25 19:00 05/01/25 20:21 05/01/25 20:38 Temperature Pulse Rate 108 H 102 H 98 Respiratory Rate 20 19 23 H Blood Pressure 111/87 104/67 Pulse Oximetry 96 94 95 Oxygen Delivery 05/01/25 21:30 05/01/25 22:00 05/01/25 22:00 Temperature 97.7 F Pulse Rate 96 102 H 103 H Respiratory Rate 20 21 H Blood Pressure 103/65 123/80 Pulse Oximetry 94 100 Oxygen Delivery 05/01/25 22:44 05/02/25 00:00 05/02/25 00:00 Temperature 97.9 F Pulse Rate 91 Respiratory Rate 20 Blood Pressure 116/77 Pulse Oximetry 97 99 Oxygen Delivery Room Air Room Air 05/02/25 00:00 05/02/25 02:00 05/02/25 02:00 Temperature Pulse Rate 90 85 85 Respiratory Rate 23 H Blood Pressure 133/85 Pulse Oximetry 99 Oxygen Delivery 05/02/25 04:00 05/02/25 04:00 05/02/25 04:00 Temperature 98.1 F Pulse Rate 70 73 Respiratory Rate 19 Blood Pressure 121/79 Pulse Oximetry 100 Oxygen Delivery Room Air 05/02/25 06:00 05/02/25 06:00 05/02/25 08:00 Temperature Pulse Rate 75 75 Respiratory Rate 16 Blood Pressure 117/89 Pulse Oximetry 100 100 Oxygen Delivery Room Air 05/02/25 08:00 05/02/25 08:00 05/02/25 08:37 Temperature 97.9 F Pulse Rate 76 76 Respiratory Rate 24 H Blood Pressure 153/94 H Pulse Oximetry 100 100 Oxygen Delivery Room Air 05/02/25 10:00 05/02/25 10:00 05/02/25 12:00 Temperature Pulse Rate 68 68 74 Respiratory Rate 18 Blood Pressure 116/69 Pulse Oximetry 98 Oxygen Delivery 05/02/25 12:00 05/02/25 12:00 Temperature 98.5 F Pulse Rate 73 Respiratory Rate 22 H Blood Pressure 119/67 Pulse Oximetry 100 100 Oxygen Delivery Room Air Exam 2 Narrative: General: Pleasant gentleman in no acute distress HEENT:? Pupils equal and reactive, sclerae is clear Neck:? Supple Respiratory:? Clear to auscultation bilaterally, no wheezing, adequate air entry Cardiac:? S1-S2 normal, regular rate and rhythm Abdomen:? Soft, nontender, nondistended, normoactive bowels Extremities:? No edema, palpable pedal pulses Neuro:? Patient is awake, alert, oriented x1 to place only. He is able to follow simple commands and answers questions Skin:? No lesions noted Psych:? Normal mentation and affect Results Labs 05/02/25 04:45 05/02/25 04:45 Labs: Short CBC 05/01/25 05/02/25 Range/Units 14:42 04:45 WBC 6.8 6.0 (4.5-10.0) K/mm3 Hgb 12.3 L 11.8 L (14.0-18.0) g/dL Hct 39.2 L 36.5 L (42.0-52.0) % Plt Count 213 178 (150-375) k/mm3 BMP 05/01/25 05/02/25 14:42 04:45 Sodium 142 136 L Potassium 4.3 4.8 Chloride 108 H 106 Carbon Dioxide 21 L 22 BUN 24 H 22 H Creatinine 1.61 H 1.27 Glucose 135 H 115 H Calcium 9.0 8.5 Urine 05/01/25 Range/Units 20:07 Urine Color Yellow (Yellow) Urine Appearance Clear (Clear) Urine pH 5.0 (5.0-9.0) Ur Specific [place] 1.017 (1.001-1.035) Urine Protein Trace (Negative) mg/dL Urine Glucose (UA) Negative (Negative) mg/dL Quality VTE Prophylaxis VTE prophylaxis: pharmacologic ordered Hospitalist [facility] Advance Care Plan I have confirmed that the patient's Advanced Care Plan is present, code status is documented, or surrogate decision maker is listed in patient medical record.: Yes Medication Reconciliation I have utilized all available resources to obtain, update and review the patients current medications (includes all prescriptions, OTC, herbals, cannabis, and nutritional supplements).: Yes
[2025-05-02] MEDS: DEXTROSE 10% 1,000 ML 50 ML IV CONT (16:44)
[2025-05-02 19:56] LABS: IFOB Positive Control Positive; Immunochemical Fecal Occult Bl Positive (N)
[2025-05-03] VITALS (10 sets, daily range): BP systolic 109–156; BP diastolic 79–99; PULSE 63–86; RESP 17–25; TEMP 36.5–37.1; O2SAT 94–100
--- NOTE | 2025-05-03 09:32 | PC.NURSE ---
This RN tried to call patient son (FRANDY) but was unsuccessful as there was no answer. Other family members arrived to visit patient, stating that they are the patients grandchildren. At the patient bedside they stated that they were Going to move in with the patient until, who knows when. They further state We don't have a choice. This RN stated I tried to call his POA but there was no answer. The patients oldest grandchild stated He can't take calls until 12pm and 2:30 on his break. This RN stated I just wanted to give updates. This RN then inquired about living situation asking You mentioned you will be living with him at discharge. The oldest grandchild stated Yes, we don't have a choice Our dad works and then he (pointing toward the patient), said that he never wanted to be in a longterm at one time and my dad is sticking to that. This RN stated Do you understand the type of care he will need, including 24 hour safety measures related to his dementia? The oldest grandchild said My dad is going to look for someone to come to his house from 7am-3pm because we still have to go to school. We go to school in [place] and that is kind of far away from him. This RN asked Can I ask how old you are? The girl stated I am 15. The boy stated I am 18, I just turned 18. This RN stated This is a lot of responsibility for two people your age, its a lot to handle for older people. 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 The young girl started to cry. This RN stated I understand that in the past he may have said he doesn't want to go to a longterm, no one ever does. This RN asked the patient You were recently in a longterm for rehab, did they take good care of you? Patient stated yes. Would you be ok with going to a longterm for 24 hour care and making sure your safe? The patient stated well, yes. This RN then stated to the patients grandchildren Do you know what it means to take care of someone 24 hours a day? He may need to be cleaned up if he goes to the bathroom, and bathing the patient, not to mention if he becomes increasingly confused and wanders or becomes combative? The grandchildren stated I don't think that we are prepared for caring for him completely, but as of now this is what my dad says. This RN stated that she would try to call his dad again at 12 and discuss the plan of care and would also advocate for them and the usp safety of the patient. They verbalized understanding at this time.
[2025-05-03] MEDS: TAMSULOSIN HCL 0.4 MG CAPSULE PO (10:27)
--- NOTE | 2025-05-03 13:04 | PM.IMPN ---
Progress Note: A&P Assessment and Plan (1) Hypoglycemia: Code(s): E16.2 - Hypoglycemia, unspecified Status: Acute Assessment and Plan: Patient was recently discharged from [facility] on 04/12/2025, he was admitted for hypoglycemia, acute kidney injury. -patient down to rehab and was discharged from [facility] 2 days prior to this admission at the hospital -05/01/2025 patient was at home and was evaluated by home health nurse and was found to be hypoglycemic blood sugars in the 50s. EMS gave an amp of D50 and brought him to the ER. Patient received IV fluids, was started on D5 half 1/2 normal saline her, glucagon was also given in the ER, despite which his blood sugars remain low and was transferred to the ICU. -patient is on metformin 1000 mg b.i.d. at home, unknown a feet took extra medications -in the ICU blood sugars remained low so D5 1/2 NS was switched to D10 infusion -this morning patient was able to eat his breakfast -will discontinue D 10 and evaluate the patient (2) FTT (failure to thrive) in adult: Code(s): R62.7 - Adult failure to thrive Status: Acute Assessment and Plan: Patient states he barely eats anything at home, sometimes half a slice of pizza which his grandchildren leaving the refrigerator -will have care coordination evaluate the patient along with dietitian -patient may require dietary supplement (3) KATHARINA (acute kidney injury): Code(s): N17.9 - Acute kidney failure, unspecified Status: Acute Assessment and Plan: Acute kidney injury likely related to hypovolemia, continued use of his home medications lisinopril, metformin -creatinine at admission was 1.61 (baseline creatinine is 0.9-1.2) -patient has been adequately fluid-resuscitated, creatinine has come down to 1.27 this morning -continue to monitor urine output, renal function electrolytes -avoid nephrotoxic medications (4) Type 2 diabetes mellitus: Qualifiers: Diabetes mellitus mcc insulin use: with mcc use Diabetes mellitus complication status: with hypoglycemia Diabetes mellitus complication detail: without coma Qualified Code(s): E11.649 - Type 2 diabetes mellitus with hypoglycemia without coma; Z79.4 - skilled nursing (current) use of insulin Code(s): E11.9 - Type 2 diabetes mellitus without complications Status: Chronic Assessment and Plan: Patient has a history of diabetes, on metformin 1000 mg b.i.d. -last hemoglobin A1c was 6.0 on 04/10/2025 -according to guidelines given his age and his hemoglobin A1c , patient's metformin is recommended to be discontinued to prevent hypoglycemic events as this is his 2nd admission for hypoglycemia -patient is > 70, frail with dementia can have the hemoglobin A1c up to 8.5 according to guidelines (this patient is 89 years old) Plan DVT prophylaxis: Heparin SQ Stress ulcer prophylaxis: Not indicated Nutrition: Regular diet with dietary supplement Care coordination evaluating the patient for placement Code Status: Full code Due to a high probability of clinically significant, life threatening deterioration, the patient required my highest level of preparedness to intervene emergently and I personally spent this critical care time directly and personally managing the patient. This critical care time included obtaining a history; examining the patient; pulse oximetry; ordering and review of studies; arranging urgent treatment with development of a management plan; evaluation of patient's response to treatment; frequent reassessment; and discussions with other providers. It was exclusive of separately billable procedures and treating other patients and teaching time. Please see Assessment and Plan section and the rest of the note for further information on patient assessment and treatment This dictation may have been done utilizing a voice recognition system. Attempts have been made to correct errors. However, there may be uncorrected grammatical, spelling, and recognitions errors present. Subjective Date/time seen: 05/03/25 13:04 Interval history: Reason for consult: Hypoglycemia letty Escamilla is a 89 year old male with past medical history of insulin-dependent diabetes, allergic rhinitis, urinary retention, dyslipidemia, osteoarthritis, essential hypertension, dementia, multifocal atrial tachycardia presented the ED on 05/01/2025 with complains of hypoglycemia. Patient was recently discharged home from [facility] to home 2 days prior to admission. Home health had come to his place and found his blood sugars to be low in the 50s and was given D50 in the field. Patient was brought to the ER where his blood pressures were low with systolic in the 80s improved with IV fluids. WBC count 6.8, hemoglobin 12.3, BUN 24, creatinine 1.61, UA had trace leukocyte esterase with no bacteria. He lives by himself and his grandchildren were [address] from [facility] and check on him. Patient being seen for hospitalist group: Patient seen and examined in the ICU this morning, where he is being housed as an IMU in patient. Remains on D 10 infusion at 50 mL/hour. Blood sugars have been stable and increasing, hemodynamically stable, denies any chest pain, shortness of breath, abdominal pain, nausea vomiting. Hemodynamically stable, adequate urine output, afebrile. On room air with adequate O2 sat Review of Systems Review of Systems: All systems reviewed & are unremarkable except as noted in HPI and below Exam Narrative: General: Pleasant gentleman in no acute distress HEENT:? Pupils equal and reactive, sclerae is clear Neck:? Supple Respiratory:? Clear to auscultation bilaterally, no wheezing, adequate air entry Cardiac:? S1-S2 normal, regular rate and rhythm Abdomen:? Soft, nontender, nondistended, normoactive bowels Extremities:? No edema, palpable pedal pulses Neuro:? Patient is awake, alert, oriented x1 to place only. He is able to follow simple commands and answers questions Skin:? No lesions noted Psych:? Normal mentation and affect Objective Data Vital Signs Vital Signs: Vital Signs - 24 hr 05/02/25 14:00 05/02/25 16:00 05/02/25 16:00 Temperature 98.6 F Pulse Rate 70 70 67 Respiratory Rate 20 Blood Pressure 120/88 Pulse Oximetry 99 Oxygen Delivery 05/02/25 16:00 05/02/25 18:00 05/02/25 20:00 Temperature 98.0 F Pulse Rate 73 72 Respiratory Rate 21 H Blood Pressure 123/96 H Pulse Oximetry 100 98 Oxygen Delivery Room Air 05/02/25 20:00 05/02/25 20:00 05/02/25 20:17 Temperature Pulse Rate 70 72 Respiratory Rate 20 Blood Pressure Pulse Oximetry 98 97 Oxygen Delivery Room Air 05/02/25 22:00 05/03/25 00:00 05/03/25 00:00 Temperature 97.7 F Pulse Rate 70 86 Respiratory Rate 25 H Blood Pressure 146/89 H Pulse Oximetry 98 98 Oxygen Delivery Room Air 05/03/25 00:00 05/03/25 02:00 05/03/25 04:00 Temperature Pulse Rate 68 67 Respiratory Rate Blood Pressure Pulse Oximetry 100 Oxygen Delivery Room Air 05/03/25 04:00 05/03/25 04:00 05/03/25 06:00 Temperature 98.8 F Pulse Rate 64 63 70 Respiratory Rate 18 Blood Pressure 156/79 H Pulse Oximetry 100 Oxygen Delivery 05/03/25 07:36 05/03/25 08:00 05/03/25 08:00 Temperature 97.7 F Pulse Rate 66 84 84 Respiratory Rate 20 20 Blood Pressure 156/79 H Pulse Oximetry 97 99 Oxygen Delivery Room Air 05/03/25 10:00 05/03/25 12:00 05/03/25 12:00 Temperature Pulse Rate 69 77 77 Respiratory Rate 17 Blood Pressure Pulse Oximetry 94 Oxygen Delivery Room Air 05/03/25 12:00 05/03/25 12:00 Temperature 97.8 F 97.8 F Pulse Rate 77 71 Respiratory Rate 17 22 H Blood Pressure 150/90 H 150/90 H Pulse Oximetry 94 98 Oxygen Delivery Intake/Output Intake/Output: Intake & Output 04/30/25 05/01/25 05/02/25 05/03/25 23:59 23:59 23:59 23:59 Intake Total 1670 2284.2 490 Output Total 50 2100 1050 Balance 1620 184.2 -560 Meds/Results Medications: Active Medications Generic Name Dose Route Start Last Admin Trade Name Freq PRN Reason Stop Dose Admin Acetaminophen 650 mg 05/01/25 21:06 Acetaminophen 325 Mg Tablet PO Q4H PRN Mild Pain (1-3) or Fever Dextrose 12.5 gm 05/01/25 14:30 05/01/25 19:24 Dextrose 50% 25 Gm/50 Ml Syringe IV PUSH 12.5 gm PRN PRN Administration Hypoglycemia Protocol Glucagon 1 mg 05/01/25 14:30 Glucagon For Inj 1 Mg Vial IM PRN PRN Hypoglycemia Protocol Glucose 15 gm 05/01/25 14:30 Glucose Oral Gel 15 Gm Of Glucse In 37.5 Gm Tube PO PRN PRN Hypoglycemia Protocol Hydralazine HCl 10 mg 05/02/25 12:46 Hydralazine Hcl 20 Mg/Ml Vial IV PUSH Q4H PRN Blood Pressure - High Dextrose 1,000 mls @ 100 mls/hr 05/01/25 14:30 Dextrose 5% 1,000 Ml IVPB PRN PRN Hypoglycemia Protocol Dextrose 1,000 mls @ 50 mls/hr 05/01/25 20:50 07/15/25 16:44 Dextrose 10% IV CONT 50 mls/hr .Q20H HOANG Administration Lisinopril 10 mg 05/03/25 09:35 05/03/25 10:27 Lisinopril 10 Mg Tablet PO 10 mg DAILY HOANG Administration Non-Formulary Medication 325 mg 05/03/25 09:35 Ferrous Sulfate [Ferrousul] PO 06/02/25 09:34 DAILY [facility] Tamsulosin HCl 0.4 mg 05/03/25 09:35 05/03/25 10:27 Tamsulosin Hcl 0.4 Mg Capsule PO 0.4 mg QAM HOANG Administration Radiology Results: ITS Impressions Chest X-Ray 05/01/25 20:55 IMPRESSION: No acute cardiopulmonary process. Labs Labs: Laboratory Results - last 24 hr 05/02/25 05/02/25 05/02/25 14:15 16:46 18:25 POC Capillary Glucose 113 H 139 H 172 H Stl Occult Blood (IFOB) 05/02/25 05/02/25 05/02/25 19:21 20:35 22:21 POC Capillary Glucose 172 H 181 H Stl Occult Blood (IFOB) Positive H 05/02/25 05/03/25 05/03/25 23:58 02:01 04:05 POC Capillary Glucose 165 H 162 H 132 H Stl Occult Blood (IFOB) 05/03/25 05/03/25 05/03/25 06:09 07: 10:59 POC Capillary Glucose 145 H 140 H 119 H Stl Occult Blood (IFOB) Quality VTE Prophylaxis VTE prophylaxis: pharmacologic ordered
[2025-05-04] VITALS: BP 125/87; PULSE 71; RESP 16; TEMP 37; O2SAT 96
[2025-05-04 03:55] LABS: Hematocrit 36.4 % (42.0-52.0); Hemoglobin 11.9 g/dL (14.0-18.0); Immature Granulocyte Percent A 0.4 % (0-0.5); Lymphocytes Absolute Auto 0.70 K/mm3 (0.9-3.2); Mean Corpuscular HGB Conc 32.7 g/dl (32-36); Mean Corpuscular Hemoglobin 30.7 pg (26-34); Mean Corpuscular Volume 94.1 fl (80-100); Nucleated Red Blood Cells Absolute Auto 0.000 K/mm3 (0.0-0.012); Nucleated Red Blood Cells Perc 0.0 % (0.0-0.2); Platelet Count Result 183 k/mm3 (150-375); Red Blood Count 3.87 M/mm3 (4.6-6.20); White Blood Count 5.3 K/mm3 (4.5-10.0)
[2025-05-04 04:05] LABS: Alanine Aminotransferase 12 U/L (6-50); Albumin Level 3.1 g/dL (3.5-5.1); Alkaline Phosphatase 59 U/L (38-126); Anion Gap 4 mmol/L (4-12); Aspartate Amino Transferase 21 U/L (17-59); Bilirubin,Total 0.5 mg/dL (0.2-1.3); Blood Urea Nitrogen 27 mg/dL (9-20); Calcium 9.0 mg/dL (8.4-10.2); Carbon Dioxide 26 mmol/L (22-30); Chloride 104 mmol/L (98-107); Estimated CRCL calculation 39 ml/min; Estimated Glomerular Filt Rate > 60; Glucose 126 mg/dL (65-110); Magnesium 1.6 mg/dL (1.6-2.3); Potassium 5.2 mmol/L (3.4-5.0); Sodium 134 mmol/L (137-145); Total Protein 5.8 g/dL (6.3-8.2)
[2025-05-04 04:06] LABS: INR 1.0; Prothrombin Time 13.7 Seconds (11.1-14.7)
[2025-05-04 04:07] LABS: Partial Thromboplastin Time 26.7 Seconds (22.3-36.8)
[2025-05-04 04:41] LABS: Thyroid Stimulating Hormone 2.810 uIU/mL (0.465-4.680)
[2025-05-04 08:00] VITALS: BP 111/64; PULSE 115; PULSE 71; RESP 16; TEMP 36.5; O2SAT 90; O2SAT 96
[2025-05-04] MEDS: MAGNESIUM SULF 1 GM/D5W 100 ML 1 GM/100 ML BAG IVPB (09:03)
[2025-05-04] MEDS: SODIUM ZIRCONIUM CYCLOSILICATE 10 GM POWD.PACK PO (09:04)
[2025-05-04] MEDS: TAMSULOSIN HCL 0.4 MG CAPSULE PO (09:04)
--- NOTE | 2025-05-04 09:19 | PCNFU ---
Nutrition Follow-Up Complete: No nutrition diagnosis Goal: Adequate PO intake Pt current nutrition is Regular diet, Ensure high protein + BID (350 kcal, 20 g protein). Nutrition recommendation: Low potassium diet Last recorded weight is 61.8 kg. Bowel Motility: +1 Liquid stool per FMS 05/03 Labs Reviewed: Hgb 11.9, Hct 36.6, Alb 3.1, Na 134, K+ 5.2, BUN 27, Glu 126 Meds Noted: Metformin Skin: WNL Additional Notes:Following every 5 days
--- NOTE | 2025-05-04 11:31 | P.PNIM_ITS ---
Progress Note: A&P Assessment and Plan (1) Hypoglycemia: Code(s): E16.2 - Hypoglycemia, unspecified Status: Acute Assessment and Plan: Patient was recently discharged from [facility] on 04/12/2025, he was admitted for hypoglycemia, acute kidney injury. -patient down to rehab and was discharged from [facility] 2 days prior to this admission at the hospital -05/01/2025 patient was at home and was evaluated by home health nurse and was found to be hypoglycemic blood sugars in the 50s. EMS gave an amp of D50 and brought him to the ER. Patient received IV fluids, was started on D5 half 1/2 normal saline her, glucagon was also given in the ER, despite which his blood sugars remain low and was transferred to the ICU. -patient is on metformin 1000 mg b.i.d. at home, unknown a feet took extra medications -in the ICU blood sugars remained low so D5 1/2 NS was switched to D10 infusion -05/03: D10 was discontinued -appetite has been improving -05/04: blood sugars have been normal (2) FTT (failure to thrive) in adult: Code(s): R62.7 - Adult failure to thrive Status: Acute Assessment and Plan: Patient states he barely eats anything at home, sometimes half a slice of pizza which his grandchildren leaving the refrigerator -will have care coordination evaluate the patient along with dietitian -continue dietary supplement (3) KATHARINA (acute kidney injury): Code(s): N17.9 - Acute kidney failure, unspecified Status: Acute Assessment and Plan: Acute kidney injury likely related to hypovolemia, continued use of his home medications lisinopril, metformin -creatinine at admission was 1.61 (baseline creatinine is 0.9-1.2) -patient has been adequately fluid-resuscitated, creatinine has come down to 1.27 this morning -continue to monitor urine output, renal function electrolytes -avoid nephrotoxic medications (4) Type 2 diabetes mellitus: Qualifiers: Diabetes mellitus senior living insulin use: with senior living use Diabetes mellitus complication status: with hypoglycemia Diabetes mellitus complication detail: without coma Qualified Code(s): E11.649 - Type 2 diabetes mellitus with hypoglycemia without coma; Z79.4 - salvage determiner (current) use of insulin Code(s): E11.9 - Type 2 diabetes mellitus without complications Status: Chronic Assessment and Plan: Patient has a history of diabetes, on metformin 1000 mg b.i.d. -last hemoglobin A1c was 6.0 on 04/10/2025 -according to guidelines given his age and his hemoglobin A1c , patient's metformin is recommended to be discontinued to prevent hypoglycemic events as this is his 2nd admission for hypoglycemia -patient is > 70, frail with dementia can have the hemoglobin A1c up to 8.5 according to guidelines (this patient is 89 years old) Plan DVT prophylaxis: Heparin SQ Stress ulcer prophylaxis: Not indicated Nutrition: Regular diet with dietary supplement Care coordination evaluating the patient for placement Code Status: Full code Due to a high probability of clinically significant, life threatening deterioration, the patient required my highest level of preparedness to intervene emergently and I personally spent this critical care time directly and personally managing the patient. This critical care time included obtaining a history; examining the patient; pulse oximetry; ordering and review of studies; arranging urgent treatment with development of a management plan; evaluation of patient's response to treatment; frequent reassessment; and discussions with other providers. It was exclusive of separately billable procedures and treating other patients and teaching time. Please see Assessment and Plan section and the rest of the note for further information on patient assessment and treatment This dictation may have been done utilizing a voice recognition system. Attempts have been made to correct errors. However, there may be uncorrected grammatical, spelling, and recognitions errors present. Subjective Date/time seen: 05/04/25 11:31 Interval history: Reason for consult: Hypoglycemia Yobani Escamilla is a 89 year old male with past medical history of insulin- dependent diabetes, allergic rhinitis, urinary retention, dyslipidemia, osteoarthritis, essential hypertension, dementia, multifocal atrial tachycardia presented the ED on 05/01/2025 with complains of hypoglycemia. Patient was recently discharged home from [facility] to home 2 days prior to admission. Home health had come to his place and found his blood sugars to be low in the 50s and was given D50 in the field. Patient was brought to the ER where his blood pressures were low with systolic in the 80s improved with IV fluids. WBC count 6.8, hemoglobin 12.3, BUN 24, creatinine 1.61, UA had trace leukocyte esterase with no bacteria. He lives by himself and his grandchildren were [address] from [facility] and check on him. Patient being seen for hospitalist group: 05/04/2025 Patient seen and examined in the ICU this morning, patient has been off D10 infusion since yesterday, 05/03. Blood sugars have been normal Denies any chest pain, shortness of breath, abdominal pain, nausea vomiting. Hemodynamically stable, adequate urine output, afebrile. On room air with adequate O2 sat Review of Systems Review of Systems: All systems reviewed & are unremarkable except as noted in HPI and below Exam Narrative: General: Pleasant gentleman in no acute distress HEENT:? Pupils equal and reactive, sclerae is clear Neck:? Supple Respiratory:? Clear to auscultation bilaterally, no wheezing, adequate air entry Cardiac:? S1-S2 normal, regular rate and rhythm Abdomen:? Soft, nontender, nondistended, normoactive bowels Extremities:? No edema, palpable pedal pulses Neuro:? Patient is awake, alert, oriented x1 to place only. He is able to follow simple commands and answers questions Skin:? No lesions noted Psych:? Normal mentation and affect Objective Data Vital Signs Vital Signs: Vital Signs - 24 hr 05/03/25 12:00 05/03/25 12:00 05/03/25 12:00 Temperature 97.8 F Pulse Rate 77 77 77 Respiratory Rate 17 17 Blood Pressure 150/90 H Pulse Oximetry 94 94 Oxygen Delivery Room Air 05/03/25 12:00 05/03/25 15:04 05/03/25 16:00 Temperature 97.8 F 97.7 F Pulse Rate 71 75 Respiratory Rate 22 H 18 Blood Pressure 150/90 H 109/99 H Pulse Oximetry 98 97 Oxygen Delivery Room Air 05/03/25 20:00 05/03/25 20:08 05/04/25 00:00 Temperature 98.6 F Pulse Rate 71 Respiratory Rate 16 Blood Pressure 125/87 Pulse Oximetry 96 96 Oxygen Delivery Room Air Room Air 05/04/25 08:00 05/04/25 08:00 Temperature 97.7 F Pulse Rate 71 115 H Respiratory Rate 16 Blood Pressure 111/64 Pulse Oximetry 96 90 Oxygen Delivery Room Air Intake/Output Intake/Output: Intake & Output 05/01/25 05/02/25 05/03/25 05/04/25 23:59 23:59 23:59 23:59 Intake Total 1670 2284.2 1980 440 Output Total 50 2100 2150 900 Balance 1620 184.2 -520 -621 Meds/Results Medications: Active Medications Generic Name Dose Route Start Last Admin Trade Name [place] PRN Reason Stop Dose Admin Acetaminophen 650 mg 05/01/25 21:06 Acetaminophen 325 Mg Tablet PO Q4H PRN Mild Pain (1-3) or Fever Dextrose 12.5 gm 05/01/25 14:30 05/01/25 19:24 Dextrose 50% 25 Gm/50 Ml Syringe IV PUSH 12.5 gm PRN PRN Administration Hypoglycemia Protocol Ferrous Sulfate 325 mg 05/04/25 09:00 Ferrous Sulfate [address] PO 06/04/25 08:59 DAILY HOANG Glucagon 1 mg 05/01/25 14:30 Glucagon For Inj 1 Mg Vial IM PRN PRN Hypoglycemia Protocol Glucose 15 gm 05/01/25 14:30 Glucose Oral Gel 15 Gm Of Glucse In 37.5 Gm Tube PO PRN PRN Hypoglycemia Protocol Hydralazine HCl 10 mg 05/02/25 12:46 Hydralazine Hcl 20 Mg/Ml Vial IV PUSH Q4H PRN Blood Pressure - High Dextrose 1,000 mls @ 100 mls/hr 05/01/25 14:30 Dextrose 5% 1,000 Ml IVPB PRN PRN Hypoglycemia Protocol Lisinopril 10 mg 05/03/25 09:35 05/04/25 09:04 Lisinopril 10 Mg Tablet PO 10 mg DAILY HOANG Administration Sodium Zirconium Cyclosilicate 10 gm 05/04/25 09:00 05/04/25 09:04 Sodium Zirconium Cyclosilicate 10 Gm Powd.Pack PO 05/04/25 17:01 10 gm BID HOANG Administration Tamsulosin HCl 0.4 mg 05/03/25 09:35 05/04/25 09:04 Tamsulosin Hcl 0.4 Mg Capsule PO 0.4 mg QAM HOANG Administration Radiology Results: ITS Impressions Chest X-Ray 05/01/25 20:55 IMPRESSION: No acute cardiopulmonary process. Labs Labs: Laboratory Results - last 24 hr 05/03/25 05/03/25 05/03/25 13:55 16:42 21:18 WBC RBC Hgb Hct MCV MCH MCHC RDW Plt Count MPV Immature Gran % (Auto) Neut % (Auto) Lymph % (Auto) [place] % (Auto) Eos % (Auto) Baso % (Auto) Lymph # (Auto) [place] # (Auto) Eos # (Auto) Baso # (Auto) Abs Immat Gran (auto) Absolute Neuts (auto) Absolute Nucleated RBC Nucleated RBC % PT INR APTT Sodium Potassium Chloride Carbon Dioxide Anion Gap BUN Creatinine Estim Creat Clear Calc Estimated GFR Glucose POC Capillary Glucose 113 H 135 H 164 H Calcium Phosphorus Magnesium Total Bilirubin AST ALT Alkaline Phosphatase Total Protein Albumin TSH 05/04/25 05/04/25 05/04/25 01:07 03:18 07:42 WBC 5.3 RBC 3.87 L Hgb 11.9 L Hct 36.4 L MCV 94.1 MCH 30.7 MCHC 32.7 RDW 14.6 H Plt Count 183 MPV 10.7 H Immature Gran % (Auto) 0.4 Neut % (Auto) 67.1 Lymph % (Auto) 13.2 L [place] % (Auto) 13.3 H Eos % (Auto) 5.6 H Baso % (Auto) 0.4 Lymph # (Auto) 0.70 L [place] # (Auto) 0.7 H Eos # (Auto) 0.3 Baso # (Auto) 0.0 Abs Immat Gran (auto) 0.02 Absolute Neuts (auto) 3.6 Absolute Nucleated RBC 0.000 Nucleated RBC % 0.0 PT 13.7 INR 1.0 APTT 26.7 Sodium 134 L Potassium 5.2 H Chloride 104 Carbon Dioxide 26 Anion Gap 4 BUN 27 H Creatinine 1.01 Estim Creat Clear Calc 39 Estimated GFR > 60 Glucose 126 H POC Capillary Glucose 131 H 126 H Calcium 9.0 Phosphorus 3.2 Magnesium 1.6 Total Bilirubin 0.5 AST 21 ALT 12 Alkaline Phosphatase 59 Total Protein 5.8 L Albumin 3.1 L TSH 2.810 Quality VTE Prophylaxis VTE prophylaxis: pharmacologic ordered
--- NOTE | 2025-05-04 13:18 | P.DS_ITS ---
DS: Admitting Diagnosis Discharge Date 05/04/2025 Admitting Diagnosis Patient was admitted with hypoglycemia, failure to thrive, acute kidney injury DS: Discharge Diagnosis Discharge Diagnosis (1) Hypoglycemia: Code(s): E16.2 - Hypoglycemia, unspecified Status: Acute Assessment and Plan: Patient was recently discharged from [facility] on 04/12/2025, he was admitted for hypoglycemia, acute kidney injury. -patient down to rehab and was discharged from [facility] 2 days prior to this admission at the hospital -05/01/2025 patient was at home and was evaluated by home health nurse and was found to be hypoglycemic blood sugars in the 50s. EMS gave an amp of D50 and brought him to the ER. Patient received IV fluids, was started on D5 half 1/2 normal saline her, glucagon was also given in the ER, despite which his blood sugars remain low and was transferred to the ICU. -patient is on metformin 1000 mg b.i.d. at home, unknown a feet took extra medications -in the ICU blood sugars remained low so D5 1/2 NS was switched to D10 infusion -05/03: D10 was discontinued -appetite has been improving -05/04: blood sugars have been normal (2) FTT (failure to thrive) in adult: Code(s): R62.7 - Adult failure to thrive Status: Acute Assessment and Plan: Patient states he barely eats anything at home, sometimes half a slice of pizza which his grandchildren leaving the refrigerator -dietitian following the patient, -continue regular diet and dietary supplements -care coordination is also following the patient (3) KATHARINA (acute kidney injury): Code(s): N17.9 - Acute kidney failure, unspecified Status: Acute Assessment and Plan: Acute kidney injury likely related to hypovolemia, continued use of his home medications lisinopril, metformin -creatinine at admission was 1.61 (baseline creatinine is 0.9-1.2) -patient has been adequately fluid-resuscitated, -continue to monitor urine output, renal function electrolytes -avoid nephrotoxic medications -05/04: creatinine has come down to 1.01 this morning which is normal (4) Type 2 diabetes mellitus: Qualifiers: Diabetes mellitus assisted insulin use: with long chain quiller tender use Diabetes mellitus complication status: with hypoglycemia Diabetes mellitus complication detail: without coma Qualified Code(s): E11.649 - Type 2 diabetes mellitus with hypoglycemia without coma; Z79.4 - terminal make up operator (current) use of insulin Code(s): E11.9 - Type 2 diabetes mellitus without complications Status: Chronic Assessment and Plan: Patient has a history of diabetes, on metformin 1000 mg b.i.d. -last hemoglobin A1c was 6.0 on 04/10/2025 -according to guidelines given his age and his hemoglobin A1c , patient's metfo rmin is recommended to be discontinued to prevent hypoglycemic events as this is his 2nd admission for hypoglycemia -patient is > 70, frail with dementia can have the hemoglobin A1c up to 8.5 according to guidelines (this patient is 89 years old) Patient has had 2 episodes of hypoglycemia in the last 4 weeks, will avoid metformin for now, continue monitoring blood sugars, if they remain elevated, will have it checked by primary care doctor before starting any metformin Plan DVT prophylaxis: Heparin SQ Stress ulcer prophylaxis: Not indicated Nutrition: Regular diet with dietary supplement Appreciate care coordination evaluation, patient will be transferred to [facility] ([facility] nursing [facility] and rehab Code Status: Full code Due to a high probability of clinically significant, life threatening deterioration, the patient required my highest level of preparedness to intervene emergently and I personally spent this critical care time directly and personally managing the patient. This critical care time included obtaining a history; examining the patient; pulse oximetry; ordering and review of studies; arranging urgent treatment with development of a management plan; evaluation of patient's response to treatment; frequent reassessment; and discussions with other providers. It was exclusive of separately billable procedures and treating other patients and teaching time. Please see Assessment and Plan section and the rest of the note for further information on patient assessment and treatment This dictation may have been done utilizing a voice recognition system. Attempts have been made to correct errors. However, there may be uncorrected grammatical, spelling, and recognitions errors present. DS: Summary Hospital Course Reason for hospitalization: Hypoglycemia,, weakness Hospital Course: Yobani Escamilla is a 89 year old male with past medical history of insulin- dependent diabetes, allergic rhinitis, urinary retention, dyslipidemia, osteoarthritis, essential hypertension, dementia, multifocal atrial tachycardia presented the ED on 05/01/2025 with complains of hypoglycemia. Patient was recently discharged home from [facility] to home 2 days prior to admission. Home health had come to his place and found his blood sugars to be low in the 50s and was given D50 in the field. Patient was brought to the ER where his blood pressures were low with systolic in the 80s improved with IV fluids. WBC count 6.8, hemoglobin 12.3, BUN 24, creatinine 1.61, UA had trace leukocyte esterase with no bacteria. He lives by himself and his grandchildren were [address] from [facility] and check on him. He received 1 L IV fluid bolus in the ER, started right in D5 half NS at 100 mL/hour, also started on stress of trying sewn and transferred to the ICU for further management Patient was started on D5 half normal saline in the ER, was increased to D10 infusion in the ICU. Over the course of stay, patient's blood sugar improved, the D10 infusion was discontinued which is most likely related to the metformin usage that he is taking at home. D10 was discontinued on 05/03/2025 05/04/2025: Blood sugars have remained stable, patient feels much better. Participating with physical therapy and occupational therapy Patient will be discharged to [facility] on 05/04/2025 Status at Discharge Cognitive/behavioral status at discharge: Stable Overall status at discharge: patient is back to baseline Time Spent with Patient Time attestation: Total time spent providing and/or coordinating discharge services: Time spent: Less than 30 minutes Exam Narrative: General: Pleasant gentleman in no acute distress HEENT:? Pupils equal and reactive, sclerae is clear Neck:? Supple Respiratory:? Clear to auscultation bilaterally, no wheezing, adequate air entry Cardiac:? S1-S2 normal, regular rate and rhythm Abdomen:? Soft, nontender, nondistended, normoactive bowels Extremities:? No edema, palpable pedal pulses Neuro:? Patient is awake, alert, oriented x1 to place only. He is able to follow simple commands and answers questions Skin:? No lesions noted Psych:? Normal mentation and affect DS: Data Data Completed and Pending Labs on day of discharge: Labs from last 24 hours 05/04/25 05/04/25 05/04/25 07:42 03:18 01:07 WBC 5.3 RBC 3.87 L Hgb 11.9 L Hct 36.4 L MCV 94.1 MCH 30.7 MCHC 32.7 RDW 14.6 H Plt Count 183 MPV 10.7 H Immature Gran % (Auto) 0.4 Neut % (Auto) 67.1 Lymph % (Auto) 13.2 L [place] % (Auto) 13.3 H Eos % (Auto) 5.6 H Baso % (Auto) 0.4 Lymph # (Auto) 0.70 L [place] # (Auto) 0.7 H Eos # (Auto) 0.3 Baso # (Auto) 0.0 Abs Immat Gran (auto) 0.02 Absolute Neuts (auto) 3.6 Absolute Nucleated RBC 0.000 Nucleated RBC % 0.0 PT 13.7 INR 1.0 APTT 26.7 Sodium 134 L Potassium 5.2 H Chloride 104 Carbon Dioxide 26 Anion Gap 4 BUN 27 H Creatinine 1.01 Estim Creat Clear Calc 39 Estimated GFR > 60 Glucose 126 H POC Capillary Glucose 126 H 131 H Calcium 9.0 Phosphorus 3.2 Magnesium 1.6 Total Bilirubin 0.5 AST 21 ALT 12 Alkaline Phosphatase 59 Total Protein 5.8 L Albumin 3.1 L TSH 2.810 05/03/25 05/03/25 05/03/25 21:18 16:42 13:55 WBC RBC Hgb Hct MCV MCH MCHC RDW Plt Count MPV Immature Gran % (Auto) Neut % (Auto) Lymph % (Auto) [place] % (Auto) Eos % (Auto) Baso % (Auto) Lymph # (Auto) [place] # (Auto) Eos # (Auto) Baso # (Auto) Abs Immat Gran (auto) Absolute Neuts (auto) Absolute Nucleated RBC Nucleated RBC % PT INR APTT Sodium Potassium Chloride Carbon Dioxide Anion Gap BUN Creatinine Estim Creat Clear Calc Estimated GFR Glucose POC Capillary Glucose 164 H 135 H 113 H Calcium Phosphorus Magnesium Total Bilirubin AST ALT Alkaline Phosphatase Total Protein Albumin TSH Preliminary micro results at discharge 05/01/25 20:26 Blood Culture - Preliminary Blood Discharge Plan Discharge Attending physician on discharge: Ashley Pina Consulting providers: Ashley Pina Discharging Clinician: Ashley Pina Anticipated Discharge Date/Time: 05/04/25 13:11 Patient Disposition: SNF Activity: may shower Diet: regular and other - see discharge instructions Discharge Instructions: DISCHARGE DISPOSITION: TO [facility] TAKE MEDICATIONS PRESCRIBED MONITOR BLOOD PRESSURES AND BLOOD SUGARS TAKE CAUTION WHILE STANDING, RISING, OR MOVING CHANGE POSITIONS SLOWLY TAKING A BREAK BETWEEN EACH POSITION CHANGE IF YOU STANDING FEEL DIZZY SIT BACK DOWN AND TAKE A BREAK ENCOURAGED TO CONTINUE WITH YEARLY VACCINATIONS RETURN TO THE EMERGENCY DEPARTMENT IF HE DEVELOPED SUDDEN SHORTNESS OF BREATH, CHEST PAIN, NAUSEA, VOMITING, UPSET STOMACH OR INTRACTABLE DIARRHEA RETURN TO THE EMERGENCY DEPARTMENT IF YOU DEVELOP FEVER GREATER THAN 101.5 FOLLOW-UP WITH THE PRIMARY CARE PHYSICIAN WITHIN 1-2 WEEKS THANK YOU FOR [facility] FOR YOUR HEALTHCARE NEEDS PATIENT ALSO TAKES DIETARY SUPPLEMENTS -GLUCERNA Patient Language: Ethiopian Stand Alone Forms: General Discharge Information, Fpc Discharge Follow-up/Referrals: Catracho,Eleuterio Hernandes MD [Primary Care Provider] - 1 Week Discharge Medications: Continued aspirin [Adult Low Dose Aspirin] 81 mg tablet,delayed release (DR/EC) 81 mg PO DAILY ferrous sulfate [FerrouSul] 325 mg (65 mg iron) tablet 325 mg PO DAILY lisinopril 10 mg tablet 10 mg PO DAILY Qty: 90 1RF (DME) blood-glucose meter [Accu-Chek Guide Me Glucose Mtr] Misc MISCELLANEOUS (DME) Accu-Chek Guide test strips Strip MISCELLANEOUS (DME) lancets [Accu-Chek Softclix Lancets] Misc MISCELLANEOUS acetaminophen 325 mg Tablet 650 mg PO Q4H PRN (Reason: Mild Pain (1-3) Or Fever) Qty: 30 0RF tamsulosin 0.4 mg Capsule 0.4 mg PO QAM Qty: 30 0RF Discontinued metformin 1,000 mg tablet 1,000 mg PO BID insulin aspart U-100 [Novolog U-100 Insulin aspart] 100 unit/mL Solution 2 - 5 unit subcut TIDWM Qty: 10 0RF Protocol: Insulin Corrective Low-Dose Condition: glucose < 70 mg/dl Dose/Route: Follow Hypoglycemia Order Condition: glucose 70-200 mg/dl Dose/Route: No additional insulin Condition: glucose 201-250 mg/dl Dose/Route: 2 units sub-Q Condition: glucose 251-300 mg/dl Dose/Route: 3 units sub-Q Condition: glucose 301-350 mg/dl Dose/Route: 4 units sub-Q Condition: glucose 351-400 mg/dl Dose/Route: 5 units sub-Q Condition: glucose > 400 mg/dl Dose/Route: Call Protocol Text: *No Correction Dose at Bedtime* Date of admission: 05/01/25 16:36 Primary Care Provider: Catracho,Eleuterio Hernandes Admitting Provider: Miguel A Kumar Attending physician on admission: Miguel A Kumar Condition: Stable Care Plan Goals: CONTINUE TO MONITOR BLOOD SUGARS Quality VTE Prophylaxis VTE prophylaxis: pharmacologic ordered
--- NOTE | 2025-05-04 15:53 | PC.NURSE ---
Report called to Sally neumann [facility]. All questions answered. Grandson at bedside to transport patient. Packet given to michelle.
--- OUTSIDE RECORDS SUMMARY | 2025-05-05 07:22 | XMS_ITS | Continuity of Care Document ---
Author Organization [facility] Address [address] [place] [address] [address] [place] [address] Phone Care Team Providers Care Insurance Special Agent Name Role Phone Linwood Sagastume Unavailable Unavailable Procedures Procedure Date Eye Exam & Treatment Refraction Eye Exam & Treatment Refraction Advance Directives Directive Yes / No Effective Date File Name No Information Encounters Encounter Description Practice Location Reason(s) For Visit Diagnoses Date Provider Providers Copied on Encounter [facility], [address] [place] [address] [address], [place], [place], [id number], tel:[phone] [facility] No Information 4-201 0 Mitesh Palumbo. [address] , [address], [place], [place], [facility], [place]. tel:[phone] [facility], [address] [place] [address] [address], [place], [place], [id number], tel:[phone] [facility] No Information 9-200 9 Mitesh Palumbo. [address] , [address], [place], [address], [place]. tel:[phone] Family History Family Member Type Diagnosis Age At Onset No Information Payers Payer name Insurance type Covered libertarian ID Authorkeyaa mikaelamichelle(s) [employer] CI [id number] Social History Type Description Quantity Date Captured [...]
--- OUTSIDE RECORDS SUMMARY | 2025-05-05 07:22 | XMS_ITS | Data Portability ---
Author Organization [place] - [facility] [employer], Main Office Address [address] [place] [address] Assessment No assessment recorded. Plan of Treatment Reminders Order Date Submit Date Provider Last Modified By Organization Details Last Modified Time Details Appointments None recorded . Lab HbA1c (hemoglo bin A1c), blood 024 01/12/20 24 [email or web address] [facility], [address] [place], [address], 4 15:47:53 lipid panel, serum 024 01/12/20 24 [email or web address] [facility], [address] [place], [address], 4 15:47:53 CMP, serum or plasma 024 01/12/20 24 [facility], [address] [place], [address], 4 15:47:53 CBC w/ auto diff 024 01/12/20 24 [email or web address] [facility], [address] [place], [address], 4 15:47:53 HbA1c (hemoglo bin A1c), blood 023 09/15/20 23 [facility] Out[facility], [address] [place], [address], 3 15:02:34 microalb umin/cre atinine, mass ratio, urine 023 09/15/20 23 [facility], [address] [place], [address], 3 15:02:31 lipid panel, serum 023 09/15/20 23 [facility], [address] [place], [address], 3 15:02:30 CMP, serum or plasma 023 09/15/20 23 [facility], [address] [place], [address], 3 15:02:32 CBC w/ auto diff 023 09/15/20 23 [facility], [address] [place], [address], 3 15:02:33 PSA, serum or plasma 023 01/07/[id number], [address] [place], [address], 3 15:26:29 HbA1c (hemoglo bin A1c), blood 023 01/07/[email or web address] [place] [address], [address] [place], [address], 3 15:26:28 microalb umin/cre atinine, mass ratio, urine 023 01/07/[id number] [place] [address], [address] [place], [address], 3 15:26:29 lipid panel, serum 023 01/07/[email or web address], [address] [place], [address], 3 15:26:28 CMP, serum or plasma 023 01/07/[email or web address] [place] [address], [address] [place], [address], 3 15:26:28 CBC w/ auto diff 023 01/07/20 23 [facility], [address] [place], [address], 3 15:26:28 Referral None recorded . Procedures None recorded . Surgeries None recorded . Imaging None recorded . Medication Orders None recorded . Patient TargetsNo targets recorded. Patient Instructions Encounter Date Encounter Id Patient Instructions Last Modified By Organization Details Last Modified Time 01/06/2023 [id number] Follow-up hypertension -hyperlipidemia - type 2 diabetes -history of malignant neoplasm of prostate all clinically stable. Will continue with current medication check blood work in the form of CBC, CMP, lipid, hemoglobin A1c, microalbumin and PSA. Continue on current Rx follow-up in four months [email or web address] Not available 01/06/2023 15:16:39 05/19/2023 [id number] Follow-up hypertension-hyper lipidemia - type 2 diabetes [...] and recheck blood work at that time. [email or web address] Not available 05/19/2023 16:07:28 09/15/2023 [id number] Essential hypertension, hyperlipidemia and type 2 diabetes [...] with voice recognition software. Occasional wrong-word or [id number] substitutions may have occurred due to the inherent limitations of voice recognition software. Read the chart carefully and recognize, using context, where substitutions have occurred. [email or web address] Not available 09/15/2023 15:51:16 01/12/2024 [id number] Follow-up hypertension, hyperlipidemia, type 2 diabetes and [...] with voice recognition software. Occasional wrong-word or [id number] substitutions may have occurred due to the inherent limitations of voice recognition software. Read the chart carefully and recognize, using context, where substitutions have occurred. [email or web address] Not available 01/12/2024 15:56:29 Reason for Referral None Reported. Results Created Date Observation Date Name Description Value Unit Range Abnormal Flag Note LastModifiedBy Organization Detail LastModifiedTime 02/11/2002/11/2023 LIPID PANEL , [place] cholesterol, total 156 mg/dL <200 normal Not Available [address] [address] [place], [address], 02/11/2023 12:53:22 02/11/20 23 02/11/2023 LIPID PANEL , [place] HDL cholesterol 57 mg/dL > or = 40 normal Not Available [facility] [address] [address] [place], [address], 02/11/2023 12:53:22 02/11/20 23 02/11/2023 LIPID PANEL , [place] triglyceride s 108 mg/dL <150 normal Not Available [facility] [address] [address] [place], [address], 02/11/2023 12:53:22 02/11/20 23 02/11/2023 LIPID PANEL [...] lated using the Deya n-Hop kins calcu latmelinda n, which is a valid ated novel metho d nichole menard r elmira acy than the Fried latosha equat ion in the estim ation of LDL-C . Deya valdez SS et al. JAIRO. 2013; 310(1 9): 2061- 2068 (http ://ed ucati on.Jose G valle Expert360. com/f aq/FA Q164) Not Available [address] [address] [address] , [place], [address], 02/11/2023 12:53:22 02/11/20 23 02/11/2023 LIPID PANEL , [place]A chol/HDLC ratio 2.7 (calc ) <5.0 normal Not Available [address] [address], [place], [address], 02/11/2023 12:53:22 02/11/20 23 02/11/2023 LIPID PANEL , [place] non HDL cholesterol 99 mg/dL _(alexx c) <130 normal For patie nts with diabe vivi plus 1 major ASCVD risk facto r, treat ing to a non-H DL-C goal of <100 mg/dL (LDL- C of <70 mg/dL ) is consi dered a thera peramy c optio n. Not Available [address] [address] [place], [address], 02/11/2023 12:53:22 02/11/20 23 02/11/2023 ALBUM IN, RANDO M URINE W/CRE ATINI NE creatinine, random urine 72 mg/dL 20-320 normal Not Available [address] [address] [address], [place], [address], 02/11/2023 12:53:23 02/11/20 23 02/11/2023 ALBUM IN, RANDO M URINE W/CRE ATINI NE albumin, urine 1.8 mg/dL see note: normal Refer ence Range : Refer ence Range Not estab lishe d Not Available [address] [address] [place], [address], 02/11/2023 12:53:23 02/11/20 23 02/11/2023 ALBUM IN, [...] a diagn ostic categ ory. Not Available [address], [address], 02/11/2023 12:53:23 02/11/20 23 02/11/2023 COMPR EHENS TYRA METAB OLIC PANEL glucose 150 mg/dL 65-99 high Fasti ng refer ence inter komal For someo ne witho ut known diabe vivi, a gluco se value >125 mg/dL indic ates that they may have diabe vivi and this shoul d be confi rmed with a follo w-up test. Not Available [address], [address], 02/11/2023 12:53:24 02/11/2002/11/2023 COMPR EHENS TYRA METAB OLIC PANEL urea nitrogen (BUN) 12 mg/dL 7-25 normal Not Available [address], [address], 02/11/2023 12:53:24 02/11/20 23 02/11/2023 COMPR EHENS TYRA METAB OLIC PANEL creatinine 0.96 mg/dL 0.70-1 .22 normal Not Available [facility] [address], [address], 02/11/2023 12:53:24 02/11/20 23 02/11/2023 COMPR EHENS TYRA METAB OLIC PANEL eGFR 77 mL/mi n/1.7 3m2 > or = 60 normal The eGFR is based on the CKD-E PI 2020 equat ion. To calcu late the new eGFR from a previ ous Creat inine or Cysta tin C resul t, go to https ://abdiel chiu.zhen reidy.o parth/pr ofess ional s/ kdoqi /gfr% 5Fcal culat or Not Available [address] [address] [place], [address], 02/11/2023 12:53:24 02/11/20 23 02/11/2023 COMPR EHENS TYRA METAB OLIC PANEL BUN/creatini ne ratio NOT APPLIC ABLE (calc ) 6-22 Not Available [address], [address], 02/11/2023 12:53:24 02/11/20 23 02/11/2023 COMPR EHENS TYRA METAB OLIC PANEL sodium 142 mmol/ L 135-14 6 normal Not Available [address], [address], 02/11/2023 12:53:24 02/11/20 23 02/11/2023 COMPR EHENS TYRA METAB OLIC PANEL potassium 4.3 mmol/ L 3.5-5. 3 normal Not Available [facility] [address] [address] [place], [address], 02/11/2023 12:53:24 02/11/20 23 02/11/2023 COMPR EHENS TYRA METAB OLIC PANEL chloride 105 mmol/ L 98-110 normal Not Available [facility] [address], [address], 02/11/2023 12:53:24 02/11/20 23 02/11/2023 COMPR EHENS TYRA METAB OLIC PANEL carbon dioxide 28 mmol/ L 20-32 normal Not Available [facility] [address], [address], 02/11/2023 12:53:24 02/11/20 23 02/11/2023 COMPR EHENS TYRA METAB OLIC PANEL calcium 9.1 mg/dL 8.6-10 .3 normal Not Available [address], [address], 02/11/2023 12:53:24 02/11/20 23 02/11/2023 COMPR EHENS TYRA METAB OLIC PANEL protein, total 6.9 g/dL 6.1-8. 1 normal Not Available [address], [address], 02/11/2023 12:53:24 02/11/20 23 02/11/2023 COMPR EHENS TYRA METAB OLIC PANEL albumin 3.9 g/dL 3.6-5. 1 normal Not Available [address], [address], 02/11/2023 12:53:24 02/11/20 23 02/11/2023 COMPR EHENS TYRA METAB OLIC PANEL globulin 3.0 g/dL_ (calc ) 1.9-3. 7 normal Not Available [address], [address], 02/11/2023 12:53:24 02/11/20 23 02/11/2023 COMPR EHENS TYRA METAB OLIC PANEL albumin/glob ulin ratio 1.3 (calc ) 1.0-2. 5 normal Not Available [address], [address], 02/11/2023 12:53:24 02/11/20 23 02/11/2023 COMPR EHENS TYRA METAB OLIC PANEL bilirubin, total 0.6 mg/dL 0.2-1. 2 normal Not Available [address], [address], 02/11/2023 12:53:24 02/11/20 23 02/11/2023 COMPR EHENS TYRA METAB OLIC PANEL alkaline phosphatase 75 U/L 35-144 normal Not Available [address], [address], 02/11/2023 12:53:24 02/11/20 23 02/11/2023 COMPR EHENS TYRA METAB OLIC PANEL AST 12 U/L 10-35 normal Not Available [address], [address], 02/11/2023 12:53:24 02/11/20 23 02/11/2023 COMPR EHENS TYRA METAB OLIC PANEL ALT 9 U/L 9-46 normal Not Available [address], [address], 02/11/2023 12:53:24 02/11/20 23 02/11/2023 CBC (INCL UDES DIFF/ PLT) white blood cell count 7.9 thous and/u L 3.8-10 .8 normal Not Available [address], [address], 02/11/2023 12:53:24 02/11/20 23 02/11/2023 CBC (INCL UDES DIFF/ PLT) red blood cell count 4.29 geraldo on/uL 4.20-5 .80 normal Not Available [address], [address], 02/11/2023 12:53:24 02/11/20 23 02/11/2023 CBC (INCL UDES DIFF/ PLT) hemoglobin 13.5 g/dL 13.2-1 7.1 normal Not Available [address], [address], 02/11/2023 12:53:24 02/11/20 23 02/11/2023 CBC (INCL UDES DIFF/ PLT) hematocrit 40.7 % 38.5-5 0.0 normal Not Available [address], [address], 02/11/2023 12:53:24 02/11/2002/11/2023 CBC (INCL UDES DIFF/ PLT) MCV 94.9 fL 80.0-1 00.0 normal Not Available [address], [address], 02/11/2023 12:53:24 02/11/20 23 02/11/2023 CBC (INCL UDES DIFF/ PLT) MCH 31.5 pg 27.0-3 3.0 normal Not Available [address], [address], 02/11/2023 12:53:24 02/11/20 23 02/11/2023 CBC (INCL UDES DIFF/ PLT) MCHC 33.2 g/dL 32.0-3 6.0 normal Not Available [address], [address], 02/11/2023 12:53:24 02/11/2002/11/2023 CBC (INCL UDES DIFF/ PLT) RDW 13.7 % 11.0-1 5.0 normal Not Available [address], [address], 02/11/2023 12:53:24 02/11/2002/11/2023 CBC (INCL UDES DIFF/ PLT) platelet count 201 thous and/u L 140-40 0 normal Not Available [address], [address], 02/11/2023 12:53:24 02/11/20 23 02/11/2023 CBC (INCL UDES DIFF/ PLT) MPV 11.0 fL 7.5-12 .5 normal Not Available [address], [address], 02/11/2023 12:53:24 02/11/20 23 02/11/2023 CBC (INCL UDES DIFF/ PLT) absolute neutrophils 6320 cells /uL 1500-7 800 normal Not Available [address], [address], 02/11/2023 12:53:24 02/11/20 23 02/11/2023 CBC (INCL UDES DIFF/ PLT) absolute lymphocytes 837 cells /uL 850-39 00 low Not Available [address], [address], 02/11/2023 12:53:24 02/11/20 23 02/11/2023 CBC (INCL UDES DIFF/ PLT) absolute monocytes 561 cells /uL 200-95 0 normal Not Available [address], [address], 02/11/2023 12:53:24 02/11/20 23 02/11/2023 CBC (INCL UDES DIFF/ PLT) absolute eosinophils 158 cells /uL 15-500 normal Not Available [address], [address], 02/11/2023 12:53:24 02/11/20 23 02/11/2023 CBC (INCL UDES DIFF/ PLT) absolute basophils 24 cells /uL 0-200 normal Not Available [address], [address], 02/11/2023 12:53:24 02/11/20 23 02/11/2023 CBC (INCL UDES DIFF/ PLT) neutrophils 80 % normal Not Available [facility] [address], [address], 02/11/2023 12:53:24 02/11/20 23 02/11/2023 CBC (INCL UDES DIFF/ PLT) lymphocytes 10.6 % normal Not Available [address], [address], 02/11/2023 12:53:24 02/11/20 23 02/11/2023 CBC (INCL UDES DIFF/ PLT) monocytes 7.1 % normal Not Available [address], [address], 02/11/2023 12:53:24 02/11/20 23 02/11/2023 CBC (INCL UDES DIFF/ PLT) eosinophils 2.0 % normal Not Available [address], [address], 02/11/2023 12:53:24 02/11/20 23 02/11/2023 CBC (INCL UDES DIFF/ PLT) basophils 0.3 % normal Not Available [address], [address], 02/11/2023 12:53:24 02/11/2002/11/2023 PSA, TOTAL PSA, total [...] This test was perfo rmed using the [employer] chemi lumin escen t metho d. Value s obtai johnathon from diffe rent assay metho ds canno t be used inter dowling eably . PSA level s, regar dless of value , shoul d not be inter prete d as absol [facility] evide nce of the prese nce or absen ce of disea se. Not Available [address], [address], 02/11/2023 12:53:25 02/11/20 23 02/11/2023 HEMOG LOBIN [...] diabe vivi for child wm. Not Available [address] [address] [place], [address], 02/11/2023 12:53:26 09/16/20 23 09/17/2023 LIPID PANEL , [place] cholesterol, total 169 mg/dL <200 normal Not Available [facility] [address] [address] [place], [address], 09/17/2023 15:02:30 09/16/20 23 09/17/2023 LIPID PANEL , [place] HDL cholesterol 56 mg/dL > or = 40 normal Not Available [facility] [address] [address] [place], [address], 09/17/2023 15:02:30 09/16/20 23 09/17/2023 LIPID PANEL , [place] triglyceride s 81 mg/dL <150 normal Not Available [facility] [address] [address] [place], [address], 09/17/2023 15:02:30 09/16/20 23 09/17/2023 LIPID PANEL , [place] LDL-choleste rol 96 mg/dL _(alexx c) normal Refer ence range : <100 Jennifer able range <100 mg/dL for prima ry preve ntion ; <70 mg/dL for patie nts with CHD or diabe tic patie nts with > or = 2 CHD risk facto rs. LDL-C is now calcu lated using the [facility] simeon valdez, which is a valid ated novel alfred bermudez accur acy than the Fried latosha equat ion in the estim ation of LDL-C . Deya valdez SS et al. JAIRO. 2013; 310(1 9): 2061- 2068 (http ://ed ucati on.Qu estDi [facility]. com/f aq/FA Q164) Not Available [address] [address] [place], [address], 09/17/2023 15:02:30 09/16/20 23 09/17/2023 LIPID PANEL , [place] chol/HDLC ratio 3.0 (calc ) <5.0 normal Not Available [address] [address] [place], [address], 09/17/2023 15:02:30 09/16/20 23 09/17/2023 LIPID PANEL , [place] non HDL cholesterol 113 mg/dL _(alexx c) <130 normal For patie nts with diabe vivi plus 1 major ASCVD risk facto r, treat ing to a non-H DL-C goal of <100 mg/dL (LDL- C of <70 mg/dL ) is consi elva a ashely bob optio n. Not Available [address] [address] [facility] [place], [address], 09/17/2023 15:02:30 09/16/20 23 09/17/2023 ALBUM IN, RANDO M URINE W/CRE ATINI NE creatinine, random urine 122 mg/dL 20-320 normal Not Available [address] [address] [place], [address], 09/17/2023 15:02:31 09/16/20 23 09/17/2023 ALBUM IN, RANDO M URINE W/CRE ATINI NE albumin, urine 0.9 mg/dL see note: normal Refer ence Range : Refer ence Range Not estab lishe d Not Available [facility] [address] [address] [place], [address], 09/17/2023 15:02:31 09/16/20 23 09/17/2023 ALBUM IN, [...] a diagn ostic categ ory. Not Available [facility] [address] [address] [address], [place], [address], 09/17/2023 15:02:31 09/16/20 23 09/17/2023 COMPR EHENS TYRA METAB OLIC PANEL glucose 139 mg/dL 65-99 high Fasti ng refer ence inter komal For someo ne witho ut known diabe vivi, a gluco se value >125 mg/dL indic ates that they may have diabe vivi and this shoul d be confi rmed with a follo w-up test. Not Available [facility] [address] [address] [address], [place], [address], 09/17/2023 15:02:32 09/16/20 23 09/17/2023 COMPR EHENS TYRA METAB OLIC PANEL urea nitrogen (BUN) 24 mg/dL 7-25 normal Not Available [facility] [address] [address] [place], [address], 09/17/2023 15:02:32 09/16/20 23 09/17/2023 COMPR EHENS TYRA METAB OLIC PANEL creatinine 1.08 mg/dL 0.70-1 .22 normal Not Available [address], [address], 09/17/2023 15:02:32 09/16/20 23 09/17/2023 COMPR EHENS TYRA METAB OLIC PANEL eGFR 66 mL/mi n/1.7 3m2 > or = 60 normal Not Available [address], [address], 09/17/2023 15:02:32 09/16/20 23 09/17/2023 COMPR EHENS TYRA METAB OLIC PANEL BUN/creatini ne ratio SEE NOTE: (calc ) 6-22 Not Repor roxy: BUN and Creat inine are withi n refer ence range . Not Available [address], [address], 09/17/2023 15:02:32 09/16/20 23 09/17/2023 COMPR EHENS TYRA METAB OLIC PANEL sodium 144 mmol/ L 135-14 6 normal Not Available [address], [address], 09/17/2023 15:02:32 09/16/20 23 09/17/2023 COMPR EHENS TYRA METAB OLIC PANEL potassium 4.4 mmol/ L 3.5-5. 3 normal Not Available [address], [address], 09/17/2023 15:02:32 09/16/20 23 09/17/2023 COMPR EHENS TYRA METAB OLIC PANEL chloride 108 mmol/ L 98-110 normal Not Available [address], [address], 09/17/2023 15:02:32 09/16/20 23 09/17/2023 COMPR EHENS TYRA METAB OLIC PANEL carbon dioxide 23 mmol/ L 20-32 normal Not Available [address], [address], 09/17/2023 15:02:32 09/16/20 23 09/17/2023 COMPR EHENS TYRA METAB OLIC PANEL calcium 9.2 mg/dL 8.6-10 .3 normal Not Available [address], [address], 09/17/2023 15:02:32 09/16/20 23 09/17/2023 COMPR EHENS TYRA METAB OLIC PANEL protein, total 6.5 g/dL 6.1-8. 1 normal Not Available [address], [address], 09/17/2023 15:02:32 09/16/20 23 09/17/2023 COMPR EHENS TYRA METAB OLIC PANEL albumin 4.0 g/dL 3.6-5. 1 normal Not Available [address], [address], 09/17/2023 15:02:32 09/16/20 23 09/17/2023 COMPR EHENS TYRA METAB OLIC PANEL globulin 2.5 g/dL_ (calc ) 1.9-3. 7 normal Not Available [address], [address], 09/17/2023 15:02:32 09/16/20 23 09/17/2023 COMPR EHENS TYRA METAB OLIC PANEL albumin/glob ulin ratio 1.6 (calc ) 1.0-2. 5 normal Not Available [address], [address], 09/17/2023 15:02:32 09/16/20 23 09/17/2023 COMPR EHENS TYRA METAB OLIC PANEL bilirubin, total 0.6 mg/dL 0.2-1. 2 normal Not Available [address], [address], 09/17/2023 15:02:32 09/16/20 23 09/17/2023 COMPR EHENS TYRA METAB OLIC PANEL alkaline phosphatase 70 U/L 35-144 normal Not Available [facility] [place] [facility] [address], [address], 09/17/2023 15:02:32 09/16/20 23 09/17/2023 COMPR EHENS TYRA METAB OLIC PANEL AST 17 U/L 10-35 normal Not Available [address], [address], 09/17/2023 15:02:32 09/16/20 23 09/17/2023 COMPR EHENS TYRA METAB OLIC PANEL ALT 13 U/L 9-46 normal Not Available [address], [address], 09/17/2023 15:02:32 09/16/20 23 09/17/2023 CBC (INCL UDES DIFF/ PLT) white blood cell count 5.9 thous and/u L 3.8-10 .8 normal Not Available [address], [address], 09/17/2023 15:02:33 09/16/20 23 09/17/2023 CBC (INCL UDES DIFF/ PLT) red blood cell count 4.15 geraldo on/uL 4.20-5 .80 low Not Available [address], [address], 09/17/2023 15:02:33 09/16/20 23 09/17/2023 CBC (INCL UDES DIFF/ PLT) hemoglobin 12.7 g/dL 13.2-1 7.1 low Not Available [facility] [address], [address], 09/17/2023 15:02:33 09/16/20 23 09/17/2023 CBC (INCL UDES DIFF/ PLT) hematocrit 38.3 % 38.5-5 0.0 low Not Available [address], [address], 09/17/2023 15:02:33 09/16/20 23 09/17/2023 CBC (INCL UDES DIFF/ PLT) MCV 92.3 fL 80.0-1 00.0 normal Not Available [address], [address], 09/17/2023 15:02:33 09/16/20 23 09/17/2023 CBC (INCL UDES DIFF/ PLT) MCH 30.6 pg 27.0-3 3.0 normal Not Available [address], [address], 09/17/2023 15:02:33 09/16/20 23 09/17/2023 CBC (INCL UDES DIFF/ PLT) MCHC 33.2 g/dL 32.0-3 6.0 normal Not Available [address], [address], 09/17/2023 15:02:33 09/16/20 23 09/17/2023 CBC (INCL UDES DIFF/ PLT) RDW 13.5 % 11.0-1 5.0 normal Not Available [address], [address], 09/17/2023 15:02:33 09/16/20 23 09/17/2023 CBC (INCL UDES DIFF/ PLT) platelet count 191 thous and/u L 140-40 0 normal Not Available [address], [address], 09/17/2023 15:02:33 09/16/20 23 09/17/2023 CBC (INCL UDES DIFF/ PLT) MPV 11.5 fL 7.5-12 .5 normal Not Available [address], [address], 09/17/2023 15:02:33 09/16/20 23 09/17/2023 CBC (INCL UDES DIFF/ PLT) absolute neutrophils 4372 cells /uL 1500-7 800 normal Not Available [address], [address], 09/17/2023 15:02:33 09/16/20 23 09/17/2023 CBC (INCL UDES DIFF/ PLT) absolute lymphocytes 856 cells /uL 850-39 00 normal Not Available [address], [address], 09/17/2023 15:02:33 09/16/20 23 09/17/2023 CBC (INCL UDES DIFF/ PLT) absolute monocytes 572 cells /uL 200-95 0 normal Not Available [address], [address], 09/17/2023 15:02:33 09/16/20 23 09/17/2023 CBC (INCL UDES DIFF/ PLT) absolute eosinophils 83 cells /uL 15-500 normal Not Available [address], [address], 09/17/2023 15:02:33 09/16/20 23 09/17/2023 CBC (INCL UDES DIFF/ PLT) absolute basophils 18 cells /uL 0-200 normal Not Available [address], [address], 09/17/2023 15:02:33 09/16/20 23 09/17/2023 CBC (INCL UDES DIFF/ PLT) neutrophils 74.1 % normal Not Available [address], [address], 09/17/2023 15:02:33 09/16/20 23 09/17/2023 CBC (INCL UDES DIFF/ PLT) lymphocytes 14.5 % normal Not Available [address] [address] [place], [address], 09/17/2023 15:02:33 09/16/20 23 09/17/2023 CBC (INCL UDES DIFF/ PLT) monocytes 9.7 % normal Not Available [facility] [address] [address] [place], [address], 09/17/2023 15:02:33 09/16/20 23 09/17/2023 CBC (INCL UDES DIFF/ PLT) eosinophils 1.4 % normal Not Available [facility] [address] [address] [place], [address], 09/17/2023 15:02:33 09/16/20 23 09/17/2023 CBC (INCL UDES DIFF/ PLT) basophils 0.3 % normal Not Available [facility] [address] [address] [place], [address], 09/17/2023 15:02:33 09/16/2009/17/2023 HEMOG LOBIN A1C hemoglobin A1C 6.8 %_of_ [...] diabe vivi for child wm. Not Available [facility] [address] [address] [place], [address], 09/17/2023 15:02:34 03/11/20 25 03/11/2025 CT, brain , w/o contr ast No observ ation record ed. [address], [place], [address], 03/12/2025 08:24:45 03/11/20 25 03/11/2025 XR, chest , 1 view No observ ation record ed. [address], [place], [address], 03/12/2025 08:25:27 03/12/20 25 03/12/2025 MRI, brain + brain stem, w/o contr ast No observ ation record ed. [address], [place], [address], 03/13/2025 08:19:11 04/09/20 25 04/09/2025 CT, brain , w/o contr ast No observ ation record ed. [address], [place], [address], 04/10/2025 15:55:34 04/09/20 25 04/09/2025 CT, spine , w/o contr ast No observ ation record ed. [address], [place], [address], 04/10/2025 15:56:12 04/09/20 25 04/09/2025 CT, chest + abdom en + pelvi s, w/o contr ast No observ ation record ed. [address], [place], [address], 04/10/2025 15:56:30 04/09/20 25 04/09/2025 XR, knee, 3 view No observ ation record ed. [address], [place], [address], 04/10/2025 15:56:49 04/09/20 25 04/09/2025 XR, knee, 3 view No observ ation record ed. [facility] [address], [place], [address], 04/10/2025 15:57:04 04/12/20 25 04/12/2025 XR, chest No observ ation record ed. [address], [place], [address], 04/12/2025 06:46:32 05/01/20 25 05/01/2025 XR, chest No observ ation record ed. [address], [place], [address], 05/02/2025 06:52:32 Result Notes None recorded. 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 Not Available [facility] 3 14:10:19 Benign essential hypertension 2659345 Active Not Available [facility] 3 14:10:19 Asbestosis 21079589 Active Not Available [facility] 3 14:10:20 Dyspnea 373892237 Active Not Available [facility] 3 14:10:20 Pure hypercholeste rolemia 296029874 Active Not Available [facility] 3 14:10:20 Type 2 diabetes mellitus 86334102 Active Not Available [facility] 3 14:10:20 Pain of shoulder region 80685383 Active Not Available [facility] 3 14:10:20 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 Not Available [employer] 3 14:10:20 Primary malignant neoplasm of prostate 13643169 Active Not Available [employer] 3 14:10:20 Carpal tunnel syndrome 68941263 Active 2017 Not Available [employer] 3 14:10:20 Osteoarthriti s 356974458 Active 2020 Not Available [employer] 3 14:10:20 Senile dementia 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 Active 2024 Eleuterio Hayden MD [address], [place], [address] , [facility] [employer] [facility] [employer] [facility] 5 16:31:40 Type 1 diabetes mellitus 06364552 Active 2024 Mari Mcgarry null, [place] [employer] [facility] [employer] [facility] 17:04:41 Insulin treated type 2 diabetes mellitus 200277964 Active 2024 Mari Mcgarry null, [facility] [employer] [facility] 17:12:02 Unsteady when walking 82217122 Active 2024 Mari Mcgarry null, [place] [employer] [facility] [employer] [facility] 18:00:19 Diabetes mellitus 91121948 Active 2024 Lisseth Casas CMA null, [place] [employer] [facility] [employer] [facility] 17:13:24 Problem Notes None recorded. Procedures Surgical History Date Name Laterality Status Provider Name and Address Organization Details Recorded Time 04/04/2025 Transition al_Care_Ma nagement cancelled CLEMENTE Garcia [address], [place], [address], [facility] [employer] [facility] [employer] [facility] 04/03/2025 16:27:37 Imaging Results None recorded. Procedure Notes None recorded. Medical Equipment None Reported. Allergies Allergen ID Allergen Name Allergen Category Reaction Reaction Severity Criticality Documentation Date Start Date Code Code System Note Provider Name and Address Organization Details Recorded Time 76902 Relafen medicatio n rash Not available Not available 12/17/202279681 4 RxNorm Not Available [facility] 3 14:12:10 Medications Name Sig Start Date Stop Date Status Note LastModified by Organization Details LastModified Time amoxicillin 500 mg capsule Take 1 capsule 3 times a day by oral route for 10 days. 01/09 completed Not Available Not Available Not Available metformin 500 mg tablet Take 1 tablet twice a day by oral route. 04/03 completed Not Available Not Available Not Available Augmentin 875 mg-125 mg tablet Take 1 tablet every 12 hours by oral route. 01/09 completed Not Available Not Available Not Available atorvastati n 20 mg tablet TAKE 1 TABLET BY MOUTH ONCE DAILY 04/03 completed Not Available Not Available Not Available benzonatate 200 mg capsule Take 1 [...] completed Not Available Not Available Not Available Accu-Chek Softclix Lancets USE TO TEST BLOOD SUGAR DAILY active Not Available Not Available No t Available Ciloxan 0.3 % eye drops Instill 1 DROP EVERY 2 HOURS while awake active Not Available Not Available No t Available aspirin 81 mg tablet,josé luis yed release TAKE 1 TABLET BY MOUTH EVERY DAY active Not Available Not Available No t Available tamsulosin 0.4 mg capsule TAKE 1 CAPSULE BY MOUTH EVERY DAY active Not Available Not Available No t Available benzonatate 100 mg capsule 2 three times a day 01/09 completed Not Available Not Available Not Available metformin 1,000 mg tablet TAKE 1 TABLET BY MOUTH TWICE DAILY active Not Available Not Available No t Available lisinopril 10 mg tablet TAKE 1 TABLET BY MOUTH EVERY DAY active Not Available Not Available No t Available Tylenol 325 mg tablet Take 2 tablets every 6 hours by oral route as needed. active Not Available Not Available No t Available verapamil ER (SR) 240 mg tablet,exte [...] completed Not Available Not Available Not Available glipizide 5 mg tablet TAKE 1 TABLET BY MOUTH TWICE DAILY active Not Available Not Available No t Available Ventolin HFA 90 mcg/actuati on aerosol inhaler Inhale 2 puffs every 4 hours by inhalatio n route. 04/03 completed Not Available Not Available Not Available Benadryl 25 mg capsule Take 2 capsules every 4 hours by oral route as needed. 09/17 completed Not Available Not Available Not Available Mucinex 600 mg tablet, extended release Take 1 tablet every 12 hours by oral route as needed. 09/17 completed Not Available Not Available Not Available insulin aspart (U-100) 100 unit/mL (3 mL) subcutaneou s pen Test glucose prior to each meal, inject insulin via sliding scale as follows-2 01-250-2 units sub q, 251-300-3 units sub q, 301-350-4 units sub q, 351-400-5 units sub q, over 400-call MD-Max dose 15 units daily. 2024 active Not Available Not Available Not Avai lable Vytorin 10 mg-40 mg tablet once daily active Not Available Not Available No t Available Januvia 50 mg tablet Take 1 tablet every day by oral route. 2024 active Not Available Not Available Not Avai lable hydrochloro thiazide 12.5 mg tablet Take 1 tablet every day by oral route. 2012 active Not Available Not Available Not Avai lable ferrous sulfate 324 mg (65 mg iron) tablet,josé luis yed release Take 1 tablet every day by oral route. 09/17 completed Not Available Not Available Not Available FeroSul 325 mg (65 mg iron) tablet TAKE 1 TABLET BY MOUTH DAILY active Not Available Not Available No t Available Accu-Chek Guide test strips USE TO TEST BLOOD SUGAR DAILY active Not Available Not Available No t Available Accu-Chek Guide Me Glucose Meter USE TO TEST BLOOD SUGAR ONCE DAILY active Not Available Not Available No t Available Vitals Date Recorded Body height Body mass index (BMI) Body weight Heart rate Body temperature Oxygen saturation Oxygen saturation in Arterial blood by Pulse oximetry Systolic And Diastolic Provider Name and Address Organization Details Last Updated DateTime 3 161.29 cm 26.9 kg/m2 00628.2 2 g 88 /min 96.3 [degF] 95 % 95 % 120/64 mm[Hg] Mari HERNANDEZ [place] [employer] [facility] 3 15:07:39 Date Recorded Body height Body mass index (BMI) Body weight Heart rate Body temperature Oxygen saturation Oxygen saturation in Arterial blood by Pulse oximetry Systolic And Diastolic Provider Name and Address Organization Details Last Updated DateTime 4 161.29 cm 28.2 kg/m2 18563.9 6 g 99 /min 97 [degF] 93 % 93 % 138/78 mm[Hg] [facility] [employer] [facility] [employer] 4 15:30:36 Date Recorded Body height Body mass index (BMI) Body weight Heart rate Body temperature Oxygen saturation Oxygen saturation in Arterial blood by Pulse oximetry Systolic And Diastolic Provider Name and Address Organization Details Last Updated DateTime 5 157.48 cm 24.9 kg/m2 65853.5 6 g 91 /min 97 [degF] 94 % 94 % 92/60 mm[Hg] [facility] [employer] [facility] [employer] 5 16:14:46 Date Recorded Body height Body mass index (BMI) Body weight Heart rate Body temperature Oxygen saturation Oxygen saturation in Arterial blood by Pulse oximetry Systolic And Diastolic Provider Name and Address Organization Details Last Updated DateTime 3 161.29 cm 27.2 kg/m2 20493.4 1 g 88 /min 97 [degF] 96 % 96 % 140/82 mm[Hg] Mari [facility] [employer] [facility] [employer] 3 15:48:20 Date Recorded Heart rate Provider Name an d Address Organization Details Last Updated DateTime 09/15/2023 100 /min Eleuterio Hayden MD [address], [address], [facility] [employer] [facility] 09/15/2023 15:45:20 Date Recorded Body height Body mass index (BMI) Body weight Body temperature Oxygen saturation Oxygen saturation in Arterial blood by Pulse oximetry Systolic And Diastolic Provider Name and Address Organization Details Last Updated DateTime 3 161.29 cm 27.4 kg/m2 61158 g 97 [degF] 97 % 97 % 138/78 mm[Hg] [facility] [employer] 3 15:30:00 Social History Question Answer Notes LastModified by Organizat ion Details LastModified Time Tobacco Smoking Status Former Smoker quit over 50 yrs ago Not Available [employer] 12/17/2022 14:09:25 Do You Have An Advance Directive? No MIGRATION.[id number] Information not available 12/17/2022 Are You Blind Or Do You Have Difficulty Seeing? No MIGRATION.57321 15462 Information not available 12/17/2022 Are You Deaf Or Do You Have Serious Difficulty Hearing? No MIGRATION.54490 32399 Information not available 12/17/2022 What Type Of Diet Are You Following? REGULAR MIGRATION.32187 65124 Information not available 12/17/2022 Have There Been Any Changes To Your Family Or Social Situation? No MIGRATION.38574 51278 Information not available 12/17/2022 What Is The Fluoride Status Of Your Home? Unknown MIGRATION.88001 02659 Information not available 12/17/2022 When Did You Quit Smoking? 17+yearssincelastci garette MIGRATION.10391 58291 Information not available 12/17/2022 Do You Use Insect Repellent Routinely? No MIGRATION.29422 61549 Information not available 12/17/2022 [facility] MIGRATION.89904 27752 Information not available 12/17/2022 What Was The Date Of Your Most Recent Tobacco Screening? 05/13/2022 MIGRATION.18986 47945 Information not available 12/17/2022 Do You Use Your Seat Belt Or Car Seat Routinely? Yes MIGRATION.66002 55756 Information not available 12/17/2022 Do You Have Smoke And Carbon Monoxide Detectors In Your Home? Yes MIGRATION.85455 72588 Information not available 12/17/2022 Are You Passively Exposed To Smoke? No MIGRATION.22185 08641 Information not available 12/17/2022 Are There Any Smokers In Your House? No MIGRATION.54650 70526 Information not available 12/17/2022 Do You Use Sunscreen Routinely? No MIGRATION.66810 81257 Information not available 12/17/2022 Has Tobacco Cessation Counseling Been Provided? No MIGRATION.24593 25226 Information not available 12/17/2022 Do You Have Difficulty Walking Or Climbing Stairs? Yes MIGRATION.40899 06720 Information not available 12/17/2022 Do You Have Any Dietary Restrictions? No MIGRATION.22307 13959 Information not available 12/17/2022 Sex: Unknown Functional Status Question Answer Note LastModified by Organizat ion Details LastModified Time Do you or have you ever used any other forms of tobacco or nicotine? No MIGRATION.29804 53684 Information not available 12/17/2022 What is your level of alcohol consumption? Occasional MIGRATION.96333 76746 Information not available 12/17/2022 Do you or have you ever used smokeless tobacco? Never used smokeless tobacco MIGRATION.07421 75973 Information not available 12/17/2022 Do you have transportation difficulties? No MIGRATION.33349 23558 Information not available 12/17/2022 Are you able to walk? YESASSIST cane MIGRATION.98447 74669 Information not available 12/17/2022 Do you have difficulty doing errands alone? No MIGRATION.33994 46937 Information not available 12/17/2022 Are you able to care for yourself? Yes MIGRATION.54339 73041 Information not available 12/17/2022 Do you have difficulty dressing or bathing? No MIGRATION.48762 37935 Information not available 12/17/2022 Do you or have you ever used e-cigarettes or vape? Never used electronic cigarettes MIGRATION.53709 13528 Information not available 12/17/2022 What is your exercise level? Occasional active lifestyle MIGRATION.33724 09128 Information not available 12/17/2022 Mental Status Question Answer Note LastModified by Organizat ion Details LastModified Time Do you feel stressed (tense, restless, nervous, or anxious, or unable to sleep at night)? [id number] MIGRATION.25435476 26 Information not available 12/17/2022 Do you have difficulty concentrating, remembering or making decisions? No MIGRATION.50573889 26 Information not available 12/17/2022 Family History [...] HEARING PROBLEMS N MUMPS N SHINGLES N BOWEL PROBLEMS N DEPRESSION (INCLUDING POST ) N STROKE/TIA N ULCERS N BENIGN PROSTATIC HYPERPLASIA N MEASLES N HYPOTENSION N MYOCARDIAL INFARCTION N OBESITY N GERD/NAUSEA N ANEURYSM N URINARY/BLADDER/KIDNEY PROBLEMS N CORONARY ARTERY DISEASE (CAD) N ADDICTION CONCERNS N ENDOMETRIOSIS N Impotence N USE OF BLOOD THINNERS N SKIN [...] GLAUCOMA N FOOT PROBLEM N DIVERTICULITIS N CHICKENPOX N SLEEP APNEA N INFECTIOUS DISEASE N HEART ARRHYTHMIA N PROSTATE N INSOMNIA N HIGH CHOLESTEROL / HYPERLIPIDEMIA Y HYPERTHYROIDISM N EYE PROBLEMS N EDEMA N CHRONIC PAIN SYNDROME N HYPOTHYROIDISM N CAROTID BLOCKAGE N CONSTIPATION N BACK / NECK PROBLEMS N HAVE YOU BEEN HOSPITALIZED OR SEEN IN [facility] IN THE PAST YEAR ? N ATHEROSCLEROSIS N BREAST PROBLEMS N DIALYSIS N ECZEMA N OSTEOPOROSIS N ARTHRITIS N NO SIGNIFICANT PAST MEDICAL HISTORY N APPENDICITIS N DIABETES, TYPE Y BAD TEETH N ENT N HEARTBURN / REFLUX N AUTISM SPECTRUM DISORDER (ASD) N HEPATITIS / LIVER DISEASE N GOUT N SLEEP DISORDER N ALZHEIMER'S DISEASE N Brain Problems N HERPES N DEMENTIA N HEADACHES/MIGRAINES N SEIZURES/EPILEPSY N VASCULAR DISEASE N PACEMAKER N Blood Disorder N DIZZINESS N HEART DISEASE/HEART PROBLEMS N KIDNEY DISEASE N MULTIPLE SCLEROSIS N CARDIAC ARRHYTHMIA N CANCER: SPECIFY Y ATRIAL FIBRILLATION N Gall Stones N PULMONARY EMBOLISM N AUTOIMMUNE DISEASE N Immunizations Vaccine Type Date Status Note Provider Nam e and Address Organization Details Recorded Time Influenza, split virus, trivalent, preservative 3 completed Not Available [facility] 12/17/2022 14:12:07 Influenza, split virus, trivalent, preservative 4 completed Not Available [facility] 12/17/2022 14:12:08 pneumococcal polysaccharide PPV23 0 completed Not Available [facility] 12/17/2022 14:12:08 Influenza, high-dose, trivalent, PF 8 completed Not Available [facility] 12/17/2022 14:12:08 Influenza, high-dose, trivalent, PF 7 completed Not Available [facility] 12/17/2022 14:12:08 Influenza, high-dose, trivalent, PF 6 completed Not Available [facility] 12/17/2022 14:12:08 Influenza, high-dose, quadrivalent, PF 2 completed Not Available [facility] 12/17/2022 14:12:08 Influenza, split virus, quadrivalent, preservative 5 completed Not Available [facility] 12/17/2022 14:12:09 Pneumococcal conjugate PCV 13 5 completed Not Available [facility] 12/17/2022 14:12:09 Past Encounters Encounter ID Performer Location Encounter Start Date Encounter Closed Date Diagnosis/Indication Diagnosis SNOMED-CT Code Diagnosis ICD10 Code Diagnosis Note [id number] Eleuterio Hayden MD [facility] Internal [facility] [place] [address] [place] [address] y , [place] [address] 01/15/2021 00:00:00 01/15/2021 17:19:23 [id number] Eleuterio Hayden MD [facility] Internal [facility] [place] [address] [place] [address] [place] [address] 05/14/2021 00:00:00 05/14/2021 11:53:13 [id number] Eleuterio Hayden MD [facility] Internal [facility] [place] [address] [place] [address] [place] [address] 09/17/2021 00:00:00 09/17/2021 15:33:05 [id number] Eleuterio Hayden MD [facility] Internal [facility] [place] [address] [place] [address] [place] [address] 01/14/2022 00:00:00 01/14/2022 15:27:04 [id number] Eleuterio Hayden MD [facility] Internal [facility] [place] [address] [place] [address] [place] [address] 05/13/2022 00:00:00 05/13/2022 15:50:51 [id number] Eleuterio Hayden MD [facility] Internal [facility] [place] [address] [place] [address] [place] [address] 09/09/2022 00:00:00 09/09/2022 15:34:49 [id number] Eleuterio Hayden MD [facility] Internal Med [place] [address] [place] [address] [place] [address] 01/06/2023 15:02:31 01/06/2023 15:20:44 Benign essential hypertension 5925978 I10 Pure hypercholesterolemia 175659699 E78.00 Type 2 heidi betes mellitus 77028924 E11.9 Primary ma lignant neoplasm of prostate 51319587 C61 [id number] Eleuterio Hayden MD [facility] Internal [place] [address] [place] [address] y , [place] [address] 05/19/2023 15:26:44 05/19/2023 16:26:46 Benign essential hypertension 7495503 I10 Pure hypercholesterolemia 018887615 E78.00 Type 2 heidi betes mellitus 63187207 E11.9 Primary ma lignant neoplasm of prostate 36846722 C61 [id number] Eleuterio Hayden MD [facility] Internal [facility] [place] [address] [place] [address] y , [place] [address] 09/15/2023 15:24:27 09/15/2023 15:52:34 Benign essential hypertension 5248823 I10 Pure hypercholesterolemia 881956656 E78.00 Type 2 heidi betes mellitus 39387188 E11.9 [id number] Eleuterio Hayden MD [facility] [address] [place] [address] y , [place] [address] 01/12/2024 15:20:24 01/12/2024 16:04:57 Benign essential hypertension 3430120 I10 Pure hypercholesterolemia 664320038 E78.00 Type 2 heidi betes mellitus 57762618 E11.9 Primary ma lignant neoplasm of prostate 79295330 C61 [id number] Eleuterio Hayden MD [facility] Internal Med [facility] 24 [address] [facility] [address] [place] [address] 04/03/2025 15:53:12 04/03/2025 16:54:13 General examination of patient 057432326 Z00.00 Benign ess ential hypertension 7298816 I10 Pure hypercholesterolemia 587846096 E78.00 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 F02.A4 Type 2 heidi betes mellitus 18822843 E11.9 Health Concerns Section Related Observation LastModified by Organization Detai ls LastModified Time None Recorded Concern Status LastModified by Organization Details LastModified Time None Recorded Advance Directives Directive N: Payers Insurance Date Sequence Insurance Name Policy Number Policy Nunez Covered Member ID Nunez Member ID Guarantor Name 04/03/2025 1 [employer] (MEDICARE REPLACEMENT /ADVANTAGE - HMO) Yobani Escamilla [id number] Yobani Escamilla 04/03/2025 1 [employer] (MEDICARE REPLACEMENT /ADVANTAGE - HMO) [id number] Yobani Chaviralinacyril [id number] Yobani Chaviralinacyril Notes Date Note Type Note Provider Name and Address Organization Details Recorded Time 01/07/20 23 text/htm l Patient Name: Yobani EscamillaDate Of [...] and instructed to make appointment with the oil recovery operator or inkjet operator #4. Hx of Ca of the prostate [...] Reviewed 01/06/2023Relafen RashLevaquin Rash And ItchingVaccination and Naxbkedzgqjm0690-29 Uuclblkve4871-46 Prevnar 462033-78 PneumovaxSurgical HistoryRt. Shoulder Surgery, AppendectomyPreventative Testing Confirmed by Our Blgosuy9809/10/2022 ALBUMIN 4.0 G/DL09/10/2022 MICRO ALBUMIN 1.5 MG/DL09/10/2022 HAIC 7.0 % OF TOTAL HGB H001/15/2022 PSA <0.04 NG/ML06/13/2019 LETTER TQLQDPYXUVWHY77/06/2017 UPPER JOBAGVIQH48/06/2017 COLONOSCOPY (10 YEARS) 711/07/2011 PSA04/02/2011 CT TH[employer]AXSocial [...] , AAA (1) Eleuterio Hayden MD [address] [facility], [facility] [address], [place], [address], [place] [facility] [place] [employer] [facility] 01/06/2023 15:17:04 05/19/20 23 text/htm l Patient Name: Yobani Schultz Of [...] non healing lesions. [facility]: 7.1 Calculated MB mg%. Average blood [...] Reviewed 05/19/2023Relafen RashLevaquin Rash And ItchingVaccination and Pltffbdqfdbr9052-50 Gfcacnvyy7957-81 Prevnar 724745-42 PneumovaxSurgical HistoryRt. Shoulder Surgery, AppendectomyPreventative Testing Confirmed by Our Xouuzup7302/10/2023 ALBUMIN 3.9 G/DL02/10/2023 PSA <0.04 NG/ML02/10/2023 MICRO ALBUMIN 1.8 MG/DL02/10/2023 HAIC 7.1 % OF TOTAL HGB H006/13/2019 LETTER UYNONPNPUKKND43/06/2017 UPPER JURVNUVMG41/06/2017 COLONOSCOPY (10 YEARS) 711/07/2011 PSA04/02/2011 CT TH[employer]AXSocial [...] , AAA (1) Eleuterio Hayden MD [address] [facility], [facility] [address], [place], [address], [place] [facility] [employer] 05/19/2023 16:07:44 09/15/20 23 text/htm l Patient Name: Yobani Schultz Of [...] Reviewed 09/15/2023Relafen RashLevaquin Rash And ItchingVaccination and Yrrvbuvjyfzi1858-52 Xswsbvbnd0856-38 Prevnar 13 Vh0590-47 PneumovaxSurgical HistoryRt. Shoulder Surgery, AppendectomyPreventative Testing Confirmed by Our Tcdfmln6602/10/2023 ALBUMIN 3.9 G/DL N002/10/2023 PSA <0.04 NG/ML N002/10/2023 MICRO ALBUMIN 1.8 MG/DL N002/10/2023 HAIC 7.1 % OF TOTAL HGB H006/13/2019 LETTER QXFPNXGVMCPJS01/06/2017 UPPER RNPDVLYTQ86/06/2017 COLONOSCOPY ([address] THORAXSocial HistorySmoking Hx: [...] , AAA (1) Eleuterio Hayden MD [address] [facility], [facility] [address], [place], [address], [facility] [employer] [facility] 09/15/2023 15:51:50 01/12/20 24 text/htm l Patient Name: Yobani Schultz Of [...] ReviewedRelafen RashLevaquin Rash And Itching Vaccination and Birhukmwqgek2279-26 Muenyzrou5565-11 Prevnar 13 Aj0384-76 Pneumovax Surgical Xxzrprt8381-72 Rt. Shoulder Csfrhdc5180-69 Appendectomy Preventative Esywrhb2009/16/2023 ALBUMIN 4.0 G/DL N111/16/2022 MICRO ALBUMIN 0.9 MG/DL N111/16/2022 HAIC 6.8 % OF TOTAL HGB H002/10/2023 PSA <0.04 NG/ML N006/13/2019 QNHSOSMWRBKKA88/06/2017 UPPER MHHLDZABT27/06/2017 COLONOSCOPY ([address] [employer]AX Social HistorySmoking Hx: Does not smoke cigarettes. 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 [employer] [facility] 01/12/2024 15:57:13 04/03/20 25 text/htm l Patient Name: Yobani Schultz Of Service: Thursday ( 04.03.2025 ): 1935 Age: 89 There has been approximately a 26 lb weight loss since 09/15/2023. This represents approximately a 16.6% change in weight. Weight change attributable to lifestyle changes. Vital Signs:Blood Pressure: Sitting Rt. Arm 92/60Pulse: Sitting 91 /min and RegularRespiratory Rate: 16Height 62 in or 1.6 mWeight 131 lb or 59.4 kgBMI 24.0Temperature: 97 F or 36.1 CPulse Oximetry: 94 % at rest on no oxygen Chief Complaint: Addressed in HPI Problems or conditions discussed in the HPI were the only ones reviewed during the encounter.Only social and family history addressed in the HPI were reviewed during this encounter. A significant, separate E/M service was performed to evaluate the current and new problems. Attendants(s) + GrandchildrenConstitutional and Systemic Symptoms:none Medication Reconciliation: from medication list. Awwshfyvjmk18-28-6425: CT brain without contrast no acute intracranial findings noted.03-11-2025: Chest x-ray no pulmonary hvqlucrtfpe30-99-5913: MRI of the brain with and without contrast showed no evidence any acute intracranial process. Brain atrophy with deep white matter ischemic changes noted. Paranasal sinuses normal. Mastoids effusion seen in the right mastoid air cells. History of Present Illness Reviewed the findings of the preventative health visit. Addressed all areas with the patient, patient's family or caregivers. Preventative examinations and testing immunizations - vaccinations, colonic neoplasm screening and PSA all reviewed and ordered where patient was amenable to the recommendations. Cognitive function see HPI but demonstrated no overall change in cognitive status . Depression addressed and where necessary medications were adjusted or instituted. End of life and living will briefly discussed with patient and where these can be filled out and legally executed. Other blood and imaging studies were ordered if considered necessary. Other recommendations may be found in the encounter note. #1. Essential Hypertension: Stage: Stage I Interval [...] of cholesterol management and include diet and Apparently was on Lipitor but stopped while in the hospital. #3. Type II Diabetes: Has had no polyuria polyphagia or polydipsia. Has had no hypoglycemic like responses. No new history of any numbness, tingling, weakness or visual problems. No nausea, anorexia or other constitutional symptoms. There has been no foot problems or non healing lesions. The last HAIC was none done recently. CGM: No. Average blood sugars unknown. Checking sugars : infrequently. Medication Types Include: Metformin, DDP4 inhibitors, SGLT2 inhibitors and Insulin Secondary complications include none. Macro-vascular complications include none. Therapy reviewed regarding diabetic management and include Glucophage, Insulin Aspart and Januvia Compliance: good Renal Protection: NAHED inhibitors Lipid management: Statins in the past but was taken off these in the hospital Urinary microalbumin: A1 . Ophthalmological: has seen eye doctor within the last year. Control: Indeterminate #4. Hx of dementia. Currently stable. There has been no clinical change in cognitive functions. Performance of activities of daily living has remained unchanged. Currently taking no medication Mini-Cog Score: Mild Cognitive Impairment #5. The patient has mobility limitation that significantly impairs their ability to participate in one or more mobility related activities of daily living in the home. Needs a walker with following description: standard and wheels. Wellness Evaluation PHQ-2 Score Last Two Weeks Last Two Weeks: 0: Not at all 1: Several Days 2: More than half 3: Almost Every day #1. Little interest or pleasure in doing things: Not At All :Score 0#2. Feeling down, depressed, or hopeless: Not At All :Score 0Minimal or no Depression 0FAST Stage: 1 No functional decline Basic ADLS Ambulation Normal YesEating YesBed Transfer YesWalker YesCane NoFalls NoMultiple Falls NoBathing and Showering YesDressing YesFeeding YesFunctional Mobility YesPersonal Hygiene YesToilet Hygiene YesHome Safety No Instrumental ADLS House Work NoTaking Medications NoShopping NoTelephone YesUsing Technology YesTransportation NoPreparing Meals Yes Additional Topics Advanced Directives DeclinedLiving Will Declined Mini Mental Status Exam OrientationYear 1Season 0Month 1Date 1Day 1Score: 4 LocationCountry 1County 1City 1Facility 1Room 1Score: 5 RegistrationBall 0Car 0Man 0Score: 0 AttentionD 1L 1R 0O 0W 0Score: 2 RecallHouse 0Car 0Airplane 0Score: 0 LanguageWatch 1Pencil 1Score: 2 RepetitionNo ifs, ands or buts 1Score: 1 SentenceWrite a Sentence 0Score: 0 ReadingClose Eyes 1Score: 1 PentagonsCopy Design 0Score: 0 CommandHand 1Fold In Half 1Put Down 1Score: 3 Total Test Score: 18 /30 Moderate Impairment Possible Functional ImpairmentActivities of Daily Living: Dressing, Grooming,TolietCommunication: Sentence Fragments,Vague termsMemory: Spelling world backword, Three step command Social and Physical Activities Drinking History: NoneExercise 20 Minutes per Week: No, do not exercise muchDifficulty Driving Car: NoOther Problems: None,Falling,Orthostatic,Troubl e Eating,Teeth Denture Problems,Problems using Telephone,Tiredness or fatigue Smoking History Does not smokeCannabis History Does Not Use Additional Comments Patient is having difficulty ambulating. Will need a walker for transportation at home. Is unable to ambulate without a high risk of falling. Concerned about his ability to live alone at home under any circumstances. Pending home health review End Of Wellness Section Active Medication ListFerrous Sulfate 325 MG TABLET One Twice A DayJanuvia 50 MG TABLET, FILM COATED Once DailyFlomax .4 MG CAPSULE Once Daily At BedtimeTylenol Extra Strength One To Two Tablets Every Six Hours As NeededInsulin Aspart 100 IU/ML INJECTION, SOLUTION Sliding ScaleAspirin 81 MG One DailyLisinopril 10 MG (TABLET - ORAL) Once DailyGlucophage 1GRM One Twice A Day Adverse Drug Reactions ReviewedRelafen RashLevaquin Rash And Itching Vaccination and Immunization ( ) 2010-08 PNEUMOVAX(X) 2022-08 INFLUENZA(X) 2014-12 PREVNAR 13 GC PREVNAR 20 NeededImmunizations and Vaccinations Discussed and Implemented if feasible In the Office. Else referred to pharmacies. Surgical History 1992-10 Rt. Shoulder [id number] Appendectomy Preventative Testing ( ) 09/16/2023 Albumin 4.0 G/DL N( ) 09/16/2023 Micro Albumin 0.9 MG/DL N( ) 09/16/2023 HAIC 6.8 % OF TOTAL HGB H( ) 02/10/2023 PSA <0.04 NG/ML N( ) 06/13/2019 Ophthalmology( ) 07/24/2017 Upper Endoscopy( ) 07/24/2017 Colonoscopy (10 Years) 07/24/2027( ) 04/02/2011 CT ThoraxPreventative Testing Discussed and Scheduled if Acceptable to Patient Social HistorySmoking Hx: Does not smoke cigarettes. 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
== END 2025-05-04 15:57 ==
LOC: ANHED 16:35 → ANHIMU 20:04 → ANHICU 05-03 09:49 → ANH3MEDSUR 05-05 07:19 → ANHICU 05-05 07:19 → ANHIMU 05-05 07:19
PROVIDERS: General Practice; Admitting Provider Internal Medicine; Emergency Provider Emergency Medicine; PCP Internal Medicine; Visit Provider Internal Medicine
DX: E11.649 Type 2 diabetes mellitus with hypoglycemia without coma (principal); N17.9 Acute kidney failure, unspecified; R41.82 Altered mental status, unspecified; R62.7 Adult failure to thrive; Z68.20 Body mass index [BMI] 20.0-20.9, adult; F03.90 Unspecified dementia, unspecified severity, without behavioral disturbance, psychotic disturbance, mood disturbance, and anxiety; I10 Essential (primary) hypertension; J30.9 Allergic rhinitis, unspecified; E78.5 Hyperlipidemia, unspecified; M19.90 Unspecified osteoarthritis, unspecified site; I47.19 Other supraventricular tachycardia; Z87.891 Personal history of nicotine dependence; Z79.4 Long term (current) use of insulin; Z79.82 Long term (current) use of aspirin; Z79.84 Long term (current) use of oral hypoglycemic drugs; Z79.899 Other long term (current) drug therapy; Z85.46 Personal history of malignant neoplasm of prostate; Z96.1 Presence of intraocular lens; Z98.42 Cataract extraction status, left eye; Z98.41 Cataract extraction status, right eye; Z98.890 Other specified postprocedural states
CPT/HCPCS: 36415; 71045; 80048; 80053; 81001; 82274; 82948; 83735; 84100; 84443; 85025; 85610; 85730; 87040; 87641; 96361; 96365; 96366; 96367; 96375; 97162; 97165; 99285; A9270; G0378; J0696; J3475; J7030; J7040